=== PATIENT | female | born 1935 | race Caucasian/White ===

== ENCOUNTER 2017-05-11 18:55 | Emergency (ER) | payer MEDICARE, OTHER ==
[~2017-05-11] VITALS: Ht 157.5 cm; Wt 65.8 kg
[2017-05-11] MEDS ORDERED: IV NORMAL SALINE 500ML BAG 500 ML IV ONE (19:15)
--- NOTE | 2017-05-11 19:16 | PHYS DOC ---
Past Medical History Past Medical History: COPD, High Cholesterol, Hypertension, Hypothyroid, Other Additional Past Medical Histor: seasonal allergies Past Surgical History: Appendectomy, Cholecystectomy, Hip Replacement Additional Past Surgical Histo: L hip Alcohol Use: None Drug Use: None Adult General Chief Complaint Chief Complaint: MULTIPLE COMPLAINTS HPI HPI Patient is a 81 year old female who presents with 2-3 day history of mild to moderate nasal congestion cough sore throat and mild headache subjective fevers. No nausea vomiting or diarrhea. Decreased by mouth fluid intake. Denies sick contacts. Review of Systems Review of Systems Constitutional: Denies fever or chills [] Eyes: Denies change in visual acuity, redness, or eye pain [] HENT: Denies nasal congestion or sore throat [] Respiratory: Denies cough or shortness of breath [] Cardiovascular: No additional information not addressed in HPI [] GI: Denies abdominal pain, nausea, vomiting, bloody stools or diarrhea [] : Denies dysuria or hematuria [] Musculoskeletal: Denies back pain or joint pain [] Integument: Denies rash or skin lesions [] Neurologic: Denies headache, focal weakness or sensory changes [] Endocrine: Denies polyuria or polydipsia [] Current Medications Current Medications Current Medications Medications (Trade) Dose Ordered Sig/Silvia Start Time Stop Time Status Last Admin Dose Admin Albuterol Sulfate (Ventolin Neb Soln) 2.5 mg 1X ONCE 05/11/17 20:30 05/11/17 20:35 DC 05/11/17 20:45 2.5 MG Ipratropium [place] (Atrovent) 0.5 mg 1X ONCE 05/11/17 20:30 05/11/17 20:35 DC 05/11/17 20:45 0.5 MG Sodium Chloride 500 ml @ 500 mls/hr 1X ONCE 05/11/17 19:15 05/11/17 20:14 DC 05/11/17 19:47 500 MLS/HR Allergies Allergies Allergies Coded Allergies Type Severity Reaction Last Updated Verified No Known Drug Allergies 07/15/16 No Physical Exam Physical Exam Constitutional: Well developed, well nourished, no acute distress, non-toxic appearance. [] HENT: Normocephalic, atraumatic, bilateral external ears normal, oropharynx moist, no oral exudates, nose normal. [] Eyes: PERRLA, EOMI, conjunctiva normal, no discharge. [] Neck: Normal range of motion, no tenderness, supple, no stridor. [] Cardiovascular:Heart rate regular rhythm, no murmur [] Lungs & Thorax: Bilateral breath sounds clear to auscultation [] Abdomen: Bowel sounds normal, soft, no tenderness, no masses, no pulsatile masses. [] Skin: Warm, dry, no erythema, no rash. [] Back: No tenderness, no CVA tenderness. [] Extremities: No tenderness, no cyanosis, no clubbing, ROM intact, no edema. [] Neurologic: Alert and oriented X 3, normal motor function, normal sensory function, no focal deficits noted. [] Psychologic: Affect normal, judgement normal, mood normal. [] Current Patient Data Vital Signs Vital Signs Date Time Temp Pulse Resp B/P (MAP) Pulse Ox O2 Delivery O2 Flow Rate FiO2 05/11/17 21:42 96 151/94 (113) 95 Room Air 05/11/17 21:12 2.0 05/11/17 19:21 97.9 22 97.9 Lab Values Laboratory Tests Test 05/11/17 19:40 White Blood Count 6.0 x10^3/uL (4.0-11.0) Red Blood Count 3.60 x10^6/uL (3.50-5.40) Hemoglobin 13.1 g/dL (12.0-15.5) Hematocrit 38.7 % (36.0-47.0) Mean Corpuscular Volume 108 fL (79-100) H Mean Corpuscular Hemoglobin 36 pg (25-35) H Mean Corpuscular Hemoglobin Concent 34 g/dL (31-37) Red Cell Distribution Width 16.2 % (11.5-14.5) H Platelet Count 153 x10^3/uL (140-400) Neutrophils (%) (Auto) 72 % (31-73) Lymphocytes (%) (Auto) 15 % (24-48) L Monocytes (%) (Auto) 8 % (0-9) Eosinophils (%) (Auto) 4 % (0-3) H Basophils (%) (Auto) 0 % (0-3) Neutrophils # (Auto) 4.3 x10^3uL (1.8-7.7) Lymphocytes # (Auto) 0.9 x10^3/uL (1.0-4.8) L Monocytes # (Auto) 0.5 x10^3/uL (0.0-1.1) Eosinophils # (Auto) 0.2 x10^3/uL (0.0-0.7) Basophils # (Auto) 0.0 x10^3/uL (0.0-0.2) Sodium Level 138 mmol/L (136-145) Potassium Level 3.8 mmol/L (3.5-5.1) Chloride Level 99 mmol/L (98-107) Carbon Dioxide Level 33 mmol/L (21-32) H Anion Gap 6 (6-14) Blood Urea Nitrogen 16 mg/dL (7-20) Creatinine 1.0 mg/dL (0.6-1.0) Estimated GFR (Cockcroft-Gault) 53.1 BUN/Creatinine Ratio 16 (6-20) Glucose Level 102 mg/dL (70-99) H Calcium Level 9.6 mg/dL (8.5-10.1) Total Bilirubin 0.6 mg/dL (0.2-1.0) Aspartate Amino Transferase (AST) 19 U/L (15-37) Alanine Aminotransferase (ALT) 19 U/L (14-59) Alkaline Phosphatase 85 U/L (46-116) Total Protein 7.9 g/dL (6.4-8.2) Albumin 4.0 g/dL (3.4-5.0) Albumin/Globulin Ratio 1.0 (1.0-1.7) Laboratory Tests 05/11/17 19:40 Laboratory Tests 05/11/17 19:40 EKG EKG [] Radiology/Procedures Radiology/Procedures Chest x-ray[] negative per my review Course & Med Decision Making Course & Med Decision Making Pertinent Labs and Imaging studies reviewed. (See chart for details) Chest x-ray was negative and labs were unremarkable. 22:07 PM reexamination: Patient was resting comfortably had no headache or throat felt better she was quite happy and wanted to go home. I discussed the labs including negative strep screen and chest x-ray with the patient and family. this is more likely to be a viral syndrome and recommended supportive care with close follow-up. They seem to be quite agreeable for this. [] Dragon Disclaimer Dragon Disclaimer This electronic medical record was generated, in whole or in part, using a voice recognition dictation system. Departure Departure Impression: Primary Impression: Viral syndrome Disposition: HOME, SELF-CARE Condition: IMPROVED Referrals: QUINCY ALCANTAR MD (PCP) Patient Instructions: Viral Syndrome Scripts No Active Prescriptions or Reported Meds MINDY GAINES MD May 11, 2017 19:16
[2017-05-11 19:48] LABS: BASO % 0 % (0-3); EOS % 4 % (0-3); HEMATOCRIT 38.7 % (36.0-47.0); HEMOGLOBIN 13.1 g/dL (12.0-15.5); LYMPH # 0.9 x10^3/uL (1.0-4.8); LYMPH % 15 % (24-48); MEAN CORPUSCULAR HEMOGLOBIN 36 pg (25-35); MEAN CORPUSCULAR HGB CONC 34 g/dL (31-37); MEAN CORPUSCULAR VOLUME 108 fL (79-100); MONO % 8 % (0-9); NEUT % 72 % (31-73); PLATELET COUNT 153 x10^3/uL (140-400); RED CELL DISTRIBUTION WIDTH 16.2 % (11.5-14.5)
[2017-05-11 20:00] LABS: CALCIUM 9.6 mg/dL (8.5-10.1); GFR 53.1; POTASSIUM 3.8 mmol/L (3.5-5.1)
[2017-05-11 20:06] LABS: TOTAL BILIRUBIN 0.6 mg/dL (0.2-1.0); TOTAL PROTEIN 7.9 g/dL (6.4-8.2)
[2017-05-11] MEDS ORDERED: ALBUTEROL SULFATE 2.5 MG/3 ML NEBU. NEB ONE (20:30)
[2017-05-11] MEDS ORDERED: IPRATROPIUM BROMIDE 0.5 MG/2.5 ML NEBU. NEB ONE (20:30)
[2017-05-11 21:42] VITALS: BP 151/94
[2017-05-12 07:55] LABS: NEGATIVE OBC STREP NEG; POSITIVE OBC STREP POS
--- NOTE | 2017-05-12 08:59 | RAD ---
Portable chest, 05/11/2017: History: Dyspnea, cough and congestion The heart size and pulmonary vascularity are normal. There is calcific plaquing of aorta. No pulmonary infiltrates are seen. There is no evidence of pleural fluid. Mild spurring is present in the spine. IMPRESSION: No acute cardiopulmonary abnormality is detected.
== END 2017-05-11 23:30 | disposition home or self-care (01) ==
LOC: ER 18:55
DX: B34.9 Viral infection, unspecified (principal); J44.9 Chronic obstructive pulmonary disease, unspecified; E78.00 Pure hypercholesterolemia, unspecified; I10 Essential (primary) hypertension; E03.9 Hypothyroidism, unspecified
CPT/HCPCS: 36415; 71010; 80053; 85025; 87070; 87880; 94250; 94640; 96360; 99285; J7040; J7613; J7644

== ENCOUNTER 2017-12-24 18:26 | Inpatient (IN) | payer MEDICARE, OTHER ==
[2017-12-24] MEDS: methylPREDNISolone SOD SUCC PF 125 MG/2 ML VIAL. IV (19:22)
[2017-12-24 19:26] LABS: BASO % 0 % (0-3); EOS # 0.1 x10^3/uL (0.0-0.7); EOS % 2 % (0-3); HEMATOCRIT 37.5 % (36.0-47.0); HEMOGLOBIN 12.6 g/dL (12.0-15.5); LYMPH # 0.5 x10^3/uL (1.0-4.8); LYMPH % 6 % (24-48); MEAN CORPUSCULAR HEMOGLOBIN 31 pg (25-35); MEAN CORPUSCULAR HGB CONC 34 g/dL (31-37); MEAN CORPUSCULAR VOLUME 92 fL (79-100); MONO # 0.5 x10^3/uL (0.0-1.1); MONO % 7 % (0-9); NEUT # 6.5 x10^3uL (1.8-7.7); NEUT % 85 % (31-73); PLATELET COUNT 192 x10^3/uL (140-400); RED BLOOD COUNT 4.07 x10^6/uL (3.50-5.40); RED CELL DISTRIBUTION WIDTH 14.6 % (11.5-14.5); WHITE BLOOD COUNT 7.6 x10^3/uL (4.0-11.0)
[2017-12-24 19:31] LABS: ADD MAN DIFF? YES
[2017-12-24] MEDS: IPRATRPIUM/ALBUTEROL 0.5/2.5MG 3 ML NEBU. NEB (19:31)
[2017-12-24 19:35] LABS: ANION GAP 5 (6-14); BLOOD UREA NITROGEN 17 mg/dL (7-20); BUN/CREATININE RATIO 19 (6-20); CALCIUM 9.4 mg/dL (8.5-10.1); CARBON DIOXIDE 33 mmol/L (21-32); CHLORIDE 102 mmol/L (98-107); CREATININE 0.9 mg/dL (0.6-1.0); GFR 59.8; GLUCOSE 126 mg/dL (70-99); POTASSIUM 4.4 mmol/L (3.5-5.1); SODIUM 140 mmol/L (136-145)
[2017-12-24 19:41] LABS: ALBUMIN 3.8 g/dL (3.4-5.0); ALK PHOS 94 U/L (46-116); ALT (SGPT) 46 U/L (14-59); AST (SGOT) 23 U/L (15-37); TOTAL BILIRUBIN 0.6 mg/dL (0.2-1.0); TOTAL PROTEIN 7.7 g/dL (6.4-8.2)
[2017-12-24 19:44] LABS: LACTIC ACID 1.4 mmol/L (0.4-2.0)
[2017-12-24 19:46] LABS: TROPONINI 0.243 ng/mL (0.000-0.055)
[2017-12-24 19:47] LABS: NT-PRO BNP 1756 pg/mL (0-449)
[2017-12-24] MEDS ORDERED: ACETAMINOPHEN 325 MG TABLET. PO (20:00)
[2017-12-24] MEDS ORDERED: NITROGLYCERIN SUBLINGUAL 0.4 MG BOTTLE OF 25. SL (20:00)
[2017-12-24] MEDS ORDERED: ONDANSETRON PF 4 MG/2 ML VIAL. IV (20:00)
[2017-12-24 20:03] LABS: % LYMPHS 7 % (24-48); % MONOS 10 % (0-10); % SEGS 83 % (35-66); PLT ESTIMATE ADEQUATE (ADEQUATE)
[2017-12-24] MEDS: FUROSEMIDE 40 MG/4 ML VIAL. IVP (20:33)
[2017-12-24] MEDS: ASPIRIN CHEWABLE 81 MG TABLET. PO (20:33)
[2017-12-24] MEDS: METOPROLOL TARTRATE 5 MG/5 ML VIAL. IVP ×3 (21:02→21:32)
[2017-12-24 22:11] LABS: BASE EXCESS ABG 6 mmol/L (-3-3); FIO2 ABG 28; HCO3 ABG 30 mmol/L (21-28); PCO2 ABG 45 mmHg (35-46); PH ABG 7.45 (7.35-7.45); PO2 ABG 78 mmHg (65-108); SAT O2 ABG 96 % (92-99)
[2017-12-24] MEDS: DIGOXIN IV 500 MCG/2 ML AMPUL. IV (22:25)
[2017-12-25] MEDS: diphenhydrAMINE HCL 25 MG CAPSULE PO (00:17)
[2017-12-25 02:05] LABS: TROPONINI 0.381 ng/mL (0.000-0.055)
[2017-12-25] MEDS: IPRATRPIUM/ALBUTEROL 0.5/2.5MG 3 ML NEBU. NEB ×3 (07:23→19:42)
[2017-12-25] MEDS: LOSARTAN POTASSIUM 50 MG TABLET. PO (12:06)
[2017-12-25] MEDS: LEVOTHYROXINE 112 MCG TABLET PO (12:07)
[2017-12-25] MEDS: METOPROLOL TART IMMED RELEASE 50 MG TABLET. PO ×2 (12:07→20:24)
[2017-12-25] MEDS: CITALOPRAM 10 MG TABLET. PO (12:07)
[2017-12-25 12:10] LABS: THYROID STIM HORMONE (TSH) 0.385 uIU/mL (0.358-3.74)
[2017-12-25 15:04] LABS: PLATELET COUNT 193 x10^3/uL (140-400)
[2017-12-25] MEDS: ANTI-COAG MONITOR BY PHARMACY. MC (15:34)
[2017-12-26 05:24] LABS: ANION GAP 4 (6-14); BLOOD UREA NITROGEN 36 mg/dL (7-20); CALCIUM 9.1 mg/dL (8.5-10.1); CARBON DIOXIDE 32 mmol/L (21-32); CHLORIDE 102 mmol/L (98-107); CREATININE 1.6 mg/dL (0.6-1.0); GFR 30.8; GLUCOSE 95 mg/dL (70-99); MAGNESIUM 2.2 mg/dL (1.8-2.4); POTASSIUM 4.4 mmol/L (3.5-5.1); SODIUM 138 mmol/L (136-145)
[2017-12-26 05:33] LABS: TROPONINI 0.112 ng/mL (0.000-0.055)
[2017-12-26] MEDS: IPRATRPIUM/ALBUTEROL 0.5/2.5MG 3 ML NEBU. NEB ×2 (06:07→20:16)
[2017-12-26] MEDS: LEVOTHYROXINE 112 MCG TABLET PO (06:11)
[2017-12-26] MEDS: CITALOPRAM 10 MG TABLET. PO (08:08)
[2017-12-26] MEDS: LOSARTAN POTASSIUM 50 MG TABLET. PO (08:08)
[2017-12-26] MEDS: METOPROLOL TART IMMED RELEASE 50 MG TABLET. PO ×2 (08:08→20:35)
[2017-12-26] MEDS: ANTI-COAG MONITOR BY PHARMACY. MC (16:29)
[2017-12-26] MEDS: ATORVASTATIN CALCIUM 20 MG TABLET PO (20:34)
[2017-12-27] MEDS: LEVOTHYROXINE 112 MCG TABLET PO (06:18)
[2017-12-27 06:23] LABS: ANION GAP 2 (6-14); BLOOD UREA NITROGEN 21 mg/dL (7-20); CALCIUM 9.5 mg/dL (8.5-10.1); CARBON DIOXIDE 34 mmol/L (21-32); CHLORIDE 105 mmol/L (98-107); CREATININE 1.1 mg/dL (0.6-1.0); GFR 47.4; GLUCOSE 88 mg/dL (70-99); POTASSIUM 5.2 mmol/L (3.5-5.1); SODIUM 141 mmol/L (136-145)
[2017-12-27] MEDS: IPRATRPIUM/ALBUTEROL 0.5/2.5MG 3 ML NEBU. NEB ×2 (08:13→20:25)
[2017-12-27] MEDS: METOPROLOL TART IMMED RELEASE 50 MG TABLET. PO (09:21)
[2017-12-27] MEDS: CITALOPRAM 10 MG TABLET. PO (09:22)
[2017-12-27] MEDS: LOSARTAN POTASSIUM 50 MG TABLET. PO (09:22)
[2017-12-27] MEDS: DRONEDARONE HCL 400 MG TABLET PO (16:50)
[2017-12-27] MEDS: METOPROLOL TART IMMED RELEASE 25 MG TABLET. PO (21:04)
[2017-12-27] MEDS: ATORVASTATIN CALCIUM 20 MG TABLET PO (21:04)
[2017-12-28] MEDS: LEVOTHYROXINE 112 MCG TABLET PO (06:07)
[2017-12-28] MEDS: IPRATRPIUM/ALBUTEROL 0.5/2.5MG 3 ML NEBU. NEB (08:07)
[2017-12-28] MEDS: DRONEDARONE HCL 400 MG TABLET PO (08:14)
[2017-12-28] MEDS: ANTI-COAG MONITOR BY PHARMACY. MC (08:37)
[2017-12-28] MEDS: METOPROLOL TART IMMED RELEASE 25 MG TABLET. PO (08:46)
[2017-12-28] MEDS: CITALOPRAM 10 MG TABLET. PO (09:20)
[2017-12-28] MEDS: LOSARTAN POTASSIUM 50 MG TABLET. PO (09:21)
[2017-12-28] MEDS: SODIUM POLYSTYRENE SULFONATE 15 GM/60 ML ORAL.SUSP. PO (13:32)
[2017-12-28] MEDS: ASPIRIN ENTERIC COATED 81 MG TABLET.DR. PO (13:32)
[2017-12-28 14:02] LABS: ANION GAP 6 (6-14); BLOOD UREA NITROGEN 18 mg/dL (7-20); CALCIUM 9.6 mg/dL (8.5-10.1); CARBON DIOXIDE 29 mmol/L (21-32); CHLORIDE 102 mmol/L (98-107); CREATININE 1.1 mg/dL (0.6-1.0); GFR 47.4; GLUCOSE 116 mg/dL (70-99); SODIUM 137 mmol/L (136-145)
[2017-12-28 14:04] LABS: POTASSIUM 5.4 mmol/L (3.5-5.1)
[2017-12-28] MEDS ORDERED: METOPROLOL TART IMMED RELEASE 25 MG TABLET. PO (21:00)
== END 2017-12-28 16:30 | disposition home or self-care (01) | DRG 280 ==
LOC: ER 18:26 → 2 NORTH 19:51
DX: I21.A1 Myocardial infarction type 2 (principal); I50.21 Acute systolic (congestive) heart failure; J44.1 Chronic obstructive pulmonary disease with (acute) exacerbation; N17.9 Acute kidney failure, unspecified; I11.0 Hypertensive heart disease with heart failure; I48.0 Paroxysmal atrial fibrillation; F03.90 Unspecified dementia, unspecified severity, without behavioral disturbance, psychotic disturbance, mood disturbance, and anxiety; E78.00 Pure hypercholesterolemia, unspecified; E03.9 Hypothyroidism, unspecified; Z96.649 Presence of unspecified artificial hip joint; E78.5 Hyperlipidemia, unspecified; J30.2 Other seasonal allergic rhinitis; I35.1 Nonrheumatic aortic (valve) insufficiency; Z82.49 Family history of ischemic heart disease and other diseases of the circulatory system; Z90.710 Acquired absence of both cervix and uterus; Z90.49 Acquired absence of other specified parts of digestive tract; E87.6 Hypokalemia; E87.5 Hyperkalemia
CPT/HCPCS: 36415; 36600; 71045; 80048; 80053; 82805; 83605; 83735; 83880; 84443; 84484; 85007; 85025; 85049; 87040; 93005; 94618; 94640; 94760; 96374; 96375; 99291; J1160; J1650; J1940; J2930; J3490; J7620; Q0163

== ENCOUNTER 2018-06-16 18:15 | Emergency (ER) | payer MEDICARE, OTHER ==
[~2018-06-16] VITALS: Ht 154.9 cm; Wt 61.2 kg
[~2018-06-16 18:15] MED LIST: ASPI-612 PO; ATOR20TA58 PO; CITA10TA4 PO; DRON400T PO; IPRA3AMP29 NEB; LEVO112T4 PO; LOSA50TA7 PO; MEMA1CAP3; METO25TA4 PO; METO50TA6 PO
[2018-06-16 18:58] LABS: BILIRUBIN,URINE SMALL (NEG); CLARITY,URINE CLEAR; COLOR,URINE YELLOW; NITRITE,URINE NEGATIVE (NEG); PH,URINE 5.5; PROTEIN,URINE NEGATIVE (NEG-TRACE)
[2018-06-16 19:10] LABS: BACTERIA,URINE 0 /HPF (0-FEW); HYALINE CASTS, URINE MODERATE /HPF; RBC,URINE 0 /HPF (0-2); SQUAMOUS EPITHELIAL CELL,UR MOD /LPF
[2018-06-16 19:31] LABS: BASO % 1 % (0-3); EOS # 0.4 x10^3/uL (0.0-0.7); EOS % 6 % (0-3); HEMATOCRIT 36.9 % (36.0-47.0); HEMOGLOBIN 12.4 g/dL (12.0-15.5); LYMPH # 1.1 x10^3/uL (1.0-4.8); LYMPH % 18 % (24-48); MEAN CORPUSCULAR HEMOGLOBIN 31 pg (25-35); MEAN CORPUSCULAR HGB CONC 34 g/dL (31-37); MEAN CORPUSCULAR VOLUME 93 fL (79-100); MONO # 0.7 x10^3/uL (0.0-1.1); MONO % 11 % (0-9); NEUT # 4.2 x10^3uL (1.8-7.7); NEUT % 65 % (31-73); PLATELET COUNT 205 x10^3/uL (140-400); RED BLOOD COUNT 3.96 x10^6/uL (3.50-5.40); RED CELL DISTRIBUTION WIDTH 15.6 % (11.5-14.5); WHITE BLOOD COUNT 6.5 x10^3/uL (4.0-11.0)
--- NOTE | 2018-06-16 19:32 | PHYS DOC ---
Past Medical History Past Medical History: COPD, Dementia, High Cholesterol, Hypertension, Hypothyroid, Other Additional Past Medical Histor: seasonal allergies Past Surgical History: Appendectomy, Cholecystectomy, Hip Replacement, Hysterectomy, Tonsillectomy, Other Additional Past Surgical Histo: L hip Alcohol Use: Rarely Drug Use: None Adult General Chief Complaint Chief Complaint: ABDOMINAL PAIN HPI HPI Patient is a 82 year old female who presents for evaluation of diffuse lower abd pain, persistent since this afternoon after eating a salad. She notes one episode of post-tussive emesis occurring after waking up this morning. Pt also reports the feeling of bloating and gas within her abd. She denies diarrhea, constipation, and hematochezia. Her last normal BM was around 1 hour ago. She was able to eat lunch at the [facility] this afternoon and did not have any pain, nausea or vomiting with this but the symptoms developed shortly after the. She does report eating some lettuce during lunch that she states "did not sit well" in her stomach and has led to a persistent sour taste in her mouth along with unpleasant belching. She denies any recent fevers or chills. She reports a PSHx of hysterectomy but denies any other abd surgeries. Denies CP, dysuria, hematuria, weakness, or lightheadedness. No other Sx or complaints at this time. Review of Systems Review of Systems Constitutional: Denies fever or chills [] Eyes: Denies change in visual acuity, redness, or eye pain [] HENT: Denies nasal congestion or sore throat [] Respiratory: Denies cough or shortness of breath [] Cardiovascular: No additional information not addressed in HPI [] GI: + lower abd pain, +bloating, +belching. Denies constipation, diarrhea, and hematochezia : Denies dysuria or hematuria [] Musculoskeletal: Denies back pain or joint pain [] Integument: Denies rash or skin lesions [] Neurologic: Denies headache, focal weakness or sensory changes [] Endocrine: Denies polyuria or polydipsia [] All other systems were reviewed and found to be within normal limits, except as documented in this note. Current Medications Current Medications Current Medications Medications (Trade) Dose Ordered Sig/Silvia Start Time Stop Time Status Last Admin Dose Admin Iohexol (Omnipaque 300 Mg/ml) 60 ml 1X ONCE 06/16/18 20:15 06/16/18 20:16 DC Sodium Chloride 1,000 ml @ 1,000 mls/hr 1X ONCE 06/16/18 20:00 06/16/18 20:59 Allergies Allergies Allergies Coded Allergies Type Severity Reaction Last Updated Verified No Known Drug Allergies 07/15/16 No Physical Exam Physical Exam Constitutional: Well developed, well nourished, no acute distress, non-toxic appearance. [] HENT: Normocephalic, atraumatic, bilateral external ears normal, oropharynx moist, no oral exudates, nose normal. [] Eyes: PERRLA, EOMI, conjunctiva normal, no discharge. [] Neck: Normal range of motion, no tenderness, supple, no stridor. [] Cardiovascular:Heart rate regular rhythm, no murmur [] Lungs & Thorax: Bilateral breath sounds clear to auscultation [] Abdomen: Bowel sounds normal, soft, no masses, no pulsatile masses. + Mild diffuse lower abd TTP. Negative murphys. No rebound, rigidity or guarding. Skin: Warm, dry, no erythema, no rash. [] Back: No tenderness, no CVA tenderness. [] Extremities: No tenderness, no cyanosis, no clubbing, ROM intact, no edema. [] Neurologic: Alert and oriented X 3, normal motor function, normal sensory function, no focal deficits noted. [] Psychologic: Affect normal, judgement normal, mood normal. [] Current Patient Data Vital Signs Vital Signs Date Time Temp Pulse Resp B/P (MAP) Pulse Ox O2 Delivery O2 Flow Rate FiO2 06/16/18 18:27 98.1 57 16 157/67 (97) 94 Room Air 98.1 Lab Values Laboratory Tests Test 06/16/18 18:45 White Blood Count 6.5 x10^3/uL (4.0-11.0) Red Blood Count 3.96 x10^6/uL (3.50-5.40) Hemoglobin 12.4 g/dL (12.0-15.5) Hematocrit 36.9 % (36.0-47.0) Mean Corpuscular Volume 93 fL (79-100) Mean Corpuscular Hemoglobin 31 pg (25-35) Mean Corpuscular Hemoglobin Concent 34 g/dL (31-37) Red Cell Distribution Width 15.6 % (11.5-14.5) H Platelet Count 205 x10^3/uL (140-400) Neutrophils (%) (Auto) 65 % (31-73) Lymphocytes (%) (Auto) 18 % (24-48) L Monocytes (%) (Auto) 11 % (0-9) H Eosinophils (%) (Auto) 6 % (0-3) H Basophils (%) (Auto) 1 % (0-3) Neutrophils # (Auto) 4.2 x10^3uL (1.8-7.7) Lymphocytes # (Auto) 1.1 x10^3/uL (1.0-4.8) Monocytes # (Auto) 0.7 x10^3/uL (0.0-1.1) Eosinophils # (Auto) 0.4 x10^3/uL (0.0-0.7) Basophils # (Auto) 0.0 x10^3/uL (0.0-0.2) Urine Collection Type Unknown Urine Color Yellow Urine Clarity Clear Urine pH 5.5 Urine Specific [place] 1.025 Urine Protein Negative mg/dL (NEG-TRACE) Urine Glucose (UA) Negative mg/dL (NEG) Urine Ketones (Stick) Negative mg/dL (NEG) Urine Blood Negative (NEG) Urine Nitrite Negative (NEG) Urine Bilirubin Small (NEG) Urine Urobilinogen Dipstick 1.0 mg/dL (0.2 mg/dL) Urine Leukocyte Esterase Small (NEG) Urine RBC 0 /HPF (0-2) Urine WBC 5-10 /HPF (0-4) Urine Squamous Epithelial Cells Mod /LPF Urine Transitional Epithelial Cells Few /LPF Urine Renal Epithelial Cells Few /LPF Urine Bacteria 0 /HPF (0-FEW) Urine Hyaline Casts Moderate /HPF Urine Mucus Marked /LPF Sodium Level 141 mmol/L (136-145) Potassium Level 4.4 mmol/L (3.5-5.1) Chloride Level 103 mmol/L (98-107) Carbon Dioxide Level 32 mmol/L (21-32) Anion Gap 6 (6-14) Blood Urea Nitrogen 27 mg/dL (7-20) H Creatinine 1.4 mg/dL (0.6-1.0) H Estimated GFR (Cockcroft-Gault) 35.9 BUN/Creatinine Ratio 19 (6-20) Glucose Level 92 mg/dL (70-99) Calcium Level 9.0 mg/dL (8.5-10.1) Total Bilirubin 0.4 mg/dL (0.2-1.0) Aspartate Amino Transferase (AST) 15 U/L (15-37) Alanine Aminotransferase (ALT) 20 U/L (14-59) Alkaline Phosphatase 76 U/L (46-116) Troponin I Quantitative < 0.017 ng/mL (0.000-0.055) Total Protein 6.6 g/dL (6.4-8.2) Albumin 3.4 g/dL (3.4-5.0) Albumin/Globulin Ratio 1.1 (1.0-1.7) Lipase 108 U/L (73-393) Laboratory Tests 06/16/18 18:45 Laboratory Tests 06/16/18 18:45 EKG EKG []EKG shows a normal sinus rhythm with a rate of 59 there are no acute ischemic changes noted this was interpreted by me the time of encounter. Radiology/Procedures Radiology/Procedures [] Impressions: The UA is very likely contaminated no dysuria is noted. Course & Med Decision Making Course & Med Decision Making Pertinent Labs and Imaging studies reviewed. (See chart for details) Assessment: 82 y/o female presents with lower abd pain, describes sensation of gaseous distention initial abdominal exam revealed mild right lower quadrant tenderness however on reevaluation approximately one hour later after no pain medication the tenderness had resolved completely. Additionally obtain additional history from the patient's recent H&P from her primary doctor in the record as well as a recent CT scan back in 2016 both of which documented history of appendectomy and no appendix was seen on CT 2 years ago. Patient additionally has resolved tenderness labs look good. She is very well-appearing at this time no acute indication for CT imaging she is taking by mouth or tenderness has resolved with instruct the mother a lot of bring her back within 8-12 hours for fever recurrent pain or vomiting she is agreeable patient is very eager to be discharged home. Dragon Disclaimer Dragon Disclaimer This electronic medical record was generated, in whole or in part, using a voice recognition dictation system. Departure Departure Impression: Primary Impression: Abdominal pain Disposition: 01 HOME, SELF-CARE Condition: STABLE Referrals: QUINCY ALCANTAR MD (PCP) EDISON PENALOZA MD Jun 16, 2018 19:32
[2018-06-16 19:40] LABS: CREATININE 1.4 mg/dL (0.6-1.0); GFR 35.9; POTASSIUM 4.4 mmol/L (3.5-5.1)
[2018-06-16 19:46] LABS: ALBUMIN 3.4 g/dL (3.4-5.0); ALBUMIN/GLOBULIN RATIO 1.1 (1.0-1.7); TOTAL BILIRUBIN 0.4 mg/dL (0.2-1.0); TOTAL PROTEIN 6.6 g/dL (6.4-8.2)
[2018-06-16] MEDS ORDERED: IV NORMAL SALINE 1000ML BAG 1,000 ML IV ONE (20:00)
[2018-06-16 20:07] VITALS: BP 136/98
[2018-06-16] MEDS ORDERED: IOHEXOL 300 MG/ML 100ML VIAL. IV ONE (20:15)
--- NOTE | 2018-06-17 06:55 | EKG ---
[facility] [address] [place] [address] Test Date: 2018-06-16 Test Time: 20:01:53 Pat Name: PATRIA CAMPUZANO Department: Room: Gender: F [employer] Operations Lead: : 1935 Requested By: EDISON PENALOZA Order Number: [id number] Reading MD: David Carson Measurements Intervals [place] Rate: 59 P: 64 NE: 188 QRS: 51 QRSD: 76 T: 74 QT: 424 QTc: 424 Interpretive Statements SINUS RHYTHM NORMAL ECG Electronically Signed On 06-20-2018 8:43:04 NURSE ASSISTANT by David Carson
== END 2018-06-16 20:32 | disposition home or self-care (01) ==
LOC: ER 18:15
DX: R10.84 Generalized abdominal pain (principal); R14.0 Abdominal distension (gaseous); J44.9 Chronic obstructive pulmonary disease, unspecified; E78.00 Pure hypercholesterolemia, unspecified; I10 Essential (primary) hypertension; F03.90 Unspecified dementia, unspecified severity, without behavioral disturbance, psychotic disturbance, mood disturbance, and anxiety; E03.9 Hypothyroidism, unspecified; Z90.49 Acquired absence of other specified parts of digestive tract; Z90.89 Acquired absence of other organs; Z90.710 Acquired absence of both cervix and uterus; Z96.649 Presence of unspecified artificial hip joint
CPT/HCPCS: 36415; 80053; 81001; 83690; 84484; 85025; 87086; 93005; 99284-25

== ENCOUNTER 2018-07-15 12:38 | Emergency (ER) | payer MEDICARE, OTHER ==
[~2018-07-15] VITALS: Ht 157.5 cm; Wt 61.2 kg
[~2018-07-15 12:38] MED LIST changes: +LOSA-73 PO; -LOSA50TA7 PO
[2018-07-15 13:55] LABS: BASO % 1 % (0-3); EOS # 0.1 x10^3/uL (0.0-0.7); EOS % 2 % (0-3); HEMATOCRIT 34.9 % (36.0-47.0); HEMOGLOBIN 11.8 g/dL (12.0-15.5); LYMPH # 0.7 x10^3/uL (1.0-4.8); LYMPH % 14 % (24-48); MEAN CORPUSCULAR HEMOGLOBIN 32 pg (25-35); MEAN CORPUSCULAR HGB CONC 34 g/dL (31-37); MEAN CORPUSCULAR VOLUME 93 fL (79-100); MONO # 0.5 x10^3/uL (0.0-1.1); MONO % 10 % (0-9); NEUT # 3.7 x10^3uL (1.8-7.7); NEUT % 73 % (31-73); PLATELET COUNT 169 x10^3/uL (140-400); RED BLOOD COUNT 3.75 x10^6/uL (3.50-5.40); RED CELL DISTRIBUTION WIDTH 15.1 % (11.5-14.5); WHITE BLOOD COUNT 5.1 x10^3/uL (4.0-11.0)
[2018-07-15 13:57] LABS: BILIRUBIN,URINE NEGATIVE (NEG); CLARITY,URINE CLEAR; COLOR,URINE YELLOW; NITRITE,URINE NEGATIVE (NEG); PROTEIN,URINE NEGATIVE (NEG-TRACE)
[2018-07-15 14:06] LABS: BACTERIA,URINE 0 /HPF (0-FEW); SQUAMOUS EPITHELIAL CELL,UR FEW /LPF
[2018-07-15 14:07] LABS: CALCIUM 9.1 mg/dL (8.5-10.1); CREATININE 1.1 mg/dL (0.6-1.0); GFR 47.4; POTASSIUM 3.8 mmol/L (3.5-5.1)
[2018-07-15 14:13] LABS: ALBUMIN 3.3 g/dL (3.4-5.0); ALBUMIN/GLOBULIN RATIO 0.9 (1.0-1.7); TOTAL BILIRUBIN 0.3 mg/dL (0.2-1.0)
[2018-07-15] MEDS ORDERED: CONTRAST GIVEN. MC PRN (14:15)
[2018-07-15] MEDS ORDERED: IOHEXOL 300 MG/ML 100ML VIAL. IV ONE ×2 (14:30)
--- NOTE | 2018-07-15 15:42 | PHYS DOC ---
Past Medical History Past Medical History: COPD, Dementia, High Cholesterol, Hypertension, Hypothyroid, Other Additional Past Medical Histor: seasonal allergies Past Surgical History: Appendectomy, Cholecystectomy, Hip Replacement, Hysterectomy, Tonsillectomy, Other Additional Past Surgical Histo: L hip Alcohol Use: Rarely Drug Use: None Adult General Chief Complaint Chief Complaint: SHORTNESS OF BREATH HPI HPI Patient is a 82 year old female who presents with chronic cough, chronic shortness of air since she with exertion with white mucus production with cough , lower abdominal pain that has history of constipation, denies dysuria. States The abdominal pain comes and goes and is sharp at times. She denies nausea, vomiting, dizziness, chest pain, numbness or tingling. Review of Systems Review of Systems Constitutional: Denies fever or chills [] Eyes: Denies change in visual acuity, redness, or eye pain [] HENT: Denies nasal congestion or sore throat [] Respiratory: Denies cough or shortness of breath [] Cardiovascular: No additional information not addressed in HPI [] GI: Denies abdominal pain, nausea, vomiting, bloody stools or diarrhea [] : Denies dysuria or hematuria [] Musculoskeletal: Denies back pain or joint pain [] Integument: Denies rash or skin lesions [] Neurologic: Denies headache, focal weakness or sensory changes [] Endocrine: Denies polyuria or polydipsia [] All other systems were reviewed and found to be within normal limits, except as documented in this note. Current Medications Current Medications Current Medications Medications (Trade) Dose Ordered Sig/Silvia Start Time Stop Time Status Last Admin Dose Admin Dexamethasone (Decadron) 8 mg 1X ONCE 07/15/18 16:45 07/15/18 16:48 DC Info (CONTRAST GIVEN -- Rx MONITORING) 1 each PRN DAILY PRN 07/15/18 14:15 07/17/18 14:14 Iohexol (Omnipaque 300 Mg/ml) 60 ml 1X ONCE 07/15/18 14:30 07/15/18 14:31 DC Sodium Chloride 1,000 ml @ 1,000 mls/hr 1X ONCE 07/15/18 15:45 07/15/18 16:44 DC 07/15/18 16:23 1,000 MLS/HR Allergies Allergies Allergies Coded Allergies Type Severity Reaction Last Updated Verified No Known Drug Allergies 07/15/16 No Physical Exam Physical Exam Constitutional: Well developed, well nourished, no acute distress, non-toxic appearance. [] HENT: Normocephalic, atraumatic, bilateral external ears normal, oropharynx moist, no oral exudates, nose normal. [] Eyes: PERRLA, EOMI, conjunctiva normal, no discharge. [] Neck: Normal range of motion, no tenderness, supple, no stridor. [] Cardiovascular:Heart rate regular rhythm, no murmur [] Lungs & Thorax: Bilateral breath sounds clear to auscultation [] Abdomen: Bowel sounds normal, soft, no tenderness, no masses, no pulsatile masses. [] Skin: Warm, dry, no erythema, no rash. [] Back: No tenderness, no CVA tenderness. [] Extremities: No tenderness, no cyanosis, no clubbing, ROM intact, no edema. [] Neurologic: Alert and oriented X 3, normal motor function, normal sensory function, no focal deficits noted. [] Psychologic: Affect normal, judgement normal, mood normal. [] Current Patient Data Vital Signs Vital Signs Date Time Temp Pulse Resp B/P (MAP) Pulse Ox O2 Delivery O2 Flow Rate FiO2 07/15/18 13:01 98.0 64 26 158/56 (90) 96 Room Air 98.0 Lab Values Laboratory Tests Test 07/15/18 13:00 07/15/18 13:40 Urine Collection Type Unknown Urine Color Yellow Urine Clarity Clear Urine pH 6.0 Urine Specific [place] 1.015 Urine Protein Negative mg/dL (NEG-TRACE) Urine Glucose (UA) Negative mg/dL (NEG) Urine Ketones (Stick) Negative mg/dL (NEG) Urine Blood Negative (NEG) Urine Nitrite Negative (NEG) Urine Bilirubin Negative (NEG) Urine Urobilinogen Dipstick 1.0 mg/dL (0.2 mg/dL) Urine Leukocyte Esterase Negative (NEG) Urine RBC 1-2 /HPF (0-2) Urine WBC 1-4 /HPF (0-4) Urine Squamous Epithelial Cells Few /LPF Urine Bacteria 0 /HPF (0-FEW) Urine Mucus Mod /LPF White Blood Count 5.1 x10^3/uL (4.0-11.0) Red Blood Count 3.75 x10^6/uL (3.50-5.40) Hemoglobin 11.8 g/dL (12.0-15.5) L Hematocrit 34.9 % (36.0-47.0) L Mean Corpuscular Volume 93 fL (79-100) Mean Corpuscular Hemoglobin 32 pg (25-35) Mean Corpuscular Hemoglobin Concent 34 g/dL (31-37) Red Cell Distribution Width 15.1 % (11.5-14.5) H Platelet Count 169 x10^3/uL (140-400) Neutrophils (%) (Auto) 73 % (31-73) Lymphocytes (%) (Auto) 14 % (24-48) L Monocytes (%) (Auto) 10 % (0-9) H Eosinophils (%) (Auto) 2 % (0-3) Basophils (%) (Auto) 1 % (0-3) Neutrophils # (Auto) 3.7 x10^3uL (1.8-7.7) Lymphocytes # (Auto) 0.7 x10^3/uL (1.0-4.8) L Monocytes # (Auto) 0.5 x10^3/uL (0.0-1.1) Eosinophils # (Auto) 0.1 x10^3/uL (0.0-0.7) Basophils # (Auto) 0.0 x10^3/uL (0.0-0.2) Sodium Level 140 mmol/L (136-145) Potassium Level 3.8 mmol/L (3.5-5.1) Chloride Level 103 mmol/L (98-107) Carbon Dioxide Level 32 mmol/L (21-32) Anion Gap 5 (6-14) L Blood Urea Nitrogen 16 mg/dL (7-20) Creatinine 1.1 mg/dL (0.6-1.0) H Estimated GFR (Cockcroft-Gault) 47.4 BUN/Creatinine Ratio 15 (6-20) Glucose Level 91 mg/dL (70-99) Calcium Level 9.1 mg/dL (8.5-10.1) Total Bilirubin 0.3 mg/dL (0.2-1.0) Aspartate Amino Transferase (AST) 17 U/L (15-37) Alanine Aminotransferase (ALT) 23 U/L (14-59) Alkaline Phosphatase 68 U/L (46-116) Troponin I Quantitative < 0.017 ng/mL (0.000-0.055) ZF-Svl-E-Type Natriuretic Peptide 294 pg/mL (0-449) Total Protein 7.0 g/dL (6.4-8.2) Albumin 3.3 g/dL (3.4-5.0) L Albumin/Globulin Ratio 0.9 (1.0-1.7) L Lipase 80 U/L (73-393) Laboratory Tests 07/15/18 13:40 Laboratory Tests 07/15/18 13:40 EKG EKG Sinus rhythm and no STEMI Interpretation Time: [address] Lange Radiology/Procedures Radiology/Procedures Chest xray, ct abdomen Impressions: [facility] [address] [place] [address] IMAGING REPORT Signed PATIENT: PATRIA CAMPUZANO ACCOUNT: [id number] : 1935 LOCATION: ER AGE: 82 SEX: F EXAM STATUS: REG ER ORD. PHYSICIAN: DANNY PIMENTEL APRN REASON: COUGH, SOA PROCEDURE: CHEST PA & LATERAL Chest radiograph 07/15/2018 3:04 PM INDICATION: Cough, shortness of air COMPARISON: December 24, 2017 TECHNIQUE: Frontal and lateral views of the chest are provided. FINDINGS: The cardiomediastinal silhouette is within normal limits. There are no pleural effusions. There is no pulmonary vascular congestion. There is no pneumothorax. The lungs are clear. Pulmonary emphysema. Mild to moderate thoracic spondylosis. IMPRESSION: COPD without acute cardiopulmonary process. Electronically signed by: Christina Villafana MD (07/15/2018 3:45 PM) [facility] DICTATED and SIGNED BY: CHRISTINA VILLAFANA MD DATE: 07/15/18 1545 [facility] [address] [place] [address] [id number] IMAGING REPORT Signed PATIENT: PATRIA CAMPUZANO ACCOUNT: [id number] : 1935 LOCATION: ER AGE: 82 SEX: F EXAM STATUS: REG ER ORD. PHYSICIAN: DANNY PIMENTEL APRN REASON: ABDOMINAL PAIN X 1 WEEK PROCEDURE: CT ABD PELV W/ IV CONTRST ONLY Examination: CT of the abdomen pelvis with IV contrast HISTORY: History of abdominal pain for one week COMPARISON: None available TECHNIQUE: Axial CT images of the abdomen pelvis were performed with IV contrast: Sagittal deformities are performed Exposure: One or more of the following individualized dose reduction techniques were utilized for this examination: 1. Automated exposure control 2. Adjustment of the mA and/or kV according to patient size 3. Use of iterative reconstruction technique FINDINGS: Minimal bibasilar lung atelectasis. No evidence of free air identified in the abdomen The visualized liver, spleen, adrenals grossly appears unremarkable. The gallbladder is mildly distended. Small hyperdensity identified in the proximal gallbladder could be gallstone. The common bile duct is mildly prominent measuring 7.5 mm in transverse dimension. Small hiatal hernia. The stomach is mildly distended. The small bowel is nondilated. Feces and gas noted in the colon. The urinary bladder is mildly distended. The bilateral kidneys enhance symmetrically. There is minimal fat stranding identified inferior to the pancreas in the mesenteric root. The small bowel is nondilated. Feces and gas noted in the colon throughout. Urinary bladder is mildly distended. Multiple sigmoid colon diverticulosis. Evaluation of the pelvis is limited due to streak artifact from left hip arthroplasty. Mild superior endplate compression changes of T11, T12 vertebral bodies identified IMPRESSION: 1. Mild fat stranding identified just inferior to the pancreas about the mesenteric root, nonspecific. Pancreatitis is not completely excluded. Correlate with lab values. 2. Small hyperdensity identified in the proximal gallbladder could be a gallstone. Mild prominent appearing gallbladder and common bile duct. Correlate with liver function tests. Recommend ultrasound right upper quadrant 3. Small hiatal hernia. 4. Sigmoid colon diverticulosis. Electronically signed by: Carlos Palafox MD (07/15/2018 3:44 PM) [facility] DICTATED and SIGNED BY: CARLOS PALAFOX MD DATE: 07/15/18 1530 Course & Med Decision Making Course & Med Decision Making Patient is a 82 year old female who presents with chronic cough, chronic shortness of air since she with exertion with white mucus production with cough , lower abdominal pain that has history of constipation, denies dysuria. States The abdominal pain comes and goes and is sharp at times. She denies nausea, vomiting, dizziness, chest pain, numbness or tingling. Alert and oriented. Skin is pink warm and dry. Mucus membranes are moist. She states she is eating and drinking fine. She states that shortness of air comes with exertion. Patient speaks in full clear sentences. Abdomen is soft and nontender. Lungs are clear to auscultation in upper lobes but diminished in lower lobes. Patient does have bilateral pedal pulse 2-3+ nonpitting. She does have a history of A. fib she is currently in sinus rhythm and there is no STEMI. Patient states that she has constipation issues but she had a bowel movement this morning that was large and soft. Urine shows no infection, blood work is unremarkable. LFT's and Lipase are normal. Chest xray show no acute findings, only chronic COPD. CT shows 1. Mild fat stranding identified just inferior to the pancreas about the mesenteric root , nonspecific. Pancreatitis is not completely excluded. Correlate with lab values. 2. Small hyperdensity identified in the proximal gallbladder could be a gallstone. Mild prominent appearing gallbladder and common bile duct. Correlate with liver function tests. Recommend ultrasound right upper quadrant 3. Small hiatal hernia. 4. Sigmoid colon diverticulosis. Patient has no tenderness to her abdomen with reevaluation and has no McBurney's point tenderness. Patient needs to follow up with her primary care doctor on Wednesday or return to ED if not getting better. Dragon Disclaimer Dragon Disclaimer This electronic medical record was generated, in whole or in part, using a voice recognition dictation system. Departure Departure Impression: Primary Impression: Lower abdominal pain Disposition: HOME, SELF-CARE Condition: STABLE Referrals: QUINCY ALCANTAR MD (PCP) Patient Instructions: Abdominal Pain (Nonspecific) Additional Instructions: FOLLOW UP WITH YOUR PRIMARY CARE ON WEDNESDAY. DANNY PIMENTEL BOX STAP[employer]ER Jul 15, 2018 15:42
[2018-07-15] MEDS ORDERED: IV NORMAL SALINE 1000ML BAG 1,000 ML IV ONE (15:45)
--- NOTE | 2018-07-15 16:13 | RAD ---
Examination: CT of the abdomen pelvis with IV contrast HISTORY: History of abdominal pain for one week COMPARISON: None available TECHNIQUE: Axial CT images of the abdomen pelvis were performed with IV contrast: Sagittal deformities are performed Exposure: One or more of the following individualized dose reduction techniques were utilized for this examination: 1. Automated exposure control 2. Adjustment of the mA and/or kV according to patient size 3. Use of iterative reconstruction technique FINDINGS: Minimal bibasilar lung atelectasis. No evidence of free air identified in the abdomen The visualized liver, spleen, adrenals grossly appears unremarkable. The gallbladder is mildly distended. Small hyperdensity identified in the proximal gallbladder could be gallstone. The common bile duct is mildly prominent measuring 7.5 mm in transverse dimension. Small hiatal hernia. The stomach is mildly distended. The small bowel is nondilated. Feces and gas noted in the colon. The urinary bladder is mildly distended. The bilateral kidneys enhance symmetrically. There is minimal fat stranding identified inferior to the pancreas in the mesenteric root. The small bowel is nondilated. Feces and gas noted in the colon throughout. Urinary bladder is mildly distended. Multiple sigmoid colon diverticulosis. Evaluation of the pelvis is limited due to streak artifact from left hip arthroplasty. Mild superior endplate compression changes of T11, T12 vertebral bodies identified IMPRESSION: 1. Mild fat stranding identified just inferior to the pancreas about the mesenteric root, nonspecific. Pancreatitis is not completely excluded. Correlate with lab values. 2. Small hyperdensity identified in the proximal gallbladder could be a gallstone. Mild prominent appearing gallbladder and common bile duct. Correlate with liver function tests. Recommend ultrasound right upper quadrant 3. Small hiatal hernia. 4. Sigmoid colon diverticulosis. Electronically signed by: Carlos Palafox MD (07/15/2018 3:44 PM) [place] [id number]
--- NOTE | 2018-07-15 16:13 | RAD ---
Chest radiograph 07/15/2018 3:04 PM INDICATION: Cough, shortness of air COMPARISON: December 24, 2017 TECHNIQUE: Frontal and lateral views of the chest are provided. FINDINGS: The cardiomediastinal silhouette is within normal limits. There are no pleural effusions. There is no pulmonary vascular congestion. There is no pneumothorax. The lungs are clear. Pulmonary emphysema. Mild to moderate thoracic spondylosis. IMPRESSION: COPD without acute cardiopulmonary process. Electronically signed by: Khushbu Peterson MD (07/15/2018 3:45 PM) [facility]
[2018-07-15] MEDS ORDERED: DEXAMETHASONE 4 MG TABLET PO ONE (16:45)
[2018-07-15 17:19] VITALS: BP 170/68
--- NOTE | 2018-07-21 08:41 | EKG ---
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
== END 2018-07-15 18:02 | disposition home or self-care (01) ==
LOC: ER 12:38
DX: R10.30 Lower abdominal pain, unspecified (principal); K44.9 Diaphragmatic hernia without obstruction or gangrene; K57.30 Diverticulosis of large intestine without perforation or abscess without bleeding; J44.9 Chronic obstructive pulmonary disease, unspecified; E78.00 Pure hypercholesterolemia, unspecified; I10 Essential (primary) hypertension; F03.90 Unspecified dementia, unspecified severity, without behavioral disturbance, psychotic disturbance, mood disturbance, and anxiety; E03.9 Hypothyroidism, unspecified; Z90.89 Acquired absence of other organs; Z90.49 Acquired absence of other specified parts of digestive tract; Z90.710 Acquired absence of both cervix and uterus
CPT/HCPCS: 36415; 71046; 74177; 80053; 81001; 83690; 83880; 84484; 85025; 99284; J7030; J8540; Q9967; 93005

== ENCOUNTER 2018-07-28 18:53 | Inpatient (IN) | payer MEDICARE, OTHER ==
[~2018-07-28] VITALS: Ht 157.5 cm; Wt 61.2 kg
[2018-07-28] MEDS ORDERED: IPRATRPIUM/ALBUTEROL 0.5/2.5MG 3 ML NEBU. NEB ONE (19:15)
[2018-07-28 19:38] LABS: BASO % 1 % (0-3); EOS # 0.2 x10^3/uL (0.0-0.7); EOS % 3 % (0-3); HEMATOCRIT 37.4 % (36.0-47.0); HEMOGLOBIN 12.7 g/dL (12.0-15.5); LYMPH # 0.4 x10^3/uL (1.0-4.8); LYMPH % 8 % (24-48); MEAN CORPUSCULAR HEMOGLOBIN 32 pg (25-35); MEAN CORPUSCULAR HGB CONC 34 g/dL (31-37); MEAN CORPUSCULAR VOLUME 93 fL (79-100); MONO # 0.6 x10^3/uL (0.0-1.1); MONO % 12 % (0-9); NEUT # 3.9 x10^3uL (1.8-7.7); NEUT % 76 % (31-73); PLATELET COUNT 164 x10^3/uL (140-400); RED BLOOD COUNT 4.01 x10^6/uL (3.50-5.40); RED CELL DISTRIBUTION WIDTH 15.1 % (11.5-14.5); WHITE BLOOD COUNT 5.2 x10^3/uL (4.0-11.0)
[2018-07-28 19:47] LABS: CALCIUM 9.1 mg/dL (8.5-10.1); CREATININE 1.3 mg/dL (0.6-1.0); GFR 39.1; POTASSIUM 4.2 mmol/L (3.5-5.1)
[2018-07-28 19:53] LABS: ALBUMIN 3.7 g/dL (3.4-5.0); ALBUMIN/GLOBULIN RATIO 0.9 (1.0-1.7); TOTAL BILIRUBIN 0.5 mg/dL (0.2-1.0); TOTAL PROTEIN 7.7 g/dL (6.4-8.2)
[2018-07-28 20:07] LABS: INFLUENZA A PATIENT NEGATIVE (NEGATIVE); INFLUENZA B PATIENT NEGATIVE (NEGATIVE)
--- NOTE | 2018-07-28 21:26 | PHYS DOC ---
Past Medical History Past Medical History: A-Fib, COPD, Dementia, High Cholesterol, Hypertension, Hypothyroid, Other Additional Past Medical Histor: seasonal allergies Past Surgical History: Appendectomy, Cholecystectomy, Hip Replacement, Hysterectomy, Tonsillectomy, Other Additional Past Surgical Histo: L hip Alcohol Use: Rarely Drug Use: None Adult General Chief Complaint Chief Complaint: SHORTNESS OF BREATH HPI HPI Patient is an 82-year-old female who presents with complaint of shortness of breath for the last few days. Patient has been taking breathing treatments at home without success. Patient indicates that shortness breath is worsened on minimal exertion. She denies any chest pain. She does admit to a cough but states the cough is nonproductive. Upon patient arrival, patient's oxygen saturation was 84% on room air. Patient does not use home oxygen. Review of Systems Review of Systems Constitutional: Denies fever or chills [] Respiratory: Complains of cough and shortness of breath [] Cardiovascular: No additional information not addressed in HPI [] GI: Denies abdominal pain, nausea, vomiting or diarrhea [] Integument: Denies rash or skin lesions [] All other systems were reviewed and found to be within normal limits, except as documented in this note. Current Medications Current Medications Current Medications Medications (Trade) Dose Ordered Sig/Silvia Start Time Stop Time Status Last Admin Dose Admin Albuterol/ Ipratropium (Duoneb) 3 ml 1X ONCE 07/28/18 19:15 07/28/18 19:16 DC 07/28/18 19:23 3 ML Allergies Allergies Allergies Coded Allergies Type Severity Reaction Last Updated Verified No Known Drug Allergies 07/15/16 No Physical Exam Physical Exam Constitutional: Well developed, well nourished, no acute distress, non-toxic appearance. [] HENT: Normocephalic, atraumatic, bilateral external ears normal, oropharynx moist, no oral exudates, nose normal. [] Eyes: PERRLA, EOMI, conjunctiva normal, no discharge. [] Neck: Normal range of motion, no tenderness, supple, no stridor. [] Cardiovascular: Regular rate and rhythm [] Lungs & Thorax: Diminished breath sounds are noted bilaterally with fine inspiratory and expiratory wheezes noted bilaterally [] Abdomen: Bowel sounds normal, soft, no tenderness. [] Skin: Warm, dry, no erythema, no rash. [] Extremities: No tenderness, no cyanosis, no clubbing, ROM intact, no edema. [] Neurologic: Alert and oriented X 3, normal motor function, normal sensory function, no focal deficits noted. [] Current Patient Data Vital Signs Vital Signs Date Time Temp Pulse Resp B/P (MAP) Pulse Ox O2 Delivery O2 Flow Rate FiO2 07/28/18 20:39 70 24 158/71 (100) 97 Nasal Cannula 2.0 07/28/18 19:10 98.1 98.1 Lab Values Laboratory Tests Test 07/28/18 19:20 07/28/18 19:40 White Blood Count 5.2 x10^3/uL (4.0-11.0) Red Blood Count 4.01 x10^6/uL (3.50-5.40) Hemoglobin 12.7 g/dL (12.0-15.5) Hematocrit 37.4 % (36.0-47.0) Mean Corpuscular Volume 93 fL (79-100) Mean Corpuscular Hemoglobin 32 pg (25-35) Mean Corpuscular Hemoglobin Concent 34 g/dL (31-37) Red Cell Distribution Width 15.1 % (11.5-14.5) H Platelet Count 164 x10^3/uL (140-400) Neutrophils (%) (Auto) 76 % (31-73) H Lymphocytes (%) (Auto) 8 % (24-48) L Monocytes (%) (Auto) 12 % (0-9) H Eosinophils (%) (Auto) 3 % (0-3) Basophils (%) (Auto) 1 % (0-3) Neutrophils # (Auto) 3.9 x10^3uL (1.8-7.7) Lymphocytes # (Auto) 0.4 x10^3/uL (1.0-4.8) L Monocytes # (Auto) 0.6 x10^3/uL (0.0-1.1) Eosinophils # (Auto) 0.2 x10^3/uL (0.0-0.7) Basophils # (Auto) 0.0 x10^3/uL (0.0-0.2) Sodium Level 139 mmol/L (136-145) Potassium Level 4.2 mmol/L (3.5-5.1) Chloride Level 99 mmol/L (98-107) Carbon Dioxide Level 31 mmol/L (21-32) Anion Gap 9 (6-14) Blood Urea Nitrogen 17 mg/dL (7-20) Creatinine 1.3 mg/dL (0.6-1.0) H Estimated GFR (Cockcroft-Gault) 39.1 BUN/Creatinine Ratio 13 (6-20) Glucose Level 95 mg/dL (70-99) Calcium Level 9.1 mg/dL (8.5-10.1) Total Bilirubin 0.5 mg/dL (0.2-1.0) Aspartate Amino Transferase (AST) 18 U/L (15-37) Alanine Aminotransferase (ALT) 23 U/L (14-59) Alkaline Phosphatase 85 U/L (46-116) Troponin I Quantitative < 0.017 ng/mL (0.000-0.055) GB-Ion-V-Type Natriuretic Peptide 436 pg/mL (0-449) Total Protein 7.7 g/dL (6.4-8.2) Albumin 3.7 g/dL (3.4-5.0) Albumin/Globulin Ratio 0.9 (1.0-1.7) L Influenza Type A Antigen Negative (NEGATIVE) Influenza Type B Antigen Negative (NEGATIVE) Laboratory Tests 07/28/18 19:20 Laboratory Tests 07/28/18 19:20 EKG EKG [] Interpretation Time: EKG demonstrates a normal sinus rhythm Radiology/Procedures Radiology/Procedures [] Impressions: Chest x-ray demonstrates no acute process. Course & Med Decision Making Course & Med Decision Making Pertinent Labs and Imaging studies reviewed. (See chart for details) [] Dragon Disclaimer Dragon Disclaimer This electronic medical record was generated, in whole or in part, using a voice recognition dictation system. Departure Departure Impression: Primary Impression: COPD with acute exacerbation Disposition: ADMITTED INPATIENT Admitting Physician: Quincy Alcantar Condition: IMPROVED Referrals: QUINCY ALCANTAR MD (PCP) NEREYDA PITTS Jr. DO Jul 28, 2018 21:26
--- NOTE | 2018-07-28 21:37 | RAD ---
Examination: PORTABLE CHEST 1V History: Dyspnea Comparison/Correlation: 07/07/2018 and older two-view chest x-ray exams Findings: Portable upright frontal view of the chest was obtained. Heart size and pulmonary vasculature are normal. No infiltrate or effusion. No pneumothorax. Right lower lung field calcified granuloma again seen. Impression: No active disease. Electronically signed by: Rafael Gallardo MD (07/28/2018 9:32 PM) [facility]
[2018-07-28 22:50] VITALS: BP 167/62
[2018-07-28 22:54] LABS: BILIRUBIN,URINE NEGATIVE (NEG); CLARITY,URINE CLOUDY; COLOR,URINE YELLOW; NITRITE,URINE NEGATIVE (NEG); PROTEIN,URINE NEGATIVE (NEG-TRACE)
[2018-07-28 23:10] LABS: BACTERIA,URINE 0 /HPF (0-FEW); RBC,URINE OCC /HPF (0-2); SQUAMOUS EPITHELIAL CELL,UR OCC /LPF
[2018-07-29 03:03] VITALS: BP 138/56
--- NOTE | 2018-07-29 06:13 | EKG ---
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
[2018-07-29 07:00] VITALS: BP 146/59
[2018-07-29 07:11] LABS: BASO % 1 % (0-3); EOS # 0.1 x10^3/uL (0.0-0.7); EOS % 2 % (0-3); HEMATOCRIT 33.3 % (36.0-47.0); HEMOGLOBIN 11.3 g/dL (12.0-15.5); LYMPH # 0.5 x10^3/uL (1.0-4.8); LYMPH % 13 % (24-48); MEAN CORPUSCULAR HEMOGLOBIN 31 pg (25-35); MEAN CORPUSCULAR HGB CONC 34 g/dL (31-37); MEAN CORPUSCULAR VOLUME 92 fL (79-100); MONO # 0.6 x10^3/uL (0.0-1.1); MONO % 15 % (0-9); NEUT # 2.7 x10^3uL (1.8-7.7); NEUT % 69 % (31-73); PLATELET COUNT 129 x10^3/uL (140-400); RED BLOOD COUNT 3.61 x10^6/uL (3.50-5.40); RED CELL DISTRIBUTION WIDTH 14.8 % (11.5-14.5); WHITE BLOOD COUNT 3.9 x10^3/uL (4.0-11.0)
[2018-07-29 07:39] LABS: CALCIUM 8.8 mg/dL (8.5-10.1); POTASSIUM 3.9 mmol/L (3.5-5.1)
--- NOTE | 2018-07-29 08:17 | PDOC ---
GENERAL General: see dictated H&P. VITAL SIGNS Vital Signs: Vital Signs Date Time Temp Pulse Resp B/P (MAP) Pulse Ox O2 Delivery O2 Flow Rate FiO2 07/29/18 07:42 96 Nasal Cannula 2.0 07/29/18 07:00 99.2 68 18 146/59 (88) 99.2 I & O I & O Intake and Output 07/29/18 07:01 Output Total 100 ml Balance -100 ml Output Urine Total 100 ml # Voids 1 ALLERGIES Allergies: Allergies Coded Allergies Type Severity Reaction Last Updated Verified No Known Drug Allergies 07/15/16 No MEDS Medications: Current Medications Medications (Trade) Dose Ordered Sig/Silvia Start Time Stop Time Status Last Admin Dose Admin Albuterol/ Ipratropium (Duoneb) 3 ml RTQID 07/29/18 08:00 07/30/18 07:59 Aspirin (Ecotrin) 81 mg DAILY 07/29/18 09:00 UNV Atorvastatin Calcium (Lipitor) 20 mg DAILY 07/29/18 09:00 UNV Azithromycin 500 mg/Sodium Chloride 250 ml @ 250 mls/hr Q24H 07/29/18 08:15 UNV Ceftriaxone Sodium (Rocephin) 1 gm Q24H 07/29/18 08:15 UNV Citalopram Hydrobromide (CeleXA) 10 mg DAILY 07/29/18 09:00 UNV Dronedarone (Multaq) 200 mg BID 07/29/18 09:00 UNV Levothyroxine Sodium (Synthroid) 112 mcg DAILY 07/29/18 09:00 UNV Losartan Potassium (Cozaar) 50 mg DAILY 07/29/18 09:00 UNV Methylprednisolone Sodium Succinate (SOLU-Medrol 40MG VIAL) 40 mg Q8HRS 07/29/18 14:00 UNV Metoprolol Tartrate (Lopressor) 25 mg BID 07/29/18 09:00 UNV Sodium Chloride 1,000 ml @ 75 mls/hr [id number] 07/29/18 08:15 UNV LAB Lab: Laboratory Tests Test 07/28/18 19:20 07/28/18 19:40 07/28/18 22:41 07/29/18 06:28 White Blood Count 5.2 x10^3/uL (4.0-11.0) 3.9 x10^3/uL (4.0-11.0) Red Blood Count 4.01 x10^6/uL (3.50-5.40) 3.61 x10^6/uL (3.50-5.40) Hemoglobin 12.7 g/dL (12.0-15.5) 11.3 g/dL (12.0-15.5) Hematocrit 37.4 % (36.0-47.0) 33.3 % (36.0-47.0) Mean Corpuscular Volume 93 fL (79-100) 92 fL (79-100) Mean Corpuscular Hemoglobin 32 pg (25-35) 31 pg (25-35) Mean Corpuscular Hemoglobin Concent 34 g/dL (31-37) 34 g/dL (31-37) Red Cell Distribution Width 15.1 % (11.5-14.5) 14.8 % (11.5-14.5) Platelet Count 164 x10^3/uL (140-400) 129 x10^3/uL (140-400) Neutrophils (%) (Auto) 76 % (31-73) 69 % (31-73) Lymphocytes (%) (Auto) 8 % (24-48) 13 % (24-48) Monocytes (%) (Auto) 12 % (0-9) 15 % (0-9) Eosinophils (%) (Auto) 3 % (0-3) 2 % (0-3) Basophils (%) (Auto) 1 % (0-3) 1 % (0-3) Neutrophils # (Auto) 3.9 x10^3uL (1.8-7.7) 2.7 x10^3uL (1.8-7.7) Lymphocytes # (Auto) 0.4 x10^3/uL (1.0-4.8) 0.5 x10^3/uL (1.0-4.8) Monocytes # (Auto) 0.6 x10^3/uL (0.0-1.1) 0.6 x10^3/uL (0.0-1.1) Eosinophils # (Auto) 0.2 x10^3/uL (0.0-0.7) 0.1 x10^3/uL (0.0-0.7) Basophils # (Auto) 0.0 x10^3/uL (0.0-0.2) 0.0 x10^3/uL (0.0-0.2) Sodium Level 139 mmol/L (136-145) 138 mmol/L (136-145) Potassium Level 4.2 mmol/L (3.5-5.1) 3.9 mmol/L (3.5-5.1) Chloride Level 99 mmol/L (98-107) 101 mmol/L (98-107) Carbon Dioxide Level 31 mmol/L (21-32) 30 mmol/L (21-32) Anion Gap 9 (6-14) 7 (6-14) Blood Urea Nitrogen 17 mg/dL (7-20) 14 mg/dL (7-20) Creatinine 1.3 mg/dL (0.6-1.0) 1.0 mg/dL (0.6-1.0) Estimated GFR (Cockcroft-Gault) 39.1 53.0 BUN/Creatinine Ratio 13 (6-20) Glucose Level 95 mg/dL (70-99) 91 mg/dL (70-99) Calcium Level 9.1 mg/dL (8.5-10.1) 8.8 mg/dL (8.5-10.1) Total Bilirubin 0.5 mg/dL (0.2-1.0) Aspartate Amino Transf (AST/SGOT) 18 U/L (15-37) Alanine Aminotransferase (ALT/SGPT) 23 U/L (14-59) Alkaline Phosphatase 85 U/L (46-116) Troponin I Quantitative < 0.017 ng/mL (0.000-0.055) QV-Diy-M-Type Natriuretic Peptide 436 pg/mL (0-449) Total Protein 7.7 g/dL (6.4-8.2) Albumin 3.7 g/dL (3.4-5.0) Albumin/Globulin Ratio 0.9 (1.0-1.7) Influenza Type A Antigen Negative (NEGATIVE) Influenza Type B Antigen Negative (NEGATIVE) Urine Color Yellow Urine Clarity Cloudy Urine pH 7.0 Urine Specific [place] 1.015 Urine Protein Negative mg/dL (NEG-TRACE) Urine Glucose (UA) Negative mg/dL (NEG) Urine Ketones (Stick) Negative mg/dL (NEG) Urine Blood Trace (NEG) Urine Nitrite Negative (NEG) Urine Bilirubin Negative (NEG) Urine Urobilinogen Dipstick 1.0 mg/dL (0.2 mg/dL) Urine Leukocyte Esterase Negative (NEG) Urine RBC Occ /HPF (0-2) Urine WBC 1-4 /HPF (0-4) Urine Squamous Epithelial Cells Occ /LPF Urine Bacteria 0 /HPF (0-FEW) QUINCY ALCANTAR MD Jul 29, 2018 08:17
--- NOTE | 2018-07-29 08:24 | HP ---
ADMIT DATE: 07/28/2018 CHIEF COMPLAINT AND HISTORY OF PRESENT ILLNESS: This 82-year-old white female is well known to me from followup in the office. The patient has had increasing shortness of breath and cough over the last few days, became much worse on the day of admission, presenting to the Emergency Room where she was found to be in acute respiratory failure with O2 sat of 84% and admitted for exacerbation of COPD. PAST MEDICAL HISTORY: Remarkable for COPD, AFib, mild dementia, hyperlipidemia, hypertension, hyperthyroidism. PAST SURGICAL HISTORY: Remarkable for left hip replacement, cholecystectomy, hysterectomy, tonsillectomy. MEDICATIONS: Brought with the patient, listed on the computer and have been addressed. ALLERGIES: She has no known drug allergies. SOCIAL HISTORY: She is a lifetime nonsmoker, does not drink or use drugs. Lives at home with his son and his . FAMILY HISTORY: Noncontributory. REVIEW OF SYSTEMS: As mentioned above. PHYSICAL EXAMINATION: GENERAL: She is well-developed, well-nourished, pleasant white female, very mild short of breath during my exam. VITAL SIGNS: Stable. She is afebrile. THROAT: Remarkable for glasses. NECK: Supple without bruit or thyromegaly. CHEST: Reveals diminished breath sounds bilaterally with diffuse wheezing. HEART: Slightly tachycardic, regular without S3, S4 or murmur. ABDOMEN: Soft, nontender, without hepatosplenomegaly or masses. EXTREMITIES: Without cyanosis, clubbing, edema. NEUROLOGIC: Nonfocal. Initial chest x-ray shows no acute infiltrates and Initial laboratory is pretty much unremarkable with a normal white blood count, creatinine of 1.3 which has decreased to 1 this morning, urine that is negative and flu testing which has been negative. IMPRESSION: 1. Exacerbation of chronic obstructive pulmonary disease with shortness of breath. 2. Acute respiratory failure. PLAN: The patient has been admitted. Home meds will be restarted and the patient will be treated with pulmonary toilet, IV steroids, IV fluids, IV antibiotics and monitor, manage and treat appropriately. QUINCY ALCANTAR MD DR: MAYCOL/erick JOB#: [id number] / [id number]
[2018-07-29 11:00] VITALS: BP 125/41
--- NOTE | 2018-07-29 11:10 | CONS ---
DATE OF CONSULTATION: ATTENDING PHYSICIAN: Dr. Hall REASON FOR CONSULTATION: Dyspnea. HISTORY OF PRESENT ILLNESS: The patient is an 82-year-old who has no significant history of tobacco use, but had secondhand exposures to tobacco from her , brother and father. She has underlying COPD. She was brought into the hospital with increasing shortness of breath and also cough, which was productive of yellow sputum. The patient denies any chest pain, no headaches, no nausea or vomiting, no diarrhea. She is not on home oxygen. No history of deep vein thrombosis or pulmonary embolism. The patient said when she was born, she was 3-pound by weight and had recurrent sinus infections. No history of bronchiectasis. A chest x-ray was reviewed, no definite consolidation seen. There was a calcified granuloma in the right lower lobe. PAST MEDICAL HISTORY: COPD from secondhand tobacco exposure, history of AFib, mild dementia, hyperlipidemia, hypertension and hyperthyroidism. PAST SURGICAL HISTORY: Left hip replacement, cholecystectomy, hysterectomy and tonsillectomy. MEDICATIONS: All reviewed, as listed in the MRAD. ALLERGIES: None. SOCIAL HISTORY: Lifetime nonsmoker, but had secondhand exposures to tobacco from her , father and brothers. FAMILY HISTORY: Noncontributory to lungs. REVIEW OF SYSTEMS: Twelve-point system obtained. Pertinent positives discussed in my history of present illness, otherwise noncontributory. All systems that were negative were reviewed as well. PHYSICAL EXAMINATION: GENERAL: She is in no distress. T-max of 99.6. VITAL SIGNS: Blood pressure stable, pulse ox 96% on 2 liters. She is not on home oxygen. NECK: Supple. LUNGS: With diminished breath sounds posteriorly. No wheezing. CARDIOVASCULAR: Regular rate. ABDOMEN: Soft. EXTREMITIES: With no pitting edema. LABORATORY DATA: Reviewed. Influenza screen negative. Chemistries show normal BUN and creatinine. White cell count 3.9, hemoglobin 11.3 and platelets are 129. IMPRESSION: 1. Acute exacerbation of chronic obstructive pulmonary disease. 2. Acute hypoxic respiratory failure secondary to acute exacerbation of chronic obstructive pulmonary disease and acute bronchitis. 3. Acute bronchitis, likely viral. The patient does have leukopenia. No definite consolidation seen on the chest x-ray. RECOMMENDATIONS: 1. Continue with present bronchodilators. 2. Monitor fever. 3. IV steroids with gradual taper. 4. Continue empiric antibiotics for now and monitor fever. 5. Anticipate hospitalization for 48 hours. TED HANSEN MD DR: RAMONA/erick JOB#: [id number] / [id number]
[2018-07-29] MEDS: IPRATRPIUM/ALBUTEROL 0.5/2.5MG 3 ML NEBU. NEB SCH ×4 (11:19→19:28)
[2018-07-29] MEDS: cefTRIAXone IV Push 1 GM VIAL. IVP SCH (13:16)
[2018-07-29] MEDS: methylPREDNISolone SOD SUCC PF 40 MG/ML VIAL. IV SCH ×3 (13:16→21:15)
[2018-07-29] MEDS: CITALOPRAM 10 MG TABLET. PO SCH (13:16)
[2018-07-29] MEDS: AZITHROMYCIN 500 MG in IV NORMAL SALINE 250ML 250 ML IV SCH (13:17)
[2018-07-29] MEDS: IV 1/2 NORMAL SALINE 1,000 ML IV SCH ×2 (13:20→21:18)
[2018-07-29] MEDS: ASPIRIN ENTERIC COATED 81 MG TABLET.DR. PO SCH (13:21)
[2018-07-29] MEDS: METOPROLOL TART IMMED RELEASE 25 MG TABLET. PO SCH ×2 (13:22→21:00)
[2018-07-29] MEDS: DRONEDARONE HCL 400 MG TABLET PO SCH ×2 (13:23→21:16)
[2018-07-29] MEDS: LEVOTHYROXINE 112 MCG TABLET PO SCH (13:26)
[2018-07-29] MEDS: LOSARTAN POTASSIUM 50 MG TABLET. PO SCH (13:27)
[2018-07-29 15:00] VITALS: BP 123/60
[2018-07-29 19:00] VITALS: BP 107/44
[2018-07-29] MEDS: ATORVASTATIN CALCIUM 20 MG TABLET PO SCH (21:16)
[2018-07-29 23:00] VITALS: BP 109/38
[2018-07-30 03:00] VITALS: BP 126/59
[2018-07-30] MEDS: LEVOTHYROXINE 112 MCG TABLET PO SCH (05:04)
[2018-07-30] MEDS: methylPREDNISolone SOD SUCC PF 40 MG/ML VIAL. IV SCH ×2 (05:04→20:28)
[2018-07-30 07:00] VITALS: BP 134/54
[2018-07-30] MEDS: IPRATRPIUM/ALBUTEROL 0.5/2.5MG 3 ML NEBU. NEB SCH ×2 (07:27→20:03)
[2018-07-30] MEDS: cefTRIAXone IV Push 1 GM VIAL. IVP SCH (08:30)
[2018-07-30] MEDS: METOPROLOL TART IMMED RELEASE 25 MG TABLET. PO SCH ×2 (08:31→20:29)
[2018-07-30] MEDS: ASPIRIN ENTERIC COATED 81 MG TABLET.DR. PO SCH (08:31)
[2018-07-30] MEDS: AZITHROMYCIN 500 MG in IV NORMAL SALINE 250ML 250 ML IV SCH (08:31)
[2018-07-30] MEDS: CITALOPRAM 10 MG TABLET. PO SCH (08:31)
[2018-07-30] MEDS: DRONEDARONE HCL 400 MG TABLET PO SCH ×2 (09:00→20:29)
[2018-07-30] MEDS: LOSARTAN POTASSIUM 50 MG TABLET. PO SCH (09:00)
[2018-07-30] MEDS: IV 1/2 NORMAL SALINE 1,000 ML IV SCH (10:55)
[2018-07-30 11:00] VITALS: BP 116/47
--- NOTE | 2018-07-30 12:56 | PDOC ---
PULMONARY PROGRESS NOTES Subjective feels better Vitals Vital Signs Date Time Temp Pulse Resp B/P (MAP) Pulse Ox O2 Delivery O2 Flow Rate FiO2 07/30/18 11:00 98.1 71 16 116/47 (70) 95 Room Air 98.1 07/30/18 08:00 2.0 ROS: No Chest Pain, No Increase Cough General: Alert, No acute distress Lungs: Clear Cardiovascular: S1 Abdomen: Soft Neuro Exam: Alert Extremities: No Edema Skin: Warm Labs Laboratory Tests Test 07/28/18 19:20 07/28/18 19:40 07/28/18 22:41 07/29/18 06:28 White Blood Count 5.2 x10^3/uL (4.0-11.0) 3.9 x10^3/uL (4.0-11.0) Red Blood Count 4.01 x10^6/uL (3.50-5.40) 3.61 x10^6/uL (3.50-5.40) Hemoglobin 12.7 g/dL (12.0-15.5) 11.3 g/dL (12.0-15.5) Hematocrit 37.4 % (36.0-47.0) 33.3 % (36.0-47.0) Mean Corpuscular Volume 93 fL (79-100) 92 fL (79-100) Mean Corpuscular Hemoglobin 32 pg (25-35) 31 pg (25-35) Mean Corpuscular Hemoglobin Concent 34 g/dL (31-37) 34 g/dL (31-37) Red Cell Distribution Width 15.1 % (11.5-14.5) 14.8 % (11.5-14.5) Platelet Count 164 x10^3/uL (140-400) 129 x10^3/uL (140-400) Neutrophils (%) (Auto) 76 % (31-73) 69 % (31-73) Lymphocytes (%) (Auto) 8 % (24-48) 13 % (24-48) Monocytes (%) (Auto) 12 % (0-9) 15 % (0-9) Eosinophils (%) (Auto) 3 % (0-3) 2 % (0-3) Basophils (%) (Auto) 1 % (0-3) 1 % (0-3) Neutrophils # (Auto) 3.9 x10^3uL (1.8-7.7) 2.7 x10^3uL (1.8-7.7) Lymphocytes # (Auto) 0.4 x10^3/uL (1.0-4.8) 0.5 x10^3/uL (1.0-4.8) Monocytes # (Auto) 0.6 x10^3/uL (0.0-1.1) 0.6 x10^3/uL (0.0-1.1) Eosinophils # (Auto) 0.2 x10^3/uL (0.0-0.7) 0.1 x10^3/uL (0.0-0.7) Basophils # (Auto) 0.0 x10^3/uL (0.0-0.2) 0.0 x10^3/uL (0.0-0.2) Sodium Level 139 mmol/L (136-145) 138 mmol/L (136-145) Potassium Level 4.2 mmol/L (3.5-5.1) 3.9 mmol/L (3.5-5.1) Chloride Level 99 mmol/L (98-107) 101 mmol/L (98-107) Carbon Dioxide Level 31 mmol/L (21-32) 30 mmol/L (21-32) Anion Gap 9 (6-14) 7 (6-14) Blood Urea Nitrogen 17 mg/dL (7-20) 14 mg/dL (7-20) Creatinine 1.3 mg/dL (0.6-1.0) 1.0 mg/dL (0.6-1.0) Estimated GFR (Cockcroft-Gault) 39.1 53.0 BUN/Creatinine Ratio 13 (6-20) Glucose Level 95 mg/dL (70-99) 91 mg/dL (70-99) Calcium Level 9.1 mg/dL (8.5-10.1) 8.8 mg/dL (8.5-10.1) Total Bilirubin 0.5 mg/dL (0.2-1.0) Aspartate Amino Transf (AST/SGOT) 18 U/L (15-37) Alanine Aminotransferase (ALT/SGPT) 23 U/L (14-59) Alkaline Phosphatase 85 U/L (46-116) Troponin I Quantitative < 0.017 ng/mL (0.000-0.055) LM-Vzw-I-Type Natriuretic Peptide 436 pg/mL (0-449) Total Protein 7.7 g/dL (6.4-8.2) Albumin 3.7 g/dL (3.4-5.0) Albumin/Globulin Ratio 0.9 (1.0-1.7) Influenza Type A Antigen Negative (NEGATIVE) Influenza Type B Antigen Negative (NEGATIVE) Urine Color Yellow Urine Clarity Cloudy Urine pH 7.0 Urine Specific [place] 1.015 Urine Protein Negative mg/dL (NEG-TRACE) Urine Glucose (UA) Negative mg/dL (NEG) Urine Ketones (Stick) Negative mg/dL (NEG) Urine Blood Trace (NEG) Urine Nitrite Negative (NEG) Urine Bilirubin Negative (NEG) Urine Urobilinogen Dipstick 1.0 mg/dL (0.2 mg/dL) Urine Leukocyte Esterase Negative (NEG) Urine RBC Occ /HPF (0-2) Urine WBC 1-4 /HPF (0-4) Urine Squamous Epithelial Cells Occ /LPF Urine Bacteria 0 /HPF (0-FEW) Medications Active Scripts Medications Dose Route/Sig Max Daily Dose Days Date Category Metoprolol Tartrate 25 Mg Tablet 1 Tab PO BID 12/28/17 Reported Multaq (Dronedarone Hcl) 400 Mg Tablet 200 Mg PO BID 12/28/17 Reported Aspirin Ec (Aspirin) 81 Mg Tablet.dr 1 Tab PO DAILY 12/28/17 Reported Duoneb 0.5-3(2.5) Mg/3 Ml (Albuterol/Ipratropium) 3 Ml Ampul.neb 3 Ml NEB BID 12/11/17 Reported Namzaric 28 mg-10 mg Capsule (Memantine HCl/Donepezil HCl) 1 Each Cap.spr.24 1 12/11/17 Reported Citalopram Hbr (Citalopram Hydrobromide) 10 Mg Tablet 10 Mg PO DAILY 12/11/17 Reported Atorvastatin Calcium 20 Mg Tablet 20 Mg PO DAILY 12/11/17 Reported Levothyroxine Sodium 112 Mcg Tablet 112 Mcg PO DAILY 12/11/17 Reported Losartan Potassium 50 Mg Tablet 50 Mg PO DAILY 12/11/17 Reported Impression . 1. Acute exacerbation of chronic obstructive pulmonary disease. 2. Acute hypoxic respiratory failure secondary to acute exacerbation of chronic obstructive pulmonary disease and acute bronchitis. 3. Acute bronchitis, likely viral. The patient does have leukopenia. No definite consolidation seen on the chest x-ray. Plan . 1. Continue with present bronchodilators. 2. resolved fever. 3. steroids with gradual taper. 4. Continue empiric antibiotics for now 5. Anticipate hospitalization for 24 more hrs TED HANSEN MD Jul 30, 2018 12:56
[2018-07-30 15:00] VITALS: BP 127/51
--- NOTE | 2018-07-30 17:20 | PN ---
DATE: 07/30/2018 LOCATION: Room 508. SUBJECTIVE: The patient is awake, alert, feels like she is breathing better on a daily basis, still was shortness of breath with any kind of activity. OBJECTIVE: VITAL SIGNS: Stable. She is afebrile. O2 remains present at 2 liters per nasal cannula. PULMONARY: There is much better air exchange present on pulmonary exam today and is with the exception of rare wheezes, nearly clear. HEART: Regular rate and rhythm without S3, S4, or murmur. ABDOMEN: Soft, nontender, without hepatosplenomegaly or masses. EXTREMITIES: Without cyanosis, clubbing, edema. NEUROLOGIC: She is intact. Pulmonary help is appreciated. IMPRESSION: 1. Exacerbation of chronic obstructive pulmonary disease, clinically improving. 2. Atrial fibrillation. 3. Mild dementia. 4. Hyperlipidemia. 5. Hypertension. 6. Hypothyroidism. PLAN: Continue present care. Would expect discharge in the next 1-2 days on oral medications. QUINCY ALCANTAR MD DR: MAYCOL/erick JOB#: [id number] / [id number]
[2018-07-30 19:00] VITALS: BP 118/61
[2018-07-30] MEDS ORDERED: ALBUTEROL SULFATE 2.5 MG/3 ML NEBU. NEB PRN (20:00)
[2018-07-30] MEDS: CALCIUM CARBONATE 500 MG TAB.CHEW PO PRN (20:28)
[2018-07-30] MEDS: ATORVASTATIN CALCIUM 20 MG TABLET PO SCH (20:28)
[2018-07-30] MEDS: LACTOBACILLUS RHAMNOSUS GG 1 CAPSULE. PO SCH (20:28)
[2018-07-30] MEDS: BENZOCAINE/MENTHOL LOZENGE. PO PRN (20:29)
[2018-07-30 23:00] VITALS: BP 152/71
[2018-07-31] MEDS: IV 1/2 NORMAL SALINE 1,000 ML IV SCH ×2 (00:15→12:43)
[2018-07-31 03:00] VITALS: BP 163/67
[2018-07-31] MEDS: LEVOTHYROXINE 112 MCG TABLET PO SCH (05:32)
[2018-07-31 07:00] VITALS: BP 165/65
[2018-07-31] MEDS: IPRATRPIUM/ALBUTEROL 0.5/2.5MG 3 ML NEBU. NEB SCH ×4 (07:24→18:56)
[2018-07-31] MEDS: CITALOPRAM 10 MG TABLET. PO SCH (08:49)
[2018-07-31] MEDS: METOPROLOL TART IMMED RELEASE 25 MG TABLET. PO SCH ×2 (08:49→20:39)
[2018-07-31] MEDS: LOSARTAN POTASSIUM 50 MG TABLET. PO SCH (08:49)
[2018-07-31] MEDS: ASPIRIN ENTERIC COATED 81 MG TABLET.DR. PO SCH (08:49)
[2018-07-31] MEDS: LACTOBACILLUS RHAMNOSUS GG 1 CAPSULE. PO SCH ×2 (08:49→20:39)
[2018-07-31] MEDS: cefTRIAXone IV Push 1 GM VIAL. IVP SCH (08:50)
[2018-07-31] MEDS: methylPREDNISolone SOD SUCC PF 40 MG/ML VIAL. IV SCH ×2 (08:50→20:39)
[2018-07-31] MEDS: AZITHROMYCIN 500 MG in IV NORMAL SALINE 250ML 250 ML IV SCH (08:50)
[2018-07-31] MEDS: DRONEDARONE HCL 400 MG TABLET PO SCH ×2 (08:50→20:38)
--- NOTE | 2018-07-31 10:46 | PDOC ---
PULMONARY PROGRESS NOTES Subjective feels better/ had cough last night Vitals Vital Signs Date Time Temp Pulse Resp B/P (MAP) Pulse Ox O2 Delivery O2 Flow Rate FiO2 07/31/18 08:50 70 165/65 07/31/18 07:25 97 Nasal Cannula 2.0 07/31/18 07:00 98.3 16 98.3 ROS: No Chest Pain, No Increase Cough General: Alert, No acute distress Lungs: Clear Cardiovascular: S1 Abdomen: Soft Neuro Exam: Alert Extremities: No Edema Skin: Warm Medications Active Scripts Medications Dose Route/Sig Max Daily Dose Days Date Category Metoprolol Tartrate 25 Mg Tablet 1 Tab PO BID 12/28/17 Reported Multaq (Dronedarone Hcl) 400 Mg Tablet 200 Mg PO BID 12/28/17 Reported Aspirin Ec (Aspirin) 81 Mg Tablet.dr 1 Tab PO DAILY 12/28/17 Reported Duoneb 0.5-3(2.5) Mg/3 Ml (Albuterol/Ipratropium) 3 Ml Ampul.neb 3 Ml NEB BID 12/11/17 Reported Namzaric 28 mg-10 mg Capsule (Memantine HCl/Donepezil HCl) 1 Each Cap.spr.24 1 12/11/17 Reported Citalopram Hbr (Citalopram Hydrobromide) 10 Mg Tablet 10 Mg PO DAILY 12/11/17 Reported Atorvastatin Calcium 20 Mg Tablet 20 Mg PO DAILY 12/11/17 Reported Levothyroxine Sodium 112 Mcg Tablet 112 Mcg PO DAILY 12/11/17 Reported Losartan Potassium 50 Mg Tablet 50 Mg PO DAILY 12/11/17 Reported Impression . 1. Acute exacerbation of chronic obstructive pulmonary disease. 2. Acute hypoxic respiratory failure secondary to acute exacerbation of chronic obstructive pulmonary disease and acute bronchitis. 3. Acute bronchitis, likely viral. The patient does have leukopenia. No definite consolidation seen on the chest x-ray. Plan . 1. Continue with present bronchodilators. 2. resolved fever. 3. steroids with gradual taper. 4. Continue empiric antibiotics for now 5. Anticipate hospitalization for 24 more hrs TED HANSEN MD Jul 31, 2018 10:46
[2018-07-31 11:00] VITALS: BP 147/70
--- NOTE | 2018-07-31 13:05 | PN ---
DATE: 07/31/2018 LOCATION: She is in room 508. SUBJECTIVE: The patient is awake, alert, feels like after a long coughing spell last night and getting up some phlegm, she has begun to breathe somewhat better. She is still short of breath with any physical exertion within the room. I did receive a call from nursing yesterday about increasing shortness of breath and breathing treatments, falling off from the Emergency Room and they were reinstituted. OBJECTIVE: VITAL SIGNS: Stable. She is afebrile. She remains on O2 two liters per nasal cannula. CHEST: Reveals decreased breath sounds and I hear no wheezes. HEART: Irregularly irregular without S3, S4 or murmur. ABDOMEN: Soft, nontender, without hepatosplenomegaly or mass. EXTREMITIES: Without cyanosis, clubbing, edema. NEUROLOGIC: She is intact. IMPRESSION: 1. Exacerbation of chronic obstructive pulmonary disease with slow clinical improvement. 2. Atrial fibrillation. 3. Mild dementia. 4. Hyperlipidemia. 5. Hypertension. 6. Hypothyroidism. PLAN: Continue present care and await clearing prior to consideration of discharge to home. She remains on IV steroids, IV antibiotics, pulmonary toilet. QUINCY ALCANTAR MD DR: MAYCOL/erick JOB#: [id number] / [id number]
[2018-07-31 15:00] VITALS: BP 137/84
[2018-07-31 19:00] VITALS: BP 133/52
[2018-07-31] MEDS: ATORVASTATIN CALCIUM 20 MG TABLET PO SCH (20:38)
[2018-07-31 23:00] VITALS: BP 148/67
[2018-08-01] MEDS: IV 1/2 NORMAL SALINE 1,000 ML IV SCH ×2 (02:46→18:00)
[2018-08-01 03:00] VITALS: BP 152/73
[2018-08-01] MEDS: LEVOTHYROXINE 112 MCG TABLET PO SCH (06:01)
[2018-08-01] MEDS: IPRATRPIUM/ALBUTEROL 0.5/2.5MG 3 ML NEBU. NEB SCH ×4 (07:17→20:35)
[2018-08-01 08:00] VITALS: BP 170/77
[2018-08-01] MEDS: CITALOPRAM 10 MG TABLET. PO SCH (08:17)
[2018-08-01] MEDS: ASPIRIN ENTERIC COATED 81 MG TABLET.DR. PO SCH (08:18)
[2018-08-01] MEDS: LACTOBACILLUS RHAMNOSUS GG 1 CAPSULE. PO SCH ×2 (08:18→20:06)
[2018-08-01] MEDS: METOPROLOL TART IMMED RELEASE 25 MG TABLET. PO SCH ×2 (08:18→20:07)
[2018-08-01] MEDS: LOSARTAN POTASSIUM 50 MG TABLET. PO SCH (08:18)
[2018-08-01] MEDS: methylPREDNISolone SOD SUCC PF 40 MG/ML VIAL. IV SCH ×2 (08:19→20:07)
[2018-08-01] MEDS: DRONEDARONE HCL 400 MG TABLET PO SCH ×2 (08:19→20:07)
[2018-08-01] MEDS: AZITHROMYCIN 500 MG in IV NORMAL SALINE 250ML 250 ML IV SCH (08:20)
[2018-08-01] MEDS: cefTRIAXone IV Push 1 GM VIAL. IVP SCH (08:20)
[2018-08-01] MEDS: CALCIUM CARBONATE 500 MG TAB.CHEW PO PRN ×2 (09:18→20:06)
--- NOTE | 2018-08-01 09:56 | PN ---
DATE: 08/01/2018 LOCATION: Room 508. SUBJECTIVE: The patient is awake, alert, had a better day breathing yesterday, still is a little bit short of breath, moving around the room, but definitely improved. OBJECTIVE: VITAL SIGNS: Stable. She is afebrile. GENERAL: She is awake and alert. CHEST: Reveals decreased breath sounds, but essentially clear this morning. HEART: Regular. ABDOMEN: Benign. EXTREMITIES: Without cyanosis, clubbing, edema. IMPRESSION: 1. Exacerbation of chronic obstructive pulmonary disease, improving. 2. Atrial fibrillation. 3. Mild dementia. 4. Hyperlipidemia. 5. Hypertension. 6. Hypothyroidism. PLAN: Continue present care. Pulmonary help appreciated. We will begin to mobilize with therapy today with eye towards discharge tomorrow. QUINCY ALCANTAR MD DR: MAYCOL/erick JOB#: [id number] / [id number]
[2018-08-01 11:00] VITALS: BP 145/61
--- NOTE | 2018-08-01 12:18 | PDOC ---
PULMONARY PROGRESS NOTES Subjective feels better/ less cough Vitals Vital Signs Date Time Temp Pulse Resp B/P (MAP) Pulse Ox O2 Delivery O2 Flow Rate FiO2 08/01/18 11:00 98.2 68 18 145/61 (89) 95 Nasal Cannula 2.0 98.2 ROS: No Chest Pain, No Increase Cough General: Alert, No acute distress Lungs: Clear Cardiovascular: S1 Abdomen: Soft Neuro Exam: Alert Extremities: No Edema Skin: Warm Medications Active Scripts Medications Dose Route/Sig Max Daily Dose Days Date Category Metoprolol Tartrate 25 Mg Tablet 1 Tab PO BID 12/28/17 Reported Multaq (Dronedarone Hcl) 400 Mg Tablet 200 Mg PO BID 12/28/17 Reported Aspirin Ec (Aspirin) 81 Mg Tablet.dr 1 Tab PO DAILY 12/28/17 Reported Duoneb 0.5-3(2.5) Mg/3 Ml (Albuterol/Ipratropium) 3 Ml Ampul.neb 3 Ml NEB BID 12/11/17 Reported Namzaric 28 mg-10 mg Capsule (Memantine HCl/Donepezil HCl) 1 Each Cap.spr.24 1 12/11/17 Reported Citalopram Hbr (Citalopram Hydrobromide) 10 Mg Tablet 10 Mg PO DAILY 12/11/17 Reported Atorvastatin Calcium 20 Mg Tablet 20 Mg PO DAILY 12/11/17 Reported Levothyroxine Sodium 112 Mcg Tablet 112 Mcg PO DAILY 12/11/17 Reported Losartan Potassium 50 Mg Tablet 50 Mg PO DAILY 12/11/17 Reported Impression . 1. Acute exacerbation of chronic obstructive pulmonary disease. 2. Acute hypoxic respiratory failure secondary to acute exacerbation of chronic obstructive pulmonary disease and acute bronchitis. 3. Acute bronchitis, likely viral. The patient does have leukopenia. No definite consolidation seen on the chest x-ray. Plan . 1. Continue with present bronchodilators. 2. resolved fever. 3. steroids with gradual taper. 4. Continue empiric antibiotics for now 5. ok with dc in TED Tubbs MD Aug 01, 2018 12:18
[2018-08-01 15:00] VITALS: BP 144/57
[2018-08-01 19:00] VITALS: BP 149/56
[2018-08-01] MEDS: BENZOCAINE/MENTHOL LOZENGE. PO PRN (20:06)
[2018-08-01] MEDS: ATORVASTATIN CALCIUM 20 MG TABLET PO SCH (20:06)
[2018-08-01 23:00] VITALS: BP 150/60
[2018-08-02] VITALS (15 sets, daily range): BP systolic 92–188; BP diastolic 46–78
[2018-08-02] MEDS: LEVOTHYROXINE 112 MCG TABLET PO SCH (05:45)
[2018-08-02] MEDS: IV 1/2 NORMAL SALINE 1,000 ML IV SCH ×2 (05:46→18:55)
[2018-08-02] MEDS: IPRATRPIUM/ALBUTEROL 0.5/2.5MG 3 ML NEBU. NEB SCH ×4 (08:00→19:35)
--- NOTE | 2018-08-02 08:44 | PDOC ---
PULMONARY PROGRESS NOTES Subjective feels better/ less cough Vitals Vital Signs Date Time Temp Pulse Resp B/P (MAP) Pulse Ox O2 Delivery O2 Flow Rate FiO2 08/02/18 08:01 97 Nasal Cannula 2.0 08/02/18 07:00 98.3 64 18 182/74 (110) 98.3 ROS: No Chest Pain, No Increase Cough General: Alert, No acute distress Lungs: Clear Cardiovascular: S1 Abdomen: Soft Neuro Exam: Alert Extremities: No Edema Skin: Warm Medications Active Scripts Medications Dose Route/Sig Max Daily Dose Days Date Category Metoprolol Tartrate 25 Mg Tablet 1 Tab PO BID 12/28/17 Reported Multaq (Dronedarone Hcl) 400 Mg Tablet 200 Mg PO BID 12/28/17 Reported Aspirin Ec (Aspirin) 81 Mg Tablet.dr 1 Tab PO DAILY 12/28/17 Reported Duoneb 0.5-3(2.5) Mg/3 Ml (Albuterol/Ipratropium) 3 Ml Ampul.neb 3 Ml NEB BID 12/11/17 Reported Namzaric 28 mg-10 mg Capsule (Memantine HCl/Donepezil HCl) 1 Each Cap.spr.24 1 12/11/17 Reported Citalopram Hbr (Citalopram Hydrobromide) 10 Mg Tablet 10 Mg PO DAILY 12/11/17 Reported Atorvastatin Calcium 20 Mg Tablet 20 Mg PO DAILY 12/11/17 Reported Levothyroxine Sodium 112 Mcg Tablet 112 Mcg PO DAILY 12/11/17 Reported Losartan Potassium 50 Mg Tablet 50 Mg PO DAILY 12/11/17 Reported Impression . 1. Acute exacerbation of chronic obstructive pulmonary disease. 2. Acute hypoxic respiratory failure secondary to acute exacerbation of chronic obstructive pulmonary disease and acute bronchitis. 3. Acute bronchitis, likely viral. The patient does have leukopenia. No definite consolidation seen on the chest x-ray. Plan . PT NOT SEEN ELIZABETH HUTCHINS MD Aug 02, 2018 08:44
[2018-08-02] MEDS ORDERED: CEFD300C PO (08:46)
--- NOTE | 2018-08-02 08:52 | PDOC ---
GENERAL General: see discharge summary. VITAL SIGNS Vital Signs: Vital Signs Date Time Temp Pulse Resp B/P (MAP) Pulse Ox O2 Delivery O2 Flow Rate FiO2 08/02/18 08:01 97 Nasal Cannula 2.0 08/02/18 07:00 98.3 64 18 182/74 (110) 98.3 I & O I & O Intake and Output 08/02/18 07:01 Intake Total 1480 ml Output Total 600 ml Balance 880 ml Intake Oral 480 ml IV Total 1000 ml Output Urine Total 600 ml # Voids 5 ALLERGIES Allergies: Allergies Coded Allergies Type Severity Reaction Last Updated Verified No Known Drug Allergies 07/15/16 No MEDS Medications: Current Medications Medications (Trade) Dose Ordered Sig/Silvia Start Time Stop Time Status Last Admin Dose Admin Albuterol Sulfate (Ventolin Neb Soln) 2.5 mg PRN Q4HRS PRN 07/30/18 20:00 Albuterol/ Ipratropium (Duoneb) 3 ml RTQID 07/30/18 20:00 08/02/18 08:00 3 ML Aspirin (Ecotrin) 81 mg DAILY 07/29/18 09:00 08/01/18 08:18 81 MG Atorvastatin Calcium (Lipitor) 20 mg QHS 07/29/18 21:00 08/01/18 20:06 20 MG Azithromycin (Zithromax) 500 mg DAILY 08/02/18 09:00 Azithromycin 500 mg/Sodium Chloride 250 ml @ 250 mls/hr Q24H 07/29/18 09:00 08/01/18 15:28 DC 08/01/18 08:20 250 MLS/HR Calcium Carbonate/ Glycine (Tums) 500 mg PRN AFTMEALHC PRN 07/30/18 19:45 08/01/18 20:06 500 MG Cefdinir (Omnicef) 300 mg BID 08/02/18 09:00 Ceftriaxone Sodium (Rocephin) 1 gm Q24H 07/29/18 09:00 08/01/18 15:29 DC 08/01/18 08:20 1 GM Citalopram Hydrobromide (CeleXA) 10 mg DAILY 07/29/18 09:00 08/01/18 08:17 10 MG Dronedarone (Multaq) 200 mg BID 07/29/18 09:00 08/01/18 20:07 200 MG Lactobacillus Rhamnosus (Culturelle) 1 cap BID 07/30/18 21:00 08/01/18 20:06 1 CAP Levothyroxine Sodium (Synthroid) 112 mcg DAILY06 07/29/18 10:30 08/02/18 05:45 112 MCG Losartan Potassium (Cozaar) 50 mg DAILY 07/29/18 09:00 08/01/18 08:18 50 MG Methylprednisolone Sodium Succinate (SOLU-Medrol 40MG VIAL) 40 mg BID 07/30/18 21:00 08/01/18 20:07 40 MG Metoprolol Tartrate (Lopressor) 25 mg BID 07/29/18 09:00 08/01/18 20:07 25 MG Sodium Chloride 1,000 ml @ 75 mls/hr [id number] 07/29/18 08:15 08/02/18 05:46 75 MLS/HR Throat Lozenges (Cepacol Sore Throat Lozenge) 1 jose PRN Q2HRS PRN 07/30/18 19:45 08/01/18 20:06 1 QUINCY CURRY MD Aug 02, 2018 08:51
--- NOTE | 2018-08-02 09:45 | DS ---
DATE OF DISCHARGE: 08/02/2018 PRIMARY DIAGNOSES: 1. Exacerbation of chronic obstructive pulmonary disease with acute respiratory failure. 2. Hypoxia. ADDITIONAL DIAGNOSES: 1. Acute bronchitis, likely viral with some reactive Leukopenia. 2. Ongoing abdominal pain as an outpatient, intermittently. 3. Mild dementia. 4. Atrial fibrillation. 5. Hyperlipidemia. 6. Hypertension. 7. Hypothyroidism. CHIEF COMPLAINT AND HISTORY OF PRESENT ILLNESS: This is an 82-year-old white female well known to me from followup in the office. The patient had increasing shortness of breath and cough over the few days prior to admission, becoming much worse on the day of admission, presenting to the Emergency Room where she was found in acute respiratory failure with O2 sat of 84. Clear chest x-ray and admitted for an exacerbation of COPD. She was quite wheezy in addition. SUMMARY OF STAY: The patient was admitted, treated throughout the stay with IV antibiotics, IV fluids, pulmonary toilet, steroids with slow but steady improvement to where she was feeling fairly close to her baseline by the day of discharge. Pulmonary followed along during the stay. She was getting HIDA scan prior to discharge, which was going to be done as an outpatient in the next few days anyway for outpatient workup of abdominal pain and with discharge after that. DISPOSITION: The patient was discharged to home, regular diet, activity as tolerated, office in 1 week. Discharge meds will be her regular home meds plus a prednisone taper as well as Omnicef 300 b.i.d. for the next 7 days. QUINCY ALCANTAR MD DR: MAYCOL/erick JOB#: [id number] / [id number]
[2018-08-02] MEDS: methylPREDNISolone SOD SUCC PF 40 MG/ML VIAL. IV SCH ×2 (09:57→21:01)
[2018-08-02] MEDS ORDERED: SINCALIDE 1.22 MCG in IV NORMAL SALINE 50ML 30 ML IV ONE (12:00)
--- NOTE | 2018-08-02 13:14 | RAD ---
Radionuclide hepatobiliary scan, 08/02/2018: HISTORY: Abdominal pain, nausea Following IV injection of 4.8 mCi of technetium 99m Choletec there was prompt uptake of the radionuclide from the blood stream by the liver. Activity is present in the bile ducts and gallbladder at 15 minutes. Small bowel activity developed at 25 minutes. Additional imaging of the gallbladder was then performed following IV injection of 1.2 mcg of cholecystokinin. The gallbladder ejection fraction was calculated at 81 percent. IMPRESSION: 1. Normal radionuclide hepatobiliary scan. 2. The gallbladder ejection fraction is 81 percent. Electronically signed by: Rod Aranda MD (08/02/2018 1:10 PM) [facility]
[2018-08-02] MEDS: DRONEDARONE HCL 400 MG TABLET PO SCH ×2 (13:38→21:00)
[2018-08-02] MEDS: CITALOPRAM 10 MG TABLET. PO SCH (13:40)
[2018-08-02] MEDS: LACTOBACILLUS RHAMNOSUS GG 1 CAPSULE. PO SCH ×2 (13:41→21:01)
[2018-08-02] MEDS: METOPROLOL TART IMMED RELEASE 25 MG TABLET. PO SCH ×2 (13:41→21:01)
[2018-08-02] MEDS: ASPIRIN ENTERIC COATED 81 MG TABLET.DR. PO SCH (13:45)
[2018-08-02] MEDS: LOSARTAN POTASSIUM 50 MG TABLET. PO SCH (13:45)
[2018-08-02] MEDS: CEFDINIR 300 MG CAPSULE PO SCH ×2 (13:46→21:00)
[2018-08-02] MEDS: AZITHROMYCIN 250 MG TABLET. PO SCH (13:47)
--- NOTE | 2018-08-02 14:15 | EKG ---
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 : 1935 Requested By: QUINCY ALCANTAR Order Number: [id number] Reading MD: David Carson Measurements Intervals [place] Rate: 136 P: MT: QRS: 51 QRSD: 68 T: 49 QT: 288 QTc: 436 Interpretive Statements ATRIAL FIBRILLATION WITH RVR LOW LIMB LEAD VOLTAGE Electronically Signed On 08-02-2018 15:30:40 [employer] by David Carson
[2018-08-02] MEDS ORDERED: METOPROLOL TARTRATE 5 MG/5 ML VIAL. IVP ONE (14:30)
--- NOTE | 2018-08-02 14:48 | PDOC2 ---
CARDIAC CONSULT DATE OF CONSULT Date of Consult DATE: 08/02/18 TIME: 14:23 REASON FOR CONSULT Reason for Consult: AFIB RVR REFERRING PHYSICIAN Referring Physician: Leonidas SOURCE Source: Chart review, Patient HISTORY OF PRESENT ILLNESS HISTORY OF PRESENT ILLNESS This is a pleasant 82 yo female admitted for complains of abdominal pain and SOA. As an inpt she has been noted with SOA and was related to bronchitis with COPD exac and has been treated by pulmonary. Also had hida scan and was unremarkable in result. She was in medsurg and was in process on obtaining 6 minute walk and getting ready for discharge when noted with AFIB RVR. Presently her HR is 120-140s but no complains of chest pain SOA and no sensation of palpitations. Seh has been complaint with her medications. apparently her multaq is being given at 200 mg po bid. PAST MEDICAL HISTORY Past Medical History Cardiovascular: HTN, Hyperlipidemia, PAFIB Pulmonary: COPD Endocrine: Hypothyroidism GI: hiatal hernia, diverticulosis PAST SURGICAL HISTORY Past Surgical History Appendectomy, Cholecystectomy, Tonsillectomy, Hysterectomy, Other (hip replacement) FAMILY HISTORY Family History: Hypertension SOCIAL HISTORY Smoke: Quit ALCOHOL: none Drugs: None Lives: with Family CURRENT MEDICATIONS CURRENT MEDICATIONS Current Medications Medications (Trade) Dose Ordered Sig/Silvia Route PRN Reason Start Time Stop Time Status Last Admin Dose Admin Azithromycin (Zithromax) 500 mg DAILY PO 08/02/18 09:00 08/02/18 13:47 Cefdinir (Omnicef) 300 mg BID PO 08/02/18 09:00 08/02/18 13:46 Sincalide 1.22 mcg/Sodium Chloride 30 ml @ 120 mls/hr 1X ONCE IV 08/02/18 12:00 08/02/18 12:14 DC 08/02/18 12:43 ALLERGIES ALLERGIES: Coded Allergies: No Known Drug Allergies (Unverified , 07/15/16) ROS Review of System 14 point ROS evaluated with pertinent positives noted per HPI PHYSICAL EXAM General: Alert, Oriented X3, Cooperative, No acute distress HEENT: Atraumatic, Mucous membr. moist/pink Lungs: Other (diminished with faint diffuse wheeze) Heart: Other (AFIB RVR) Abdomen: Soft, No tenderness Extremities: No cyanosis, No edema Skin: No breakdown, No significant lesion Neuro: Normal speech, Sensation intact Psych/Mental Status: Mental status NL, Mood NL MUSCULOSKELETAL: Osteoarthritic changes both hands VITALS VITALS Vital Signs Date Time Temp Pulse Resp B/P (MAP) Pulse Ox O2 Delivery O2 Flow Rate FiO2 08/02/18 13:45 74 188/75 08/02/18 10:59 98.3 18 95 Nasal Cannula 2.0 98.3 ECHOCARDIOGRAM ECHOCARDIOGRAM <Conclusion> The left ventricular systolic function is normal and the ejection fraction is within normal range. The Ejection Fraction is 60-65%. There is normal LV segmental wall motion. Doppler and Color Flow revealed mild to moderate aortic regurgitation. DATE: 12/13/17 0842 ASSESSMENT/PLAN ASSESSMENT/PLAN 1. AECOPD: better, per pulmonary 2. AFIB RVR: paroxysmal by hx. Converted to AFIB RVR likely due to inadequate multaq dosing with missed BB this AM due to being NPO for hida scan. 2. HTN: labile 3. HLP 4. Valvular insufficiency: mild to mod AI 5. Mild pancytopenia: per PCP Recommendations 1. Noted 200 mg bid of multaq. Continue with multaq at 400 mg bid and metoprolol. IV lopressor x1 and will give x1 Dig if need be. 2. Taken of anticoagulation in the past due to anemia but unknown specifics. This was discussed significantly in the past regarding options and preferred to be on ASA for stroke prevention. 3. Continue pulmonary recommendations 4. Rapid response was called and to transfer to CVC. 5. Monitor BP trend once rate is better and will consider adding norvasc if remains labile. Unable increase BB due to wheezing. 6. BMP, Mg, CBC MEIR SANON APRN Aug 02, 2018 14:48
[2018-08-02 15:11] LABS: HEMATOCRIT 33.6 % (36.0-47.0); HEMOGLOBIN 11.4 g/dL (12.0-15.5); RED BLOOD COUNT 3.65 x10^6/uL (3.50-5.40); RED CELL DISTRIBUTION WIDTH 15.3 % (11.5-14.5); WHITE BLOOD COUNT 6.4 x10^3/uL (4.0-11.0)
[2018-08-02] MEDS ORDERED: DIGOXIN IV 500 MCG/2 ML AMPUL. IV ONE (15:15)
[2018-08-02 15:26] LABS: CALCIUM 8.6 mg/dL (8.5-10.1); CREATININE 1.1 mg/dL (0.6-1.0); GFR 47.4; POTASSIUM 4.1 mmol/L (3.5-5.1)
--- NOTE | 2018-08-02 17:13 | CARD ---
MR#: [id number] Date of Study: 08/02/2018 Ordering Physician: MEIR SANON, Referring Physician: QUINCY ALCANTAR Tech: Deanna Burdick APPROVED REPORT EXAM: Two-dimensional and M-mode echocardiogram with Doppler and color Doppler. Other Information Quality : AverageHR: 130bpm Technically limited study due to High Heart rate INDICATION Atrial Fibrillation RISK FACTORS Hypertension Hyperlipidemia 2D DIMENSIONS Left Atrium(2D)3.6 (1.6-4.0cm)IVSd1.1 (0.7-1.1cm) Aortic Root(2D)2.8 (2.0-3.7cm)LVDd3.4 (3.9-5.9cm) LVOT Diameter2.1 (1.8-2.4cm)PWd1.0 (0.7-1.1cm) LVDs2.4 (2.5-4.0cm)FS (%) 27.6 % SV25.5 mlLVEF(%)54.7 (>50%) Aortic Valve AoV Peak Chidi.168.2cm/sAoV VTI26.9cm AO Peak GR.11.3mmHgLVOT VTI 16.54cm AO Mean GR.6mmHgAI P 1/2 [id number] Mitral Valve MV E Nddrsfza773.5cm/sMV DECEL IUEI951mc MV A Wdvniwnt77.9cm/sE/A Ratio2.0 TDI Lateral E' P. V4.83cm/sE/Lateral E'23.9 Tricuspid Valve TR P. Zcxdwevg158nb/sRAP TRTYMFMM4ggQs TR Peak Gr.73jmRbFPSN59ahEn Pulmonary Vein S1 Xiudhucm98.2cm/sS2 Kinntcht18.47cm/s D2 Dkrqrbcy17.5cm/sPVa urdhmqac296laem LEFT VENTRICLE The left ventricle is normal size. There is normal left ventricular wall thickness. The left ventricu lar systolic function is normal and the ejection fraction is within normal range. The Ejection Fracti on is 50-55%. There is normal LV segmental wall motion. Tissue Doppler imaging reveals moderate left ventricular diastolic dysfunction. RIGHT VENTRICLE The right ventricle is borderline dilated. There is normal right ventricular wall thickness. The righ t ventricular systolic function is normal. ATRIA The left atrium size is normal. The right atrium size is normal. The interatrial septum is intact wit h no evidence for an atrial septal defect or patent foramen ovale as noted on 2-D or Doppler imaging. AORTIC VALVE The aortic valve is normal in structure and function. Doppler and Color Flow revealed trace to mild a ortic regurgitation. There is no significant aortic valvular stenosis. MITRAL VALVE The mitral valve is normal in structure and function. There is no evidence of mitral valve prolapse. There is no mitral valve stenosis. Doppler and Color Flow revealed no mitral valve regurgitation note d. TRICUSPID VALVE The tricuspid valve is normal in structure and function. Doppler and Color Flow revealed trace tricus pid regurgitation. There is no tricuspid valve stenosis. PULMONIC VALVE The pulmonic valve is not well visualized. Doppler and Color Flow revealed trace to mild pulmonic fahad vular regurgitation. There is no pulmonic valvular stenosis. GREAT VESSELS The aortic root is normal in size. The IVC is normal in size and collapses >50% with inspiration. PERICARDIAL EFFUSION There is no evidence of significant pericardial effusion. Critical Notification Critical Value: No <Conclusion> The left ventricular systolic function is normal and the ejection fraction is within normal range. Th e Ejection Fraction is 50-55%. There is normal LV segmental wall motion. Signed by : Kei Cuellar, Electronically Approved : 08/02/2018 17:11:03
[2018-08-02] MEDS: ATORVASTATIN CALCIUM 20 MG TABLET PO SCH (21:00)
[2018-08-03 03:54] VITALS: BP 178/74
[2018-08-03] MEDS: LEVOTHYROXINE 112 MCG TABLET PO SCH (05:58)
[2018-08-03 07:00] VITALS: BP 159/112
[2018-08-03] MEDS: IV 1/2 NORMAL SALINE 1,000 ML IV SCH (08:15)
--- NOTE | 2018-08-03 08:47 | PDOC ---
PULMONARY PROGRESS NOTES Subjective NOT MORE SOA Vitals Vital Signs Date Time Temp Pulse Resp B/P (MAP) Pulse Ox O2 Delivery O2 Flow Rate FiO2 08/03/18 07:00 98.2 61 18 159/112 (128) 95 Nasal Cannula 2.0 98.2 ROS: No Chest Pain, No Increase Cough General: Alert, No acute distress Lungs: Clear Cardiovascular: S1 Abdomen: Soft Neuro Exam: Alert Extremities: No Edema Skin: Warm Labs Laboratory Tests Test 08/02/18 15:00 White Blood Count 6.4 x10^3/uL (4.0-11.0) Red Blood Count 3.65 x10^6/uL (3.50-5.40) Hemoglobin 11.4 g/dL (12.0-15.5) Hematocrit 33.6 % (36.0-47.0) Mean Corpuscular Volume 92 fL (79-100) Mean Corpuscular Hemoglobin 31 pg (25-35) Mean Corpuscular Hemoglobin Concent 34 g/dL (31-37) Red Cell Distribution Width 15.3 % (11.5-14.5) Platelet Count 159 x10^3/uL (140-400) Sodium Level 140 mmol/L (136-145) Potassium Level 4.1 mmol/L (3.5-5.1) Chloride Level 104 mmol/L (98-107) Carbon Dioxide Level 30 mmol/L (21-32) Anion Gap 6 (6-14) Blood Urea Nitrogen 15 mg/dL (7-20) Creatinine 1.1 mg/dL (0.6-1.0) Estimated GFR (Cockcroft-Gault) 47.4 Glucose Level 181 mg/dL (70-99) Calcium Level 8.6 mg/dL (8.5-10.1) Magnesium Level 2.1 mg/dL (1.8-2.4) Thyroid Stimulating Hormone (TSH) 0.339 uIU/mL (0.358-3.74) Laboratory Tests Test 08/02/18 15:00 White Blood Count 6.4 x10^3/uL (4.0-11.0) Red Blood Count 3.65 x10^6/uL (3.50-5.40) Hemoglobin 11.4 g/dL (12.0-15.5) Hematocrit 33.6 % (36.0-47.0) Mean Corpuscular Volume 92 fL (79-100) Mean Corpuscular Hemoglobin 31 pg (25-35) Mean Corpuscular Hemoglobin Concent 34 g/dL (31-37) Red Cell Distribution Width 15.3 % (11.5-14.5) Platelet Count 159 x10^3/uL (140-400) Sodium Level 140 mmol/L (136-145) Potassium Level 4.1 mmol/L (3.5-5.1) Chloride Level 104 mmol/L (98-107) Carbon Dioxide Level 30 mmol/L (21-32) Anion Gap 6 (6-14) Blood Urea Nitrogen 15 mg/dL (7-20) Creatinine 1.1 mg/dL (0.6-1.0) Estimated GFR (Cockcroft-Gault) 47.4 Glucose Level 181 mg/dL (70-99) Calcium Level 8.6 mg/dL (8.5-10.1) Magnesium Level 2.1 mg/dL (1.8-2.4) Thyroid Stimulating Hormone (TSH) 0.339 uIU/mL (0.358-3.74) Medications Active Scripts Medications Dose Route/Sig Max Daily Dose Days Date Category Metoprolol Tartrate 25 Mg Tablet 1 Tab PO BID 12/28/17 Reported Multaq (Dronedarone Hcl) 400 Mg Tablet 200 Mg PO BID 12/28/17 Reported Aspirin Ec (Aspirin) 81 Mg Tablet.dr 1 Tab PO DAILY 12/28/17 Reported Duoneb 0.5-3(2.5) Mg/3 Ml (Albuterol/Ipratropium) 3 Ml Ampul.neb 3 Ml NEB BID 12/11/17 Reported Namzaric 28 mg-10 mg Capsule (Memantine HCl/Donepezil HCl) 1 Each Cap.spr.24 1 12/11/17 Reported Citalopram Hbr (Citalopram Hydrobromide) 10 Mg Tablet 10 Mg PO DAILY 12/11/17 Reported Atorvastatin Calcium 20 Mg Tablet 20 Mg PO DAILY 12/11/17 Reported Levothyroxine Sodium 112 Mcg Tablet 112 Mcg PO DAILY 12/11/17 Reported Losartan Potassium 50 Mg Tablet 50 Mg PO DAILY 12/11/17 Reported Impression . 1. Acute exacerbation of chronic obstructive pulmonary disease. 2. Acute hypoxic respiratory failure secondary to acute exacerbation of chronic obstructive pulmonary disease and acute bronchitis. 3. Acute bronchitis, likely viral. The patient does have leukopenia. No definite consolidation seen on the chest x-ray. Plan . HOME RX FOR PRED/PROTONIX/TESSALON FOLLOW UP IN 2-4 WEEKS ELIZABETH HUTCHINS MD Aug 03, 2018 08:47
[2018-08-03] MEDS: BENZOCAINE/MENTHOL LOZENGE. PO PRN (09:03)
[2018-08-03] MEDS: methylPREDNISolone SOD SUCC PF 40 MG/ML VIAL. IV SCH (09:03)
[2018-08-03] MEDS: IPRATRPIUM/ALBUTEROL 0.5/2.5MG 3 ML NEBU. NEB SCH ×3 (09:06→16:05)
[2018-08-03] MEDS: DRONEDARONE HCL 400 MG TABLET PO SCH (09:06)
[2018-08-03] MEDS: LOSARTAN POTASSIUM 50 MG TABLET. PO SCH (09:08)
[2018-08-03] MEDS: AZITHROMYCIN 250 MG TABLET. PO SCH (09:08)
[2018-08-03] MEDS: CEFDINIR 300 MG CAPSULE PO SCH (09:08)
[2018-08-03] MEDS: ASPIRIN ENTERIC COATED 81 MG TABLET.DR. PO SCH (09:09)
[2018-08-03] MEDS: METOPROLOL TART IMMED RELEASE 25 MG TABLET. PO SCH (09:09)
[2018-08-03] MEDS: LACTOBACILLUS RHAMNOSUS GG 1 CAPSULE. PO SCH (09:09)
[2018-08-03] MEDS: CITALOPRAM 10 MG TABLET. PO SCH (09:09)
[2018-08-03 11:00] VITALS: BP 159/68
--- NOTE | 2018-08-03 11:37 | PDOC ---
CARDIO Progress Notes Date and Time Date of Service 08/03/2018 Time of Evaluation 1110 Subjective Subjective: No Chest Pain, No shortness of breath, No Palpitations, Other ( still coughing but not wheezy) Vitals Vitals Vital Signs Date Time Temp Pulse Resp B/P (MAP) Pulse Ox O2 Delivery O2 Flow Rate FiO2 08/03/18 09:09 68 159/112 08/03/18 09:07 Nasal Cannula 2.0 08/03/18 07:00 98.2 18 95 98.2 Weight Weight [ ] Input and Output Intake and Output Intake and Output 08/03/18 07:01 Intake Total 400 ml Balance 400 ml Intake Oral 400 ml # Voids 3 Laboratory Labs Laboratory Tests Test 08/02/18 15:00 White Blood Count 6.4 x10^3/uL (4.0-11.0) Red Blood Count 3.65 x10^6/uL (3.50-5.40) Hemoglobin 11.4 g/dL (12.0-15.5) Hematocrit 33.6 % (36.0-47.0) Mean Corpuscular Volume 92 fL (79-100) Mean Corpuscular Hemoglobin 31 pg (25-35) Mean Corpuscular Hemoglobin Concent 34 g/dL (31-37) Red Cell Distribution Width 15.3 % (11.5-14.5) Platelet Count 159 x10^3/uL (140-400) Sodium Level 140 mmol/L (136-145) Potassium Level 4.1 mmol/L (3.5-5.1) Chloride Level 104 mmol/L (98-107) Carbon Dioxide Level 30 mmol/L (21-32) Anion Gap 6 (6-14) Blood Urea Nitrogen 15 mg/dL (7-20) Creatinine 1.1 mg/dL (0.6-1.0) Estimated GFR (Cockcroft-Gault) 47.4 Glucose Level 181 mg/dL (70-99) Calcium Level 8.6 mg/dL (8.5-10.1) Magnesium Level 2.1 mg/dL (1.8-2.4) Thyroid Stimulating Hormone (TSH) 0.339 uIU/mL (0.358-3.74) Physical Exam HEENT: Neck Supple W Full Motion Chest: Symmetric LUNGS: Other (diminished) Heart: S1S2, RRR (SR) Abdomen: Soft N/T Extremities: No Edema, No Calf Tenderness Neurology: alert, oriented, follow commands Assessment Assessment 1. AECOPD: better but still having intractable cough, Pulmonary following 2. AFIB RVR: paroxysmal by hx. RVR yesterday due to inadequate multaq dosing. Maintaining SR. 2. HTN: labile 3. HLP 4. Valvular insufficiency: mild to mod AI 5. Hypothyroidism: TSH at 0.34 per PCP Recommendations 1. Continue multaq 400 mg po bid and lopressor 25 mg po bid. If BP remains labile then may increase losartan. 2. Taken of anticoagulation in the past due to anemia but unknown specifics. This was discussed significantly in the past regarding options and preferred to be on ASA for stroke prevention. 3. Continue pulmonary recommendations 4. Follow up in office in 4 weeks MEIR SANON APRN Aug 03, 2018 11:37
--- NOTE | 2018-08-04 08:58 | DS ---
DATE OF DISCHARGE: 08/03/2018 ADDENDUM This is an addendum to prior discharge summary dictated a couple days ago. The only change from prior is the fact the patient developed AFib with a rapid ventricular response prior to the prior discharge that was scheduled. She was placed on telemetry, started on Multaq, converted to normal sinus rhythm and will remain on the Multaq 400 b.i.d. as an outpatient. Everybody felt from Cardiology and Pulmonary, she was ready for discharge. This was accomplished. The prior discharge summary is accurate with the exception of adding AFib with a rapid ventricular response to the diagnosis and the change in medication to the Multaq 400 b.i.d. and metoprolol 25 mg b.i.d. QUINCY ALCANTAR MD DR: MAYCOL/erick JOB#: [id number] / [id number]
== END 2018-08-03 17:30 | disposition home or self-care (01) | DRG 189 ==
LOC: ER 18:53 → 5 NORTH 21:24 → 2 SOUTH 08-02 14:54
PROVIDERS: ADMIT Family Medicine; ATTEND Family Medicine
DX: J96.01 Acute respiratory failure with hypoxia (principal); J44.1 Chronic obstructive pulmonary disease with (acute) exacerbation; J44.0 Chronic obstructive pulmonary disease with (acute) lower respiratory infection; D61.818 Other pancytopenia; I48.0 Paroxysmal atrial fibrillation; F03.90 Unspecified dementia, unspecified severity, without behavioral disturbance, psychotic disturbance, mood disturbance, and anxiety; I35.1 Nonrheumatic aortic (valve) insufficiency; J20.9 Acute bronchitis, unspecified; E78.5 Hyperlipidemia, unspecified; E78.00 Pure hypercholesterolemia, unspecified; E03.9 Hypothyroidism, unspecified; Z96.642 Presence of left artificial hip joint; I10 Essential (primary) hypertension; K57.90 Diverticulosis of intestine, part unspecified, without perforation or abscess without bleeding; Z90.49 Acquired absence of other specified parts of digestive tract; Z90.710 Acquired absence of both cervix and uterus; Z82.49 Family history of ischemic heart disease and other diseases of the circulatory system
CPT/HCPCS: 36415; 71045; 78227; 80048; 80053; 81001; 83735; 83880; 84443; 84484; 85025; 85027; 87804; 93005; 93306; 94618; 94640; 94760; A9537; J0456; J0696; J1160; J2805; J2920; J3490; J7050; J7620; Q0144; 97116; 97530; 97535; 99285-25; J7030

== ENCOUNTER 2018-08-27 15:17 | Emergency (ER) | payer MEDICARE, OTHER ==
[~2018-08-27] VITALS: Ht 147.3 cm; Wt 61.2 kg
[~2018-08-27 15:17] MED LIST changes: +CEFD300C PO
--- NOTE | 2018-08-27 16:20 | PHYS DOC ---
Past Medical History Past Medical History: A-Fib, Dementia, High Cholesterol, Heart Disease, Hypertension, Hypothyroid Additional Past Medical Histor: seasonal allergies Past Surgical History: Appendectomy, Hysterectomy Additional Past Surgical Histo: L hip Alcohol Use: None Drug Use: None Adult General Chief Complaint Chief Complaint: WEAKNESS/GENERALIZED HPI HPI 82-year-old female presents to ER for complaints of generalized fatigue and weakness. Per [id number] at bedside patient has dementia and lives with her and patient's son. She reports patient was discharged from the hospital on 08/03/18 and has been fatigued since with gradual worsening of symptoms. Patient was discharged home on oxygen and at times she will remove her oxygen which patient's [id number] states she becomes confused during those episodes and when oxygen is replaced patient is back to her normal mental status. She denies patient having any recent falls or injury. She reports today patient had episode of urine incontinence which she is not having the past; reporting incidence occu rred again when pt took her oxygen off. Pt is denying any complaints currently- smiling and in no distress. Review of Systems Review of Systems Constitutional: Denies fever or chills. Per family pt has had increased fatigue and less fluid intake- pt is denying feeling fatigued Eyes: Denies change in visual acuity, redness, or eye pain [] HENT: Denies nasal congestion or sore throat [] Respiratory: Denies cough or shortness of breath [] Cardiovascular: No additional information not addressed in HPI [] GI: Denies abdominal pain, nausea, vomiting, bloody stools or diarrhea [] : Denies dysuria or hematuria [] Musculoskeletal: Denies back pain or joint pain [] Integument: Denies rash or skin lesions [] Neurologic: Denies headache, focal weakness or sensory changes [] Endocrine: Denies polyuria or polydipsia [] All other systems were reviewed and found to be within normal limits, except as documented in this note. Current Medications Current Medications Current Medications Medications (Trade) Dose Ordered Sig/Silvia Start Time Stop Time Status Last Admin Dose Admin Sodium Chloride 500 ml @ 500 mls/hr 1X ONCE 08/27/18 17:30 08/27/18 18:29 DC 08/27/18 17:34 500 MLS/HR Allergies Allergies Allergies Coded Allergies Type Severity Reaction Last Updated Verified No Known Drug Allergies 07/15/16 No Physical Exam Physical Exam Constitutional: Well developed, well nourished, no acute distress, non-toxic appearance. Clear speech- smiling during exam HENT: Normocephalic, atraumatic, bilateral ears normal, mucous membranes pink/dry, no oral exudates, nose normal. [] Eyes: PERRLA, no nystagmus, conjunctiva normal, no discharge. [] Neck: Normal range of motion, no tenderness, supple, no stridor. [] Cardiovascular: Bradycardic heart rate regular rhythm, no murmur [] Lungs & Thorax: Bilateral breath sounds clear to auscultation- resp. equal/nonlabored. Speaking in full sentences. On O2 via [place] 1.5L with O2 sat 96% Abdomen: Bowel sounds normal, soft, no tenderness, no masses, no pulsatile masses. [] Skin: Warm, dry, no erythema, no rash. [] Back: No tenderness, no CVA tenderness. [] Extremities: No tenderness, no cyanosis, no clubbing, ROM intact, 1+ bilat. nonpitting pedal Neurologic: Alert and oriented X 3, normal motor function, normal sensory function, no focal deficits noted. [] Psychologic: Affect normal, judgement normal, mood normal. [] Current Patient Data Vital Signs Lab Values Laboratory Tests Test 08/27/18 17:11 White Blood Count 4.8 x10^3/uL (4.0-11.0) Red Blood Count 3.70 x10^6/uL (3.50-5.40) Hemoglobin 11.2 g/dL (12.0-15.5) L Hematocrit 34.7 % (36.0-47.0) L Mean Corpuscular Volume 94 fL (79-100) Mean Corpuscular Hemoglobin 30 pg (25-35) Mean Corpuscular Hemoglobin Concent 32 g/dL (31-37) Red Cell Distribution Width 16.3 % (11.5-14.5) H Platelet Count 130 x10^3/uL (140-400) L Neutrophils (%) (Auto) 77 % (31-73) H Lymphocytes (%) (Auto) 9 % (24-48) L Monocytes (%) (Auto) 12 % (0-9) H Eosinophils (%) (Auto) 2 % (0-3) Basophils (%) (Auto) 1 % (0-3) Neutrophils # (Auto) 3.7 x10^3uL (1.8-7.7) Lymphocytes # (Auto) 0.4 x10^3/uL (1.0-4.8) L Monocytes # (Auto) 0.6 x10^3/uL (0.0-1.1) Eosinophils # (Auto) 0.1 x10^3/uL (0.0-0.7) Basophils # (Auto) 0.0 x10^3/uL (0.0-0.2) Urine Collection Type Unknown Urine Color Yellow Urine Clarity Cloudy Urine pH 6.5 Urine Specific [place] 1.025 Urine Protein Negative mg/dL (NEG-TRACE) Urine Glucose (UA) Negative mg/dL (NEG) Urine Ketones (Stick) Negative mg/dL (NEG) Urine Blood Negative (NEG) Urine Nitrite Negative (NEG) Urine Bilirubin Negative (NEG) Urine Urobilinogen Dipstick 1.0 mg/dL (0.2 mg/dL) Urine Leukocyte Esterase Trace (NEG) Urine RBC 1-2 /HPF (0-2) Urine WBC 1-4 /HPF (0-4) Urine Squamous Epithelial Cells Few /LPF Urine Bacteria Moderate /HPF (0-FEW) Urine Hyaline Casts Occasional /HPF Urine Mucus Marked /LPF Sodium Level 141 mmol/L (136-145) Potassium Level 3.8 mmol/L (3.5-5.1) Chloride Level 104 mmol/L (98-107) Carbon Dioxide Level 35 mmol/L (21-32) H Anion Gap 2 (6-14) L Blood Urea Nitrogen 18 mg/dL (7-20) Creatinine 1.0 mg/dL (0.6-1.0) Estimated GFR (Cockcroft-Gault) 53.0 BUN/Creatinine Ratio 18 (6-20) Glucose Level 89 mg/dL (70-99) Calcium Level 9.7 mg/dL (8.5-10.1) Total Bilirubin 0.5 mg/dL (0.2-1.0) Aspartate Amino Transferase (AST) 16 U/L (15-37) Alanine Aminotransferase (ALT) 23 U/L (14-59) Alkaline Phosphatase 71 U/L (46-116) Troponin I Quantitative < 0.017 ng/mL (0.000-0.055) Total Protein 6.9 g/dL (6.4-8.2) Albumin 3.5 g/dL (3.4-5.0) Albumin/Globulin Ratio 1.0 (1.0-1.7) Laboratory Tests 08/27/18 17:11 Laboratory Tests 08/27/18 17:11 Microbiology 08/27/18 Urine Culture - Final, Complete 08/27/18 Urine Culture Result 1 (MEHREEN) - Final, Complete 08/27/18 Antimicrobic Susceptibility - Final, Complete Microbiology 08/27/18 Urine Culture - Final, Complete 08/27/18 Urine Culture Result 1 (MEHREEN) - Final, Complete 08/27/18 Antimicrobic Susceptibility - Final, Complete EKG EKG EKG obtained 08/27/18 at 1722 Interpreted by ER physician Sinus bradycardia Rate 55 No STEMI Radiology/Procedures Radiology/Procedures [] Course & Med Decision Making Course & Med Decision Making Pertinent Labs and Imaging studies reviewed. (See chart for details) Pt was evaluated in the ER for generalized fatigue/weakness and per family has hx of Dementia and recently been placed on O2. Pt has tendency to remove oxygen at home per family and that's when she experiences increased fatigue and confusion- family reports when O2 placed back on pt sxs subside. EKG was obtained with no acute ST elevation/STEMI and troponin was <0.017; labs similar to previous results in pt's records; UA with trace leuks neg. nitrates/blood and micro with 1-4 WBCs with report of moderate bacteria/squamous cells. Pt and family denied pt with any urinary sxs. Pt had dry mucous membranes and so discussed increasing fluid intake with pt and family- 500cc NS bolus provided while tests were pending. Pt was afebrile and lung sounds were clear throughout all lung shankar.Pt has been in no distress and denying any complaints. Test results were discussed with pt and her family along with plan of care. Pt and her family preferring home discharge as admission was discussed for further monitoring. Pt to have f/u with her PCP and education provided on s&s to return to ER for. Pt encouraged to keep oxygen on daily- with her hx of Dementia also discussed closer monitoring of pt at home if possible. Discharge instructions were discussed. Dragon Disclaimer Dragon Disclaimer This electronic medical record was generated, in whole or in part, using a voice recognition dictation system. Departure Departure Impression: Primary Impression: Weakness generalized Disposition: 01 HOME, SELF-CARE Condition: STABLE Referrals: QUINCY ALCANTAR MD (PCP) Patient Instructions: Weakness Additional Instructions: Follow-up with primary care physician this week for reevaluation and further care. Encourage increase water intake. Encourage to continuously wear oxygen. Well balanced meals daily. ANABEL ELIZABETH APRN Aug 27, 2018 16:20
[2018-08-27 17:27] LABS: BASO % 1 % (0-3); EOS # 0.1 x10^3/uL (0.0-0.7); EOS % 2 % (0-3); HEMATOCRIT 34.7 % (36.0-47.0); HEMOGLOBIN 11.2 g/dL (12.0-15.5); LYMPH # 0.4 x10^3/uL (1.0-4.8); LYMPH % 9 % (24-48); MEAN CORPUSCULAR HEMOGLOBIN 30 pg (25-35); MEAN CORPUSCULAR HGB CONC 32 g/dL (31-37); MEAN CORPUSCULAR VOLUME 94 fL (79-100); MONO # 0.6 x10^3/uL (0.0-1.1); MONO % 12 % (0-9); NEUT # 3.7 x10^3uL (1.8-7.7); NEUT % 77 % (31-73); PLATELET COUNT 130 x10^3/uL (140-400); RED CELL DISTRIBUTION WIDTH 16.3 % (11.5-14.5); WHITE BLOOD COUNT 4.8 x10^3/uL (4.0-11.0)
[2018-08-27 17:29] LABS: BILIRUBIN,URINE NEGATIVE (NEG); CLARITY,URINE CLOUDY; COLOR,URINE YELLOW; NITRITE,URINE NEGATIVE (NEG); PH,URINE 6.5; PROTEIN,URINE NEGATIVE (NEG-TRACE)
[2018-08-27] MEDS ORDERED: IV NORMAL SALINE 500ML BAG 500 ML IV ONE (17:30)
[2018-08-27 17:35] LABS: CALCIUM 9.7 mg/dL (8.5-10.1); POTASSIUM 3.8 mmol/L (3.5-5.1)
[2018-08-27 17:41] LABS: ALBUMIN 3.5 g/dL (3.4-5.0); BACTERIA,URINE MODERATE /HPF (0-FEW); HYALINE CASTS, URINE OCCASIONAL /HPF; SQUAMOUS EPITHELIAL CELL,UR FEW /LPF; TOTAL BILIRUBIN 0.5 mg/dL (0.2-1.0); TOTAL PROTEIN 6.9 g/dL (6.4-8.2)
[2018-08-27 18:30] VITALS: BP 168/72
--- NOTE | 2018-08-28 07:28 | EKG ---
[facility] [address] [place] [address] Test Date: 2018-08-27 Test Time: 17:22:08 Pat Name: PATRIA CAMPUZANO Department: Room: Gender: F Inspector Elevators: : 1935 Requested By: ANABEL ELIZABETH Order Number: [id number] Reading MD: Kei Cuellar MD Measurements Intervals Bryan Rate: 55 P: 39 MO: 186 QRS: 47 QRSD: 70 T: 70 QT: 430 QTc: 413 Interpretive Statements SINUS RHYTHM Electronically Signed On 09-01-2018 9:46:47 [employer] by Kei Cuellar MD
[2018-09-05] MEDS ORDERED: LOSA-73 PO (09:39)
== END 2018-08-27 18:44 | disposition home or self-care (01) ==
LOC: ER 15:17
DX: R53.1 Weakness (principal); R53.83 Other fatigue; I48.91 Unspecified atrial fibrillation; E78.00 Pure hypercholesterolemia, unspecified; I11.0 Hypertensive heart disease with heart failure; E03.9 Hypothyroidism, unspecified; Z90.89 Acquired absence of other organs; Z90.710 Acquired absence of both cervix and uterus; R32 Unspecified urinary incontinence
CPT/HCPCS: 36415; 80053; 81001; 84484; 85025; 87086; 87186; 93005; J7040; 99284-25

== ENCOUNTER 2018-08-29 09:10 | Inpatient (IN) | payer MEDICARE, OTHER ==
[~2018-08-29] VITALS: Ht 160 cm; Wt 67.2 kg
[2018-08-29] MEDS ORDERED: methylPREDNISolone SOD SUCC PF 125 MG/2 ML VIAL. IV ONE (09:45)
[2018-08-29] MEDS ORDERED: IPRATRPIUM/ALBUTEROL 0.5/2.5MG 3 ML NEBU. NEB ONE (09:45)
--- NOTE | 2018-08-29 09:58 | RAD ---
EXAM: CHEST 1 VIEW History: Dyspnea COMPARISON: 07/28/2018 TECHNIQUE: Single portable radiograph of the chest FINDINGS: The cardiac silhouette is unremarkable. The lungs are clear bilaterally. The costophrenic sulci are clear and well demarcated. IMPRESSION: No radiographic evidence of an acute cardiopulmonary process. Electronically signed by: Carlos Palafox MD (08/29/2018 9:53 AM) [facility]
[2018-08-29 10:15] LABS: BASO % 1 % (0-3); EOS # 0.1 x10^3/uL (0.0-0.7); EOS % 2 % (0-3); HEMATOCRIT 31.3 % (36.0-47.0); HEMOGLOBIN 10.3 g/dL (12.0-15.5); LYMPH # 0.3 x10^3/uL (1.0-4.8); LYMPH % 8 % (24-48); MEAN CORPUSCULAR HEMOGLOBIN 31 pg (25-35); MEAN CORPUSCULAR HGB CONC 33 g/dL (31-37); MEAN CORPUSCULAR VOLUME 93 fL (79-100); MONO # 0.4 x10^3/uL (0.0-1.1); MONO % 11 % (0-9); NEUT # 2.8 x10^3uL (1.8-7.7); NEUT % 79 % (31-73); PLATELET COUNT 128 x10^3/uL (140-400); RED BLOOD COUNT 3.36 x10^6/uL (3.50-5.40); RED CELL DISTRIBUTION WIDTH 15.9 % (11.5-14.5); WHITE BLOOD COUNT 3.5 x10^3/uL (4.0-11.0)
[2018-08-29 10:26] LABS: CALCIUM 8.8 mg/dL (8.5-10.1); CREATININE 0.9 mg/dL (0.6-1.0); GFR 59.8; POTASSIUM 3.8 mmol/L (3.5-5.1)
--- NOTE | 2018-08-29 10:26 | PHYS DOC ---
Past Medical History Past Medical History: A-Fib, Dementia, High Cholesterol, Heart Disease, Hypertension, Hypothyroid Additional Past Medical Histor: seasonal allergies Past Surgical History: Appendectomy, Hysterectomy Additional Past Surgical Histo: L hip Alcohol Use: None Drug Use: None Adult General Chief Complaint Chief Complaint: SHORTNESS OF BREATH HPI HPI Patient is an 82-year-old female who presents with complaint of shortness of breath this morning. EMS and brought patient in and patient's auction reportedly had not been on. She is normally on 1 L of oxygen at home at all times but son indicates that patient oftentimes will take the oxygen off at night. Patient does admit to coughing but cough is been nonproductive. She does not believe that she has been running a fever. She does state that she has had some increase in shortness of breath over the last couple days. Patient states that shortness of breath is worsened with exertion. She denies any chest pain and has no abdominal pain, nausea or vomiting. Review of Systems Review of Systems Constitutional: Denies fever or chills [] Respiratory: Complains of cough and shortness of breath [] Cardiovascular: No additional information not addressed in HPI [] GI: Denies abdominal pain, nausea, vomiting or diarrhea [] Integument: Denies rash or skin lesions [] Neurologic: Denies headache, focal weakness or sensory changes [] All other systems were reviewed and found to be within normal limits, except as documented in this note. Current Medications Current Medications Current Medications Medications (Trade) Dose Ordered Sig/Silvia Start Time Stop Time Status Last Admin Dose Admin Albuterol/ Ipratropium (Duoneb) 3 ml 1X ONCE 08/29/18 09:45 08/29/18 09:46 DC 08/29/18 09:58 3 ML Methylprednisolone Sodium Succinate (SOLU-Medrol 125MG VIAL) 125 mg 1X ONCE 08/29/18 09:45 08/29/18 09:46 DC 08/29/18 10:36 125 MG Allergies Allergies Allergies Coded Allergies Type Severity Reaction Last Updated Verified No Known Drug Allergies 07/15/16 No Physical Exam Physical Exam Constitutional: Well developed, well nourished, no acute distress, non-toxic appearance. [] HENT: Normocephalic, atraumatic, bilateral external ears normal, oropharynx moist, no oral exudates, nose normal. [] Eyes: PERRLA, EOMI, conjunctiva normal, no discharge. [] Neck: Normal range of motion, no tenderness, supple, no stridor. [] Cardiovascular: Regular rate and rhythm[] Lungs & Thorax: There are mild inspiratory and expiratory wheezes to auscultation [] Abdomen: Bowel sounds normal, soft, no tenderness. [] Skin: Warm, dry, no erythema, no rash. [] Extremities: No tenderness, no cyanosis, no clubbing, ROM intact, with 1+ pitting edema in the lower extremities. [] Neurologic: Awake and alert, no focal deficits noted. [] Current Patient Data Vital Signs Vital Signs Date Time Temp Pulse Resp B/P (MAP) Pulse Ox O2 Delivery O2 Flow Rate FiO2 08/29/18 09:58 97 Nasal Cannula 2.0 08/29/18 09:15 98.5 55 22 171/77 (108) 98.5 Lab Values Laboratory Tests Test 08/29/18 10:00 08/29/18 10:05 Influenza Type A Antigen Negative (NEGATIVE) Influenza Type B Antigen Negative (NEGATIVE) White Blood Count 3.5 x10^3/uL (4.0-11.0) L Red Blood Count 3.36 x10^6/uL (3.50-5.40) L Hemoglobin 10.3 g/dL (12.0-15.5) L Hematocrit 31.3 % (36.0-47.0) L Mean Corpuscular Volume 93 fL (79-100) Mean Corpuscular Hemoglobin 31 pg (25-35) Mean Corpuscular Hemoglobin Concent 33 g/dL (31-37) Red Cell Distribution Width 15.9 % (11.5-14.5) H Platelet Count 128 x10^3/uL (140-400) L Neutrophils (%) (Auto) 79 % (31-73) H Lymphocytes (%) (Auto) 8 % (24-48) L Monocytes (%) (Auto) 11 % (0-9) H Eosinophils (%) (Auto) 2 % (0-3) Basophils (%) (Auto) 1 % (0-3) Neutrophils # (Auto) 2.8 x10^3uL (1.8-7.7) Lymphocytes # (Auto) 0.3 x10^3/uL (1.0-4.8) L Monocytes # (Auto) 0.4 x10^3/uL (0.0-1.1) Eosinophils # (Auto) 0.1 x10^3/uL (0.0-0.7) Basophils # (Auto) 0.0 x10^3/uL (0.0-0.2) Segmented Neutrophils % 67 % (35-66) H Band Neutrophils % 15 % (0-9) H Lymphocytes % 8 % (24-48) L Monocytes % 7 % (0-10) Eosinophils % 2 % (0-5) Basophils % 1 % (0-3) Platelet Estimate Decreased (ADEQUATE) Polychromasia Slight Anisocytosis Slight Sodium Level 138 mmol/L (136-145) Potassium Level 3.8 mmol/L (3.5-5.1) Chloride Level 99 mmol/L (98-107) Carbon Dioxide Level 36 mmol/L (21-32) H Anion Gap 3 (6-14) L Blood Urea Nitrogen 15 mg/dL (7-20) Creatinine 0.9 mg/dL (0.6-1.0) Estimated GFR (Cockcroft-Gault) 59.8 BUN/Creatinine Ratio 17 (6-20) Glucose Level 97 mg/dL (70-99) Calcium Level 8.8 mg/dL (8.5-10.1) Total Bilirubin 0.9 mg/dL (0.2-1.0) Aspartate Amino Transferase (AST) 18 U/L (15-37) Alanine Aminotransferase (ALT) 21 U/L (14-59) Alkaline Phosphatase 59 U/L (46-116) Troponin I Quantitative < 0.017 ng/mL (0.000-0.055) TB-Hno-C-Type Natriuretic Peptide 1175 pg/mL (0-449) H Total Protein 6.0 g/dL (6.4-8.2) L Albumin 3.3 g/dL (3.4-5.0) L Albumin/Globulin Ratio 1.2 (1.0-1.7) Laboratory Tests 08/29/18 10:05 Laboratory Tests 08/29/18 10:05 EKG EKG [] Radiology/Procedures Radiology/Procedures [] Impressions: EXAM: CHEST 1 VIEW History: Dyspnea COMPARISON: 07/28/2018 TECHNIQUE: Single portable radiograph of the chest FINDINGS: The cardiac silhouette is unremarkable. The lungs are clear bilaterally. The costophrenic sulci are clear and well demarcated. IMPRESSION: No radiographic evidence of an acute cardiopulmonary process. Electronically signed by: Carlos Palafox MD (08/29/2018 9:53 AM) [facility] Course & Med Decision Making Course & Med Decision Making Pertinent Labs and Imaging studies reviewed. (See chart for details) [] Dragon Disclaimer Dragon Disclaimer This electronic medical record was generated, in whole or in part, using a voice recognition dictation system. Departure Departure Impression: Primary Impression: COPD with acute exacerbation Additional Impression: Acute bronchitis Disposition: ADMITTED INPATIENT Admitting Physician: Pola Beaver Condition: IMPROVED Referrals: QUINCY ALCANTAR MD (PCP) Problem Qualifiers Additional Impression: Acute bronchitis Bronchitis organism: unspecified organism Qualified Codes: J20.9 - Acute bronchitis, unspecified NEREYDA PITTS Jr. DO Aug 29, 2018 10:26
[2018-08-29 10:33] LABS: ALBUMIN 3.3 g/dL (3.4-5.0); ALBUMIN/GLOBULIN RATIO 1.2 (1.0-1.7); TOTAL BILIRUBIN 0.9 mg/dL (0.2-1.0)
[2018-08-29 10:47] LABS: % BANDS 15 % (0-9); % BASOS 1 % (0-3); % EOS 2 % (0-5); % LYMPHS 8 % (24-48); % MONOS 7 % (0-10); % SEGS 67 % (35-66); PLT ESTIMATE DECREASED (ADEQUATE)
[2018-08-29 10:48] LABS: ANISOCYTOSIS SLIGHT; POLYCHROMASIA SLIGHT
[2018-08-29 11:01] LABS: INFLUENZA A PATIENT NEGATIVE (NEGATIVE); INFLUENZA B PATIENT NEGATIVE (NEGATIVE)
[2018-08-29] MEDS ORDERED: ACETAMINOPHEN 325 MG TABLET. PO PRN (11:45)
[2018-08-29] MEDS: IPRATRPIUM/ALBUTEROL 0.5/2.5MG 3 ML NEBU. NEB SCH ×5 (12:00→19:45)
[2018-08-29] MEDS: IV NORMAL SALINE 1000ML BAG 1,000 ML IV SCH ×2 (12:19→20:33)
--- NOTE | 2018-08-29 12:45 | NUR ---
Patient arrived to the unit in a wheelchair with her son by her side at 1245. She is on 3L oxygen per [place] continuous without complications. Able to transfer with one person assist using a walker. IV in left AC patent and infusing. No skin issues noted other then bruising. She is refusing TEDs and SCDs at this time. Patient states she fell last night at home so she was put on fall precautions. Patient and her son were oriented to the room. Will continue to monitor.
[2018-08-29 13:00] VITALS: BP 164/59
[2018-08-29] MEDS ORDERED: DONE10TA14 PO (13:50)
[2018-08-29 15:12] VITALS: BP 139/55
[2018-08-29] MEDS ORDERED: ALBUTEROL SULFATE 2.5 MG/3 ML NEBU. NEB PRN (15:45)
--- NOTE | 2018-08-29 15:47 | PDOC ---
PULMONARY PROGRESS NOTES Vitals Vital Signs Date Time Temp Pulse Resp B/P (MAP) Pulse Ox O2 Delivery O2 Flow Rate FiO2 08/29/18 15:27 98 Nasal Cannula 2.0 08/29/18 15:12 97.6 58 18 139/55 (83) 97.6 General: Alert, No acute distress Lungs: Clear Cardiovascular: S1 Abdomen: Soft Extremities: No Edema Labs Laboratory Tests Test 08/29/18 10:00 08/29/18 10:05 Influenza Type A Antigen Negative (NEGATIVE) Influenza Type B Antigen Negative (NEGATIVE) White Blood Count 3.5 x10^3/uL (4.0-11.0) Red Blood Count 3.36 x10^6/uL (3.50-5.40) Hemoglobin 10.3 g/dL (12.0-15.5) Hematocrit 31.3 % (36.0-47.0) Mean Corpuscular Volume 93 fL (79-100) Mean Corpuscular Hemoglobin 31 pg (25-35) Mean Corpuscular Hemoglobin Concent 33 g/dL (31-37) Red Cell Distribution Width 15.9 % (11.5-14.5) Platelet Count 128 x10^3/uL (140-400) Neutrophils (%) (Auto) 79 % (31-73) Lymphocytes (%) (Auto) 8 % (24-48) Monocytes (%) (Auto) 11 % (0-9) Eosinophils (%) (Auto) 2 % (0-3) Basophils (%) (Auto) 1 % (0-3) Neutrophils # (Auto) 2.8 x10^3uL (1.8-7.7) Lymphocytes # (Auto) 0.3 x10^3/uL (1.0-4.8) Monocytes # (Auto) 0.4 x10^3/uL (0.0-1.1) Eosinophils # (Auto) 0.1 x10^3/uL (0.0-0.7) Basophils # (Auto) 0.0 x10^3/uL (0.0-0.2) Segmented Neutrophils % 67 % (35-66) Band Neutrophils % 15 % (0-9) Lymphocytes % 8 % (24-48) Monocytes % 7 % (0-10) Eosinophils % 2 % (0-5) Basophils % 1 % (0-3) Platelet Estimate Decreased (ADEQUATE) Polychromasia Slight Anisocytosis Slight Sodium Level 138 mmol/L (136-145) Potassium Level 3.8 mmol/L (3.5-5.1) Chloride Level 99 mmol/L (98-107) Carbon Dioxide Level 36 mmol/L (21-32) Anion Gap 3 (6-14) Blood Urea Nitrogen 15 mg/dL (7-20) Creatinine 0.9 mg/dL (0.6-1.0) Estimated GFR (Cockcroft-Gault) 59.8 BUN/Creatinine Ratio 17 (6-20) Glucose Level 97 mg/dL (70-99) Calcium Level 8.8 mg/dL (8.5-10.1) Total Bilirubin 0.9 mg/dL (0.2-1.0) Aspartate Amino Transf (AST/SGOT) 18 U/L (15-37) Alanine Aminotransferase (ALT/SGPT) 21 U/L (14-59) Alkaline Phosphatase 59 U/L (46-116) Troponin I Quantitative < 0.017 ng/mL (0.000-0.055) EE-Vjw-E-Type Natriuretic Peptide 1175 pg/mL (0-449) Total Protein 6.0 g/dL (6.4-8.2) Albumin 3.3 g/dL (3.4-5.0) Albumin/Globulin Ratio 1.2 (1.0-1.7) Laboratory Tests Test 08/29/18 10:00 08/29/18 10:05 Influenza Type A Antigen Negative (NEGATIVE) Influenza Type B Antigen Negative (NEGATIVE) White Blood Count 3.5 x10^3/uL (4.0-11.0) Red Blood Count 3.36 x10^6/uL (3.50-5.40) Hemoglobin 10.3 g/dL (12.0-15.5) Hematocrit 31.3 % (36.0-47.0) Mean Corpuscular Volume 93 fL (79-100) Mean Corpuscular Hemoglobin 31 pg (25-35) Mean Corpuscular Hemoglobin Concent 33 g/dL (31-37) Red Cell Distribution Width 15.9 % (11.5-14.5) Platelet Count 128 x10^3/uL (140-400) Neutrophils (%) (Auto) 79 % (31-73) Lymphocytes (%) (Auto) 8 % (24-48) Monocytes (%) (Auto) 11 % (0-9) Eosinophils (%) (Auto) 2 % (0-3) Basophils (%) (Auto) 1 % (0-3) Neutrophils # (Auto) 2.8 x10^3uL (1.8-7.7) Lymphocytes # (Auto) 0.3 x10^3/uL (1.0-4.8) Monocytes # (Auto) 0.4 x10^3/uL (0.0-1.1) Eosinophils # (Auto) 0.1 x10^3/uL (0.0-0.7) Basophils # (Auto) 0.0 x10^3/uL (0.0-0.2) Segmented Neutrophils % 67 % (35-66) Band Neutrophils % 15 % (0-9) Lymphocytes % 8 % (24-48) Monocytes % 7 % (0-10) Eosinophils % 2 % (0-5) Basophils % 1 % (0-3) Platelet Estimate Decreased (ADEQUATE) Polychromasia Slight Anisocytosis Slight Sodium Level 138 mmol/L (136-145) Potassium Level 3.8 mmol/L (3.5-5.1) Chloride Level 99 mmol/L (98-107) Carbon Dioxide Level 36 mmol/L (21-32) Anion Gap 3 (6-14) Blood Urea Nitrogen 15 mg/dL (7-20) Creatinine 0.9 mg/dL (0.6-1.0) Estimated GFR (Cockcroft-Gault) 59.8 BUN/Creatinine Ratio 17 (6-20) Glucose Level 97 mg/dL (70-99) Calcium Level 8.8 mg/dL (8.5-10.1) Total Bilirubin 0.9 mg/dL (0.2-1.0) Aspartate Amino Transf (AST/SGOT) 18 U/L (15-37) Alanine Aminotransferase (ALT/SGPT) 21 U/L (14-59) Alkaline Phosphatase 59 U/L (46-116) Troponin I Quantitative < 0.017 ng/mL (0.000-0.055) IC-Fqt-A-Type Natriuretic Peptide 1175 pg/mL (0-449) Total Protein 6.0 g/dL (6.4-8.2) Albumin 3.3 g/dL (3.4-5.0) Albumin/Globulin Ratio 1.2 (1.0-1.7) Medications Active Scripts Medications Dose Route/Sig Max Daily Dose Days Date Category Donepezil Hcl 10 Mg Tab.rapdis 10 Mg PO HS 08/29/18 Reported Cefdinir 300 Mg Capsule 300 Mg PO BID 7 08/02/18 Rx Metoprolol Tartrate 25 Mg Tablet 1 Tab PO BID 12/28/17 Reported Multaq (Dronedarone Hcl) 400 Mg Tablet 200 Mg PO BID 12/28/17 Reported Aspirin Ec (Aspirin) 81 Mg Tablet.dr 1 Tab PO DAILY 12/28/17 Reported Duoneb 0.5-3(2.5) Mg/3 Ml (Albuterol/Ipratropium) 3 Ml Ampul.neb 3 Ml NEB BID 12/11/17 Reported Namzaric 28 mg-10 mg Capsule (Memantine HCl/Donepezil HCl) 1 Each Cap.spr.24 1 12/11/17 Reported Citalopram Hbr (Citalopram Hydrobromide) 10 Mg Tablet 10 Mg PO DAILY 12/11/17 Reported Atorvastatin Calcium 20 Mg Tablet 20 Mg PO DAILY 12/11/17 Reported Levothyroxine Sodium 112 Mcg Tablet 112 Mcg PO DAILY 12/11/17 Reported Losartan Potassium 50 Mg Tablet 50 Mg PO DAILY 12/11/17 Reported Impression . FULL CONSULT DICTATED AECOPD SEE ORDERS THANKS ELIZABETH HUTCHINS MD Aug 29, 2018 15:47
[2018-08-29] MEDS: methylPREDNISolone SOD SUCC PF 125 MG/2 ML VIAL. IV SCH ×2 (16:25→20:32)
[2018-08-29 19:00] VITALS: BP 105/48
[2018-08-29] MEDS: DRONEDARONE HCL 400 MG TABLET PO SCH (20:31)
[2018-08-29] MEDS: ATORVASTATIN CALCIUM 20 MG TABLET PO SCH (20:32)
[2018-08-29] MEDS: DOXYCYCLINE HYCLATE 100 MG TABLET PO SCH (20:32)
[2018-08-29] MEDS: CEFDINIR 300 MG CAPSULE PO SCH (20:32)
[2018-08-29] MEDS: MEMANTINE 10 MG TABLET. PO SCH (20:32)
[2018-08-29] MEDS: METOPROLOL TART IMMED RELEASE 25 MG TABLET. PO SCH (20:33)
[2018-08-29] MEDS ORDERED: IPRATRPIUM/ALBUTEROL 0.5/2.5MG 3 ML NEBU. NEB SCH (21:00)
[2018-08-29 23:01] VITALS: BP 97/54
--- NOTE | 2018-08-30 01:29 | CONS ---
DATE OF CONSULTATION: 08/29/2018 ATTENDING PHYSICIAN: Dr. Lauren. REASON FOR CONSULTATION: The patient is seen in Pulmonary consultation at the request of Dr. Lauren for increasing shortness of air. HISTORY OF PRESENT ILLNESS: The patient is an 82-year-old lifetime nonsmoker with history of asthma, driven by allergies, who has had previous allergy testing and immunotherapy, presented with increasing shortness of breath over the last 2-3 days, coughing up some clear sputum. No documented fever. She normally uses nebulized treatments at home t.i.d. She is on 1 liter of oxygen at home 08/02. She lives with her son. Apparently, she takes off her oxygen at nighttime. PAST MEDICAL AND SURGICAL HISTORY: Remarkable for chronic AFib, dementia, COPD/asthma, hyperlipidemia, coronary artery disease, hypertension, hypothyroidism, previous seasonal allergies and previous allergies status post immunotherapy. PAST SURGICAL HISTORY: Status post appendectomy and hysterectomy. ALLERGIES: No known drug allergies. SOCIAL HISTORY: She lives with her son, never smoked. Has two cats and dogs at home; they are not new. FAMILY HISTORY: No family history of lung disorders. REVIEW OF SYSTEMS: CONSTITUTIONAL: No fever or chills. EYES: No change in visual acuity. HEENT: No nasal congestion or sore throat. PULMONARY: As indicated above. CARDIOVASCULAR: No chest pain, no pressure. GASTROINTESTINAL: No nausea, vomiting or diarrhea. GENITOURINARY: No dysuria or frequency. MUSCULOSKELETAL: No localized muscle aches or joint pains. SKIN: No new skin rashes. NEUROLOGIC: No headaches, diplopia or blurred vision. MEDICATIONS: Her current medication list was reviewed. PHYSICAL EXAMINATION: GENERAL: On exam, the patient has some audible wheezing and prolonged expiratory phase, currently on 2 liters. HEENT: Eyes, the sclerae were nonicteric. NECK: Jugular venous distention was not elevated. No lymphadenopathy. CHEST: Full expansion. LUNGS: Bilateral coarse breath sounds, poor airway flow with expiratory wheeze. CARDIOVASCULAR EXAMINATION: Regular rate and rhythm with S1, S2. No S3. ABDOMEN: Soft, nontender and nondistended. EXTREMITIES: No clubbing, cyanosis or edema. NEUROLOGIC: The patient was awake, alert, following commands. A detailed neuro exam was not performed. IMPRESSION: 1. Acute exacerbation of chronic obstructive pulmonary disease. 2. Acute nonspecific bronchitis. 3. Negative influenza screen. 4. Tbdku-yr-aeyoatd respiratory failure. PLAN: 1. We will continue nebulized treatments. 2. Empiric antibiotics. 3. Oxygen supplementation. 4. DVT prophylaxis. 5. Continue home meds. Dr. Lauren, I do appreciate the privilege in sharing in the patient's care. ELIZABETH HUTCHINS MD DR: ALICIA/erick JOB#: [id number] / [id number]
[2018-08-30 03:00] VITALS: BP 143/67
[2018-08-30] MEDS: LEVOTHYROXINE 112 MCG TABLET PO SCH (06:41)
[2018-08-30] MEDS: methylPREDNISolone SOD SUCC PF 125 MG/2 ML VIAL. IV SCH ×3 (06:41→20:38)
[2018-08-30 07:00] VITALS: BP 176/86
[2018-08-30] MEDS: IPRATRPIUM/ALBUTEROL 0.5/2.5MG 3 ML NEBU. NEB SCH ×3 (07:11→19:29)
[2018-08-30] MEDS: CEFDINIR 300 MG CAPSULE PO SCH ×2 (08:12→20:37)
[2018-08-30] MEDS: ASPIRIN ENTERIC COATED 81 MG TABLET.DR. PO SCH (08:12)
[2018-08-30] MEDS: MEMANTINE 10 MG TABLET. PO SCH ×2 (08:12→20:36)
[2018-08-30] MEDS: DONEPEZIL HCL 10 MG TABLET. PO SCH (08:12)
[2018-08-30] MEDS: CITALOPRAM 10 MG TABLET. PO SCH (08:12)
[2018-08-30] MEDS: METOPROLOL TART IMMED RELEASE 25 MG TABLET. PO SCH ×2 (08:12→20:36)
[2018-08-30] MEDS: LOSARTAN POTASSIUM 50 MG TABLET. PO SCH (08:13)
[2018-08-30] MEDS: IV NORMAL SALINE 1000ML BAG 1,000 ML IV SCH (08:13)
[2018-08-30] MEDS: DOXYCYCLINE HYCLATE 100 MG TABLET PO SCH ×2 (08:15→20:36)
[2018-08-30 08:40] LABS: BASO % 0 % (0-3); EOS % 0 % (0-3); HEMOGLOBIN 11.1 g/dL (12.0-15.5); LYMPH # 0.3 x10^3/uL (1.0-4.8); LYMPH % 5 % (24-48); MEAN CORPUSCULAR HEMOGLOBIN 31 pg (25-35); MEAN CORPUSCULAR HGB CONC 33 g/dL (31-37); MEAN CORPUSCULAR VOLUME 94 fL (79-100); MONO # 0.2 x10^3/uL (0.0-1.1); MONO % 4 % (0-9); NEUT # 5.5 x10^3uL (1.8-7.7); NEUT % 91 % (31-73); PLATELET COUNT 146 x10^3/uL (140-400); RED BLOOD COUNT 3.64 x10^6/uL (3.50-5.40); RED CELL DISTRIBUTION WIDTH 16.2 % (11.5-14.5)
--- NOTE | 2018-08-30 09:04 | HP ---
ADMIT DATE: 08/29/2018 CHIEF COMPLAINT AND HISTORY OF PRESENT ILLNESS: This 82-year-old white female is well known to me from followup in the office. The patient had a day or so of increasing cough and shortness of breath. EMS brought the patient to the hospital. She was normally taking 1 liter of oxygen at home, however, is not on it with low sats and required more than that at admission consistent with acute respiratory failure due to the same. She has been coughing, which she states is nonproductive. Denies fevers, chills, sweats, has had increasing shortness of breath at rest as well as with any exertion. She denied chest pain, abdominal pain, nausea, vomiting, dysuria, etc. PAST MEDICAL HISTORY: Remarkable for atherosclerotic heart disease, hypothyroidism, hypertension, hyperlipidemia, mild dementia, atrial fibrillation, asthma/COPD. PAST SURGICAL HISTORY: Remarkable for hysterectomy, appendectomy, left hip surgery. MEDICATIONS: Brought with the patient, listed on the computer, have been addressed. ALLERGIES: She has no known drug allergies. SOCIAL HISTORY: She is a lifetime nonsmoker, , lives at home with his son and [id number]-pbt. Does not abuse alcohol or drugs. FAMILY HISTORY: Noncontributory. REVIEW OF SYSTEMS: As mentioned above. PHYSICAL EXAMINATION: GENERAL: She is a well-developed, well-nourished, pleasant white female, in no acute distress, lying in bed. VITAL SIGNS: Stable. She is afebrile. HEAD, EYES, EARS, NOSE AND THROAT: Remarkable for glasses. O2 of 3 liters per nasal cannula. NECK: Supple without lymphadenopathy or thyromegaly. CHEST: Reveals slightly decreased breath sounds with inspiratory and expiratory wheezing. HEART: Regular rate and rhythm without S3, S4 or murmur. ABDOMEN: Soft, nontender, without hepatosplenomegaly or mass. EXTREMITIES: Without cyanosis or clubbing. There is trace edema. NEUROLOGIC: She is intact. LABORATORY DATA: Initial chest x-ray shows no acute abnormalities. I just received a call that she has positive blood cultures for gram-positive cocci in clusters, and ID consult has been added. Her initial white count was 3500, with 15% bands and a left shift. BNP was elevated 1175. Albumin slightly low at 3.3. Influenza screen was negative. IMPRESSION: Exacerbation of chronic obstructive pulmonary disease with acute respiratory failure and currently with positive blood cultures, with multiple other problems listed above. PLAN: The patient has been admitted. She is on IV antibiotics. ID consult has been added. Pulmonary is seeing and the patient will be monitored, managed and treated appropriately. QUINCY ALCANTAR MD DR: MAYCOL/erick JOB#: [id number] / [id number]
--- NOTE | 2018-08-30 09:12 | PDOC ---
PULMONARY PROGRESS NOTES Subjective PT LESS SOA Vitals Vital Signs Date Time Temp Pulse Resp B/P (MAP) Pulse Ox O2 Delivery O2 Flow Rate FiO2 08/30/18 08:13 70 176/86 08/30/18 07:00 98.0 18 92 98.0 08/29/18 23:01 Room Air 08/29/18 20:10 3.0 ROS: No Nausea, No Chest Pain, No Abdominal Pain, No Increase Cough General: Alert, No acute distress Lungs: Wheezing Cardiovascular: S1 Abdomen: Soft Neuro Exam: Alert Extremities: No Edema Skin: Warm Labs Laboratory Tests Test 08/29/18 10:00 08/29/18 10:05 08/30/18 08:00 Influenza Type A Antigen Negative (NEGATIVE) Influenza Type B Antigen Negative (NEGATIVE) White Blood Count 3.5 x10^3/uL (4.0-11.0) 6.0 x10^3/uL (4.0-11.0) Red Blood Count 3.36 x10^6/uL (3.50-5.40) 3.64 x10^6/uL (3.50-5.40) Hemoglobin 10.3 g/dL (12.0-15.5) 11.1 g/dL (12.0-15.5) Hematocrit 31.3 % (36.0-47.0) 34.0 % (36.0-47.0) Mean Corpuscular Volume 93 fL (79-100) 94 fL (79-100) Mean Corpuscular Hemoglobin 31 pg (25-35) 31 pg (25-35) Mean Corpuscular Hemoglobin Concent 33 g/dL (31-37) 33 g/dL (31-37) Red Cell Distribution Width 15.9 % (11.5-14.5) 16.2 % (11.5-14.5) Platelet Count 128 x10^3/uL (140-400) 146 x10^3/uL (140-400) Neutrophils (%) (Auto) 79 % (31-73) 91 % (31-73) Lymphocytes (%) (Auto) 8 % (24-48) 5 % (24-48) Monocytes (%) (Auto) 11 % (0-9) 4 % (0-9) Eosinophils (%) (Auto) 2 % (0-3) 0 % (0-3) Basophils (%) (Auto) 1 % (0-3) 0 % (0-3) Neutrophils # (Auto) 2.8 x10^3uL (1.8-7.7) 5.5 x10^3uL (1.8-7.7) Lymphocytes # (Auto) 0.3 x10^3/uL (1.0-4.8) 0.3 x10^3/uL (1.0-4.8) Monocytes # (Auto) 0.4 x10^3/uL (0.0-1.1) 0.2 x10^3/uL (0.0-1.1) Eosinophils # (Auto) 0.1 x10^3/uL (0.0-0.7) 0.0 x10^3/uL (0.0-0.7) Basophils # (Auto) 0.0 x10^3/uL (0.0-0.2) 0.0 x10^3/uL (0.0-0.2) Segmented Neutrophils % 67 % (35-66) Band Neutrophils % 15 % (0-9) Lymphocytes % 8 % (24-48) Monocytes % 7 % (0-10) Eosinophils % 2 % (0-5) Basophils % 1 % (0-3) Platelet Estimate Decreased (ADEQUATE) Polychromasia Slight Anisocytosis Slight Sodium Level 138 mmol/L (136-145) Potassium Level 3.8 mmol/L (3.5-5.1) Chloride Level 99 mmol/L (98-107) Carbon Dioxide Level 36 mmol/L (21-32) Anion Gap 3 (6-14) Blood Urea Nitrogen 15 mg/dL (7-20) Creatinine 0.9 mg/dL (0.6-1.0) Estimated GFR (Cockcroft-Gault) 59.8 BUN/Creatinine Ratio 17 (6-20) Glucose Level 97 mg/dL (70-99) Calcium Level 8.8 mg/dL (8.5-10.1) Total Bilirubin 0.9 mg/dL (0.2-1.0) Aspartate Amino Transf (AST/SGOT) 18 U/L (15-37) Alanine Aminotransferase (ALT/SGPT) 21 U/L (14-59) Alkaline Phosphatase 59 U/L (46-116) Troponin I Quantitative < 0.017 ng/mL (0.000-0.055) EI-Ghz-I-Type Natriuretic Peptide 1175 pg/mL (0-449) Total Protein 6.0 g/dL (6.4-8.2) Albumin 3.3 g/dL (3.4-5.0) Albumin/Globulin Ratio 1.2 (1.0-1.7) Laboratory Tests Test 08/29/18 10:00 08/29/18 10:05 08/30/18 08:00 Influenza Type A Antigen Negative (NEGATIVE) Influenza Type B Antigen Negative (NEGATIVE) White Blood Count 3.5 x10^3/uL (4.0-11.0) 6.0 x10^3/uL (4.0-11.0) Red Blood Count 3.36 x10^6/uL (3.50-5.40) 3.64 x10^6/uL (3.50-5.40) Hemoglobin 10.3 g/dL (12.0-15.5) 11.1 g/dL (12.0-15.5) Hematocrit 31.3 % (36.0-47.0) 34.0 % (36.0-47.0) Mean Corpuscular Volume 93 fL (79-100) 94 fL (79-100) Mean Corpuscular Hemoglobin 31 pg (25-35) 31 pg (25-35) Mean Corpuscular Hemoglobin Concent 33 g/dL (31-37) 33 g/dL (31-37) Red Cell Distribution Width 15.9 % (11.5-14.5) 16.2 % (11.5-14.5) Platelet Count 128 x10^3/uL (140-400) 146 x10^3/uL (140-400) Neutrophils (%) (Auto) 79 % (31-73) 91 % (31-73) Lymphocytes (%) (Auto) 8 % (24-48) 5 % (24-48) Monocytes (%) (Auto) 11 % (0-9) 4 % (0-9) Eosinophils (%) (Auto) 2 % (0-3) 0 % (0-3) Basophils (%) (Auto) 1 % (0-3) 0 % (0-3) Neutrophils # (Auto) 2.8 x10^3uL (1.8-7.7) 5.5 x10^3uL (1.8-7.7) Lymphocytes # (Auto) 0.3 x10^3/uL (1.0-4.8) 0.3 x10^3/uL (1.0-4.8) Monocytes # (Auto) 0.4 x10^3/uL (0.0-1.1) 0.2 x10^3/uL (0.0-1.1) Eosinophils # (Auto) 0.1 x10^3/uL (0.0-0.7) 0.0 x10^3/uL (0.0-0.7) Basophils # (Auto) 0.0 x10^3/uL (0.0-0.2) 0.0 x10^3/uL (0.0-0.2) Segmented Neutrophils % 67 % (35-66) Band Neutrophils % 15 % (0-9) Lymphocytes % 8 % (24-48) Monocytes % 7 % (0-10) Eosinophils % 2 % (0-5) Basophils % 1 % (0-3) Platelet Estimate Decreased (ADEQUATE) Polychromasia Slight Anisocytosis Slight Sodium Level 138 mmol/L (136-145) Potassium Level 3.8 mmol/L (3.5-5.1) Chloride Level 99 mmol/L (98-107) Carbon Dioxide Level 36 mmol/L (21-32) Anion Gap 3 (6-14) Blood Urea Nitrogen 15 mg/dL (7-20) Creatinine 0.9 mg/dL (0.6-1.0) Estimated GFR (Cockcroft-Gault) 59.8 BUN/Creatinine Ratio 17 (6-20) Glucose Level 97 mg/dL (70-99) Calcium Level 8.8 mg/dL (8.5-10.1) Total Bilirubin 0.9 mg/dL (0.2-1.0) Aspartate Amino Transf (AST/SGOT) 18 U/L (15-37) Alanine Aminotransferase (ALT/SGPT) 21 U/L (14-59) Alkaline Phosphatase 59 U/L (46-116) Troponin I Quantitative < 0.017 ng/mL (0.000-0.055) GN-Vyg-M-Type Natriuretic Peptide 1175 pg/mL (0-449) Total Protein 6.0 g/dL (6.4-8.2) Albumin 3.3 g/dL (3.4-5.0) Albumin/Globulin Ratio 1.2 (1.0-1.7) Medications Active Scripts Medications Dose Route/Sig Max Daily Dose Days Date Category Donepezil Hcl 10 Mg Tab.rapdis 10 Mg PO HS 08/29/18 Reported Cefdinir 300 Mg Capsule 300 Mg PO BID 7 08/02/18 Rx Metoprolol Tartrate 25 Mg Tablet 1 Tab PO BID 12/28/17 Reported Multaq (Dronedarone Hcl) 400 Mg Tablet 200 Mg PO BID 12/28/17 Reported Aspirin Ec (Aspirin) 81 Mg Tablet.dr 1 Tab PO DAILY 12/28/17 Reported Duoneb 0.5-3(2.5) Mg/3 Ml (Albuterol/Ipratropium) 3 Ml Ampul.neb 3 Ml NEB BID 12/11/17 Reported Namzaric 28 mg-10 mg Capsule (Memantine HCl/Donepezil HCl) 1 Each Cap.spr.24 1 12/11/17 Reported Citalopram Hbr (Citalopram Hydrobromide) 10 Mg Tablet 10 Mg PO DAILY 12/11/17 Reported Atorvastatin Calcium 20 Mg Tablet 20 Mg PO DAILY 12/11/17 Reported Levothyroxine Sodium 112 Mcg Tablet 112 Mcg PO DAILY 12/11/17 Reported Losartan Potassium 50 Mg Tablet 50 Mg PO DAILY 12/11/17 Reported Impression . IMPRESSION: 1. Acute exacerbation of chronic obstructive pulmonary disease. 2. Acute nonspecific bronchitis. 3. Negative influenza screen. 4. Jnzbz-yw-vunnvon respiratory failure. Plan . CONTINUE THE SAME IMPROVING 1. We will continue nebulized treatments. 2. Empiric antibiotics. 3. Oxygen supplementation. 4. DVT prophylaxis. 5. Continue home meds. ELIZABETH HUTCHINS MD Aug 30, 2018 09:12
[2018-08-30 09:15] LABS: CALCIUM 8.9 mg/dL (8.5-10.1); POTASSIUM 3.9 mmol/L (3.5-5.1)
[2018-08-30] MEDS: DRONEDARONE HCL 400 MG TABLET PO SCH ×2 (09:35→20:36)
--- NOTE | 2018-08-30 09:41 | PDOC ---
Infectious Disease Note Vital Signs: Vital Signs Vital Signs Date Time Temp Pulse Resp B/P (MAP) Pulse Ox O2 Delivery O2 Flow Rate FiO2 08/30/18 08:13 70 176/86 08/30/18 07:00 98.0 18 92 98.0 08/29/18 23:01 Room Air 08/29/18 20:10 3.0 Medications: Inpatient Meds: Current Medications Medications (Trade) Dose Ordered Sig/Silvia Start Time Stop Time Status Last Admin Dose Admin Acetaminophen (Tylenol) 650 mg PRN Q4HRS PRN 08/29/18 11:45 08/30/18 11:44 Albuterol Sulfate (Ventolin Neb Soln) 2.5 mg PRN Q4HRS PRN 08/29/18 15:45 Albuterol/ Ipratropium (Duoneb) 3 ml TID 08/29/18 21:00 08/30/18 07:11 3 ML Aspirin (Ecotrin) 81 mg DAILY 08/30/18 09:00 08/30/18 08:12 81 MG Atorvastatin Calcium (Lipitor) 20 mg QHS 08/29/18 21:00 08/29/18 20:32 20 MG Cefdinir (Omnicef) 300 mg BID 08/29/18 21:00 08/30/18 08:12 300 MG Citalopram Hydrobromide (CeleXA) 10 mg DAILY 08/30/18 09:00 08/30/18 08:12 10 MG Donepezil HCl (Aricept) 10 mg DAILY 08/30/18 09:00 08/30/18 08:12 10 MG Doxycycline Hyclate (Vibra-Tab) 100 mg BID 08/29/18 21:00 08/30/18 08:15 100 MG Dronedarone (Multaq) 200 mg BID 08/29/18 21:00 08/29/18 20:31 200 MG Levothyroxine Sodium (Synthroid) 112 mcg DAILY06 08/30/18 06:00 08/30/18 06:41 112 MCG Losartan Potassium (Cozaar) 50 mg DAILY 08/30/18 09:00 08/30/18 08:13 50 MG Memantine (Namenda) 10 mg BID 08/29/18 21:00 08/30/18 08:12 10 MG Methylprednisolone Sodium Succinate (SOLU-Medrol 125MG VIAL) 125 mg Q8HRS 08/29/18 16:00 08/30/18 06:41 125 MG Metoprolol Tartrate (Lopressor) 25 mg BID 08/29/18 21:00 08/30/18 08:12 25 MG Sodium Chloride 1,000 ml @ 100 mls/hr Q10H 08/29/18 11:41 08/30/18 11:40 08/30/18 08:13 100 MLS/HR Labs: Lab Laboratory Tests Test 08/29/18 10:00 08/29/18 10:05 08/30/18 08:00 Influenza Type A Antigen Negative (NEGATIVE) Influenza Type B Antigen Negative (NEGATIVE) White Blood Count 3.5 x10^3/uL (4.0-11.0) 6.0 x10^3/uL (4.0-11.0) Red Blood Count 3.36 x10^6/uL (3.50-5.40) 3.64 x10^6/uL (3.50-5.40) Hemoglobin 10.3 g/dL (12.0-15.5) 11.1 g/dL (12.0-15.5) Hematocrit 31.3 % (36.0-47.0) 34.0 % (36.0-47.0) Mean Corpuscular Volume 93 fL (79-100) 94 fL (79-100) Mean Corpuscular Hemoglobin 31 pg (25-35) 31 pg (25-35) Mean Corpuscular Hemoglobin Concent 33 g/dL (31-37) 33 g/dL (31-37) Red Cell Distribution Width 15.9 % (11.5-14.5) 16.2 % (11.5-14.5) Platelet Count 128 x10^3/uL (140-400) 146 x10^3/uL (140-400) Neutrophils (%) (Auto) 79 % (31-73) 91 % (31-73) Lymphocytes (%) (Auto) 8 % (24-48) 5 % (24-48) Monocytes (%) (Auto) 11 % (0-9) 4 % (0-9) Eosinophils (%) (Auto) 2 % (0-3) 0 % (0-3) Basophils (%) (Auto) 1 % (0-3) 0 % (0-3) Neutrophils # (Auto) 2.8 x10^3uL (1.8-7.7) 5.5 x10^3uL (1.8-7.7) Lymphocytes # (Auto) 0.3 x10^3/uL (1.0-4.8) 0.3 x10^3/uL (1.0-4.8) Monocytes # (Auto) 0.4 x10^3/uL (0.0-1.1) 0.2 x10^3/uL (0.0-1.1) Eosinophils # (Auto) 0.1 x10^3/uL (0.0-0.7) 0.0 x10^3/uL (0.0-0.7) Basophils # (Auto) 0.0 x10^3/uL (0.0-0.2) 0.0 x10^3/uL (0.0-0.2) Segmented Neutrophils % 67 % (35-66) Band Neutrophils % 15 % (0-9) Lymphocytes % 8 % (24-48) Monocytes % 7 % (0-10) Eosinophils % 2 % (0-5) Basophils % 1 % (0-3) Platelet Estimate Decreased (ADEQUATE) Polychromasia Slight Anisocytosis Slight Sodium Level 138 mmol/L (136-145) 142 mmol/L (136-145) Potassium Level 3.8 mmol/L (3.5-5.1) 3.9 mmol/L (3.5-5.1) Chloride Level 99 mmol/L (98-107) 104 mmol/L (98-107) Carbon Dioxide Level 36 mmol/L (21-32) 32 mmol/L (21-32) Anion Gap 3 (6-14) 6 (6-14) Blood Urea Nitrogen 15 mg/dL (7-20) 18 mg/dL (7-20) Creatinine 0.9 mg/dL (0.6-1.0) 1.0 mg/dL (0.6-1.0) Estimated GFR (Cockcroft-Gault) 59.8 53.0 BUN/Creatinine Ratio 17 (6-20) Glucose Level 97 mg/dL (70-99) 216 mg/dL (70-99) Calcium Level 8.8 mg/dL (8.5-10.1) 8.9 mg/dL (8.5-10.1) Total Bilirubin 0.9 mg/dL (0.2-1.0) Aspartate Amino Transf (AST/SGOT) 18 U/L (15-37) Alanine Aminotransferase (ALT/SGPT) 21 U/L (14-59) Alkaline Phosphatase 59 U/L (46-116) Troponin I Quantitative < 0.017 ng/mL (0.000-0.055) DX-Gpn-T-Type Natriuretic Peptide 1175 pg/mL (0-449) Total Protein 6.0 g/dL (6.4-8.2) Albumin 3.3 g/dL (3.4-5.0) Albumin/Globulin Ratio 1.2 (1.0-1.7) Objective: Assessment: GPC bacteremia 1/2 bottles suggestive of staph possibly a contaminant Acute exacerbation of COPD Plan: Plan of Care Vanc one time dose today cont cefdinir and doxycyline on steroids f/u GPC ID and MEHREEN will modify tx per final report of Thank you [id number] ELIZABETH CANNON MD Aug 30, 2018 09:41
[2018-08-30] MEDS ORDERED: VANCOMYCIN 1 GM in IV NORMAL SALINE 250ML 250 ML IV ONE (10:30)
--- NOTE | 2018-08-30 10:55 | CONS ---
DATE OF CONSULTATION: 08/30/2018 REFERRING PHYSICIAN: Dr. Yogi Hall REASON FOR CONSULTATION: Gram-positive bacteremia. HISTORY OF PRESENT ILLNESS: An 82-year-old female with history of COPD, asthma, seasonal allergies, mild dementia, atherosclerotic heart disease, hypothyroidism, hypertension, atrial fibrillation, was brought to the ER with complaints of worsening shortness of breath and cough two days prior to admission. She normally is on 1 liter of oxygen at home; however, due to worsening respiratory illness, she did have some cough, which was most of the time was nonproductive, but occasionally was able to bring up white sputum. She denied any fevers, chills, night sweats, nausea, vomiting, diarrhea, headache prior to admission. She did have some runny nose, but that has subsided. Denied any sore throat. Denies any dysuria or rash. Denies any sick contact. The patient lives at home with her son and zhzlhyis-fo-mir. No recent travel. No antibiotics prior to admission. The patient was thought to be in COPD exacerbation. She was started on cefdinir and doxycycline. Blood cultures on admission one out of two bottles are reported with gram-positive cocci in clusters suggestive of Staph, so ID consult has been requested for antibiotic management. Today, the patient says she feels better. She still has a cough, which is thick. Most of the time, she has been able to bring it out, which is white. No blood. No fevers, chills, nausea, vomiting, diarrhea, abdominal pain. No chest pain. No headache or runny nose. No sinus congestion. PAST MEDICAL HISTORY: Dementia, chronic AFib, COPD, asthma, seasonal allergies, hyperlipidemia, coronary artery disease, hypertension, hypothyroidism. PAST SURGICAL HISTORY: Status post appendectomy, hysterectomy. ALLERGIES: No known drug allergies. SOCIAL HISTORY: Lives with her son. Denies smoking. Has two cats and dogs. Usually, she does not have them come close to her. FAMILY HISTORY: As per HPI. REVIEW OF SYSTEMS: Negative except for HPI. CURRENT MEDICATIONS: Cefdinir, doxycycline. Other medications reviewed in medication list. PHYSICAL EXAMINATION: VITAL SIGNS: Stable. GENERAL: Alert, oriented x 3 female, on 2 liters O2 by nasal cannula. HEENT: Normocephalic, atraumatic, anicteric. Oral mucosa moist. No thrush. NECK: Supple. No lymphadenopathy. LUNGS: Bilateral coarse breath sounds. Expiratory wheeze is present. HEART: S1, S2, no gallops or murmurs. ABDOMEN: Soft, nontender, nondistended. EXTREMITIES: No edema, no cyanosis. Superficial varicose veins noted. NEUROLOGIC: Alert and oriented x 3. Grossly nonfocal. SKIN: Warm, dry. No generalized rash. PSYCHIATRIC: Cooperative with appropriate mood and affect. LABORATORY DATA: WBC 6.0, hemoglobin 11.1, hematocrit 34.0, platelets 146. Sodium 142, potassium 3.9, chloride 104, bicarbonate 32, BUN 18, creatinine 1.0, glucose 216. BNP 1175. Influenza screen negative. DIAGNOSTIC: Chest x-ray, no radiographic evidence of acute cardiopulmonary process. MICROBIOLOGY: One out of two sets blood culture positive for gram-positive cocci in clusters suggestive of Staph. ID and MEHREEN pending at this time. IMPRESSION: 1. Acute exacerbation of chronic obstructive pulmonary disease. 2. Leukopenia, thrombocytopenia could be viral etiology exacerbating chronic obstructive pulmonary disease, influenza screen negative. 3. Acute on chronic respiratory failure. 4. Bacteremia with gram positive cocci (one out of two bottles )in clusters suggestive of staphylococcus. Final ID and MEHREEN pending, likely contaminant. 5. Seasonal allergies. 6. Chronic atrial fibrillation. 7. History of chronic obstructive pulmonary disease, asthma. RECOMMENDATIONS: 1. We will dose one time IV vancomycin. 2. Follow up labs and cultures. 3. Continue cefdinir and doxycycline. 4. Depending on further culture data, we will modify treatment. 4 Continue supportive care. Thank you, Dr. Lauren for consulting Infectious Disease to participate in this patient's care. If you have any questions, do not hesitate to contact me. ELIZABETH CANNON MD DR: J LUIS/erick JOB#: [id number] / [id number] DONTE
[2018-08-30 11:00] VITALS: BP 168/51
--- NOTE | 2018-08-30 12:49 | EKG ---
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
--- NOTE | 2018-08-30 12:54 | NUR ---
SW following for discharge planning. Discussed with RN, pt has services through [facility]. SW will continue to follow.
[2018-08-30 15:00] VITALS: BP 146/77
[2018-08-30 19:00] VITALS: BP 138/63
[2018-08-30] MEDS: LACTOBACILLUS RHAMNOSUS GG 1 CAPSULE. PO SCH (20:35)
[2018-08-30] MEDS: ATORVASTATIN CALCIUM 20 MG TABLET PO SCH (20:35)
[2018-08-30 23:00] VITALS: BP 146/75
[2018-08-31 02:33] VITALS: BP 189/96
[2018-08-31] MEDS: LEVOTHYROXINE 112 MCG TABLET PO SCH (06:25)
[2018-08-31] MEDS: methylPREDNISolone SOD SUCC PF 125 MG/2 ML VIAL. IV SCH (06:25)
[2018-08-31] MEDS: IPRATRPIUM/ALBUTEROL 0.5/2.5MG 3 ML NEBU. NEB SCH ×3 (06:36→20:29)
[2018-08-31 07:00] VITALS: BP 177/83
[2018-08-31] MEDS: METOPROLOL TART IMMED RELEASE 25 MG TABLET. PO SCH ×2 (07:54→20:03)
[2018-08-31] MEDS: CITALOPRAM 10 MG TABLET. PO SCH (07:54)
[2018-08-31] MEDS: DONEPEZIL HCL 10 MG TABLET. PO SCH (07:54)
[2018-08-31] MEDS: LACTOBACILLUS RHAMNOSUS GG 1 CAPSULE. PO SCH ×2 (07:54→20:00)
[2018-08-31] MEDS: ASPIRIN ENTERIC COATED 81 MG TABLET.DR. PO SCH (07:54)
[2018-08-31] MEDS: CEFDINIR 300 MG CAPSULE PO SCH ×2 (07:54→20:00)
[2018-08-31] MEDS: LOSARTAN POTASSIUM 50 MG TABLET. PO SCH (07:54)
[2018-08-31] MEDS: DOXYCYCLINE HYCLATE 100 MG TABLET PO SCH ×2 (07:54→20:00)
[2018-08-31] MEDS: MEMANTINE 10 MG TABLET. PO SCH ×2 (07:55→20:00)
[2018-08-31] MEDS: DRONEDARONE HCL 400 MG TABLET PO SCH ×2 (07:55→20:02)
--- NOTE | 2018-08-31 08:20 | PDOC ---
Provider Note Provider Note bp up but feels better- still exp wheezes, no dyspnea- will add hctz re bp, reduce steroids- rwest same-labs ok, wbc better re steroids DIMAS RECNIOS MD Aug 31, 2018 08:20
--- NOTE | 2018-08-31 09:01 | PDOC ---
PULMONARY PROGRESS NOTES Subjective PT LESS SOA Vitals Vital Signs Date Time Temp Pulse Resp B/P (MAP) Pulse Ox O2 Delivery O2 Flow Rate FiO2 08/31/18 08:00 Nasal Cannula 4.0 08/31/18 07:55 76 189/96 08/31/18 07:00 99.3 17 96 99.3 ROS: No Nausea, No Chest Pain, No Abdominal Pain, No Increase Cough General: Alert, No acute distress Lungs: Wheezing Cardiovascular: S1 Abdomen: Soft Neuro Exam: Alert Extremities: No Edema Skin: Warm Labs Laboratory Tests Test 08/29/18 10:00 08/29/18 10:05 08/30/18 08:00 Influenza Type A Antigen Negative (NEGATIVE) Influenza Type B Antigen Negative (NEGATIVE) White Blood Count 3.5 x10^3/uL (4.0-11.0) 6.0 x10^3/uL (4.0-11.0) Red Blood Count 3.36 x10^6/uL (3.50-5.40) 3.64 x10^6/uL (3.50-5.40) Hemoglobin 10.3 g/dL (12.0-15.5) 11.1 g/dL (12.0-15.5) Hematocrit 31.3 % (36.0-47.0) 34.0 % (36.0-47.0) Mean Corpuscular Volume 93 fL (79-100) 94 fL (79-100) Mean Corpuscular Hemoglobin 31 pg (25-35) 31 pg (25-35) Mean Corpuscular Hemoglobin Concent 33 g/dL (31-37) 33 g/dL (31-37) Red Cell Distribution Width 15.9 % (11.5-14.5) 16.2 % (11.5-14.5) Platelet Count 128 x10^3/uL (140-400) 146 x10^3/uL (140-400) Neutrophils (%) (Auto) 79 % (31-73) 91 % (31-73) Lymphocytes (%) (Auto) 8 % (24-48) 5 % (24-48) Monocytes (%) (Auto) 11 % (0-9) 4 % (0-9) Eosinophils (%) (Auto) 2 % (0-3) 0 % (0-3) Basophils (%) (Auto) 1 % (0-3) 0 % (0-3) Neutrophils # (Auto) 2.8 x10^3uL (1.8-7.7) 5.5 x10^3uL (1.8-7.7) Lymphocytes # (Auto) 0.3 x10^3/uL (1.0-4.8) 0.3 x10^3/uL (1.0-4.8) Monocytes # (Auto) 0.4 x10^3/uL (0.0-1.1) 0.2 x10^3/uL (0.0-1.1) Eosinophils # (Auto) 0.1 x10^3/uL (0.0-0.7) 0.0 x10^3/uL (0.0-0.7) Basophils # (Auto) 0.0 x10^3/uL (0.0-0.2) 0.0 x10^3/uL (0.0-0.2) Segmented Neutrophils % 67 % (35-66) Band Neutrophils % 15 % (0-9) Lymphocytes % 8 % (24-48) Monocytes % 7 % (0-10) Eosinophils % 2 % (0-5) Basophils % 1 % (0-3) Platelet Estimate Decreased (ADEQUATE) Polychromasia Slight Anisocytosis Slight Sodium Level 138 mmol/L (136-145) 142 mmol/L (136-145) Potassium Level 3.8 mmol/L (3.5-5.1) 3.9 mmol/L (3.5-5.1) Chloride Level 99 mmol/L (98-107) 104 mmol/L (98-107) Carbon Dioxide Level 36 mmol/L (21-32) 32 mmol/L (21-32) Anion Gap 3 (6-14) 6 (6-14) Blood Urea Nitrogen 15 mg/dL (7-20) 18 mg/dL (7-20) Creatinine 0.9 mg/dL (0.6-1.0) 1.0 mg/dL (0.6-1.0) Estimated GFR (Cockcroft-Gault) 59.8 53.0 BUN/Creatinine Ratio 17 (6-20) Glucose Level 97 mg/dL (70-99) 216 mg/dL (70-99) Calcium Level 8.8 mg/dL (8.5-10.1) 8.9 mg/dL (8.5-10.1) Total Bilirubin 0.9 mg/dL (0.2-1.0) Aspartate Amino Transf (AST/SGOT) 18 U/L (15-37) Alanine Aminotransferase (ALT/SGPT) 21 U/L (14-59) Alkaline Phosphatase 59 U/L (46-116) Troponin I Quantitative < 0.017 ng/mL (0.000-0.055) TM-Eyu-F-Type Natriuretic Peptide 1175 pg/mL (0-449) Total Protein 6.0 g/dL (6.4-8.2) Albumin 3.3 g/dL (3.4-5.0) Albumin/Globulin Ratio 1.2 (1.0-1.7) Medications Active Scripts Medications Dose Route/Sig Max Daily Dose Days Date Category Donepezil Hcl 10 Mg Tab.rapdis 10 Mg PO HS 08/29/18 Reported Cefdinir 300 Mg Capsule 300 Mg PO BID 7 08/02/18 Rx Metoprolol Tartrate 25 Mg Tablet 1 Tab PO BID 12/28/17 Reported Multaq (Dronedarone Hcl) 400 Mg Tablet 200 Mg PO BID 12/28/17 Reported Aspirin Ec (Aspirin) 81 Mg Tablet.dr 1 Tab PO DAILY 12/28/17 Reported Duoneb 0.5-3(2.5) Mg/3 Ml (Albuterol/Ipratropium) 3 Ml Ampul.neb 3 Ml NEB BID 12/11/17 Reported Namzaric 28 mg-10 mg Capsule (Memantine HCl/Donepezil HCl) 1 Each Cap.spr.24 1 12/11/17 Reported Citalopram Hbr (Citalopram Hydrobromide) 10 Mg Tablet 10 Mg PO DAILY 12/11/17 Reported Atorvastatin Calcium 20 Mg Tablet 20 Mg PO DAILY 12/11/17 Reported Levothyroxine Sodium 112 Mcg Tablet 112 Mcg PO DAILY 12/11/17 Reported Losartan Potassium 50 Mg Tablet 50 Mg PO DAILY 12/11/17 Reported Impression . IMPRESSION: 1. Acute exacerbation of chronic obstructive pulmonary disease. 2. Acute nonspecific bronchitis. 3. Negative influenza screen. 4. [id number] respiratory failure. Plan . CONTINUE THE SAME IMPROVING 1. We will continue nebulized treatments. 2. Empiric antibiotics. 3. Oxygen supplementation. 4. DVT prophylaxis. 5. Continue home meds. ELIZABETH HUTCHINS MD Aug 31, 2018 09:01
[2018-08-31 11:00] VITALS: BP 144/63
--- NOTE | 2018-08-31 11:08 | PDOC ---
Infectious Disease Note Subjective: Subjective Pt is feeling better sob and cough are improving wheezing is improving no f/c/n/v/d ROS: ROS Negative except for above. Vital Signs: Vital Signs Vital Signs Date Time Temp Pulse Resp B/P (MAP) Pulse Ox O2 Delivery O2 Flow Rate FiO2 08/31/18 08:00 Nasal Cannula 4.0 08/31/18 07:55 76 189/96 08/31/18 07:00 99.3 17 96 99.3 Physical Exam: PHYSICAL EXAM GENERAL: Alert, oriented x 3 female, on 2 liters O2 by nasal cannula. HEENT: Normocephalic, atraumatic, anicteric. Oral mucosa moist. No thrush. NECK: Supple. No lymphadenopathy. LUNGS: Bilateral coarse breath sounds. Expiratory wheeze is present. HEART: S1, S2, no gallops or murmurs. ABDOMEN: Soft, nontender, nondistended. EXTREMITIES: No edema, no cyanosis. Superficial varicose veins noted. NEUROLOGIC: Alert and oriented x 3. Grossly nonfocal. SKIN: Warm, dry. No generalized rash. PSYCHIATRIC: Cooperative with appropriate mood and affect. Medications: Inpatient Meds: Current Medications Medications (Trade) Dose Ordered Sig/Silvia Start Time Stop Time Status Last Admin Dose Admin Acetaminophen (Tylenol) 650 mg PRN Q4HRS PRN 08/29/18 11:45 08/30/18 11:44 DC Albuterol Sulfate (Ventolin Neb Soln) 2.5 mg PRN Q4HRS PRN 08/29/18 15:45 Albuterol/ Ipratropium (Duoneb) 3 ml TID 08/29/18 21:00 08/31/18 06:36 3 ML Aspirin (Ecotrin) 81 mg DAILY 08/30/18 09:00 08/31/18 07:54 81 MG Atorvastatin Calcium (Lipitor) 20 mg QHS 08/29/18 21:00 08/30/18 20:35 20 MG Cefdinir (Omnicef) 300 mg BID 08/29/18 21:00 08/31/18 07:54 300 MG Citalopram Hydrobromide (CeleXA) 10 mg DAILY 08/30/18 09:00 08/31/18 07:54 10 MG Donepezil HCl (Aricept) 10 mg DAILY 08/30/18 09:00 08/31/18 07:54 10 MG Doxycycline Hyclate (Vibra-Tab) 100 mg BID 08/29/18 21:00 08/31/18 07:54 100 MG Dronedarone (Multaq) 200 mg BID 08/29/18 21:00 08/31/18 07:55 200 MG Lactobacillus Rhamnosus (Culturelle) 1 cap BID 08/30/18 21:00 08/31/18 07:54 1 CAP Levothyroxine Sodium (Synthroid) 112 mcg DAILY06 08/30/18 06:00 08/31/18 06:25 112 MCG Losartan Potassium (Cozaar) 50 mg DAILY 08/30/18 09:00 08/31/18 07:54 50 MG Memantine (Namenda) 10 mg BID 08/29/18 21:00 08/31/18 07:55 10 MG Methylprednisolone Sodium Succinate (SOLU-Medrol 40MG VIAL) 40 mg BID66 08/31/18 18:00 Methylprednisolone Sodium Succinate (SOLU-Medrol 125MG VIAL) 125 mg Q8HRS 08/29/18 16:00 08/31/18 08:21 DC 08/31/18 06:25 125 MG Metoprolol Tartrate (Lopressor) 25 mg BID 08/29/18 21:00 08/31/18 07:54 25 MG Sodium Chloride 1,000 ml @ 100 mls/hr Q10H 08/29/18 11:41 08/30/18 11:40 DC 08/30/18 08:13 100 MLS/HR Vancomycin HCl 1 gm/Sodium Chloride 250 ml @ 250 mls/hr ONCE ONCE 08/30/18 10:30 08/30/18 11:29 DC 08/30/18 10:13 250 MLS/HR Labs: Micro RUN DATE: 08/30/18 PAGE 1 RUN TIME: 08 [facility] [address] [place] [address] Buster Gallegos M.D., Business Analyst Sales Operations PATIENT: PATRIA CAMPUZANO ACCT: [id number] LOC: [address] [place] [address] U : [id number] AGE/SX: 82/F ROOM: [facility] REG : 08/29/[address]: QUINCY ALCANTAR MD : 1935 BED: 1 DIS : STATUS: ADM IN TLOC: SPEC #: [id number] CARTER: 08/29/18 STATUS: COMP REQ #: [id number] RECD: 08/29/[address] [facility] [address]: NEREYDA PITTS Jr. DO SOURCE: BLOOD ENTR: 08/29/[address] [facility] [address]: QUINCY ALCANTAR MD SPDC: ORDERED: BCULT Procedure Result BLOOD CULTURE Final GRAM POSITIVE COCCI IN CLUSTERS, SUGGESTIVE OF STAPH, IN 1 OF 2 BOTTLES, ONE SET DRAWN. CALLED TO ERIC EVANS RN ON 5S AT 8:35 ON 08/30/18 DW MT SENT TO [facility] FOR FURTHER WORKUP. Objective: Assessment: GPC bacteremia 1/2 bottles in clusters,suggestive of staph ,final id and desi pending ,likely contaminant Acute exacerbation of COPD Leukopenia, thrombocytopenia could be viral etiology Acute on chronic respiratory failure. Seasonal allergies. Chronic atrial fibrillation. Plan: Plan of Care Vanc one time dose today again cont cefdinir and doxycyline on steroids f/u GPC ID and DESI,still pending per micro lab hopefully will be able to dc home tomorrow D/W ELIZABETH VILLARREAL MD Aug 31, 2018 11:08
[2018-08-31] MEDS ORDERED: VANCOMYCIN 750 MG in IV NORMAL SALINE 250ML 250 ML IV ONE (12:00)
--- NOTE | 2018-08-31 14:27 | NUR ---
SW following. Discussed with RN. SW will continue to follow.
[2018-08-31 15:00] VITALS: BP 155/75
[2018-08-31] MEDS: methylPREDNISolone SOD SUCC PF 40 MG/ML VIAL. IV SCH (16:43)
[2018-08-31 19:00] VITALS: BP 168/56
[2018-08-31] MEDS: ATORVASTATIN CALCIUM 20 MG TABLET PO SCH (20:00)
[2018-08-31 23:00] VITALS: BP 160/63
[2018-09-01 03:00] VITALS: BP 157/68
[2018-09-01] MEDS: LEVOTHYROXINE 112 MCG TABLET PO SCH (05:37)
[2018-09-01] MEDS: methylPREDNISolone SOD SUCC PF 40 MG/ML VIAL. IV SCH (05:37)
[2018-09-01 07:00] VITALS: BP 170/52
[2018-09-01] MEDS: IPRATRPIUM/ALBUTEROL 0.5/2.5MG 3 ML NEBU. NEB SCH ×3 (07:16→20:35)
--- NOTE | 2018-09-01 08:18 | PDOC ---
Infectious Disease Note Subjective: Subjective Pt is feeling better sob and cough are improving wheezing is improving no f/c/n/v/d ROS: ROS Negative except for above. Vital Signs: Vital Signs Vital Signs Date Time Temp Pulse Resp B/P (MAP) Pulse Ox O2 Delivery O2 Flow Rate FiO2 09/01/18 07:18 98 Nasal Cannula 4.0 09/01/18 03:00 98.6 60 157/68 (97) 98.6 08/31/18 23:00 18 Physical Exam: PHYSICAL EXAM GENERAL: Alert, oriented x 3 female, on 2 liters O2 by nasal cannula. HEENT: Normocephalic, atraumatic, anicteric. Oral mucosa moist. No thrush. NECK: Supple. No lymphadenopathy. LUNGS: Bilateral coarse breath sounds. Expiratory wheeze is present. HEART: S1, S2, no gallops or murmurs. ABDOMEN: Soft, nontender, nondistended. EXTREMITIES: No edema, no cyanosis. Superficial varicose veins noted. NEUROLOGIC: Alert and oriented x 3. Grossly nonfocal. SKIN: Warm, dry. No generalized rash. PSYCHIATRIC: Cooperative with appropriate mood and affect. Medications: Inpatient Meds: Current Medications Medications (Trade) Dose Ordered Sig/Silvia Start Time Stop Time Status Last Admin Dose Admin Acetaminophen (Tylenol) 650 mg PRN Q4HRS PRN 08/29/18 11:45 08/30/18 11:44 DC Albuterol Sulfate (Ventolin Neb Soln) 2.5 mg PRN Q4HRS PRN 08/29/18 15:45 Albuterol/ Ipratropium (Duoneb) 3 ml TID 08/29/18 21:00 09/01/18 07:16 3 ML Aspirin (Ecotrin) 81 mg DAILY 08/30/18 09:00 08/31/18 07:54 81 MG Atorvastatin Calcium (Lipitor) 20 mg QHS 08/29/18 21:00 08/31/18 20:00 20 MG Cefdinir (Omnicef) 300 mg BID 08/29/18 21:00 08/31/18 20:00 300 MG Citalopram Hydrobromide (CeleXA) 10 mg DAILY 08/30/18 09:00 08/31/18 07:54 10 MG Donepezil HCl (Aricept) 10 mg DAILY 08/30/18 09:00 08/31/18 07:54 10 MG Doxycycline Hyclate (Vibra-Tab) 100 mg BID 08/29/18 21:00 08/31/18 20:00 100 MG Dronedarone (Multaq) 200 mg BID 08/29/18 21:00 08/31/18 20:02 200 MG Lactobacillus Rhamnosus (Culturelle) 1 cap BID 08/30/18 21:00 08/31/18 20:00 1 CAP Levothyroxine Sodium (Synthroid) 112 mcg DAILY06 08/30/18 06:00 09/01/18 05:37 112 MCG Losartan Potassium (Cozaar) 50 mg DAILY 08/30/18 09:00 08/31/18 07:54 50 MG Memantine (Namenda) 10 mg BID 08/29/18 21:00 08/31/18 20:00 10 MG Methylprednisolone Sodium Succinate (SOLU-Medrol 40MG VIAL) 40 mg BID66 08/31/18 18:00 09/01/18 05:37 40 MG Methylprednisolone Sodium Succinate (SOLU-Medrol 125MG VIAL) 125 mg Q8HRS 08/29/18 16:00 08/31/18 08:21 DC 08/31/18 06:25 125 MG Metoprolol Tartrate (Lopressor) 25 mg BID 08/29/18 21:00 08/31/18 20:03 25 MG Sodium Chloride 1,000 ml @ 100 mls/hr Q10H 08/29/18 11:41 08/30/18 11:40 DC 08/30/18 08:13 100 MLS/HR Vancomycin HCl 750 mg/Sodium Chloride 250 ml @ 250 mls/hr 1X ONCE 08/31/18 12:00 08/31/18 12:59 DC 08/31/18 11:22 250 MLS/HR Vancomycin HCl 1 gm/Sodium Chloride 250 ml @ 250 mls/hr ONCE ONCE 08/30/18 10:30 08/30/18 11:29 DC 08/30/18 10:13 250 MLS/HR Labs: Micro RUN DATE: 08/30/18 PAGE 1 RUN TIME: 0838 [facility] [address] [place] [address] Buster Gallegos M.D., Bss Solution Architect PATIENT: PATRIA CAMPUZANO ACCT: [id number] LOC: [address] [place] [address] U : [id number] AGE/SX: 82/F ROOM: 582 REG : 08/29/[address]: QUINCY ALCANTAR MD : 1935 BED: 1 DIS : STATUS: ADM IN TLOC: SPEC #: [id number] CARTER: 08/29/18 STATUS: COMP REQ #: [id number] RECD: 08/29/[address]: NEREYDA PITTS Jr. DO SOURCE: BLOOD ENTR: 08/29/[address] [facility] [address]: QUINCY ALCANTAR MD SPDESC: ORDERED: BCULT Procedure Result BLOOD CULTURE Final GRAM POSITIVE COCCI IN CLUSTERS, SUGGESTIVE OF STAPH, IN 1 OF 2 BOTTLES, ONE SET DRAWN. CALLED TO ERIC EVANS RN ON 5S AT 8:35 ON 08/30/18 DW MT SENT TO [facility] FOR FURTHER WORKUP. Objective: Assessment: GPC bacteremia 1/2 bottles in clusters,suggestive of staph ,final id and desi pending ,likely contaminant Acute exacerbation of COPD Leukopenia, thrombocytopenia could be viral etiology Acute on chronic respiratory failure. Seasonal allergies. Chronic atrial fibrillation. Plan: Plan of Care Vanc one time dose today again cont cefdinir and doxycyline on steroids f/u GPC ID and DESI,still pending hopefully will be able to dc home tomorrow D/W ELIZABETH VILLARREAL MD Sep 01, 2018 08:18
--- NOTE | 2018-09-01 08:26 | PDOC ---
Provider Note Provider Note feels better, still some wheezes- vss, no temp- will go to po pred, likely dc DIMAS RECINOS MD Sep 01, 2018 08:26
[2018-09-01] MEDS: CEFDINIR 300 MG CAPSULE PO SCH ×2 (09:12→20:11)
[2018-09-01] MEDS: ASPIRIN ENTERIC COATED 81 MG TABLET.DR. PO SCH (09:12)
[2018-09-01] MEDS: DOXYCYCLINE HYCLATE 100 MG TABLET PO SCH ×2 (09:12→20:10)
[2018-09-01] MEDS: LACTOBACILLUS RHAMNOSUS GG 1 CAPSULE. PO SCH ×2 (09:12→20:11)
[2018-09-01] MEDS: DONEPEZIL HCL 10 MG TABLET. PO SCH (09:12)
[2018-09-01] MEDS: MEMANTINE 10 MG TABLET. PO SCH ×2 (09:12→20:11)
[2018-09-01] MEDS: DRONEDARONE HCL 400 MG TABLET PO SCH ×2 (09:12→20:11)
[2018-09-01] MEDS: LOSARTAN POTASSIUM 50 MG TABLET. PO SCH (09:13)
[2018-09-01] MEDS: METOPROLOL TART IMMED RELEASE 25 MG TABLET. PO SCH ×2 (09:13→20:12)
[2018-09-01] MEDS: CITALOPRAM 10 MG TABLET. PO SCH (09:13)
--- NOTE | 2018-09-01 09:23 | PDOC ---
PULMONARY PROGRESS NOTES Subjective PT LESS SOA Vitals Vital Signs Date Time Temp Pulse Resp B/P (MAP) Pulse Ox O2 Delivery O2 Flow Rate FiO2 09/01/18 09:13 69 170/52 09/01/18 07:18 98 Nasal Cannula 4.0 09/01/18 07:00 98.4 18 98.4 ROS: No Nausea, No Chest Pain, No Abdominal Pain, No Increase Cough General: Alert, No acute distress Lungs: Wheezing Cardiovascular: S1 Abdomen: Soft Neuro Exam: Alert Extremities: No Edema Skin: Warm Medications Active Scripts Medications Dose Route/Sig Max Daily Dose Days Date Category Donepezil Hcl 10 Mg Tab.rapdis 10 Mg PO HS 08/29/18 Reported Cefdinir 300 Mg Capsule 300 Mg PO BID 7 08/02/18 Rx Metoprolol Tartrate 25 Mg Tablet 1 Tab PO BID 12/28/17 Reported Multaq (Dronedarone Hcl) 400 Mg Tablet 200 Mg PO BID 12/28/17 Reported Aspirin Ec (Aspirin) 81 Mg Tablet.dr 1 Tab PO DAILY 12/28/17 Reported Duoneb 0.5-3(2.5) Mg/3 Ml (Albuterol/Ipratropium) 3 Ml Ampul.neb 3 Ml NEB BID 12/11/17 Reported Namzaric 28 mg-10 mg Capsule (Memantine HCl/Donepezil HCl) 1 Each Cap.spr.24 1 12/11/17 Reported Citalopram Hbr (Citalopram Hydrobromide) 10 Mg Tablet 10 Mg PO DAILY 12/11/17 Reported Atorvastatin Calcium 20 Mg Tablet 20 Mg PO DAILY 12/11/17 Reported Levothyroxine Sodium 112 Mcg Tablet 112 Mcg PO DAILY 12/11/17 Reported Losartan Potassium 50 Mg Tablet 50 Mg PO DAILY 12/11/17 Reported Impression . IMPRESSION: 1. Acute exacerbation of chronic obstructive pulmonary disease. 2. Acute nonspecific bronchitis. 3. Negative influenza screen. 4. [id number] respiratory failure. 5. BACTEREMIA Plan . CONTINUE THE SAME IMPROVING ANTIBX PER ELIZABETH BOJORQUEZ MD Sep 01, 2018 09:23
[2018-09-01] MEDS ORDERED: VANCOMYCIN 500 MG in IV NORMAL SALINE 100ML 100 ML IV ONE (10:30)
[2018-09-01 11:00] VITALS: BP 150/55
--- NOTE | 2018-09-01 11:57 | NUR ---
SW following. Discussed with RN, RN anticipates dc tomorrow (09/02/18). Pt will need resumption of HH orders for [facility]. SW will continue to follow.
[2018-09-01 15:00] VITALS: BP 137/66
[2018-09-01 19:00] VITALS: BP 174/85
[2018-09-01] MEDS: ATORVASTATIN CALCIUM 20 MG TABLET PO SCH (20:11)
[2018-09-01 22:47] VITALS: BP 154/64
[2018-09-02 03:00] VITALS: BP 150/50
[2018-09-02] MEDS: LEVOTHYROXINE 112 MCG TABLET PO SCH (05:52)
[2018-09-02 07:00] VITALS: BP 135/60
[2018-09-02] MEDS: IPRATRPIUM/ALBUTEROL 0.5/2.5MG 3 ML NEBU. NEB SCH ×2 (07:00→10:52)
--- NOTE | 2018-09-02 08:25 | DISCH ---
DISCHARGE WITH HOME HEALTH DISCHARGE INFORMATION: Final Diagnosis: Problems Medical Problems: (1) Acute bronchitis Status: Acute (2) COPD with acute exacerbation Status: Acute Condition on Discharge: Stable CODE STATUS: Code Status: Full HOME HEALTH: Face to Face: I certify this patient is under my care and that I, or a nurse practitioner or physician's digital sales assistant working with me, had a face to face encounter that meets the physician face to face encounter requirements with this patient on []. Medical Complications: COPD Physical Therapy For: Evalulation/Treatment Occupational Therapy For: Evaluation/Treatment Home Health Aide For: Self-care Pt Meets Homebound Status: Unsteady balance w/ amb, POST DISCHARGE ORDERS: Activity Instructions for Disc: Activity as tolerated, Avoid high altitudes, Progressive ambulation Weight Bearing Status after Di: As tolerated DIET AFTER DISCHARGE: Regular CHECKS AFTER DISCHARGE: Checks after discharge: Check blood press - daily, Check your Temp as needed, Weigh Yourself Daily TREATMENT/EQUIPMENT ORDERS: Adaptive Equipment Issued: None Discharge Respiratory Equipmen: Oxygen CERTIFICATION STATEMENT: Certification Statement: Certification Statement: Based on the above finding, I certify that this patient is confined to the home and needs intermittent longterm care, physical therapy and/or speech therapy, or continues to need occupational therapy.~ This patient is under my care, and I have initiated the establishment of the plan of care.~ This patient will be followed by myself or a community physician who will periodically review the plan of care. Home Meds Active Scripts Cefdinir (CEFDINIR) 300 Mg Capsule, 300 MG PO BID for exac of copd for 7 Days, # 14 CAP Prov:QUINCY ALCANTAR MD 08/02/18 Reported Medications Donepezil Hcl (DONEPEZIL HCL) 10 Mg Tab.rapdis, 10 MG PO HS for converted from namzaric, TAB 08/29/18 Metoprolol Tartrate (METOPROLOL TARTRATE) 25 Mg Tablet, 1 TAB PO BID, #60 TAB 5 Refills 12/28/17 Dronedarone Hcl (MULTAQ) 400 Mg Tablet, 200 MG PO BID for heart arrhythmia, #60 TAB 5 Refills 12/28/17 Aspirin (ASPIRIN EC) 81 Mg Tablet.dr, 1 TAB PO DAILY, #30 TAB 3 Refills 12/28/17 Ipratropium/Albuterol Sulfate (DUONEB 0.5-3(2.5) MG/3 ML) 3 Ml Ampul.neb, 3 ML NEB BID, EACH 12/11/17 Memantine HCl/Donepezil HCl (Namzaric 28 mg-10 mg Capsule) 1 Each Cap.spr.24, 1 12/11/17 Citalopram Hydrobromide (CITALOPRAM HBR) 10 Mg Tablet, 10 MG PO DAILY for depression 12/11/17 Atorvastatin Calcium (ATORVASTATIN CALCIUM) 20 Mg Tablet, 20 MG PO DAILY 12/11/17 Levothyroxine Sodium (LEVOTHYROXINE SODIUM) 112 Mcg Tablet, 112 MCG PO DAILY 12/11/17 Losartan Potassium (LOSARTAN POTASSIUM) 50 Mg Tablet, 50 MG PO DAILY 12/11/17 DIMAS RECINOS MD Sep 02, 2018 08:25
--- NOTE | 2018-09-02 08:28 | PDOC ---
Provider Note Provider Note [id number] DIMAS RECINOS MD Sep 02, 2018 08:27
[2018-09-02] MEDS: predniSONE 20 MG TABLET PO SCH ×2 (08:38→08:48)
[2018-09-02] MEDS: LACTOBACILLUS RHAMNOSUS GG 1 CAPSULE. PO SCH (08:38)
[2018-09-02] MEDS: CEFDINIR 300 MG CAPSULE PO SCH (08:38)
[2018-09-02] MEDS: CITALOPRAM 10 MG TABLET. PO SCH (08:39)
[2018-09-02] MEDS: ASPIRIN ENTERIC COATED 81 MG TABLET.DR. PO SCH (08:39)
[2018-09-02] MEDS: DRONEDARONE HCL 400 MG TABLET PO SCH (08:39)
[2018-09-02] MEDS: LOSARTAN POTASSIUM 50 MG TABLET. PO SCH (08:40)
[2018-09-02] MEDS: DONEPEZIL HCL 10 MG TABLET. PO SCH (08:40)
[2018-09-02] MEDS: METOPROLOL TART IMMED RELEASE 25 MG TABLET. PO SCH (08:41)
[2018-09-02] MEDS: MEMANTINE 10 MG TABLET. PO SCH (08:41)
--- NOTE | 2018-09-02 08:43 | DS ---
DATE OF DISCHARGE: 09/02/2018 HOSPITAL SUMMARY: The patient with known COPD, admitted with wheezing, cough and fever. Flu tests were negative. Chemistry profile unremarkable. White count was mildly low at 3500, came up to 6000 the next day. Platelets were normal as well. Blood cultures grew out some Staph species that were felt to be contaminant per Dr. Vargas, the sec reporting consultant. Chest x-ray was clear. She was treated initially with vancomycin and switched to oral cefdinir and then IV steroids, transitioned to oral prednisone. She is feeling better and able to be followed as an outpatient at this point. FINAL DIAGNOSES: 1. Acute exacerbation of chronic obstructive pulmonary disease with secondary bronchitis. 2. Positive blood culture felt to be contaminant. OPERATIONS, PROCEDURES, COMPLICATIONS: None. CONSULTATION: Dr. Vargas, Dr. Cervantes. DISPOSITION: Five more days of cefdinir 300 mg twice a day, prednisone taper over 7 days. Rest of meds remain the same. Activity as tolerated. PROGNOSIS: Guarded. DIMAS RECINOS MD DR: ANNALISE/nts JOB#: [id number] / [id number]
--- NOTE | 2018-09-02 08:45 | PDOC ---
PULMONARY PROGRESS NOTES Subjective PT LESS SOA Vitals Vital Signs Date Time Temp Pulse Resp B/P (MAP) Pulse Ox O2 Delivery O2 Flow Rate FiO2 09/02/18 08:41 61 135/60 09/02/18 07:00 98.5 18 98 Nasal Cannula 3.0 98.5 ROS: No Nausea, No Chest Pain, No Abdominal Pain, No Increase Cough General: Alert, No acute distress Lungs: Wheezing Cardiovascular: S1 Abdomen: Soft Neuro Exam: Alert Extremities: No Edema Skin: Warm Medications Active Scripts Medications Dose Route/Sig Max Daily Dose Days Date Category Donepezil Hcl 10 Mg Tab.rapdis 10 Mg PO HS 08/29/18 Reported Cefdinir 300 Mg Capsule 300 Mg PO BID 7 08/02/18 Rx Metoprolol Tartrate 25 Mg Tablet 1 Tab PO BID 12/28/17 Reported Multaq (Dronedarone Hcl) 400 Mg Tablet 200 Mg PO BID 12/28/17 Reported Aspirin Ec (Aspirin) 81 Mg Tablet.dr 1 Tab PO DAILY 12/28/17 Reported Duoneb 0.5-3(2.5) Mg/3 Ml (Albuterol/Ipratropium) 3 Ml Ampul.neb 3 Ml NEB BID 12/11/17 Reported Namzaric 28 mg-10 mg Capsule (Memantine HCl/Donepezil HCl) 1 Each Cap.spr.24 1 12/11/17 Reported Citalopram Hbr (Citalopram Hydrobromide) 10 Mg Tablet 10 Mg PO DAILY 12/11/17 Reported Atorvastatin Calcium 20 Mg Tablet 20 Mg PO DAILY 12/11/17 Reported Levothyroxine Sodium 112 Mcg Tablet 112 Mcg PO DAILY 12/11/17 Reported Losartan Potassium 50 Mg Tablet 50 Mg PO DAILY 12/11/17 Reported Impression . IMPRESSION: 1. Acute exacerbation of chronic obstructive pulmonary disease. 2. Acute nonspecific bronchitis. 3. Negative influenza screen. 4. Dmtch-[id number]-vmvpdvc respiratory failure. 5. BACTEREMIA Plan . D/C TODAY FOLLOW UP IN OFFICE ELIZABETH HUTCHINS MD Sep 02, 2018 08:45
--- NOTE | 2018-09-02 09:01 | PDOC ---
Infectious Disease Note Subjective: Subjective Pt is feeling ok today has cough,sob and wheezing this am no f/c/n/v/d ROS: ROS Negative except for above. Vital Signs: Vital Signs Vital Signs Date Time Temp Pulse Resp B/P (MAP) Pulse Ox O2 Delivery O2 Flow Rate FiO2 09/02/18 08:41 61 135/60 09/02/18 07:00 98.5 18 98 Nasal Cannula 3.0 98.5 Physical Exam: PHYSICAL EXAM GENERAL: Alert, oriented x 3 female, on 2 liters O2 by nasal cannula. HEENT: Normocephalic, atraumatic, anicteric. Oral mucosa moist. No thrush. NECK: Supple. No lymphadenopathy. LUNGS: Bilateral coarse breath sounds. Expiratory wheeze is present. HEART: S1, S2, no gallops or murmurs. ABDOMEN: Soft, nontender, nondistended. EXTREMITIES: No edema, no cyanosis. Superficial varicose veins noted. NEUROLOGIC: Alert and oriented x 3. Grossly nonfocal. SKIN: Warm, dry. No generalized rash. PSYCHIATRIC: Cooperative with appropriate mood and affect. Medications: Inpatient Meds: Current Medications Medications (Trade) Dose Ordered Sig/Silvia Start Time Stop Time Status Last Admin Dose Admin Acetaminophen (Tylenol) 650 mg PRN Q4HRS PRN 08/29/18 11:45 08/30/18 11:44 DC Albuterol Sulfate (Ventolin Neb Soln) 2.5 mg PRN Q4HRS PRN 08/29/18 15:45 Albuterol/ Ipratropium (Duoneb) 3 ml TID 08/29/18 21:00 09/02/18 07:00 3 ML Aspirin (Ecotrin) 81 mg DAILY 08/30/18 09:00 09/02/18 08:39 81 MG Atorvastatin Calcium (Lipitor) 20 mg QHS 08/29/18 21:00 09/01/18 20:11 20 MG Cefdinir (Omnicef) 300 mg BID 08/29/18 21:00 09/02/18 08:38 300 MG Citalopram Hydrobromide (CeleXA) 10 mg DAILY 08/30/18 09:00 09/02/18 08:39 10 MG Donepezil HCl (Aricept) 10 mg DAILY 08/30/18 09:00 09/02/18 08:40 10 MG Doxycycline Hyclate (Vibra-Tab) 100 mg BID 08/29/18 21:00 09/02/18 08:24 DC 09/01/18 20:10 100 MG Dronedarone (Multaq) 200 mg BID 08/29/18 21:00 09/02/18 08:39 200 MG Lactobacillus Rhamnosus (Culturelle) 1 cap BID 08/30/18 21:00 09/02/18 08:38 1 CAP Levothyroxine Sodium (Synthroid) 112 mcg DAILY06 08/30/18 06:00 09/02/18 05:52 112 MCG Losartan Potassium (Cozaar) 50 mg DAILY 08/30/18 09:00 09/02/18 08:40 50 MG Memantine (Namenda) 10 mg BID 08/29/18 21:00 09/02/18 08:41 10 MG Methylprednisolone Sodium Succinate (SOLU-Medrol 40MG VIAL) 40 mg BID66 08/31/18 18:00 09/01/18 08:26 DC 09/01/18 05:37 40 MG Methylprednisolone Sodium Succinate (SOLU-Medrol 125MG VIAL) 125 mg Q8HRS 08/29/18 16:00 08/31/18 08:21 DC 08/31/18 06:25 125 MG Metoprolol Tartrate (Lopressor) 25 mg BID 08/29/18 21:00 09/02/18 08:41 25 MG Prednisone (Prednisone) 40 mg DAILY 09/02/18 08:00 09/02/18 08:48 40 MG Sodium Chloride 1,000 ml @ 100 mls/hr Q10H 08/29/18 11:41 08/30/18 11:40 DC 08/30/18 08:13 100 MLS/HR Vancomycin HCl 500 mg/Sodium Chloride 100 ml @ 100 mls/hr 1X ONCE 09/01/18 10:30 09/01/18 11:29 DC 09/01/18 11:41 100 MLS/HR Vancomycin HCl 750 mg/Sodium Chloride 250 ml @ 250 mls/hr 1X ONCE 08/31/18 12:00 08/31/18 12:59 DC 08/31/18 11:22 250 MLS/HR Vancomycin HCl 1 gm/Sodium Chloride 250 ml @ 250 mls/hr ONCE ONCE 08/30/18 10:30 08/30/18 11:29 DC 08/30/18 10:13 250 MLS/HR Labs: Micro RUN DATE: 08/30/18 PAGE 1 RUN TIME: 837 [facility] [address] [place] [address] Buster Gallegos M.D., [employer] Press[employer] PATIENT: PATRIA CAMPUZANO ACCT: [id number] LOC: [address] [place] [address] U : [id number] AGE/SX: 82/F ROOM: [facility] REG : 08/29/[address]: QUINCY ALCANTAR MD : 1935 BED: 1 DIS : STATUS: ADM IN TLOC: SPEC #: [id number] CARTER: 08/29/18 STATUS: COMP REQ #: [id number] RECD: 08/29/18-[address]: NEREYDA PITTS Jr. DO SOURCE: BLOOD ENTR: 08/29/[address] [facility] [address]: QUIN[facility]AR [facility] ORDERED: BC[facility] Procedure Result BLOOD CULTURE Final GRAM POSITIVE COCCI IN CLUSTERS, SUGGESTIVE OF STAPH, IN 1 OF 2 BOTTLES, ONE SET DRAWN. CALLED TO ERIC EVANS RN ON 5S AT 8:35 ON 08/30/18 DW MT SENT TO [facility] FOR FURTHER WORKUP. Objective: Assessment: GPC bacteremia 1/2 bottles in clusters,suggestive of staph ,final id and desi still pending ,likely contaminant Acute exacerbation of COPD Leukopenia, thrombocytopenia could be viral etiology Acute on chronic respiratory failure. Seasonal allergies. Chronic atrial fibrillation. Plan: Plan of Care Vanc one time dose today again pt been dc home today Need to f/u BC until final If staph aureus will need IV antibiotics, PCP can follow Call us if any questions po antibiotics per pcp D/W pt about above POC D/W ELIZABETH VILLARREAL MD Sep 02, 2018 09:01
[2018-09-02] MEDS ORDERED: VANCOMYCIN 500 MG in IV NORMAL SALINE 100ML 100 ML IV ONE (10:00)
[2018-09-02 10:44] VITALS: BP 136/95
[2018-09-02] MEDS ORDERED: PRED-220 PO ×2 (11:24→11:25)
--- NOTE | 2018-09-02 13:43 | NUR ---
LORIN following. Discussed with RN. Pt will discharge home today. LORIN faxed resumption of care orders to [facility] (ph: [phone], f: [phone]). Kim will visit pt on Wednesday (09/05/18) due to weekend weather. RN notified. Pt choice and rights letter signed and placed on chart. No further SW needs.
--- NOTE | 2018-09-02 15:18 | NUR ---
Discharge Note: PATRIA CAMPUZANO Discharge instructions and discharge home medications reviewed with Family Member and a copy given. All questions have been answered and understanding verbalized. The following instructions and handouts were given: COPD, Bronchitis. Discontinued lines and drains: PIV removed, patient tolerated, catheter intact. Patient discharged to Home with Home Health via Private Vehicle with Son and Daughter in Law.
[2018-09-05] MEDS ORDERED: LOSA-73 PO (09:39)
== END 2018-09-02 13:10 | disposition home health service (06) | DRG 189 ==
LOC: ER 09:10 → 5 SOUTH 11:37
PROVIDERS: ADMIT Family Medicine; ATTEND Family Medicine
DX: J96.20 Acute and chronic respiratory failure, unspecified whether with hypoxia or hypercapnia (principal); J44.1 Chronic obstructive pulmonary disease with (acute) exacerbation; R78.81 Bacteremia; J44.0 Chronic obstructive pulmonary disease with (acute) lower respiratory infection; R65.10 Systemic inflammatory response syndrome (SIRS) of non-infectious origin without acute organ dysfunction; J20.9 Acute bronchitis, unspecified; D69.6 Thrombocytopenia, unspecified; I48.2 Chronic atrial fibrillation; D72.819 Decreased white blood cell count, unspecified; E03.9 Hypothyroidism, unspecified; E78.00 Pure hypercholesterolemia, unspecified; E78.5 Hyperlipidemia, unspecified; F03.90 Unspecified dementia, unspecified severity, without behavioral disturbance, psychotic disturbance, mood disturbance, and anxiety; I10 Essential (primary) hypertension; I25.10 Atherosclerotic heart disease of native coronary artery without angina pectoris; Z90.49 Acquired absence of other specified parts of digestive tract; Z90.710 Acquired absence of both cervix and uterus; Z99.81 Dependence on supplemental oxygen
CPT/HCPCS: 36415; 71045; 80048; 80053; 81001; 83880; 84484; 85007; 85025; 87040; 87086; 87186; 87205; 87804; 93005; 94640; 94760; 96374; J2920; J2930; J3370; J7030; J7040; J7050; J7512; J7620; 97110; 97530; 99285-25

== ENCOUNTER 2018-10-10 16:58 | Emergency (ER) | payer MEDICARE, OTHER ==
[~2018-10-10] VITALS: Ht 152.4 cm; Wt 62.1 kg
[~2018-10-10 16:58] MED LIST changes: +DONE10TA14 PO; +PRED-220 PO
[2018-10-10] MEDS ORDERED: IPRATRPIUM/ALBUTEROL 0.5/2.5MG 3 ML NEBU. NEB ONE (19:00)
[2018-10-10] MEDS ORDERED: IV NORMAL SALINE 500ML BAG 500 ML IV ONE (19:00)
[2018-10-10 19:08] LABS: BASO % 1 % (0-3); EOS % 1 % (0-3); HEMATOCRIT 31.6 % (36.0-47.0); HEMOGLOBIN 10.2 g/dL (12.0-15.5); LYMPH # 0.8 x10^3/uL (1.0-4.8); LYMPH % 17 % (24-48); MEAN CORPUSCULAR HEMOGLOBIN 31 pg (25-35); MEAN CORPUSCULAR HGB CONC 32 g/dL (31-37); MEAN CORPUSCULAR VOLUME 96 fL (79-100); MONO # 0.5 x10^3/uL (0.0-1.1); MONO % 11 % (0-9); NEUT # 3.1 x10^3uL (1.8-7.7); NEUT % 70 % (31-73); PLATELET COUNT 174 x10^3/uL (140-400); RED CELL DISTRIBUTION WIDTH 17.1 % (11.5-14.5); WHITE BLOOD COUNT 4.4 x10^3/uL (4.0-11.0)
[2018-10-10 19:18] LABS: CALCIUM 9.3 mg/dL (8.5-10.1)
--- NOTE | 2018-10-10 19:18 | PHYS DOC ---
Past Medical History Past Medical History: A-Fib, Dementia, High Cholesterol, Heart Disease, Hypertension, Hypothyroid, Other Additional Past Medical Histor: seasonal allergies Past Surgical History: Appendectomy, Hysterectomy, Other Additional Past Surgical Histo: L hip Alcohol Use: None Drug Use: None Adult General Chief Complaint Chief Complaint: DEHYDRATION HPI HPI Patient is a 82 year old female who presents with lightheadedness with standing. This is been going on for "a while. Family notes the patient does not drink much in the way of water, juice, coffee, etc. patient notes that she was more lightheaded than usual today. No chest pain or palpitations. She reports normal amount of urine output. Denies any recent changes in weight. This has been a long-standing issue for the patient. There has been no fever. No nausea or vomiting, nor diarrhea.[] Review of Systems Review of Systems Constitutional: Denies fever or chills [] Eyes: Denies change in visual acuity, redness, or eye pain [] HENT: Denies nasal congestion or sore throat [] Respiratory: Denies cough or shortness of breath [] Cardiovascular: No chest pain or palpitations[] GI: Denies abdominal pain, nausea, vomiting, bloody stools or diarrhea [] : Denies dysuria or hematuria [] Musculoskeletal: Denies back pain or joint pain [] Integument: Denies rash or skin lesions [] Neurologic: Denies headache, focal weakness or sensory changes [] Endocrine: Denies polyuria or polydipsia [] All other systems were reviewed and found to be within normal limits, except as documented in this note. Current Medications Current Medications Current Medications Medications (Trade) Dose Ordered Sig/Silvia Start Time Stop Time Status Last Admin Dose Admin Albuterol/ Ipratropium (Duoneb) 3 ml 1X ONCE 10/10/18 19:00 10/10/18 19:01 DC 10/10/18 19:15 3 ML Sodium Chloride 500 ml @ 500 mls/hr 1X ONCE 10/10/18 19:00 10/10/18 19:59 DC 10/10/18 19:20 500 MLS/HR Allergies Allergies Allergies Coded Allergies Type Severity Reaction Last Updated Verified No Known Drug Allergies 07/15/16 No Physical Exam Physical Exam Constitutional: Well developed, well nourished, no acute distress, non-toxic appearance. [] HENT: Normocephalic, atraumatic, bilateral external ears normal, oropharynx moist, no oral exudates, nose normal. [] Eyes: PERRLA, EOMI, conjunctiva normal, no discharge. [] Neck: Normal range of motion, no tenderness, supple, no stridor. [] Cardiovascular:Heart rate regular rhythm, no murmur [] Lungs & Thorax: Bilateral breath sounds clear to auscultation [] Abdomen: Bowel sounds normal, soft, no tenderness, no masses, no pulsatile masses. [] Skin: Warm, dry, no erythema, no rash. [] Back: No tenderness, no CVA tenderness. [] Extremities: No tenderness, no cyanosis, no clubbing, ROM intact, no edema. [] Neurologic: Alert and oriented X 3, normal motor function, normal sensory function, no focal deficits noted. [] Psychologic: Affect normal, judgement normal, mood normal. [] Current Patient Data Vital Signs Vital Signs Date Time Temp Pulse Resp B/P (MAP) Pulse Ox O2 Delivery O2 Flow Rate FiO2 10/10/18 19:28 63 17 142/66 (91) 96 Room Air 10/10/18 19:15 2.0 10/10/18 17:20 98.1 98.1 Lab Values Laboratory Tests Test 10/10/18 19:00 10/10/18 19:47 White Blood Count 4.4 x10^3/uL (4.0-11.0) Red Blood Count 3.30 x10^6/uL (3.50-5.40) L Hemoglobin 10.2 g/dL (12.0-15.5) L Hematocrit 31.6 % (36.0-47.0) L Mean Corpuscular Volume 96 fL (79-100) Mean Corpuscular Hemoglobin 31 pg (25-35) Mean Corpuscular Hemoglobin Concent 32 g/dL (31-37) Red Cell Distribution Width 17.1 % (11.5-14.5) H Platelet Count 174 x10^3/uL (140-400) Neutrophils (%) (Auto) 70 % (31-73) Lymphocytes (%) (Auto) 17 % (24-48) L Monocytes (%) (Auto) 11 % (0-9) H Eosinophils (%) (Auto) 1 % (0-3) Basophils (%) (Auto) 1 % (0-3) Neutrophils # (Auto) 3.1 x10^3uL (1.8-7.7) Lymphocytes # (Auto) 0.8 x10^3/uL (1.0-4.8) L Monocytes # (Auto) 0.5 x10^3/uL (0.0-1.1) Eosinophils # (Auto) 0.0 x10^3/uL (0.0-0.7) Basophils # (Auto) 0.0 x10^3/uL (0.0-0.2) Prothrombin Time 12.4 SEC (11.7-14.0) Prothrombin Time INR 1.0 (0.8-1.1) Sodium Level 144 mmol/L (136-145) Potassium Level 4.0 mmol/L (3.5-5.1) Chloride Level 104 mmol/L (98-107) Carbon Dioxide Level 35 mmol/L (21-32) H Anion Gap 5 (6-14) L Blood Urea Nitrogen 10 mg/dL (7-20) Creatinine 1.0 mg/dL (0.6-1.0) Estimated GFR (Cockcroft-Gault) 53.0 Glucose Level 93 mg/dL (70-99) Calcium Level 9.3 mg/dL (8.5-10.1) Urine Collection Type Unknown Urine Color Yellow Urine Clarity Clear Urine pH 6.0 Urine Specific [place] 1.010 Urine Protein Negative mg/dL (NEG-TRACE) Urine Glucose (UA) Negative mg/dL (NEG) Urine Ketones (Stick) Negative mg/dL (NEG) Urine Blood Trace (NEG) Urine Nitrite Negative (NEG) Urine Bilirubin Negative (NEG) Urine Urobilinogen Dipstick 1.0 mg/dL (0.2 mg/dL) Urine Leukocyte Esterase Negative (NEG) Urine RBC 1-2 /HPF (0-2) Urine WBC 1-4 /HPF (0-4) Urine Squamous Epithelial Cells Few /LPF Urine Bacteria 0 /HPF (0-FEW) Urine Mucus Slight /LPF Laboratory Tests 10/10/18 19:00 Laboratory Tests 10/10/18 19:00 EKG EKG [] Radiology/Procedures Radiology/Procedures [] Course & Med Decision Making Course & Med Decision Making Pertinent Labs and Imaging studies reviewed. (See chart for details) ED course: Patient arrived, was placed in bed, and tolerated exam well. She was given a breathing treatment which improved her breath sounds. She was given IV fluids which improved her symptoms. After the return of the laboratory studies, these were discussed with the patient and family who voiced understanding. All questions were answered. Medical decision making: Patient by symptomatology seems to have dehydration however there is no evidence of significant dehydration based on her renal function, her urinalysis shows no evidence of urinary tract infection. She does not appear to be fluid overloaded. No evidence of a significant, life threatening abnormality requiring admission at this time.[] Dragon Disclaimer Dragon Disclaimer This electronic medical record was generated, in whole or in part, using a voice recognition dictation system. Departure Departure Impression: Primary Impression: Dehydration Additional Impressions: Dizziness Chronic lung disease Disposition: HOME, SELF-CARE Condition: IMPROVED Referrals: QUINCY ALCANTAR MD (PCP) Follow-up in 2 days Patient Instructions: Chronic Obstructive Pulmonary Disease, Dehydration, Adult , Dizziness Additional Instructions: Follow-up with your regular doctor in 2 days. Take your medication as prescribed. Drink plenty of fluids. Return to the ER if worsening dizziness, difficulty breathing, or any other concerns Problem Qualifiers EM GUADARRAMA DO Oct 10, 2018 19:17
[2018-10-10 19:28] VITALS: BP 142/66
[2018-10-10 19:33] LABS: PROTHROMBIN TIME PATIENT 12.4 SEC (11.7-14.0)
[2018-10-10 19:56] LABS: BILIRUBIN,URINE NEGATIVE (NEG); CLARITY,URINE CLEAR; COLOR,URINE YELLOW; NITRITE,URINE NEGATIVE (NEG); PROTEIN,URINE NEGATIVE (NEG-TRACE)
[2018-10-10 20:00] LABS: BACTERIA,URINE 0 /HPF (0-FEW); SQUAMOUS EPITHELIAL CELL,UR FEW /LPF
== END 2018-10-10 20:40 | disposition home or self-care (01) ==
LOC: ER 16:58
DX: E86.0 Dehydration (principal); J98.4 Other disorders of lung; R42 Dizziness and giddiness; E78.00 Pure hypercholesterolemia, unspecified; I11.9 Hypertensive heart disease without heart failure; I48.91 Unspecified atrial fibrillation; E03.9 Hypothyroidism, unspecified; F03.90 Unspecified dementia, unspecified severity, without behavioral disturbance, psychotic disturbance, mood disturbance, and anxiety; Z90.89 Acquired absence of other organs; Z90.710 Acquired absence of both cervix and uterus
CPT/HCPCS: 36415; 80048; 81001; 85025; 85610; 94640; 96360; 99283; J7040; J7620

== ENCOUNTER 2019-02-02 14:35 | Inpatient (IN) | payer MEDICARE, OTHER ==
[~2019-02-02] VITALS: Ht 162.6 cm; Wt 65.9 kg
[2019-02-02] MEDS ORDERED: IPRATRPIUM/ALBUTEROL 0.5/2.5MG 3 ML NEBU. NEB ONE (15:15)
[2019-02-02] MEDS ORDERED: methylPREDNISolone SOD SUCC PF 125 MG/2 ML VIAL. IV ONE (15:15)
--- NOTE | 2019-02-02 15:24 | PHYS DOC ---
Past Medical History Past Medical History: A-Fib, COPD, Dementia, High Cholesterol, Heart Disease, Hypertension, Hypothyroid, Other Additional Past Medical Histor: seasonal allergies Past Surgical History: Appendectomy, Hysterectomy, Other Additional Past Surgical Histo: L hip Alcohol Use: None Drug Use: None Adult General Chief Complaint Chief Complaint: SHORTNESS OF BREATH HPI HPI Patient is a 83 year old female with history of dementia, hypertension, high cholesterol, COPD currently nonsmoker, CAD, who presents to the ED today complaining of shortness of breath for almost a week patient is also complaining of a productive cough, denies any nasal congestion. Denies any fever. Review of Systems Review of Systems Constitutional: Denies fever or chills [] Eyes: Denies change in visual acuity, redness, or eye pain [] HENT: Denies nasal congestion or sore throat [] Respiratory: Reports cough and shortness of breath. Cardiovascular: No additional information not addressed in HPI [] GI: Denies abdominal pain, nausea, vomiting, bloody stools or diarrhea [] : Denies dysuria or hematuria [] Musculoskeletal: Denies back pain or joint pain [] Integument: Denies rash or skin lesions [] Neurologic: Denies headache, focal weakness or sensory changes [] All other systems were reviewed and found to be within normal limits, except as documented in this note. Current Medications Current Medications Current Medications Medications (Trade) Dose Ordered Sig/Silvia Start Time Stop Time Status Last Admin Dose Admin Albuterol/ Ipratropium (Duoneb) 3 ml 1X ONCE 02/02/19 15:15 02/02/19 15:19 DC 02/02/19 15:36 3 ML Methylprednisolone Sodium Succinate (SOLU-Medrol 125MG VIAL) 125 mg 1X ONCE 02/02/19 15:15 02/02/19 15:19 DC 02/02/19 15:24 125 MG Allergies Allergies Allergies Coded Allergies Type Severity Reaction Last Updated Verified No Known Drug Allergies 07/15/16 No Physical Exam Physical Exam Constitutional: Well developed, well nourished, no acute distress, non-toxic appearance. [] HENT: Normocephalic, atraumatic, bilateral external ears normal, oropharynx moist, no oral exudates, nose normal. [] Eyes: PERRLA, EOMI, conjunctiva normal, no discharge. [] Neck: Normal range of motion, no tenderness, supple, no stridor. [] Cardiovascular:Heart rate regular rhythm, no murmur [] Lungs & Thorax: Diminished posterior lung sounds Abdomen: Bowel sounds normal, soft, no tenderness, no masses, no pulsatile masses. [] Skin: Warm, dry, no erythema, no rash. [] Back: No tenderness, no CVA tenderness. [] Extremities: No tenderness, no cyanosis, no clubbing, ROM intact, no edema. [] Neurologic: Alert and oriented X 3, normal motor function, normal sensory function, no focal deficits noted. [] Psychologic: Affect normal, judgement normal, mood normal. [] Current Patient Data Vital Signs Vital Signs Date Time Temp Pulse Resp B/P (MAP) Pulse Ox O2 Delivery O2 Flow Rate FiO2 02/02/19 17:30 62 20 161/105 (123) 93 Nasal Cannula 2.0 02/02/19 15:10 97.6 97.6 Lab Values Laboratory Tests Test 02/02/19 15:15 White Blood Count 4.7 x10^3/uL (4.0-11.0) Red Blood Count 3.63 x10^6/uL (3.50-5.40) Hemoglobin 10.9 g/dL (12.0-15.5) L Hematocrit 33.1 % (36.0-47.0) L Mean Corpuscular Volume 91 fL (79-100) Mean Corpuscular Hemoglobin 30 pg (25-35) Mean Corpuscular Hemoglobin Concent 33 g/dL (31-37) Red Cell Distribution Width 15.0 % (11.5-14.5) H Platelet Count 163 x10^3/uL (140-400) Neutrophils (%) (Auto) 72 % (31-73) Lymphocytes (%) (Auto) 13 % (24-48) L Monocytes (%) (Auto) 11 % (0-9) H Eosinophils (%) (Auto) 4 % (0-3) H Basophils (%) (Auto) 1 % (0-3) Neutrophils # (Auto) 3.3 x10^3/uL (1.8-7.7) Lymphocytes # (Auto) 0.6 x10^3/uL (1.0-4.8) L Monocytes # (Auto) 0.5 x10^3/uL (0.0-1.1) Eosinophils # (Auto) 0.2 x10^3/uL (0.0-0.7) Basophils # (Auto) 0.0 x10^3/uL (0.0-0.2) Sodium Level 139 mmol/L (136-145) Potassium Level 4.4 mmol/L (3.5-5.1) Chloride Level 100 mmol/L (98-107) Carbon Dioxide Level 30 mmol/L (21-32) Anion Gap 9 (6-14) Blood Urea Nitrogen 17 mg/dL (7-20) Creatinine 1.1 mg/dL (0.6-1.0) H Estimated GFR (Cockcroft-Gault) 47.3 BUN/Creatinine Ratio 15 (6-20) Glucose Level 83 mg/dL (70-99) Lactic Acid Level 1.5 mmol/L (0.4-2.0) Calcium Level 9.4 mg/dL (8.5-10.1) Magnesium Level 2.0 mg/dL (1.8-2.4) Total Bilirubin 0.5 mg/dL (0.2-1.0) Aspartate Amino Transferase (AST) 18 U/L (15-37) Alanine Aminotransferase (ALT) 17 U/L (14-59) Alkaline Phosphatase 64 U/L (46-116) Creatine Kinase 60 U/L (26-192) Creatine Kinase MB (Mass) 1.6 ng/mL (0.0-3.6) Creatine Kinase MB Relative Index % (0-4) Troponin I Quantitative < 0.017 ng/mL (0.000-0.055) NJ-Scp-K-Type Natriuretic Peptide 504 pg/mL (0-449) H Total Protein 7.0 g/dL (6.4-8.2) Albumin 3.6 g/dL (3.4-5.0) Albumin/Globulin Ratio 1.1 (1.0-1.7) Thyroid Stimulating Hormone (TSH) 7.031 uIU/mL (0.358-3.74) H Laboratory Tests 02/02/19 15:15 Laboratory Tests 02/02/19 15:15 EKG EKG 14:[address] Guevara sinus rhythm HR 55 no STEMI[] Radiology/Procedures Radiology/Procedures []PROCEDURE: PORTABLE CHEST 1V PORTABLE CHEST 1V History: Short of breath. Comparison: November 02, 2018 Findings: No consolidation or pleural effusion. Normal heart size. Right midlung calcified nodule, unchanged. No pneumothorax. Impression: 1. No acute cardiopulmonary process. Electronically signed by: Shai Etienne DO (02/02/2019 3:39 PM) [id number] DICTATED and SIGNED BY: SHAI ETIENNE DO DATE: 02/02/19 1539 Course & Med Decision Making Course & Med Decision Making Pertinent Labs and Imaging studies reviewed. (See chart for details) This is a 83-year-old female patient presenting to the ED today complaining of shortness of breath for a week. Has history of COPD currently nonsmoker. Vitals and areola to the ED temperature 97.6, heart rate 6, O2 sats 93% on 2 L of oxygen, blood pressure 167/70, respiration 20. CBC with normal WBC, CMP with no acute findings, chest x-ray is negative, EKG is Negative. Patient was given a DuoNeb treatment and Solu-Medrol. She states she is slightly better but her breathing is not back to her baseline Spoke with Dr. Lauren who accepted patient for admission Dragon Disclaimer Robin Disclaimer This electronic medical record was generated, in whole or in part, using a voice recognition dictation system. Departure Departure Impression: Primary Impression: COPD exacerbation Disposition: ADMITTED INPATIENT Admitting Physician: Quincy Lauren Condition: STABLE Referrals: QUINCY LAUREN MD (PCP) GALILEO FISCHER APRN Feb 02, 2019 15:24
[2019-02-02 15:35] LABS: HEMATOCRIT 33.1 % (36.0-47.0); HEMOGLOBIN 10.9 g/dL (12.0-15.5); LYMPH % 13 % (24-48); MEAN CORPUSCULAR HEMOGLOBIN 30 pg (25-35); MEAN CORPUSCULAR HGB CONC 33 g/dL (31-37); MEAN CORPUSCULAR VOLUME 91 fL (79-100); MONO % 11 % (0-9); NEUT % 72 % (31-73); PLATELET COUNT 163 x10^3/uL (140-400); RED BLOOD COUNT 3.63 x10^6/uL (3.50-5.40); WHITE BLOOD COUNT 4.7 x10^3/uL (4.0-11.0)
[2019-02-02 15:36] LABS: BASO % 1 % (0-3); EOS # 0.2 x10^3/uL (0.0-0.7); EOS % 4 % (0-3); LYMPH # 0.6 x10^3/uL (1.0-4.8); MONO # 0.5 x10^3/uL (0.0-1.1); NEUT # 3.3 x10^3/uL (1.8-7.7)
[2019-02-02 15:43] LABS: ALBUMIN 3.6 g/dL (3.4-5.0); ALBUMIN/GLOBULIN RATIO 1.1 (1.0-1.7); CALCIUM 9.4 mg/dL (8.5-10.1); CREATININE 1.1 mg/dL (0.6-1.0); GFR 47.3; TOTAL BILIRUBIN 0.5 mg/dL (0.2-1.0)
--- NOTE | 2019-02-02 15:43 | RAD ---
PORTABLE CHEST 1V History: Short of breath. Comparison: November 02, 2018 Findings: No consolidation or pleural effusion. Normal heart size. Right midlung calcified nodule, unchanged. No pneumothorax. Impression: 1. No acute cardiopulmonary process. Electronically signed by: Shai Etienne DO (02/02/2019 3:39 PM) [id number]
[2019-02-02 15:44] LABS: POTASSIUM 4.4 mmol/L (3.5-5.1)
--- NOTE | 2019-02-02 16:03 | EKG ---
[facility] [address] [place] [address] Test Date: 2019-02-02 Test Time: 14:58:17 Pat Name: PATRIA CAMPUZANO Department: Room: Gender: F Paediatric Physiotherapist: : 1935 Requested By: GALILEO FISCHER Order Number: [id number] Reading MD: Measurements Intervals [place] Rate: 55 P: 37 WA: 186 QRS: 17 QRSD: 76 T: 70 QT: 444 QTc: 426 Interpretive Statements SINUS RHYTHM T ABNORMALITY IN HIGH LATERAL LEADS ABNORMAL ECG No previous ECG available for comparison
[2019-02-02 16:23] LABS: CREATINE KINASE 60 U/L (26-192)
[2019-02-02] MEDS ORDERED: ONDANSETRON PF 4 MG/2 ML VIAL. IV PRN (19:00)
[2019-02-02] MEDS ORDERED: MORPHINE SULFATE 4 MG/ML VIAL. IV PRN (19:00)
[2019-02-02] MEDS ORDERED: ACETAMINOPHEN 325 MG TABLET. PO PRN (19:00)
--- NOTE | 2019-02-02 19:10 | NUR ---
The patient, PATRIA CAMPUZANO, 83 y/o, F admitted by QUINCY ALCANTAR MD, was given written information regarding hospital policies, unit procedures and contact persons. Valuables were checked and left in the room.
[2019-02-02] MEDS ORDERED: METO50TA6 PO (20:13)
[2019-02-02] MEDS ORDERED: CEPH500C PO (20:19)
[2019-02-02] MEDS: IPRATRPIUM/ALBUTEROL 0.5/2.5MG 3 ML NEBU. NEB SCH (21:05)
[2019-02-02 21:31] LABS: BILIRUBIN,URINE NEGATIVE (NEG); CLARITY,URINE CLEAR; COLOR,URINE YELLOW; NITRITE,URINE NEGATIVE (NEG); PH,URINE 6.5; PROTEIN,URINE NEGATIVE (NEG-TRACE)
[2019-02-02 21:35] LABS: BACTERIA,URINE 0 /HPF (0-FEW); SQUAMOUS EPITHELIAL CELL,UR OCC /LPF
[2019-02-02 23:00] VITALS: BP 142/56
[2019-02-03 03:00] VITALS: BP 140/68
[2019-02-03 05:01] LABS: BASO % 0 % (0-3); EOS % 0 % (0-3); HEMATOCRIT 30.1 % (36.0-47.0); HEMOGLOBIN 10.1 g/dL (12.0-15.5); LYMPH # 0.2 x10^3/uL (1.0-4.8); LYMPH % 7 % (24-48); MEAN CORPUSCULAR HEMOGLOBIN 30 pg (25-35); MEAN CORPUSCULAR HGB CONC 34 g/dL (31-37); MEAN CORPUSCULAR VOLUME 89 fL (79-100); MONO # 0.1 x10^3/uL (0.0-1.1); MONO % 4 % (0-9); NEUT # 2.8 x10^3/uL (1.8-7.7); NEUT % 89 % (31-73); PLATELET COUNT 154 x10^3/uL (140-400); RED BLOOD COUNT 3.37 x10^6/uL (3.50-5.40); RED CELL DISTRIBUTION WIDTH 14.7 % (11.5-14.5); WHITE BLOOD COUNT 3.2 x10^3/uL (4.0-11.0)
[2019-02-03 05:22] LABS: GFR 52.8; POTASSIUM 4.1 mmol/L (3.5-5.1)
[2019-02-03] MEDS: LEVOTHYROXINE 112 MCG TABLET PO SCH (06:11)
[2019-02-03 06:58] LABS: % LYMPHS 6 % (24-48); % MONOS 1 % (0-10); % SEGS 93 % (35-66); PLT ESTIMATE ADEQUATE (ADEQUATE)
[2019-02-03 07:00] VITALS: BP 154/61
[2019-02-03] MEDS: IPRATRPIUM/ALBUTEROL 0.5/2.5MG 3 ML NEBU. NEB SCH ×5 (07:15→20:43)
--- NOTE | 2019-02-03 08:26 | HP ---
ADMIT DATE: 02/02/2019 CHIEF COMPLAINT AND HISTORY OF PRESENT ILLNESS: This is an 83-year-old white female who is well known to me from followup in the office. The patient has had a cough over the last week or so, has been on outpatient antibiotics with no improvement, has become progressively more short of breath where she was brought to the Emergency Room on the day of admission where she was admitted for an exacerbation of her chronic obstructive pulmonary disease. PAST MEDICAL HISTORY: Remarkable for chronic obstructive pulmonary disease, atrial fibrillation, dementia, hyperlipidemia, heart disease, hypertension, hypothyroidism. PAST SURGICAL HISTORY: Remarkable for hip surgery, appendectomy, hysterectomy. MEDICATIONS: Brought with the patient, listed on the computer and have been addressed. ALLERGIES: She has no known drug allergies. SOCIAL HISTORY: She is , nonsmoker, nondrinker, does not use drugs. Lives at home with son and his . FAMILY HISTORY: Noncontributory. REVIEW OF SYSTEMS: Remarkable for the cough productive of clear phlegm. No fevers, chills, sweats. Has been increasing shortness of breath. PHYSICAL EXAMINATION: GENERAL: She is well-developed, well-nourished white female, lying in bed with O2 in place. No acute distress. VITAL SIGNS: Stable. She is afebrile. HEAD, EYES, EARS, NOSE AND THROAT: Remarkable for glasses. NECK: Supple without bruit or thyromegaly. CHEST: Reveals decreased breath sounds bilaterally with occasional rhonchi. HEART: Regular rate and rhythm. ABDOMEN: Soft, nontender, without hepatosplenomegaly or masses. EXTREMITIES: Without cyanosis, clubbing, edema. NEUROLOGIC: She is intact. LABORATORY DATA: Initial white count is normal at 4700, hemoglobin 10.9. TSH is 7, which is somewhat increased, but otherwise chem panel was fairly unremarkable. IMPRESSION: Exacerbation of chronic obstructive pulmonary disease with bronchitis and failed outpatient treatment. PLAN: The patient has been admitted. She will be on pulmonary toilet, IV steroids, and IV antibiotics. Pulmonary consultation has been obtained and the patient will be monitored, managed and treated appropriately. QUINCY ALCANTAR MD DR: MAYCOL/erick JOB#: [id number] / [id number]
[2019-02-03] MEDS ORDERED: AZITHRMYCN 500MG IVPB FOR OMNI 250 ML IV SCH (09:00)
[2019-02-03] MEDS ORDERED: NON FORMULARY ITEM (Cephalexin 1 CAP) PO SCH (09:00)
[2019-02-03] MEDS ORDERED: CEFDINIR 300 MG CAPSULE PO SCH (09:00)
--- NOTE | 2019-02-03 09:01 | NUR ---
SW reviewed pt's medical chart and evaluated for potential dc needs. Pt is from home with family and was admitted for chronic obstructive pulmonary disease with acute exacerbation. Pt is on IV antibiotics and two liters of O2. PT/OT has not been ordered. SW will continue to follow and be available for dc needs.
[2019-02-03] MEDS: ASPIRIN ENTERIC COATED 81 MG TABLET.DR. PO SCH (09:09)
[2019-02-03] MEDS: CITALOPRAM 10 MG TABLET. PO SCH (09:09)
[2019-02-03] MEDS: DRONEDARONE HCL 400 MG TABLET PO SCH ×2 (09:10→21:49)
[2019-02-03] MEDS: METOPROLOL TART IMMED RELEASE 50 MG TABLET. PO SCH ×2 (09:10→21:50)
[2019-02-03] MEDS: LOSARTAN POTASSIUM 50 MG TABLET. PO SCH (09:11)
[2019-02-03] MEDS: AZITHROMYCIN 500 MG in IV NORMAL SALINE 250ML 250 ML IV SCH (09:12)
[2019-02-03] MEDS: methylPREDNISolone SOD SUCC PF 40 MG/ML VIAL. IV SCH ×3 (09:12→21:51)
[2019-02-03] MEDS: cefTRIAXone IV Push 1 GM VIAL. IVP SCH (09:12)
--- NOTE | 2019-02-03 10:20 | CONS ---
DATE OF CONSULTATION: PULMONARY CONSULTATION ATTENDING PHYSICIAN: Dr. Lauren. REASON FOR CONSULTATION: Dyspnea and cough. HISTORY OF PRESENT ILLNESS: The patient is an 83-year-old pleasant female who has no history of tobacco use. She carries a diagnosis of adult-onset asthma. She uses nebulizers at home. She was seen at the office with Dr. Lauren with a persistent cough, which was not resolving despite outpatient antibiotics. She says the cough was mostly productive of white sputum, but occasionally yellow sputum as well. She denied any fever and denied any chills. She started to have some shortness of breath for the last 1 week as well. As a result, she has been hospitalized. She denies any headaches. No nausea or vomiting, no diarrhea, no dysuria, and no focal weakness. No skin rash. No leg edema. She normally uses oxygen 2 liters on a 24-hour basis. I have reviewed the chest x-ray, no acute infiltrates were seen. PAST MEDICAL HISTORY: Remarkable for asthma, adult-onset. No significant history of tobacco use. History of atrial fibrillation, dementia, hyperlipidemia, heart disease, hypertension, and hypothyroidism. PAST SURGICAL HISTORY: Including hip surgery, appendectomy, and hysterectomy. ALLERGIES: None. CURRENT MEDICATIONS: All reviewed as listed in the MRAD including antibiotic azithromycin and Rocephin and she is on DuoNeb, she is on metoprolol and IV steroids. REVIEW OF SYSTEMS: Twelve-point system obtained. Pertinent positives discussed in my history of present illness, otherwise noncontributory. All systems that were negative were reviewed as well. SOCIAL HISTORY: Denies any history of tobacco use. FAMILY HISTORY: Noncontributory to lungs. PHYSICAL EXAMINATION: VITAL SIGNS: Reviewed. Blood pressure 154/61, pulse oximetry 94% on 2.5 liters, and afebrile. HEENT: Sclerae are nonicteric. NECK: Supple. LUNGS: With an occasional faint expiratory wheeze. CARDIOVASCULAR: Regular rate and rhythm. ABDOMEN: Soft and nontender. EXTREMITIES: With no pitting edema. LABORATORY DATA: Reviewed. White cell count was 4.7, now 3.2, hemoglobin 10.1, and platelets are 154. BUN and creatinine 21 and 1.0. TSH 7.031. IMPRESSION: 1. Dyspnea in a patient who has a history of adult-onset asthma. She comes in with 1 week of cough with light yellow sputum production and dyspnea with a very faint mild wheezing. She likely has an acute flare up of her asthma triggered by bronchitis. 2. Acute bronchitis with no definite consolidation seen on the chest x-ray. Could be viral due to development of mild leukopenia. 3. No significant history of tobacco use. 4. Hypothyroidism with increased TSH level. RECOMMENDATIONS: 1. Continue with present oxygen. She is on chronic 2 liters at home. 2. DuoNeb as prescribed. 3. Continue IV steroids. 4. Add Pulmicort nebulizer. 5. If bronchospasm does not resolve, then consider holding metoprolol. 6. We will follow along with you. TED HANSEN MD DR: RAMONA/erick JOB#: [id number] / [id number]
[2019-02-03 11:00] VITALS: BP 128/50
[2019-02-03 15:00] VITALS: BP 139/53
[2019-02-03 19:00] VITALS: BP 121/39
[2019-02-03] MEDS ORDERED: IPRATRPIUM/ALBUTEROL 0.5/2.5MG 3 ML NEBU. NEB SCH (20:00)
[2019-02-03] MEDS: BUDESONIDE 0.5 MG/2 ML NEBU. NEB SCH (20:43)
[2019-02-03] MEDS: DONEPEZIL HCL 10 MG TABLET. PO SCH (21:50)
[2019-02-03] MEDS: ATORVASTATIN CALCIUM 20 MG TABLET PO SCH (21:50)
[2019-02-03 23:01] VITALS: BP 143/55
[2019-02-04 03:00] VITALS: BP 166/62
[2019-02-04] MEDS: LEVOTHYROXINE 112 MCG TABLET PO SCH (05:02)
[2019-02-04] MEDS: methylPREDNISolone SOD SUCC PF 40 MG/ML VIAL. IV SCH ×2 (05:02→18:11)
[2019-02-04] MEDS: IPRATRPIUM/ALBUTEROL 0.5/2.5MG 3 ML NEBU. NEB SCH ×4 (07:43→20:24)
[2019-02-04] MEDS: BUDESONIDE 0.5 MG/2 ML NEBU. NEB SCH ×2 (07:43→20:25)
[2019-02-04 07:59] VITALS: BP 144/68
[2019-02-04] MEDS: ASPIRIN ENTERIC COATED 81 MG TABLET.DR. PO SCH (09:43)
[2019-02-04] MEDS: cefTRIAXone IV Push 1 GM VIAL. IVP SCH (09:43)
[2019-02-04] MEDS: AZITHROMYCIN 500 MG in IV NORMAL SALINE 250ML 250 ML IV SCH (09:43)
[2019-02-04] MEDS: DRONEDARONE HCL 400 MG TABLET PO SCH ×2 (09:44→20:46)
[2019-02-04] MEDS: CITALOPRAM 10 MG TABLET. PO SCH (09:44)
[2019-02-04] MEDS: METOPROLOL TART IMMED RELEASE 50 MG TABLET. PO SCH ×2 (09:47→20:42)
[2019-02-04] MEDS: LOSARTAN POTASSIUM 50 MG TABLET. PO SCH (09:47)
--- NOTE | 2019-02-04 10:33 | PDOC ---
Provider Note Provider Note feels better , less sputum, no temp- exam b9, wbc lower so will repeat- cxr clear- reduce steroid, follDIMAS Tavarez MD Feb 04, 2019 10:33
[2019-02-04 10:38] VITALS: BP 134/48
--- NOTE | 2019-02-04 13:42 | PDOC ---
PULMONARY PROGRESS NOTES Subjective Patient with childhood asthma and strong family history of asthma (mother, grandfather, aunts and uncles). Symptomatic asthma returned later in life for last 10 years or so. Fall and cold weather worst times for her. Improved with her prn albuterol, She has been bothered by chronic cough and recently URTI and sick contacts. Now better with steroids and antibiotics and inhaled bronchodilators. Vitals Vital Signs Date Time Temp Pulse Resp B/P (MAP) Pulse Ox O2 Delivery O2 Flow Rate FiO2 02/04/19 11:30 94 Nasal Cannula 3.0 02/04/19 10:38 98.6 64 20 134/48 (76) 98.6 ROS: No Nausea, No Chest Pain, No Abdominal Pain General: Alert, Oriented X4, No acute distress Lungs: Clear Cardiovascular: S1, S2 Abdomen: Soft, Non-tender Neuro Exam: Alert, Oriented, Normal Speech, No Focal Findings Extremities: No Edema Skin: Warm, Dry Labs Laboratory Tests Test 02/02/19 15:15 02/02/19 18:05 02/02/19 21:15 02/03/19 04:20 White Blood Count 4.7 x10^3/uL (4.0-11.0) 3.2 x10^3/uL (4.0-11.0) Red Blood Count 3.63 x10^6/uL (3.50-5.40) 3.37 x10^6/uL (3.50-5.40) Hemoglobin 10.9 g/dL (12.0-15.5) 10.1 g/dL (12.0-15.5) Hematocrit 33.1 % (36.0-47.0) 30.1 % (36.0-47.0) Mean Corpuscular Volume 91 fL (79-100) 89 fL (79-100) Mean Corpuscular Hemoglobin 30 pg (25-35) 30 pg (25-35) Mean Corpuscular Hemoglobin Concent 33 g/dL (31-37) 34 g/dL (31-37) Red Cell Distribution Width 15.0 % (11.5-14.5) 14.7 % (11.5-14.5) Platelet Count 163 x10^3/uL (140-400) 154 x10^3/uL (140-400) Neutrophils (%) (Auto) 72 % (31-73) 89 % (31-73) Lymphocytes (%) (Auto) 13 % (24-48) 7 % (24-48) Monocytes (%) (Auto) 11 % (0-9) 4 % (0-9) Eosinophils (%) (Auto) 4 % (0-3) 0 % (0-3) Basophils (%) (Auto) 1 % (0-3) 0 % (0-3) Neutrophils # (Auto) 3.3 x10^3/uL (1.8-7.7) 2.8 x10^3/uL (1.8-7.7) Lymphocytes # (Auto) 0.6 x10^3/uL (1.0-4.8) 0.2 x10^3/uL (1.0-4.8) Monocytes # (Auto) 0.5 x10^3/uL (0.0-1.1) 0.1 x10^3/uL (0.0-1.1) Eosinophils # (Auto) 0.2 x10^3/uL (0.0-0.7) 0.0 x10^3/uL (0.0-0.7) Basophils # (Auto) 0.0 x10^3/uL (0.0-0.2) 0.0 x10^3/uL (0.0-0.2) Sodium Level 139 mmol/L (136-145) Potassium Level 4.4 mmol/L (3.5-5.1) Chloride Level 100 mmol/L (98-107) Carbon Dioxide Level 30 mmol/L (21-32) Anion Gap 9 (6-14) Blood Urea Nitrogen 17 mg/dL (7-20) Creatinine 1.1 mg/dL (0.6-1.0) Estimated GFR (Cockcroft-Gault) 47.3 BUN/Creatinine Ratio 15 (6-20) Glucose Level 83 mg/dL (70-99) Lactic Acid Level 1.5 mmol/L (0.4-2.0) 1.4 mmol/L (0.4-2.0) Calcium Level 9.4 mg/dL (8.5-10.1) Magnesium Level 2.0 mg/dL (1.8-2.4) Total Bilirubin 0.5 mg/dL (0.2-1.0) Aspartate Amino Transf (AST/SGOT) 18 U/L (15-37) Alanine Aminotransferase (ALT/SGPT) 17 U/L (14-59) Alkaline Phosphatase 64 U/L (46-116) Creatine Kinase 60 U/L (26-192) Creatine Kinase MB (Mass) 1.6 ng/mL (0.0-3.6) Creatine Kinase MB Relative Index % (0-4) Troponin I Quantitative < 0.017 ng/mL (0.000-0.055) OG-Acn-A-Type Natriuretic Peptide 504 pg/mL (0-449) Total Protein 7.0 g/dL (6.4-8.2) Albumin 3.6 g/dL (3.4-5.0) Albumin/Globulin Ratio 1.1 (1.0-1.7) Thyroid Stimulating Hormone (TSH) 7.031 uIU/mL (0.358-3.74) Urine Color Yellow Urine Clarity Clear Urine pH 6.5 Urine Specific [place] 1.015 Urine Protein Negative mg/dL (NEG-TRACE) Urine Glucose (UA) Negative mg/dL (NEG) Urine Ketones (Stick) 40 mg/dL (NEG) Urine Blood Trace (NEG) Urine Nitrite Negative (NEG) Urine Bilirubin Negative (NEG) Urine Urobilinogen Dipstick 1.0 mg/dL (0.2 mg/dL) Urine Leukocyte Esterase Negative (NEG) Urine RBC 1-2 /HPF (0-2) Urine WBC 1-4 /HPF (0-4) Urine Squamous Epithelial Cells Occ /LPF Urine Bacteria 0 /HPF (0-FEW) Urine Mucus Slight /LPF Segmented Neutrophils % 93 % (35-66) Lymphocytes % 6 % (24-48) Monocytes % 1 % (0-10) Platelet Estimate Adequate (ADEQUATE) Test 02/03/19 04:25 Sodium Level 139 mmol/L (136-145) Potassium Level 4.1 mmol/L (3.5-5.1) Chloride Level 101 mmol/L (98-107) Carbon Dioxide Level 31 mmol/L (21-32) Anion Gap 7 (6-14) Blood Urea Nitrogen 21 mg/dL (7-20) Creatinine 1.0 mg/dL (0.6-1.0) Estimated GFR (Cockcroft-Gault) 52.8 Glucose Level 167 mg/dL (70-99) Calcium Level 9.0 mg/dL (8.5-10.1) Medications Active Scripts Medications Dose Route/Sig Max Daily Dose Days Date Category Cephalexin 500 Mg Capsule 1 Cap PO TID 02/02/19 Reported Metoprolol Tartrate 50 Mg Tablet 1 Tab PO BID 02/02/19 Reported Cozaar (Losartan Potassium) 50 Mg Tablet 100 Mg PO DAILY 30 09/05/18 Rx Prednisone (Prednisone) 10 Mg Tablet 10 Mg PO DAILY 6 09/02/18 Reported Donepezil Hcl 10 Mg Tab.rapdis 10 Mg PO HS 08/29/18 Reported Cefdinir 300 Mg Capsule 300 Mg PO BID 7 08/02/18 Rx Metoprolol Tartrate 25 Mg Tablet 1 Tab PO BID 12/28/17 Reported Multaq (Dronedarone Hcl) 400 Mg Tablet 200 Mg PO BID 12/28/17 Reported Aspirin Ec (Aspirin) 81 Mg Tablet.dr 1 Tab PO DAILY 12/28/17 Reported Duoneb 0.5-3(2.5) Mg/3 Ml (Albuterol/Ipratropium) 3 Ml Ampul.neb 3 Ml NEB BID 12/11/17 Reported Namzaric 28 mg-10 mg Capsule (Memantine HCl/Donepezil HCl) 1 Each Cap.spr.24 1 12/11/17 Reported Citalopram Hbr (Citalopram Hydrobromide) 10 Mg Tablet 10 Mg PO DAILY 12/11/17 Reported Atorvastatin Calcium 20 Mg Tablet 20 Mg PO DAILY 12/11/17 Reported Levothyroxine Sodium 112 Mcg Tablet 112 Mcg PO DAILY 12/11/17 Reported Comments CXR without acute infiltrates Impression . Acute exacerbation of asthma worsened by URTI Plan . Continue systemic steroids and inhaled bronchodilators. halfway, I believe she will do better with inhaled steroids (low or intermediate strength) and PRN albuterol I expect her to do well Both aspirin and beta chante may worsen asthma, but m ost asthmatics tolerate those. Given the CV benefits would not alter those at present, but only if she does not do well on inhaled steroids. FRANCISCO GRACIA MD Feb 04, 2019 13:42
[2019-02-04 15:03] VITALS: BP 139/55
[2019-02-04 19:00] VITALS: BP 124/58
[2019-02-04] MEDS: ALBUTEROL SULFATE 2.5 MG/3 ML NEBU. NEB PRN (20:24)
[2019-02-04] MEDS: ATORVASTATIN CALCIUM 20 MG TABLET PO SCH (20:42)
[2019-02-04] MEDS: DONEPEZIL HCL 10 MG TABLET. PO SCH (20:42)
[2019-02-04 22:45] VITALS: BP 130/49
[2019-02-05 03:00] VITALS: BP 128/60
[2019-02-05] MEDS: LEVOTHYROXINE 112 MCG TABLET PO SCH (06:24)
[2019-02-05] MEDS: methylPREDNISolone SOD SUCC PF 40 MG/ML VIAL. IV SCH (06:25)
[2019-02-05 06:40] LABS: BASO % 0 % (0-3); EOS % 0 % (0-3); HEMATOCRIT 30.2 % (36.0-47.0); HEMOGLOBIN 10.1 g/dL (12.0-15.5); LYMPH # 0.5 x10^3/uL (1.0-4.8); LYMPH % 7 % (24-48); MEAN CORPUSCULAR HEMOGLOBIN 30 pg (25-35); MEAN CORPUSCULAR HGB CONC 33 g/dL (31-37); MEAN CORPUSCULAR VOLUME 90 fL (79-100); MONO # 0.4 x10^3/uL (0.0-1.1); MONO % 5 % (0-9); NEUT # 6.7 x10^3/uL (1.8-7.7); NEUT % 88 % (31-73); PLATELET COUNT 169 x10^3/uL (140-400); RED BLOOD COUNT 3.35 x10^6/uL (3.50-5.40); RED CELL DISTRIBUTION WIDTH 15.3 % (11.5-14.5); WHITE BLOOD COUNT 7.7 x10^3/uL (4.0-11.0)
[2019-02-05] MEDS: BUDESONIDE 0.5 MG/2 ML NEBU. NEB SCH ×2 (07:55→18:14)
[2019-02-05] MEDS: IPRATRPIUM/ALBUTEROL 0.5/2.5MG 3 ML NEBU. NEB SCH ×3 (07:55→18:14)
[2019-02-05 07:59] VITALS: BP 153/63
[2019-02-05] MEDS: cefTRIAXone IV Push 1 GM VIAL. IVP SCH (09:22)
[2019-02-05] MEDS: AZITHROMYCIN 500 MG in IV NORMAL SALINE 250ML 250 ML IV SCH (09:22)
[2019-02-05] MEDS: METOPROLOL TART IMMED RELEASE 50 MG TABLET. PO SCH ×2 (09:23→22:09)
[2019-02-05] MEDS: CITALOPRAM 10 MG TABLET. PO SCH (09:23)
[2019-02-05] MEDS: ASPIRIN ENTERIC COATED 81 MG TABLET.DR. PO SCH (09:23)
[2019-02-05] MEDS: LOSARTAN POTASSIUM 50 MG TABLET. PO SCH (09:25)
[2019-02-05] MEDS: DRONEDARONE HCL 400 MG TABLET PO SCH ×2 (09:25→22:09)
--- NOTE | 2019-02-05 09:46 | PDOC ---
Provider Note Provider Note vss, noo temp , feels ok, scant sputum- few exop wheezes, no tachy or dyspnea- will dc azith after 3 doses, likely home in am on po meds DIMAS RECINOS MD Feb 05, 2019 09:46
[2019-02-05 11:47] VITALS: BP 159/58
--- NOTE | 2019-02-05 12:48 | PDOC ---
PULMONARY PROGRESS NOTES Subjective Patient with childhood asthma and strong family history of asthma (mother, grandfather, aunts and uncles). Symptomatic asthma returned later in life for last 10 years or so. Fall and cold weather worst times for her. Improved with her prn albuterol, She has been bothered by chronic cough and recently URTI and sick contacts. Now better with steroids and antibiotics and inhaled bronchodilators. Vitals Vital Signs Date Time Temp Pulse Resp B/P (MAP) Pulse Ox O2 Delivery O2 Flow Rate FiO2 02/05/19 11:51 Nasal Cannula 2.0 02/05/19 11:47 98.0 68 20 159/58 (91) 92 98.0 ROS: No Nausea, No Chest Pain, No Abdominal Pain General: Alert, Oriented X4, No acute distress Lungs: Clear Cardiovascular: S1, S2 Abdomen: Soft, Non-tender Neuro Exam: Alert, Oriented, Normal Speech, No Focal Findings Extremities: No Edema Skin: Warm, Dry Labs Laboratory Tests Test 02/05/19 05:40 White Blood Count 7.7 x10^3/uL (4.0-11.0) Red Blood Count 3.35 x10^6/uL (3.50-5.40) Hemoglobin 10.1 g/dL (12.0-15.5) Hematocrit 30.2 % (36.0-47.0) Mean Corpuscular Volume 90 fL (79-100) Mean Corpuscular Hemoglobin 30 pg (25-35) Mean Corpuscular Hemoglobin Concent 33 g/dL (31-37) Red Cell Distribution Width 15.3 % (11.5-14.5) Platelet Count 169 x10^3/uL (140-400) Neutrophils (%) (Auto) 88 % (31-73) Lymphocytes (%) (Auto) 7 % (24-48) Monocytes (%) (Auto) 5 % (0-9) Eosinophils (%) (Auto) 0 % (0-3) Basophils (%) (Auto) 0 % (0-3) Neutrophils # (Auto) 6.7 x10^3/uL (1.8-7.7) Lymphocytes # (Auto) 0.5 x10^3/uL (1.0-4.8) Monocytes # (Auto) 0.4 x10^3/uL (0.0-1.1) Eosinophils # (Auto) 0.0 x10^3/uL (0.0-0.7) Basophils # (Auto) 0.0 x10^3/uL (0.0-0.2) Laboratory Tests Test 02/05/19 05:40 White Blood Count 7.7 x10^3/uL (4.0-11.0) Red Blood Count 3.35 x10^6/uL (3.50-5.40) Hemoglobin 10.1 g/dL (12.0-15.5) Hematocrit 30.2 % (36.0-47.0) Mean Corpuscular Volume 90 fL (79-100) Mean Corpuscular Hemoglobin 30 pg (25-35) Mean Corpuscular Hemoglobin Concent 33 g/dL (31-37) Red Cell Distribution Width 15.3 % (11.5-14.5) Platelet Count 169 x10^3/uL (140-400) Neutrophils (%) (Auto) 88 % (31-73) Lymphocytes (%) (Auto) 7 % (24-48) Monocytes (%) (Auto) 5 % (0-9) Eosinophils (%) (Auto) 0 % (0-3) Basophils (%) (Auto) 0 % (0-3) Neutrophils # (Auto) 6.7 x10^3/uL (1.8-7.7) Lymphocytes # (Auto) 0.5 x10^3/uL (1.0-4.8) Monocytes # (Auto) 0.4 x10^3/uL (0.0-1.1) Eosinophils # (Auto) 0.0 x10^3/uL (0.0-0.7) Basophils # (Auto) 0.0 x10^3/uL (0.0-0.2) Medications Active Scripts Medications Dose Route/Sig Max Daily Dose Days Date Category Cephalexin 500 Mg Capsule 1 Cap PO TID 02/02/19 Reported Metoprolol Tartrate 50 Mg Tablet 1 Tab PO BID 02/02/19 Reported Cozaar (Losartan Potassium) 50 Mg Tablet 100 Mg PO DAILY 30 09/05/18 Rx Prednisone (Prednisone) 10 Mg Tablet 10 Mg PO DAILY 6 09/02/18 Reported Donepezil Hcl 10 Mg Tab.rapdis 10 Mg PO HS 08/29/18 Reported Cefdinir 300 Mg Capsule 300 Mg PO BID 7 08/02/18 Rx Metoprolol Tartrate 25 Mg Tablet 1 Tab PO BID 12/28/17 Reported Multaq (Dronedarone Hcl) 400 Mg Tablet 200 Mg PO BID 12/28/17 Reported Aspirin Ec (Aspirin) 81 Mg Tablet.dr 1 Tab PO DAILY 12/28/17 Reported Duoneb 0.5-3(2.5) Mg/3 Ml (Albuterol/Ipratropium) 3 Ml Ampul.neb 3 Ml NEB BID 12/11/17 Reported Namzaric 28 mg-10 mg Capsule (Memantine HCl/Donepezil HCl) 1 Each Cap.spr.24 1 12/11/17 Reported Citalopram Hbr (Citalopram Hydrobromide) 10 Mg Tablet 10 Mg PO DAILY 12/11/17 Reported Atorvastatin Calcium 20 Mg Tablet 20 Mg PO DAILY 12/11/17 Reported Levothyroxine Sodium 112 Mcg Tablet 112 Mcg PO DAILY 12/11/17 Reported Comments CXR without acute infiltrates Impression . Acute exacerbation of asthma worsened by URTI, improving Plan . Continue systemic steroids and inhaled bronchodilators. I will switch from IV to PO prednisone 30 mg daily I will also taper her supplemental oxygen as needed. she has been on chronic oxygen at home for several years, but indication not clear. Will taper as tolerated. 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 Given the CV benefits would not alter those at present, but only if she does not do well on inhaled steroids. FRANCISCO GRACIA MD Feb 05, 2019 12:48
[2019-02-05] MEDS: ALBUTEROL SULFATE 2.5 MG/3 ML NEBU. NEB PRN (15:20)
[2019-02-05 15:23] VITALS: BP 151/52
[2019-02-05] MEDS: predniSONE 20 MG TABLET PO SCH (18:43)
[2019-02-05 19:00] VITALS: BP 144/46
[2019-02-05] MEDS: ATORVASTATIN CALCIUM 20 MG TABLET PO SCH (22:08)
[2019-02-05] MEDS: DONEPEZIL HCL 10 MG TABLET. PO SCH (22:08)
[2019-02-05 23:00] VITALS: BP 165/57
[2019-02-06 02:43] VITALS: BP 176/57
[2019-02-06] MEDS: LEVOTHYROXINE 112 MCG TABLET PO SCH (06:06)
[2019-02-06 07:00] VITALS: BP 180/59
[2019-02-06] MEDS: BUDESONIDE 0.5 MG/2 ML NEBU. NEB SCH ×2 (07:54→19:59)
[2019-02-06] MEDS: IPRATRPIUM/ALBUTEROL 0.5/2.5MG 3 ML NEBU. NEB SCH ×4 (07:54→19:59)
[2019-02-06] MEDS: cefTRIAXone IV Push 1 GM VIAL. IVP SCH (08:56)
[2019-02-06] MEDS: DRONEDARONE HCL 400 MG TABLET PO SCH ×2 (08:56→20:37)
[2019-02-06] MEDS: CITALOPRAM 10 MG TABLET. PO SCH (08:56)
[2019-02-06] MEDS: LOSARTAN POTASSIUM 50 MG TABLET. PO SCH (08:57)
[2019-02-06] MEDS: predniSONE 20 MG TABLET PO SCH (08:57)
[2019-02-06] MEDS: METOPROLOL TART IMMED RELEASE 50 MG TABLET. PO SCH ×2 (08:58→20:39)
[2019-02-06] MEDS: ASPIRIN ENTERIC COATED 81 MG TABLET.DR. PO SCH (09:00)
[2019-02-06 11:01] VITALS: BP 162/58
--- NOTE | 2019-02-06 11:20 | PDOC ---
PULMONARY PROGRESS NOTES Subjective Patient with childhood asthma and strong family history of asthma (mother, grandfather, aunts and uncles). Symptomatic asthma returned later in life for last 10 years or so. Fall and cold weather worst times for her. Improved with her prn albuterol, She has been bothered by chronic cough and recently URTI and sick contacts. Now better with steroids and antibiotics and inhaled bronchodilators. Vitals Vital Signs Date Time Temp Pulse Resp B/P (MAP) Pulse Ox O2 Delivery O2 Flow Rate FiO2 02/06/19 11:01 98.0 54 17 162/58 (92) 98 Nasal Cannula 2.0 98.0 ROS: No Nausea, No Chest Pain, No Abdominal Pain General: Alert, Oriented X4, No acute distress Lungs: Clear Cardiovascular: S1, S2 Abdomen: Soft, Non-tender Neuro Exam: Alert, Oriented, Normal Speech, No Focal Findings Extremities: No Edema Skin: Warm, Dry Labs Laboratory Tests Test 02/05/19 05:40 White Blood Count 7.7 x10^3/uL (4.0-11.0) Red Blood Count 3.35 x10^6/uL (3.50-5.40) Hemoglobin 10.1 g/dL (12.0-15.5) Hematocrit 30.2 % (36.0-47.0) Mean Corpuscular Volume 90 fL (79-100) Mean Corpuscular Hemoglobin 30 pg (25-35) Mean Corpuscular Hemoglobin Concent 33 g/dL (31-37) Red Cell Distribution Width 15.3 % (11.5-14.5) Platelet Count 169 x10^3/uL (140-400) Neutrophils (%) (Auto) 88 % (31-73) Lymphocytes (%) (Auto) 7 % (24-48) Monocytes (%) (Auto) 5 % (0-9) Eosinophils (%) (Auto) 0 % (0-3) Basophils (%) (Auto) 0 % (0-3) Neutrophils # (Auto) 6.7 x10^3/uL (1.8-7.7) Lymphocytes # (Auto) 0.5 x10^3/uL (1.0-4.8) Monocytes # (Auto) 0.4 x10^3/uL (0.0-1.1) Eosinophils # (Auto) 0.0 x10^3/uL (0.0-0.7) Basophils # (Auto) 0.0 x10^3/uL (0.0-0.2) Medications Active Scripts Medications Dose Route/Sig Max Daily Dose Days Date Category Cephalexin 500 Mg Capsule 1 Cap PO TID 02/02/19 Reported Metoprolol Tartrate 50 Mg Tablet 1 Tab PO BID 02/02/19 Reported Cozaar (Losartan Potassium) 50 Mg Tablet 100 Mg PO DAILY 30 09/05/18 Rx Prednisone (Prednisone) 10 Mg Tablet 10 Mg PO DAILY 6 09/02/18 Reported Donepezil Hcl 10 Mg Tab.rapdis 10 Mg PO HS 08/29/18 Reported Cefdinir 300 Mg Capsule 300 Mg PO BID 7 08/02/18 Rx Metoprolol Tartrate 25 Mg Tablet 1 Tab PO BID 12/28/17 Reported Multaq (Dronedarone Hcl) 400 Mg Tablet 200 Mg PO BID 12/28/17 Reported Aspirin Ec (Aspirin) 81 Mg Tablet.dr 1 Tab PO DAILY 12/28/17 Reported Duoneb 0.5-3(2.5) Mg/3 Ml (Albuterol/Ipratropium) 3 Ml Ampul.neb 3 Ml NEB BID 12/11/17 Reported Namzaric 28 mg-10 mg Capsule (Memantine HCl/Donepezil HCl) 1 Each Cap.spr.24 1 12/11/17 Reported Citalopram Hbr (Citalopram Hydrobromide) 10 Mg Tablet 10 Mg PO DAILY 12/11/17 Reported Atorvastatin Calcium 20 Mg Tablet 20 Mg PO DAILY 12/11/17 Reported Levothyroxine Sodium 112 Mcg Tablet 112 Mcg PO DAILY 12/11/17 Reported Comments CXR without acute infiltrates Impression . Acute exacerbation of asthma worsened by URTI, improving Plan . Continue systemic steroids and inhaled bronchodilators. PO prednisone now I will also taper her supplemental oxygen as needed. she has been on chronic oxygen at home for several years, but indication not clear. Will taper as tolerated. 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 Given the CV benefits would not alter those at present, but only if she does not do well on inhaled steroids. TED HANSEN MD Feb 06, 2019 11:20
[2019-02-06 15:00] VITALS: BP 101/53
--- NOTE | 2019-02-06 16:00 | PDOC ---
GENERAL General: seen/examined. awake and alert and feeling better and less sob. chest wheeze fr ee, heart regular, and abdomen benign. pulmonary help appreciated. likely dc am if continues to do well. VITAL SIGNS/I&O Vital Signs/I&O: Vital Signs Date Time Temp Pulse Resp B/P (MAP) Pulse Ox O2 Delivery O2 Flow Rate FiO2 02/06/19 15:54 Nasal Cannula 2.0 02/06/19 15:00 97.5 56 17 101/53 (69) 96 97.5 I & O 02/05/19 02/05/19 02/06/19 14:59 22:59 06:59 Intake Total 700 ml 120 ml 300 ml Balance 700 ml 120 ml 300 ml ALLERGIES Allergies: Allergies Coded Allergies Type Severity Reaction Last Updated Verified No Known Drug Allergies 07/15/16 No MEDS Medications: Current Medications Medications (Trade) Dose Ordered Sig/Silvia Route PRN Reason Start Time Stop Time Status Last Admin Dose Admin Prednisone (Prednisone) 30 mg DAILY PO 02/05/19 17:00 02/06/19 08:57 QUINCY ALCANTAR MD Feb 06, 2019 16:00
[2019-02-06 19:00] VITALS: BP 143/44
[2019-02-06] MEDS: LACTOBACILLUS RHAMNOSUS GG 1 CAPSULE. PO SCH (20:36)
[2019-02-06] MEDS: DONEPEZIL HCL 10 MG TABLET. PO SCH (20:36)
[2019-02-06] MEDS: ATORVASTATIN CALCIUM 20 MG TABLET PO SCH (20:36)
[2019-02-06 22:53] VITALS: BP 143/47
[2019-02-07 03:00] VITALS: BP 133/55
[2019-02-07] MEDS: LEVOTHYROXINE 112 MCG TABLET PO SCH (06:07)
[2019-02-07 07:00] VITALS: BP 186/60
[2019-02-07] MEDS: cefTRIAXone IV Push 1 GM VIAL. IVP SCH (07:26)
[2019-02-07] MEDS: IPRATRPIUM/ALBUTEROL 0.5/2.5MG 3 ML NEBU. NEB SCH (07:44)
[2019-02-07] MEDS: BUDESONIDE 0.5 MG/2 ML NEBU. NEB SCH (07:44)
--- NOTE | 2019-02-07 07:46 | DS ---
DATE OF DISCHARGE: 02/07/2019 PRIMARY DIAGNOSIS: Exacerbation of chronic obstructive pulmonary disease with failed outpatient treatment of bronchitis. ADDITIONAL DIAGNOSES: 1. Shortness of breath. 2. History of atrial fibrillation. 3. Hypertension. 4. Hypothyroidism. CHIEF COMPLAINT AND HISTORY OF PRESENT ILLNESS: This 83-year-old white female was admitted after failed outpatient treatment of exacerbation of chronic obstructive pulmonary disease with bronchitis with antibiotics etc. SUMMARY OF STAY: The patient was admitted and treated with pulmonary toilet, steroids, IV fluids, IV antibiotics with improvement throughout the stay. The patient was back to her baseline on the day of discharge and felt ready for discharge to home and this was accomplished. DISPOSITION: The patient was discharged to home, regular diet, activity as tolerated. Office in 1 week. DISCHARGE MEDICATIONS: Listed on the med rec and have been addressed. QUINCY ALCANTAR MD DR: MAYCOL/erick JOB#: [id number] / [id number]
[2019-02-07] MEDS: ASPIRIN ENTERIC COATED 81 MG TABLET.DR. PO SCH (08:34)
[2019-02-07] MEDS: predniSONE 20 MG TABLET PO SCH (08:34)
[2019-02-07] MEDS: LACTOBACILLUS RHAMNOSUS GG 1 CAPSULE. PO SCH (08:34)
[2019-02-07] MEDS: LOSARTAN POTASSIUM 50 MG TABLET. PO SCH (08:34)
[2019-02-07 08:35] VITALS: BP 186/60
[2019-02-07] MEDS: CITALOPRAM 10 MG TABLET. PO SCH (08:35)
[2019-02-07] MEDS: DRONEDARONE HCL 400 MG TABLET PO SCH (08:35)
[2019-02-07] MEDS: METOPROLOL TART IMMED RELEASE 50 MG TABLET. PO SCH (08:35)
--- NOTE | 2019-02-07 10:39 | NUR ---
Discharge Note: PATRIA CAMPUZANO Discharge instructions and discharge home medications reviewed with Family Member and a copy given. All questions have been answered and understanding verbalized. The following instructions and handouts were given: COPD Exac. Discontinued lines and drains: Peripheral IV intact. Patient discharged to Home or Self Care with Family Member via WC walked off unit by NICOLE.
== END 2019-02-07 10:43 | disposition home or self-care (01) | DRG 202 ==
LOC: ER 14:35 → 5 NORTH 17:43
PROVIDERS: ADMIT Family Medicine; ATTEND Family Medicine
DX: J45.901 Unspecified asthma with (acute) exacerbation (principal); J44.1 Chronic obstructive pulmonary disease with (acute) exacerbation; J44.0 Chronic obstructive pulmonary disease with (acute) lower respiratory infection; J20.9 Acute bronchitis, unspecified; I48.91 Unspecified atrial fibrillation; F03.90 Unspecified dementia, unspecified severity, without behavioral disturbance, psychotic disturbance, mood disturbance, and anxiety; E78.00 Pure hypercholesterolemia, unspecified; I10 Essential (primary) hypertension; Z90.710 Acquired absence of both cervix and uterus; Z90.49 Acquired absence of other specified parts of digestive tract; E03.9 Hypothyroidism, unspecified; I25.10 Atherosclerotic heart disease of native coronary artery without angina pectoris; Z82.5 Family history of asthma and other chronic lower respiratory diseases; E78.5 Hyperlipidemia, unspecified
CPT/HCPCS: 36415; 71045; 80048; 80053; 81001; 82553; 83605; 83735; 83880; 84443; 84484; 85007; 85025; 87040; 93005; 94640; 94760; 96374; J0456; J0696; J2920; J2930; J7050; J7512; J7613; J7620; J7626; 99285-25; J7030

== ENCOUNTER 2019-03-29 16:19 | Inpatient (IN) | payer MEDICARE, OTHER ==
[~2019-03-29] VITALS: Ht 157.5 cm; Wt 55.5 kg
[~2019-03-29 16:19] MED LIST changes: +CEPH500C PO
--- NOTE | 2019-03-29 16:52 | PHYS DOC ---
Past Medical History Past Medical History: A-Fib, COPD, Dementia, High Cholesterol, Heart Disease, Hypertension, Hypothyroid, Other Additional Past Medical Histor: seasonal allergies Past Surgical History: Appendectomy, Hysterectomy, Other Additional Past Surgical Histo: L hip Alcohol Use: None Drug Use: None Adult General Chief Complaint Chief Complaint: SHORTNESS OF BREATH HPI HPI Patient is a 83 year old female who presents with patient states she's been more short of air last couple days and she's been taking off her medications as prescribed. Patient states she is usually on 2 L of oxygen she has not had to increase it. Patient states that she has also woke up with a bruise to the right eye and does not remember at this happen. Patient states she also has a bruise on her foot she does not remember how that happened. She states that she woke up with the bruising yesterday. She denies any pain. Review of Systems Review of Systems Constitutional: Denies fever or chills [] Eyes: Bruising to right eye. Denies change in visual acuity, redness, or eye pain [] HENT: Chronic nasal congestion or sore throat [] Respiratory: cough. shortness of breath [] Cardiovascular: No additional information not addressed in HPI [] Musculoskeletal: Right foot bruise. Right eye bruising. Denies back pain or join t pain [] I All other systems were reviewed and found to be within normal limits, except as documented in this note. Current Medications Current Medications Current Medications Medications (Trade) Dose Ordered Sig/Silvia Start Time Stop Time Status Last Admin Dose Admin Albuterol Sulfate (Ventolin Neb Soln) 2.5 mg 1X ONCE 03/29/19 18:00 03/29/19 18:01 DC 03/29/19 18:19 2.5 MG Prednisone (Prednisone) 50 mg 1X ONCE 03/29/19 18:45 03/29/19 18:48 DC 03/29/19 19:18 50 MG Allergies Allergies Allergies Coded Allergies Type Severity Reaction Last Updated Verified No Known Drug Allergies 07/15/16 No Physical Exam Physical Exam Constitutional: Well developed, well nourished, no acute distress, non-toxic appearance. [] HENT: Normocephalic, atraumatic, bilateral external ears normal, oropharynx moist, no oral exudates, nose normal. [] Eyes: PERRLA, EOMI, conjunctiva normal, no discharge. Right eye bruising. [] Neck: Normal range of motion, no tenderness, supple, no stridor. [] Cardiovascular:Heart rate regular rhythm, no murmur [] Lungs & Thorax: Bilateral breath sounds diminished to auscultation [] Abdomen: Bowel sounds normal, soft, no tenderness, no masses, no pulsatile masses. [] Skin: Right dorsal foot bruising. Warm, dry, no erythema, no rash. [] Back: No tenderness, no CVA tenderness. [] Extremities: No tenderness, no cyanosis, no clubbing, ROM intact, bilateral lower 1+ edema. [] Neurologic: Alert and oriented X 3, normal motor function, normal sensory function, no focal deficits noted. [] Psychologic: Affect normal, judgement normal, mood normal. [] Current Patient Data Vital Signs Vital Signs Date Time Temp Pulse Resp B/P (MAP) Pulse Ox O2 Delivery O2 Flow Rate FiO2 03/29/19 18:40 74 20 152/80 (104) 98 Room Air 03/29/19 18:19 2.0 03/29/19 16:20 98.1 98.1 Lab Values Laboratory Tests Test 03/29/19 16:45 03/29/19 17:40 White Blood Count 3.7 x10^3/uL (4.0-11.0) L Red Blood Count 3.49 x10^6/uL (3.50-5.40) L Hemoglobin 10.7 g/dL (12.0-15.5) L Hematocrit 32.1 % (36.0-47.0) L Mean Corpuscular Volume 92 fL (79-100) Mean Corpuscular Hemoglobin 31 pg (25-35) Mean Corpuscular Hemoglobin Concent 34 g/dL (31-37) Red Cell Distribution Width 16.7 % (11.5-14.5) H Platelet Count 164 x10^3/uL (140-400) Neutrophils (%) (Auto) 64 % (31-73) Lymphocytes (%) (Auto) 18 % (24-48) L Monocytes (%) (Auto) 12 % (0-9) H Eosinophils (%) (Auto) 5 % (0-3) H Basophils (%) (Auto) 1 % (0-3) Neutrophils # (Auto) 2.4 x10^3/uL (1.8-7.7) Lymphocytes # (Auto) 0.7 x10^3/uL (1.0-4.8) L Monocytes # (Auto) 0.5 x10^3/uL (0.0-1.1) Eosinophils # (Auto) 0.2 x10^3/uL (0.0-0.7) Basophils # (Auto) 0.0 x10^3/uL (0.0-0.2) Prothrombin Time 12.7 SEC (11.7-14.0) Prothrombin Time INR 1.0 (0.8-1.1) Sodium Level 142 mmol/L (136-145) Potassium Level 4.9 mmol/L (3.5-5.1) Chloride Level 102 mmol/L (98-107) Carbon Dioxide Level 34 mmol/L (21-32) H Anion Gap 6 (6-14) Blood Urea Nitrogen 19 mg/dL (7-20) Creatinine 1.1 mg/dL (0.6-1.0) H Estimated GFR (Cockcroft-Gault) 47.3 BUN/Creatinine Ratio 17 (6-20) Glucose Level 87 mg/dL (70-99) Calcium Level 9.3 mg/dL (8.5-10.1) Total Bilirubin 0.5 mg/dL (0.2-1.0) Aspartate Amino Transferase (AST) 27 U/L (15-37) Alanine Aminotransferase (ALT) 21 U/L (14-59) Alkaline Phosphatase 60 U/L (46-116) Troponin I Quantitative < 0.017 ng/mL (0.000-0.055) XM-Wks-P-Type Natriuretic Peptide 139 pg/mL (0-449) Total Protein 7.3 g/dL (6.4-8.2) Albumin 3.9 g/dL (3.4-5.0) Albumin/Globulin Ratio 1.1 (1.0-1.7) Urine Collection Type Unknown Urine Color Yellow Urine Clarity Clear Urine pH 6.0 Urine Specific [place] 1.010 Urine Protein Negative mg/dL (NEG-TRACE) Urine Glucose (UA) Negative mg/dL (NEG) Urine Ketones (Stick) Negative mg/dL (NEG) Urine Blood Negative (NEG) Urine Nitrite Negative (NEG) Urine Bilirubin Negative (NEG) Urine Urobilinogen Dipstick 1.0 mg/dL (0.2 mg/dL) Urine Leukocyte Esterase Trace (NEG) Urine RBC Rare /HPF (0-2) Urine WBC 1-4 /HPF (0-4) Urine Squamous Epithelial Cells Mod /LPF Urine Bacteria Few /HPF (0-FEW) Laboratory Tests 03/29/19 16:45 Laboratory Tests 03/29/19 16:45 EKG EKG Sinus rhythm and no STEMI[] Interpretation Time: [address] Conrad Radiology/Procedures Radiology/Procedures [] Impressions: [facility] [address] [place] [address] IMAGING REPORT Signed PATIENT: PATRIA CAMPUZANO ACCOUNT: [id number] : 1935 LOCATION: ER AGE: 83 SEX: F EXAM STATUS: REG ER ORD. PHYSICIAN: DANNY PIMENTEL APRN REASON: soa PROCEDURE: PORTABLE CHEST 1V EXAM: Chest, single view. HISTORY: Shortness of breath. COMPARISON: 02/02/2019. FINDINGS: A frontal view of the chest is obtained. There is no infiltrate, pleural effusion or pneumothorax. The heart is normal in size. There is a stable calcified granuloma within the right mid thorax. There has been no change in a healed left sixth rib fracture. IMPRESSION: No acute pulmonary finding. Electronically signed by: Felisha Lamar MD (03/29/2019 5:27 PM) [facility] DICTATED and SIGNED BY: FELISHA LAMAR MD DATE: 03/29/19 1727 [facility] [address] [place] [address] IMAGING REPORT Signed PATIENT: PATRIA CAMPUZANO ACCOUNT: [id number] : 1935 LOCATION: ER AGE: 83 SEX: F EXAM STATUS: REG ER ORD. PHYSICIAN: DANNY PIMENTEL APRN REASON: soa PROCEDURE: FOOT RIGHT 3V Exam: Right foot 3 views INDICATION: Pain TECHNIQUE: Frontal, lateral and oblique views of the right foot. Comparisons: None FINDINGS: Mild osteopenia. No acute or healed fractures. Moderate osteophytic change at the first MTP joint. Soft tissues are unremarkable. Joint spaces are well-maintained. IMPRESSION: No acute osseous abnormality. Electronically signed by: Arleth Jain MD (03/29/2019 5:31 PM) [facility] DICTATED and SIGNED BY: ARLETH JAIN MD DATE: 03/29/19 173 [facility] [address] [place] [address] IMAGING REPORT Signed PATIENT: PATRIA CAMPUZANO ACCOUNT: [id number] : 1935 LOCATION: ER AGE: 83 SEX: F EXAM STATUS: REG ER ORD. PHYSICIAN: DANNY PIMENTEL APRN REASON: bruising around eye PROCEDURE: CT HEAD AND MAXILLOFACIAL WO Exam: CT head and maxillofacial INDICATION: Bruising around eye TECHNIQUE: Sequential axial images through the head and face were obtained without the administration of IV contrast. Comparisons: None FINDINGS: Head: No focal parenchymal lesion or hemorrhage is identified. There is no midline shift or sulcal effacement. Patchy hypodensity within the periventricular and subcortical white matter. No acute vascular territory infarction is identified. Fuller-white distinction is preserved. The ventricular system is within normal limits without compression hydrocephalus. The basal cisterns are well maintained. Face: The visualized portions of the paranasal sinuses and mastoid air cells are well-pneumatized. No acute fractures. IMPRESSION: 1. No acute intracranial traumatic sequela. Patchy hypodensity within the periventricular and subcortical white matter representing small vessel ischemic change, age indeterminate and may be chronic. 2. No traumatic sequelae identified at the face. Exposure: One or more of the following in the visualized dose reduction techniques were utilized for this examination: 1. Automated exposure control 2. Adjustment of the MA and/or KV according to patient size Use of iterative of reconstructive technique Electronically signed by: Arleth Jain MD (03/29/2019 5:41 PM) [facility] DICTATED and SIGNED BY: ARLETH JAIN MD DATE: 03/29/19 174 Course & Med Decision Making Course & Med Decision Making Patient is a 83 year old female who presents with patient states she's been more short of air last couple days and she's been taking off her medications as prescribed. Patient states she is usually on 2 L of oxygen she has not had to increase it. She states she has been coughing a lot lately and has been coughing up clear mucus. Patient states that she has also woke up with a bruise to the right eye and does not remember at this happen. Patient denies visual changes. Sclera not red and there appears to be no acute eye injury. Patient states she also has a bruise on her foot she does not remember how that happened. She states that she woke up with the bruising yesterday. She denies any pain. Speaks in full clear sentences. Alert and oriented. Skin pink warm and dry. 1+ kade ateral lower extremity swelling. Denies chest pain, dizziness, syncope, headache, falls, numbness or tingling, weakness, dysuria, abdominal pain, nausea, vomiting. PERRLA. Patient's right dorsal foot has bruising. Patient denies any tenderness or pain and she wiggles all of her toes appropriately. Cap refill less than 3 seconds. Positive pedal pulses. Patient has bruising around the top part of her right eye right under the eyebrow. No swelling and there is no tenderness with palpation to her face around the eyes. Patient is 95% on 2 L oxygen in the ED. CT scan and x-ray show no acute findings. Patient states that she is still feeling more soa than usual. She states the breathing treatment helped some. Patient became very soa of breath walking with nurse to the restroom. 1935: I have spoken to Dr Alcantar. Patient to be admitted to the hospital by Dr Alcantar. Robin Disclaimer Robin Disclaimer This electronic medical record was generated, in whole or in part, using a voice recognition dictation system. Departure Departure Impression: Primary Impression: COPD exacerbation Disposition: ADMITTED INPATIENT Admitting Physician: Quincy Alcantar Condition: STABLE Referrals: QUINCY ALCANTAR MD (PCP) DANNY PIMENTEL APRN Mar 29, 2019 16:52
[2019-03-29 17:17] LABS: BASO % 1 % (0-3); EOS # 0.2 x10^3/uL (0.0-0.7); EOS % 5 % (0-3); HEMATOCRIT 32.1 % (36.0-47.0); HEMOGLOBIN 10.7 g/dL (12.0-15.5); LYMPH # 0.7 x10^3/uL (1.0-4.8); LYMPH % 18 % (24-48); MEAN CORPUSCULAR HEMOGLOBIN 31 pg (25-35); MEAN CORPUSCULAR HGB CONC 34 g/dL (31-37); MEAN CORPUSCULAR VOLUME 92 fL (79-100); MONO # 0.5 x10^3/uL (0.0-1.1); MONO % 12 % (0-9); NEUT # 2.4 x10^3/uL (1.8-7.7); NEUT % 64 % (31-73); PLATELET COUNT 164 x10^3/uL (140-400); RED BLOOD COUNT 3.49 x10^6/uL (3.50-5.40); RED CELL DISTRIBUTION WIDTH 16.7 % (11.5-14.5); WHITE BLOOD COUNT 3.7 x10^3/uL (4.0-11.0)
[2019-03-29 17:24] LABS: CALCIUM 9.3 mg/dL (8.5-10.1); CREATININE 1.1 mg/dL (0.6-1.0); GFR 47.3; POTASSIUM 4.9 mmol/L (3.5-5.1); PROTHROMBIN TIME PATIENT 12.7 SEC (11.7-14.0)
--- NOTE | 2019-03-29 17:30 | RAD ---
EXAM: Chest, single view. HISTORY: Shortness of breath. COMPARISON: 02/02/2019. FINDINGS: A frontal view of the chest is obtained. There is no infiltrate, pleural effusion or pneumothorax. The heart is normal in size. There is a stable calcified granuloma within the right mid thorax. There has been no change in a healed left sixth rib fracture. IMPRESSION: No acute pulmonary finding. Electronically signed by: Felisha Wagner MD (03/29/2019 5:27 PM) [facility]
[2019-03-29 17:31] LABS: ALBUMIN 3.9 g/dL (3.4-5.0); ALBUMIN/GLOBULIN RATIO 1.1 (1.0-1.7); TOTAL BILIRUBIN 0.5 mg/dL (0.2-1.0); TOTAL PROTEIN 7.3 g/dL (6.4-8.2)
--- NOTE | 2019-03-29 17:34 | RAD ---
Exam: Right foot 3 views INDICATION: Pain TECHNIQUE: Frontal, lateral and oblique views of the right foot. Comparisons: None FINDINGS: Mild osteopenia. No acute or healed fractures. Moderate osteophytic change at the first MTP joint. Soft tissues are unremarkable. Joint spaces are well-maintained. IMPRESSION: No acute osseous abnormality. Electronically signed by: Arleth Marroquin MD (03/29/2019 5:31 PM) [facility]
--- NOTE | 2019-03-29 17:44 | RAD ---
Exam: CT head and maxillofacial INDICATION: Bruising around eye TECHNIQUE: Sequential axial images through the head and face were obtained without the administration of IV contrast. Comparisons: None FINDINGS: Head: No focal parenchymal lesion or hemorrhage is identified. There is no midline shift or sulcal effacement. Patchy hypodensity within the periventricular and subcortical white matter. No acute vascular territory infarction is identified. Fuller-white distinction is preserved. The ventricular system is within normal limits without compression hydrocephalus. The basal cisterns are well maintained. Face: The visualized portions of the paranasal sinuses and mastoid air cells are well-pneumatized. No acute fractures. IMPRESSION: 1. No acute intracranial traumatic sequela. Patchy hypodensity within the periventricular and subcortical white matter representing small vessel ischemic change, age indeterminate and may be chronic. 2. No traumatic sequelae identified at the face. Exposure: One or more of the following in the visualized dose reduction techniques were utilized for this examination: 1. Automated exposure control 2. Adjustment of the MA and/or KV according to patient size Use of iterative of reconstructive technique Electronically signed by: Arleth Marroquin MD (03/29/2019 5:41 PM) [facility]
[2019-03-29 17:50] LABS: BILIRUBIN,URINE NEGATIVE (NEG); CLARITY,URINE CLEAR; COLOR,URINE YELLOW; NITRITE,URINE NEGATIVE (NEG); PROTEIN,URINE NEGATIVE (NEG-TRACE)
[2019-03-29] MEDS ORDERED: ALBUTEROL SULFATE 2.5 MG/3 ML NEBU. NEB ONE (18:00)
[2019-03-29 18:08] LABS: RBC,URINE RARE /HPF (0-2)
[2019-03-29 18:09] LABS: BACTERIA,URINE FEW /HPF (0-FEW); SQUAMOUS EPITHELIAL CELL,UR MOD /LPF
[2019-03-29] MEDS ORDERED: predniSONE 10 MG TABLET PO ONE (18:45)
[2019-03-29] MEDS ORDERED: fentaNYL PF VIAL 100 MCG/2 ML VIAL IV PRN (19:45)
[2019-03-29] MEDS ORDERED: ACETAMINOPHEN 325 MG TABLET. PO PRN (19:45)
[2019-03-29] MEDS ORDERED: ONDANSETRON PF 4 MG/2 ML VIAL. IV PRN (19:45)
[2019-03-29] MEDS: IPRATRPIUM/ALBUTEROL 0.5/2.5MG 3 ML NEBU. NEB SCH (20:00)
[2019-03-29] MEDS ORDERED: DOXYCYCLINE HYCLATE 100 MG in IV DEXTROSE 5% 100ML 100 ML IV ONE (20:00)
[2019-03-29 23:00] VITALS: BP 182/83
[2019-03-29 23:31] VITALS: BP 177/77
[2019-03-30 03:00] VITALS: BP 138/63
--- NOTE | 2019-03-30 05:41 | EKG ---
[facility] [address] [place] [address] Test Date: 2019-03-29 Test Time: 16:34:48 Pat Name: PATRIA CAMPUZANO Department: Room: Gender: F [employer]: LORNA : 1935 Requested By: DANNY PIMENTEL Order Number: [id number] Reading MD: Measurements Intervals [place] Rate: 69 P: 65 ND: 204 QRS: 42 QRSD: 74 T: 75 QT: 390 QTc: 419 Interpretive Statements SINUS RHYTHM T ABNORMALITY IN HIGH LATERAL LEADS ABNORMAL ECG RI6.01 Unconfirmed report No previous ECG available for comparison
[2019-03-30] MEDS ORDERED: METO25TA4 PO (05:48)
[2019-03-30] MEDS ORDERED: PANT40TA6 PO (05:48)
[2019-03-30] MEDS ORDERED: DONE10TA7 PO (05:48)
[2019-03-30] MEDS ORDERED: SUCR1TAB PO (05:48)
[2019-03-30] MEDS ORDERED: MEMA10TA20 PO (05:48)
[2019-03-30] MEDS ORDERED: LOSA100T14 PO (05:48)
[2019-03-30] MEDS ORDERED: methylPREDNISolone SOD SUCC PF 125 MG/2 ML VIAL. IV ONE (06:00)
[2019-03-30 07:00] VITALS: BP 151/67
[2019-03-30] MEDS: IPRATRPIUM/ALBUTEROL 0.5/2.5MG 3 ML NEBU. NEB SCH ×5 (08:22→20:57)
[2019-03-30] MEDS ORDERED: DRONEDARONE HCL 400 MG TABLET PO SCH (09:00)
[2019-03-30] MEDS: ASPIRIN ENTERIC COATED 81 MG TABLET.DR. PO SCH (09:07)
[2019-03-30] MEDS: DOXYCYCLINE HYCLATE 100 MG TABLET PO SCH ×2 (09:07→20:35)
[2019-03-30] MEDS: CITALOPRAM 10 MG TABLET. PO SCH (09:07)
[2019-03-30] MEDS: PANTOPRAZOLE 40 MG TABLET.DR. PO SCH (09:09)
[2019-03-30] MEDS: METOPROLOL TART IMMED RELEASE 50 MG TABLET. PO SCH ×2 (09:09→20:36)
[2019-03-30] MEDS: LOSARTAN POTASSIUM 50 MG TABLET. PO SCH (09:09)
--- NOTE | 2019-03-30 09:43 | HP ---
ADMIT DATE: 03/30/2019 CHIEF COMPLAINT AND HISTORY OF PRESENT ILLNESS: This 83-year-old white female is well known to my followup in the office. The patient had a couple days of shortness of breath as well as an increased cough and runny nose. She got to the point where she was working very hard to breathe, brought to the Emergency Room where she was admitted for an exacerbation of her COPD. PAST MEDICAL HISTORY: Remarkable for COPD, dementia, AFib, hyperlipidemia, heart disease, hypothyroidism and hypertension. She has had a prior appendectomy, hysterectomy, left hip surgery. MEDICATIONS: Are brought with the patient, listed on the computer and have been addressed. ALLERGIES: She has no known drug allergies. SOCIAL HISTORY: She is nonsmoker and nondrinker. Does not use drugs. She is , lives at home with her son and [id number], who are very supportive. FAMILY HISTORY: Noncontributory. REVIEW OF SYSTEMS: Remarkable for some shortness of breath. She does have a bruise around her right eye and on the dorsum of her left foot, which she does not remember what happened with this and the family corroborates this as I did not know what happened either. PHYSICAL EXAMINATION: GENERAL: She is well-developed, well-nourished white female, in no acute distress. VITAL SIGNS: Stable. She is afebrile. O2 is in place. HEAD, EYES, EARS, NOSE AND THROAT: Remarkable for some mild bruising of the right periorbital area. NECK: Supple without bruit or thyromegaly. CHEST: Reveals decreased breath sounds bilaterally, but clear. HEART: Regular rate and rhythm without S3, S4 or murmur. ABDOMEN: Soft, nontender, without hepatosplenomegaly or masses. EXTREMITIES: Reveal the dorsal right foot bruising. Otherwise, no significant cyanosis, clubbing, edema. NEUROLOGIC: She is intact. LABORATORY DATA: Initial white count is 3700, hemoglobin 10.7. Creatinine is 1.1. Troponin is negative. BNP is normal at 139. INR is within normal limits and UA does not show any evidence of urinary tract infection. CT of her head and facial bones showed no traumatic, no evidence of trauma. Right foot x-ray likewise shows no acute abnormality and a chest x-ray shows no acute pulmonary findings. IMPRESSION: 1. Exacerbation of chronic obstructive pulmonary disease with shortness of breath. 2. Multiple other problems as listed above. PLAN: The patient will be admitted. Steroids, breathing treatments, IV fluids and antibiotics will be ongoing and the patient will be monitored, managed and treated appropriately. QUINCY ALCANTAR MD DR: MAYCOL/erick JOB#: [id number] / [id number]
[2019-03-30 11:00] VITALS: BP 139/64
--- NOTE | 2019-03-30 11:19 | CONS ---
DATE OF CONSULTATION: 03/29/2019 ATTENDING PHYSICIAN: Yogi Lauren MD REASON FOR CONSULTATION: Dyspnea. HISTORY OF PRESENT ILLNESS: The patient is an 83-year-old, who has a history of chronic hypoxic respiratory failure. She is on home oxygen 2 liters on a 24-hour basis. She was brought into the hospital. According to the history, the patient states she has been short of breath for over 1 month. She had a cough recently with yellow sputum production. She denies any chest pain, no syncopal episodes. She was having increased work of breathing at Dr. Lauren's office. As a result, she was sent to the Emergency Room. A chest x-ray did not reveal any definite infiltrate. She denies any headaches. No nausea or vomiting. No diarrhea. No dysuria. No focal weakness. No skin rash. PAST MEDICAL HISTORY: Significant for history of COPD, although she never smoked cigarettes, but had secondhand exposures to tobacco, history of chronic hypoxia, history of dementia, AFib, hyperlipidemia, heart disease, hypothyroidism and hypertension. SURGERIES: Appendectomy, hysterectomy, left hip surgery. MEDICATIONS: Were all reviewed, as listed in the MRAD, including IV steroids and oral doxycycline. The patient says that she also takes Coumadin at home. On her inpatient list, it is not listed and I have reviewed her home medications and it is not listed either. REVIEW OF SYSTEMS: Twelve-point system obtained. Pertinent positives discussed in my history of present illness, otherwise noncontributory. SOCIAL HISTORY: The patient states that she never smoked cigarettes, but had secondhand exposures for a prolonged period of time. ALLERGIES: None. FAMILY HISTORY: Noncontributory to lungs. PHYSICAL EXAMINATION: VITAL SIGNS: Reviewed. HEENT: Sclerae nonicteric. NECK: Supple. LUNGS: With diminished breath sounds, no wheezing. CARDIOVASCULAR: Regular rate and rhythm. ABDOMEN: Soft, nontender. EXTREMITIES: With no pitting edema. There is some ecchymosis on the right eyelid. LABORATORY DATA: Reviewed. INR 1.0. BUN 19, creatinine 1.1. White cell count 3.7. IMPRESSION: 1. Dyspnea, likely secondary to chronic obstructive pulmonary disease exacerbation vs ? PE. She never smoked herself cigarettes, but had secondhand tobacco exposure most of her life. The possibility of thromboembolic disease needs to be considered as well and we will obtain a V/Q scan. 2. The patient with chronic hypoxic respiratory failure and is on home oxygen at 2 liters at home. 3. History of atrial fibrillation. 4. History of dementia. RECOMMENDATIONS: 1. Continue with present oxygen at 2 liters. 2. Continue present bronchodilators. 3. Oral antibiotic for acute bronchitis. 4. Obtain V/Q scan to rule out any thromboembolic disease. We will follow along with you. TED HANSEN MD DR: RAMONA/erick JOB#: [id number] / [id number] DONTE
[2019-03-30] MEDS: LEVOTHYROXINE 112 MCG TABLET PO SCH (11:29)
--- NOTE | 2019-03-30 13:30 | NUR ---
SS following for discharge planning. SS reviewed pt chart. Pt is from home with family and is currently requiring oxygen. No discharge needs noted at this time. SS will continue to follow for discharge planning.
[2019-03-30] MEDS: methylPREDNISolone SOD SUCC PF 40 MG/ML VIAL. IV SCH ×2 (15:12→20:37)
[2019-03-30 15:20] VITALS: BP 143/65
--- NOTE | 2019-03-30 15:22 | RAD ---
Examination: LUNG VENT/PERFUSION SCAN(VQ) History: Dyspnea for 2 months Comparison/Correlation: 03/29/2019 portable chest x-ray exam Findings: 8.2 mCi xenon-133 gas was administered for ventilation imaging. Delayed washout radiotracer compatible COPD is noted. 5.5 mCi technetium 99m MAA was intravenously administered for purposes of perfusion imaging. Less than 2 segments mismatch defect at the right lung base is noted. No suspicious matched defects. No suspicious left lung matched or mismatched defects. Pulmonary hyperinflation noted. Impression: Intermediate probability for pulmonary embolism. COPD. Electronically signed by: Rafael Gallardo MD (03/30/2019 3:19 PM) [facility]
[2019-03-30] MEDS ORDERED: IOHEXOL 350 MG/ML 100 ML VIAL. IV ONE (16:15)
[2019-03-30] MEDS ORDERED: CONTRAST GIVEN. MC PRN (16:30)
--- NOTE | 2019-03-30 17:04 | RAD ---
Examination: CT ANGIOGRAPHY CHEST History: Abnormal VQ scan. Comparison/Correlation: 03/29/2019 portable chest x-ray exam, 03/30/2019 VQ scan Findings: Axial images of chest were obtained following IV contrast according to pulmonary arteriography protocol. Limited images provided. Sagittal and coronal reformatted images provided. Excellent pulmonary arterial opacification is identified. No pulmonary arterial thromboembolic disease. Thoracic aorta is unremarkable for the patient's age. Calcified granuloma involves the right anterior lower lung field. Calcified right hilar lymph node is present. Minimal linear atelectasis is present at the lung bases. No enlarged thoracic lymph nodes. Bilateral lower lobe bronchial wall thickening is present. Scattered low-attenuation regions involving the lungs which may represent small airways disease. Small hiatal hernia. No focal consolidation. Soft tissue density measuring 0.6 cm diameter along the right posterior margin of the superior vena cava on axial image 28 is present. No pleural or pericardial effusion. Osteopenia is noted. Impression: No pulmonary arterial thromboembolic disease. Bronchial wall thickening compatible with chronic bronchitis. Scattered low-attenuation regions involving lung shankar which may represent small airways disease. Soft tissue density along the right posterior margin of the superior vena cava. This may represent scarring. Consider interval follow-up CT of the chest with contrast in 9 months to assess stability. Hiatal hernia. PQRS Compliance Statement: One or more of the following individualized dose reduction techniques were utilized for this examination: 1. Automated exposure control 2. Adjustment of the mA and/or kV according to patient size 3. Use of iterative reconstruction technique Electronically signed by: Rafael Gallardo MD (03/30/2019 5:01 PM) [facility]
[2019-03-30] MEDS: SUCRALFATE 1 GM TABLET. PO SCH (17:19)
--- NOTE | 2019-03-30 17:40 | RAD ---
LEFT LEG VENOUS DOPPLER STUDY: Clinical indications: Left leg swelling and pain. Findings: Duplex sonography (including mccoy scale evaluation and color flow and waveform spectral analysis) of the proximal aspect of the greater saphenous vein and the proximal aspect of the profunda femoral vein and the entire length of the common femoral and superficial femoral and popliteal veins and the tibioperoneal trunk and the proximal aspect of the posterior tibial and peroneal veins of the left leg was performed. Normal compressibility, augmentation of color Doppler flow after calf compression, and respiratory variation of Doppler flow is seen. Thus, there are no sonographic findings of deep venous thrombosis within these veins. Impression: There are no sonographic findings of deep venous thrombosis within the veins discussed above of the left lower extremity. RIGHT LEG VENOUS DOPPLER STUDY: Clinical indications: Right leg swelling and pain. Findings: Duplex sonography (including mccoy scale evaluation and color flow and waveform spectral analysis) of the proximal aspect of the greater saphenous vein and proximal aspect of the profunda femoral vein and the entire length of the common femoral and superficial femoral and popliteal veins and the tibioperoneal trunk and the proximal aspect of the posterior tibial and peroneal veins of the right leg was performed. Normal compressibility, augmentation of color Doppler flow after calf compression, and respiratory variation of Doppler flow is seen. Thus, there are no sonographic findings of deep venous thrombosis within these veins. Impression: There are no sonographic findings of deep venous thrombosis within the veins discussed above of the right lower extremity. Electronically signed by: Kyrie Arvizu MD (03/30/2019 5:37 PM) [id number]
[2019-03-30 19:00] VITALS: BP 178/70
[2019-03-30] MEDS: ATORVASTATIN CALCIUM 20 MG TABLET PO SCH (20:35)
[2019-03-30] MEDS: DRONEDARONE HCL 400 MG TABLET PO SCH (20:35)
[2019-03-30] MEDS: DONEPEZIL HCL 10 MG TABLET. PO SCH (20:35)
[2019-03-30 23:00] VITALS: BP 149/65
[2019-03-31 03:00] VITALS: BP 135/63
[2019-03-31] MEDS: methylPREDNISolone SOD SUCC PF 40 MG/ML VIAL. IV SCH ×3 (06:39→21:10)
[2019-03-31] MEDS: SUCRALFATE 1 GM TABLET. PO SCH ×2 (06:40→19:28)
[2019-03-31 07:00] VITALS: BP 136/65
[2019-03-31] MEDS: PANTOPRAZOLE 40 MG TABLET.DR. PO SCH (08:25)
[2019-03-31] MEDS: CITALOPRAM 10 MG TABLET. PO SCH (08:25)
[2019-03-31] MEDS: LOSARTAN POTASSIUM 50 MG TABLET. PO SCH (08:25)
[2019-03-31] MEDS: LEVOTHYROXINE 112 MCG TABLET PO SCH (08:25)
[2019-03-31] MEDS: DOXYCYCLINE HYCLATE 100 MG TABLET PO SCH ×2 (08:26→21:09)
[2019-03-31] MEDS: ASPIRIN ENTERIC COATED 81 MG TABLET.DR. PO SCH (08:26)
[2019-03-31] MEDS: METOPROLOL TART IMMED RELEASE 50 MG TABLET. PO SCH ×2 (08:26→21:10)
[2019-03-31] MEDS: DRONEDARONE HCL 400 MG TABLET PO SCH ×2 (08:26→21:00)
[2019-03-31] MEDS: IPRATRPIUM/ALBUTEROL 0.5/2.5MG 3 ML NEBU. NEB SCH ×7 (09:00→20:26)
[2019-03-31 11:00] VITALS: BP 144/62
--- NOTE | 2019-03-31 12:01 | PDOC ---
PULMONARY PROGRESS NOTES Subjective no soa feels better Vitals Vital Signs Date Time Temp Pulse Resp B/P (MAP) Pulse Ox O2 Delivery O2 Flow Rate FiO2 03/31/19 09:14 98 Nasal Cannula 2.0 03/31/19 08:26 59 135/63 03/31/19 07:00 98.2 20 98.2 General: Alert, Oriented X4, No acute distress Lungs: Clear Cardiovascular: S1, S2 Abdomen: Soft, Non-tender Neuro Exam: Alert Extremities: No Edema Labs Laboratory Tests Test 03/29/19 16:45 03/29/19 17:40 White Blood Count 3.7 x10^3/uL (4.0-11.0) Red Blood Count 3.49 x10^6/uL (3.50-5.40) Hemoglobin 10.7 g/dL (12.0-15.5) Hematocrit 32.1 % (36.0-47.0) Mean Corpuscular Volume 92 fL (79-100) Mean Corpuscular Hemoglobin 31 pg (25-35) Mean Corpuscular Hemoglobin Concent 34 g/dL (31-37) Red Cell Distribution Width 16.7 % (11.5-14.5) Platelet Count 164 x10^3/uL (140-400) Neutrophils (%) (Auto) 64 % (31-73) Lymphocytes (%) (Auto) 18 % (24-48) Monocytes (%) (Auto) 12 % (0-9) Eosinophils (%) (Auto) 5 % (0-3) Basophils (%) (Auto) 1 % (0-3) Neutrophils # (Auto) 2.4 x10^3/uL (1.8-7.7) Lymphocytes # (Auto) 0.7 x10^3/uL (1.0-4.8) Monocytes # (Auto) 0.5 x10^3/uL (0.0-1.1) Eosinophils # (Auto) 0.2 x10^3/uL (0.0-0.7) Basophils # (Auto) 0.0 x10^3/uL (0.0-0.2) Prothrombin Time 12.7 SEC (11.7-14.0) Prothromb Time International Ratio 1.0 (0.8-1.1) Sodium Level 142 mmol/L (136-145) Potassium Level 4.9 mmol/L (3.5-5.1) Chloride Level 102 mmol/L (98-107) Carbon Dioxide Level 34 mmol/L (21-32) Anion Gap 6 (6-14) Blood Urea Nitrogen 19 mg/dL (7-20) Creatinine 1.1 mg/dL (0.6-1.0) Estimated GFR (Cockcroft-Gault) 47.3 BUN/Creatinine Ratio 17 (6-20) Glucose Level 87 mg/dL (70-99) Calcium Level 9.3 mg/dL (8.5-10.1) Total Bilirubin 0.5 mg/dL (0.2-1.0) Aspartate Amino Transf (AST/SGOT) 27 U/L (15-37) Alanine Aminotransferase (ALT/SGPT) 21 U/L (14-59) Alkaline Phosphatase 60 U/L (46-116) Troponin I Quantitative < 0.017 ng/mL (0.000-0.055) CP-Ftw-D-Type Natriuretic Peptide 139 pg/mL (0-449) Total Protein 7.3 g/dL (6.4-8.2) Albumin 3.9 g/dL (3.4-5.0) Albumin/Globulin Ratio 1.1 (1.0-1.7) Urine Collection Type Unknown Urine Color Yellow Urine Clarity Clear Urine pH 6.0 Urine Specific [place] 1.010 Urine Protein Negative mg/dL (NEG-TRACE) Urine Glucose (UA) Negative mg/dL (NEG) Urine Ketones (Stick) Negative mg/dL (NEG) Urine Blood Negative (NEG) Urine Nitrite Negative (NEG) Urine Bilirubin Negative (NEG) Urine Urobilinogen Dipstick 1.0 mg/dL (0.2 mg/dL) Urine Leukocyte Esterase Trace (NEG) Urine RBC Rare /HPF (0-2) Urine WBC 1-4 /HPF (0-4) Urine Squamous Epithelial Cells Mod /LPF Urine Bacteria Few /HPF (0-FEW) Medications Active Scripts Medications Dose Route/Sig Max Daily Dose Days Date Category Pantoprazole Sodium 40 Mg Tablet.dr 40 Mg PO DAILY 03/30/19 Reported Sucralfate 1 Gm Tablet 1 Gm PO BIDAC 03/30/19 Reported Metoprolol Tartrate 50 Mg Tablet 1 Tab PO BID 02/02/19 Reported Cozaar (Losartan Potassium) 50 Mg Tablet 100 Mg PO DAILY 30 09/05/18 Rx Prednisone (Prednisone) 10 Mg Tablet 10 Mg PO DAILY 6 09/02/18 Reported Donepezil Hcl 10 Mg Tab.rapdis 10 Mg PO HS 08/29/18 Reported Cefdinir 300 Mg Capsule 300 Mg PO BID 7 08/02/18 Rx Multaq (Dronedarone Hcl) 400 Mg Tablet 200 Mg PO BID 12/28/17 Reported Aspirin Ec (Aspirin) 81 Mg Tablet.dr 1 Tab PO DAILY 12/28/17 Reported Duoneb 0.5-3(2.5) Mg/3 Ml (Albuterol/Ipratropium) 3 Ml Ampul.neb 3 Ml NEB BID 12/11/17 Reported Namzaric 28 mg-10 mg Capsule (Memantine HCl/Donepezil HCl) 1 Each Cap.spr.24 1 12/11/17 Reported Citalopram Hbr (Citalopram Hydrobromide) 10 Mg Tablet 10 Mg PO DAILY 12/11/17 Reported Atorvastatin Calcium 20 Mg Tablet 20 Mg PO DAILY 12/11/17 Reported Levothyroxine Sodium 112 Mcg Tablet 112 Mcg PO DAILY 12/11/17 Reported Impression . 1. Dyspnea, likely secondary to chronic obstructive pulmonary disease exacerbation She never smoked herself cigarettes, but had secondhand tobacco exposure most of her life. 2. The patient with chronic hypoxic respiratory failure and is on home oxygen at 2 liters at home. 3. History of atrial fibrillation. 4. History of dementia. Plan . 1. Continue with present oxygen at 2 liters. 2. Continue present bronchodilators. 3. Oral antibiotic for acute bronchitis. 4. V/Q scan with ? small PE RLL, CTA with no PE. dopplers neg for DVT 5. likely dc home in TED Tubbs MD Mar 31, 2019 12:01
[2019-03-31 15:00] VITALS: BP 150/67
--- NOTE | 2019-03-31 17:15 | PDOC ---
GENERAL General: vss and afebrile. awake and alert and states she is breathing better. chest with decreased breath sounds and rare wheeze, heart regular, abdomen benign. continue present treatment for exac of copd until clear. VITAL SIGNS/I&O Vital Signs/I&O: Vital Signs Date Time Temp Pulse Resp B/P (MAP) Pulse Ox O2 Delivery O2 Flow Rate FiO2 03/31/19 16:04 95 Nasal Cannula 2.0 03/31/19 11:00 98.5 57 20 144/62 (89) 98.5 I & O 03/30/19 03/30/19 03/31/19 14:59 22:59 06:59 Intake Total 480 ml 340 ml 0 ml Output Total 500 ml 100 ml 350 ml Balance -20 ml 240 ml -350 ml ALLERGIES Allergies: Allergies Coded Allergies Type Severity Reaction Last Updated Verified No Known Drug Allergies 07/15/16 No MEDS Medications: Current Medications Medications (Trade) Dose Ordered Sig/Silvia Route PRN Reason Start Time Stop Time Status Last Admin Dose Admin Atorvastatin Calcium (Lipitor) 20 mg QHS PO 03/30/19 21:00 03/30/19 20:37 Donepezil HCl (Aricept) 10 mg QHS PO 03/30/19 21:00 03/30/19 20:37 Dronedarone (Multaq) 400 mg BID PO 03/30/19 21:00 03/31/19 08:26 Albuterol/ Ipratropium (Duoneb) 3 ml RTQID NEB 03/30/19 20:00 03/31/19 12:06 QUINCY ALCANTAR MD Mar 31, 2019 17:15
[2019-03-31 19:00] VITALS: BP 141/63
[2019-03-31] MEDS: DONEPEZIL HCL 10 MG TABLET. PO SCH (21:08)
[2019-03-31] MEDS: ATORVASTATIN CALCIUM 20 MG TABLET PO SCH (21:09)
[2019-03-31 23:00] VITALS: BP 151/66
[2019-04-01 03:00] VITALS: BP 161/70
[2019-04-01] MEDS: methylPREDNISolone SOD SUCC PF 40 MG/ML VIAL. IV SCH ×2 (06:30→14:39)
[2019-04-01 07:00] VITALS: BP 150/63
[2019-04-01] MEDS: IPRATRPIUM/ALBUTEROL 0.5/2.5MG 3 ML NEBU. NEB SCH ×4 (07:22→15:24)
[2019-04-01] MEDS: SUCRALFATE 1 GM TABLET. PO SCH (07:53)
[2019-04-01] MEDS: ASPIRIN ENTERIC COATED 81 MG TABLET.DR. PO SCH (07:53)
[2019-04-01] MEDS: METOPROLOL TART IMMED RELEASE 50 MG TABLET. PO SCH (07:54)
[2019-04-01] MEDS: CITALOPRAM 10 MG TABLET. PO SCH (07:54)
[2019-04-01] MEDS: DOXYCYCLINE HYCLATE 100 MG TABLET PO SCH (07:54)
[2019-04-01] MEDS: LOSARTAN POTASSIUM 50 MG TABLET. PO SCH (07:54)
[2019-04-01] MEDS: PANTOPRAZOLE 40 MG TABLET.DR. PO SCH (07:54)
[2019-04-01] MEDS: LEVOTHYROXINE 112 MCG TABLET PO SCH (07:54)
[2019-04-01] MEDS: DRONEDARONE HCL 400 MG TABLET PO SCH (07:55)
[2019-04-01] MEDS ORDERED: DOXY100T PO (09:24)
--- NOTE | 2019-04-01 09:27 | PDOC ---
GENERAL General: see discharge summary. VITAL SIGNS/I&O Vital Signs/I&O: Vital Signs Date Time Temp Pulse Resp B/P (MAP) Pulse Ox O2 Delivery O2 Flow Rate FiO2 04/01/19 07:55 58 161/70 04/01/19 07:40 Nasal Cannula 2.0 04/01/19 07:23 98 04/01/19 07:00 98.6 18 98.6 I & O 03/31/19 03/31/19 04/01/19 14:59 22:59 06:59 Intake Total 500 ml 350 ml 0 ml Output Total 250 ml Balance 500 ml 350 ml -250 ml ALLERGIES Allergies: Allergies Coded Allergies Type Severity Reaction Last Updated Verified No Known Drug Allergies 07/15/16 No QUINCY ALCANTAR MD Apr 01, 2019 09:27
--- NOTE | 2019-04-01 09:37 | DS ---
DATE OF DISCHARGE: 04/01/2019 PRIMARY DIAGNOSIS: Exacerbation of chronic obstructive pulmonary disease with shortness of breath. ADDITIONAL DIAGNOSES: Chronic hypoxic respiratory failure, history of atrial fibrillation, dementia. CHIEF COMPLAINT AND HISTORY OF PRESENT ILLNESS: This 83-year-old white female with history of chronic hypoxic respiratory failure been getting worse prior to admission, brought to the Emergency Room where she was having more cough, more shortness of breath, yellow sputum, unable to walk across the room in the ER and admitted for an exacerbation of COPD. SUMMARY OF STAY: The patient was admitted and treated with IV fluids, IV antibiotics, pulmonary toilet, IV steroids with daily improvement to the point where she was felt to be close to her baseline on the day of discharge. She was transferred to oral steroids and antibiotics, namely a prednisone taper and doxycycline, and felt ready for discharge to the home with close outpatient followup and this was accomplished. DISPOSITION: The patient is discharged to home. DIET: Regular. ACTIVITY: As tolerated. Resume her regular home O2 at 2 liters per nasal cannula. DISCHARGE MEDICATIONS: Will be that of her regular home meds plus a prednisone taper and doxycycline 100 b.i.d. for the next 7 days. QUINCY ALCANTAR MD DR: MAYCOL/erick JOB#: [id number] / [id number]
--- NOTE | 2019-04-01 10:16 | PDOC ---
PULMONARY PROGRESS NOTES Subjective Pt. reports she is feeling much better, she denies any shortness of breath, she reports a non-productive cough intermittently, resting in bed on 2 liters N/C which is her baseline Vitals Vital Signs Date Time Temp Pulse Resp B/P (MAP) Pulse Ox O2 Delivery O2 Flow Rate FiO2 04/01/19 07:55 58 161/70 04/01/19 07:40 Nasal Cannula 2.0 04/01/19 07:23 98 04/01/19 07:00 98.6 18 98.6 ROS: No Nausea General: Alert, Oriented X4, No acute distress Lungs: Clear Cardiovascular: S1, S2 Abdomen: Soft, Non-tender Neuro Exam: Alert Extremities: No Edema Medications Active Scripts Medications Dose Route/Sig Max Daily Dose Days Date Category Pantoprazole Sodium 40 Mg Tablet.dr 40 Mg PO DAILY 03/30/19 Reported Sucralfate 1 Gm Tablet 1 Gm PO BIDAC 03/30/19 Reported Metoprolol Tartrate 50 Mg Tablet 1 Tab PO BID 02/02/19 Reported Cozaar (Losartan Potassium) 50 Mg Tablet 100 Mg PO DAILY 30 09/05/18 Rx Prednisone (Prednisone) 10 Mg Tablet 10 Mg PO DAILY 6 09/02/18 Reported Donepezil Hcl 10 Mg Tab.rapdis 10 Mg PO HS 08/29/18 Reported Cefdinir 300 Mg Capsule 300 Mg PO BID 7 08/02/18 Rx Multaq (Dronedarone Hcl) 400 Mg Tablet 200 Mg PO BID 12/28/17 Reported Aspirin Ec (Aspirin) 81 Mg Tablet.dr 1 Tab PO DAILY 12/28/17 Reported Duoneb 0.5-3(2.5) Mg/3 Ml (Albuterol/Ipratropium) 3 Ml Ampul.neb 3 Ml NEB BID 12/11/17 Reported Namzaric 28 mg-10 mg Capsule (Memantine HCl/Donepezil HCl) 1 Each Cap.spr.24 1 12/11/17 Reported Citalopram Hbr (Citalopram Hydrobromide) 10 Mg Tablet 10 Mg PO DAILY 12/11/17 Reported Atorvastatin Calcium 20 Mg Tablet 20 Mg PO DAILY 12/11/17 Reported Levothyroxine Sodium 112 Mcg Tablet 112 Mcg PO DAILY 12/11/17 Reported Impression . 1. Dyspnea, likely secondary to chronic obstructive pulmonary disease exacerbation reports secondhand tobacco exposure most of her life. 2. The patient with chronic hypoxic respiratory failure and is on home oxygen at 2 liters at home. 3. History of atrial fibrillation. 4. History of dementia. Plan . 1. Continue with present oxygen at 2 liters. 2. Continue bronchodilators. 3. Oral antibiotic for acute bronchitis: doxy 4. V/Q scan with small PE RLL, CTA with no PE. dopplers neg for DVT 5. likely dc home today TED HANSEN MD Apr 01, 2019 10:16
[2019-04-01 11:00] VITALS: BP 129/61
--- NOTE | 2019-04-01 17:49 | NUR ---
DISCUSSED DISCHARGE INSTRUCTIONS WITH PATIENT AND PATIENTS DAUGHTER IN [place]. PATIENT GIVEN PREDNISONE AND DOXYCYCLINE PRESCRIPTIONS. DR ALCANTAR CALLED IN REGARDS TO METOPROLOL PRESCRIPTION. PATIENT INFORMED TO NOT TAKE METOPROLOL AT HOME SINCE SHE WASNT TAKING IT BEFORE SHE CAME IN PER DR ALCANTAR ORDERS. PATIENT STABLE AT TIME OF DISCHARGE WITH IV OUT AND TELE MONITOR OFF. PATIENT ESCORTED TO [employer] PERSONAL VEHICLE WITH HOME OXYGEN. PATIENT STABLE WITH NO COMPLAINTS AT TIME OF DISCHARGE.
[2019-04-01] MEDS ORDERED: LACTOBACILLUS RHAMNOSUS GG 1 CAPSULE. PO SCH (21:00)
== END 2019-04-01 17:52 | disposition home or self-care (01) | DRG 202 ==
LOC: ER 16:19 → 2 NORTH 18:46
PROVIDERS: ADMIT Family Medicine; ATTEND Family Medicine
DX: J20.9 Acute bronchitis, unspecified (principal); J44.1 Chronic obstructive pulmonary disease with (acute) exacerbation; J96.11 Chronic respiratory failure with hypoxia; J44.0 Chronic obstructive pulmonary disease with (acute) lower respiratory infection; E03.9 Hypothyroidism, unspecified; E78.00 Pure hypercholesterolemia, unspecified; E78.5 Hyperlipidemia, unspecified; F03.90 Unspecified dementia, unspecified severity, without behavioral disturbance, psychotic disturbance, mood disturbance, and anxiety; I10 Essential (primary) hypertension; I48.91 Unspecified atrial fibrillation; Z90.49 Acquired absence of other specified parts of digestive tract; Z90.710 Acquired absence of both cervix and uterus; Z99.81 Dependence on supplemental oxygen; Z79.899 Other long term (current) drug therapy
CPT/HCPCS: 36415; 70450; 70486; 71045; 71275; 73630; 78582; 80053; 81001; 83880; 84484; 85025; 85610; 87040; 87086; 93005; 93970; 94640; 94760; 96365; 96374; A9540; A9558; J2920; J2930; J3490; J7512; J7613; J7620; Q9967; 97116; 97530; 99285-25; G0378

== ENCOUNTER 2019-04-04 18:23 | Emergency (ER) | payer MEDICARE, OTHER ==
[~2019-04-04] VITALS: Ht 146.1 cm; Wt 59.0 kg
[~2019-04-04 18:23] MED LIST changes: +DONE10TA7 PO; +DOXY100T PO; +LOSA100T14 PO; +MEMA10TA20 PO; +PANT40TA6 PO; +SUCR1TAB PO
[2019-04-04 19:31] LABS: BILIRUBIN,URINE NEGATIVE (NEG); CLARITY,URINE CLEAR; COLOR,URINE YELLOW; NITRITE,URINE NEGATIVE (NEG); PROTEIN,URINE NEGATIVE (NEG-TRACE)
--- NOTE | 2019-04-04 19:32 | PHYS DOC ---
Past Medical History Past Medical History: A-Fib, COPD, Dementia, High Cholesterol, Heart Disease, Hypertension, Hypothyroid, Other Additional Past Medical Histor: seasonal allergies Past Surgical History: Appendectomy, Hysterectomy, Other Additional Past Surgical Histo: L hip Alcohol Use: None Drug Use: None Adult General Chief Complaint Chief Complaint: ABDOMINAL PAIN HPI HPI 83-year-old female presents emergency Department with complaints of abdominal pain, nausea. Patient states pain has been ongoing for probably 6 months. She describes the pain as generalized however on further discussion she describes lower abdominal discomfort as well as right upper quadrant pain. Currently denies any nausea, vomiting, chest pain, shortness of breath, diarrhea, fever. Last bowel movement normal. Pain comes and goes, lasting approximately a minute or 2 time. She states today the pain got worse after eating lunch, she had country fried steak. Review of Systems Review of Systems Constitutional: Denies fever or chills [] Respiratory: Denies cough or shortness of breath [] Cardiovascular: No additional information not addressed in HPI [] GI: abdominal pain, nausea Musculoskeletal: Denies back pain or joint pain [] Neurologic: Denies headache, focal weakness or sensory changes [] All other systems were reviewed and found to be within normal limits, except as documented in this note. Current Medications Current Medications Current Medications Medications (Trade) Dose Ordered Sig/Silvia Start Time Stop Time Status Last Admin Dose Admin Info (CONTRAST GIVEN -- Rx MONITORING) 1 each PRN DAILY PRN 04/04/19 21:00 04/06/19 20:59 Iohexol (Omnipaque 300 Mg/ml) 60 ml 1X ONCE 04/04/19 20:45 04/04/19 20:48 DC Sodium Chloride 1,000 ml @ 1,000 mls/hr 1X ONCE 04/04/19 21:30 04/04/19 22:29 04/04/19 21:37 1,000 MLS/HR Allergies Allergies Allergies Coded Allergies Type Severity Reaction Last Updated Verified No Known Drug Allergies 07/15/16 No Physical Exam Physical Exam Constitutional: Well developed, well nourished, no acute distress, non-toxic appearance. [] HENT: Normocephalic, atraumatic, oropharynx moist, no oral exudates, nose normal. [] Eyes: PERRLA, EOMI, conjunctiva normal, no discharge. [] Cardiovascular:Heart rate regular rhythm, no murmur [] Lungs & Thorax: Bilateral breath sounds clear to auscultation [] Abdomen: Bowel sounds normal, soft, TTP RUQ pain, and suprapubic Skin: Warm, dry, no erythema, no rash. [] Extremities: No tenderness, no edema. [] Neurologic: Alert and oriented X 3, no focal deficits noted. [] Psychologic: Affect normal, judgement normal, mood normal. [] Current Patient Data Vital Signs Vital Signs Date Time Temp Pulse Resp B/P (MAP) Pulse Ox O2 Delivery O2 Flow Rate FiO2 04/04/19 20:00 70 20 151/74 (99) 99 Nasal Cannula 2.0 04/04/19 19:03 98.8 98.8 Lab Values Laboratory Tests Test 04/04/19 19:10 04/04/19 19:45 Urine Collection Type Void Urine Color Yellow Urine Clarity Clear Urine pH 6.0 Urine Specific [place] 1.020 Urine Protein Negative mg/dL (NEG-TRACE) Urine Glucose (UA) Negative mg/dL (NEG) Urine Ketones (Stick) Negative mg/dL (NEG) Urine Blood Negative (NEG) Urine Nitrite Negative (NEG) Urine Bilirubin Negative (NEG) Urine Urobilinogen Dipstick 1.0 mg/dL (0.2 mg/dL) Urine Leukocyte Esterase Negative (NEG) Urine RBC 3-5 /HPF (0-2) Urine WBC 1-4 /HPF (0-4) Urine Squamous Epithelial Cells Mod /LPF Urine Bacteria Few /HPF (0-FEW) White Blood Count 4.6 x10^3/uL (4.0-11.0) Red Blood Count 3.45 x10^6/uL (3.50-5.40) L Hemoglobin 10.5 g/dL (12.0-15.5) L Hematocrit 31.4 % (36.0-47.0) L Mean Corpuscular Volume 91 fL (79-100) Mean Corpuscular Hemoglobin 30 pg (25-35) Mean Corpuscular Hemoglobin Concent 33 g/dL (31-37) Red Cell Distribution Width 16.4 % (11.5-14.5) H Platelet Count 162 x10^3/uL (140-400) Neutrophils (%) (Auto) 83 % (31-73) H Lymphocytes (%) (Auto) 11 % (24-48) L Monocytes (%) (Auto) 6 % (0-9) Eosinophils (%) (Auto) 0 % (0-3) Basophils (%) (Auto) 0 % (0-3) Neutrophils # (Auto) 3.8 x10^3/uL (1.8-7.7) Lymphocytes # (Auto) 0.5 x10^3/uL (1.0-4.8) L Monocytes # (Auto) 0.3 x10^3/uL (0.0-1.1) Eosinophils # (Auto) 0.0 x10^3/uL (0.0-0.7) Basophils # (Auto) 0.0 x10^3/uL (0.0-0.2) Sodium Level 141 mmol/L (136-145) Potassium Level 4.2 mmol/L (3.5-5.1) Chloride Level 104 mmol/L (98-107) Carbon Dioxide Level 35 mmol/L (21-32) H Anion Gap 2 (6-14) L Blood Urea Nitrogen 26 mg/dL (7-20) H Creatinine 1.2 mg/dL (0.6-1.0) H Estimated GFR (Cockcroft-Gault) 42.8 BUN/Creatinine Ratio 22 (6-20) H Glucose Level 124 mg/dL (70-99) H Calcium Level 9.5 mg/dL (8.5-10.1) Total Bilirubin 0.5 mg/dL (0.2-1.0) Aspartate Amino Transferase (AST) 14 U/L (15-37) L Alanine Aminotransferase (ALT) 21 U/L (14-59) Alkaline Phosphatase 58 U/L (46-116) Total Protein 6.4 g/dL (6.4-8.2) Albumin 3.6 g/dL (3.4-5.0) Albumin/Globulin Ratio 1.3 (1.0-1.7) Lipase 73 U/L (73-393) Laboratory Tests 04/04/19 19:45 Laboratory Tests 04/04/19 19:45 EKG EKG [] Radiology/Procedures Radiology/Procedures [facility] [address] [place] [address] IMAGING REPORT Signed PATIENT: CAMPUZANOPATRIA IVEY ACCOUNT: [id number] : 1935 LOCATION: ER AGE: 83 SEX: F EXAM STATUS: REG ER ORD. PHYSICIAN: BRIGETTE ART MD REASON: lower abdominal pain, nausea PROCEDURE: CT ABD PELV W/ IV CONTRST ONLY Examination: CT ABD PELV W/ IV CONTRST ONLY History: Lower abdominal pain and nausea Comparison/Correlation: 07/15/2018 CT abdomen and pelvis with contrast Findings: Axial images of the abdomen and pelvis were obtained following IV contrast. Coronal and sagittal reformatted images were provided. Small hiatal hernia is present. Visualized lung bases are clear. Liver, spleen, pancreas, adrenal glands, and kidneys are unremarkable. Multiple small calculi are present within the dependent aspect of the gallbladder moderate quantity of stool. No enlarged abdominal or pelvic lymph nodes. Left hip joint prosthesis is present. Impression: Small hiatal hernia. Cholelithiasis. Diverticulosis. PQRS Compliance Statement: One or more of the following individualized dose reduction techniques were utilized for this examination: 1. Automated exposure control 2. Adjustment of the mA and/or kV according to patient size 3. Use of iterative reconstruction technique Electronically signed by: Rafael Bazan MD (04/04/2019 9:26 PM) [facility] DICTATED and SIGNED BY: RAFAEL BAZAN MD DATE: 04/04/192125 [] Course & Med Decision Making Course & Med Decision Making Pertinent Labs and Imaging studies reviewed. (See chart for details) []83-year-old female presents emergency Department with complaints of abdominal pain, nausea. Patient states pain has been ongoing for probably 6 months. She describes the pain as generalized however on further discussion she describes lower abdominal discomfort as well as right upper quadrant pain. Currently denies any nausea, vomiting, chest pain, shortness of breath, diarrhea, fever. Last bowel movement normal. Pain comes and goes, lasting approximately a minute or 2 time. She states today the pain got worse after eating lunch, she had country fried steak. Labs, imaging reviewed. CT with evidence of cholelithiasis, no cholecystitis appreciated. Patient has had no fever, and currently no pain. Discussed findings with patient's family at bedside, will provide medication for nausea upon discharge. Recommend follow with her primary care physician in the next 3-5 days. Patient should return to the emergency department for fever, worsening abdominal pain, altered mental status. Dragon Disclaimer Dragon Disclaimer This electronic medical record was generated, in whole or in part, using a voice recognition dictation system. Departure Departure Impression: Primary Impression: Cholelithiasis Additional Impression: Nausea Disposition: 01 HOME, SELF-CARE Condition: STABLE Referrals: QUINCY ALCANTAR MD (PCP) Patient Instructions: Cholelithiasis, [id number] Additional Instructions: Recommend discharge home with follow-up with primary care physician Antinausea medications provided CT without evidence of acute cholecystitis Return to the emergency department with fever, worsening abdominal pain, altered mental status Scripts Ondansetron Hcl (ZOFRAN) 4 Mg Tablet 1 TAB PO PRN Q6-8HRS PRN for NAUSEA, #12 TAB Prov: BRIGETTE ART MD 04/04/19 Problem Qualifiers Primary Impression: Cholelithiasis Cholelithiasis location: gallbladder Cholecystitis presence: without cholecystitis Biliary obstruction: without biliary obstruction Qualified Codes: K80.20 - Calculus of gallbladder without cholecystitis without obstruction BRIGETTE ART MD Apr 04, 2019 19:32
[2019-04-04 19:38] LABS: BACTERIA,URINE FEW /HPF (0-FEW)
[2019-04-04 19:39] LABS: SQUAMOUS EPITHELIAL CELL,UR MOD /LPF
[2019-04-04 19:58] LABS: BASO % 0 % (0-3); EOS % 0 % (0-3); HEMATOCRIT 31.4 % (36.0-47.0); HEMOGLOBIN 10.5 g/dL (12.0-15.5); LYMPH # 0.5 x10^3/uL (1.0-4.8); LYMPH % 11 % (24-48); MEAN CORPUSCULAR HEMOGLOBIN 30 pg (25-35); MEAN CORPUSCULAR HGB CONC 33 g/dL (31-37); MEAN CORPUSCULAR VOLUME 91 fL (79-100); MONO # 0.3 x10^3/uL (0.0-1.1); MONO % 6 % (0-9); NEUT # 3.8 x10^3/uL (1.8-7.7); NEUT % 83 % (31-73); PLATELET COUNT 162 x10^3/uL (140-400); RED BLOOD COUNT 3.45 x10^6/uL (3.50-5.40); RED CELL DISTRIBUTION WIDTH 16.4 % (11.5-14.5); WHITE BLOOD COUNT 4.6 x10^3/uL (4.0-11.0)
[2019-04-04 20:08] LABS: CALCIUM 9.5 mg/dL (8.5-10.1); CREATININE 1.2 mg/dL (0.6-1.0); GFR 42.8; POTASSIUM 4.2 mmol/L (3.5-5.1)
[2019-04-04 20:14] LABS: ALBUMIN 3.6 g/dL (3.4-5.0); ALBUMIN/GLOBULIN RATIO 1.3 (1.0-1.7); TOTAL BILIRUBIN 0.5 mg/dL (0.2-1.0); TOTAL PROTEIN 6.4 g/dL (6.4-8.2)
[2019-04-04] MEDS ORDERED: IOHEXOL 300 MG/ML 100ML VIAL. IV ONE (20:45)
[2019-04-04] MEDS ORDERED: CONTRAST GIVEN. MC PRN (21:00)
--- NOTE | 2019-04-04 21:29 | RAD ---
Examination: CT ABD PELV W/ IV CONTRST ONLY History: Lower abdominal pain and nausea Comparison/Correlation: 07/15/2018 CT abdomen and pelvis with contrast Findings: Axial images of the abdomen and pelvis were obtained following IV contrast. Coronal and sagittal reformatted images were provided. Small hiatal hernia is present. Visualized lung bases are clear. Liver, spleen, pancreas, adrenal glands, and kidneys are unremarkable. Multiple small calculi are present within the dependent aspect of the gallbladder moderate quantity of stool. No enlarged abdominal or pelvic lymph nodes. Left hip joint prosthesis is present. Impression: Small hiatal hernia. Cholelithiasis. Diverticulosis. PQRS Compliance Statement: One or more of the following individualized dose reduction techniques were utilized for this examination: 1. Automated exposure control 2. Adjustment of the mA and/or kV according to patient size 3. Use of iterative reconstruction technique Electronically signed by: Rafael Gallardo MD (04/04/2019 9:26 PM) [facility]
[2019-04-04] MEDS ORDERED: IV NORMAL SALINE 1000ML BAG 1,000 ML IV ONE (21:30)
[2019-04-04] MEDS ORDERED: ONDA4TAB7 PO (21:46)
[2019-04-04 22:52] VITALS: BP 182/67
== END 2019-04-04 22:59 | disposition home or self-care (01) ==
LOC: ER 18:23
DX: K80.20 Calculus of gallbladder without cholecystitis without obstruction (principal); R11.0 Nausea; J44.9 Chronic obstructive pulmonary disease, unspecified; I48.91 Unspecified atrial fibrillation; I11.9 Hypertensive heart disease without heart failure; E03.9 Hypothyroidism, unspecified; Z90.89 Acquired absence of other organs; Z90.710 Acquired absence of both cervix and uterus
CPT/HCPCS: 36415; 74177; 80053; 81001; 83690; 85025; 99285; J7030; Q9967

== ENCOUNTER 2019-04-11 12:56 | Emergency (ER) | payer MEDICARE, OTHER ==
[~2019-04-11] VITALS: Ht 157.5 cm; Wt 59.0 kg
[~2019-04-11 12:56] MED LIST changes: +ONDA4TAB7 PO
--- NOTE | 2019-04-11 13:23 | PHYS DOC ---
Past Medical History Past Medical History: A-Fib, COPD, Dementia, High Cholesterol, Heart Disease, Hypertension, Hypothyroid, Other Additional Past Medical Histor: seasonal allergies Past Surgical History: Appendectomy, Hysterectomy, Other Additional Past Surgical Histo: L hip Alcohol Use: None Drug Use: None Adult General Chief Complaint Chief Complaint: SHORTNESS OF BREATH HPI HPI Patient is a 83 year old female with a history of A. fib, COPD and hypertension presents to the ED complaining of shortness of breath over the last day. Reports has been getting worsening shortness of breath when she gets up to do daily tasks. Patient is on 2 L of oxygen at home. Associated symptoms include left lower abdominal pain. Describes the pain as sharp. Rates the pain as 8 out of 10. Associated symptoms include headache. States she's had normal stools with her last being this morning. Denies chest pain, lower leg swelling, diarrhea, blood in stool, dysuria, fever, chills, nausea/vomiting. Review of Systems Review of Systems Constitutional: Denies fever or chills [] Eyes: Denies change in visual acuity, redness, or eye pain [] HENT: Denies nasal congestion or sore throat [] Respiratory: Complains of shortness of breath. Denies cough. [] Cardiovascular: No additional information not addressed in HPI [] GI: Complains of abdominal pain. Denies nausea, vomiting, bloody stools or diarrhea [] : Denies dysuria or hematuria [] Musculoskeletal: Denies back pain or joint pain [] Integument: Denies rash or skin lesions [] Neurologic: Complains of headache. Denies focal weakness or sensory changes [] All other systems were reviewed and found to be within normal limits, except as documented in this note. Current Medications Current Medications Current Medications Medications (Trade) Dose Ordered Sig/Silvia Start Time Stop Time Status Last Admin Dose Admin Albuterol/ Ipratropium (Duoneb) 3 ml 1X ONCE 04/11/19 13:30 04/11/19 13:31 DC 04/11/19 13:45 3 ML Methylprednisolone Sodium Succinate (SOLU-Medrol 125MG VIAL) 125 mg 1X ONCE 04/11/19 13:30 04/11/19 13:31 DC 04/11/19 14:20 125 MG Allergies Allergies Allergies Coded Allergies Type Severity Reaction Last Updated Verified No Known Drug Allergies 07/15/16 No Physical Exam Physical Exam Constitutional: Well developed, well nourished, no acute distress, non-toxic a ppearance. [] HENT: Normocephalic, atraumatic, bilateral external ears normal, oropharynx moist, no oral exudates, nose normal. [] Eyes: PERRLA, EOMI, conjunctiva normal, no discharge. [] Neck: Normal range of motion, no tenderness, supple, no stridor. [] Cardiovascular:Heart rate regular rhythm, no murmur [] Lungs & Thorax: Bilateral breath sounds clear to auscultation [] Abdomen: Bowel sounds normal, soft, mild diffuse lower abdominal tenderness, no masses, no pulsatile masses. [] Skin: Warm, dry, no erythema, no rash. [] Back: No tenderness, no CVA tenderness. [] Extremities: No tenderness, no cyanosis, no clubbing, ROM intact, no edema. [] Neurologic: Alert and oriented X 3, normal motor function, normal sensory function, no focal deficits noted. [] Psychologic: Affect normal, judgement normal, mood normal. [] Current Patient Data Vital Signs Vital Signs Date Time Temp Pulse Resp B/P (MAP) Pulse Ox O2 Delivery O2 Flow Rate FiO2 04/11/19 13:45 98 Room Air 04/11/19 13:05 98.4 59 24 123/58 (79) 2.0 98.4 Lab Values Laboratory Tests Test 04/11/19 13:17 04/11/19 14:35 White Blood Count 8.4 x10^3/uL (4.0-11.0) Red Blood Count 3.56 x10^6/uL (3.50-5.40) Hemoglobin 11.0 g/dL (12.0-15.5) L Hematocrit 32.5 % (36.0-47.0) L Mean Corpuscular Volume 91 fL (79-100) Mean Corpuscular Hemoglobin 31 pg (25-35) Mean Corpuscular Hemoglobin Concent 34 g/dL (31-37) Red Cell Distribution Width 16.2 % (11.5-14.5) H Platelet Count 222 x10^3/uL (140-400) Neutrophils (%) (Auto) 88 % (31-73) H Lymphocytes (%) (Auto) 6 % (24-48) L Monocytes (%) (Auto) 5 % (0-9) Eosinophils (%) (Auto) 1 % (0-3) Basophils (%) (Auto) 0 % (0-3) Neutrophils # (Auto) 7.4 x10^3/uL (1.8-7.7) Lymphocytes # (Auto) 0.5 x10^3/uL (1.0-4.8) L Monocytes # (Auto) 0.4 x10^3/uL (0.0-1.1) Eosinophils # (Auto) 0.1 x10^3/uL (0.0-0.7) Basophils # (Auto) 0.0 x10^3/uL (0.0-0.2) Segmented Neutrophils % 88 % (35-66) H Band Neutrophils % 1 % (0-9) Lymphocytes % 7 % (24-48) L Monocytes % 2 % (0-10) Eosinophils % 1 % (0-5) Basophils % 1 % (0-3) Platelet Estimate Adequate (ADEQUATE) Sodium Level 139 mmol/L (136-145) Potassium Level 4.6 mmol/L (3.5-5.1) Chloride Level 102 mmol/L (98-107) Carbon Dioxide Level 33 mmol/L (21-32) H Anion Gap 4 (6-14) L Blood Urea Nitrogen 24 mg/dL (7-20) H Creatinine 1.3 mg/dL (0.6-1.0) H Estimated GFR (Cockcroft-Gault) 39.0 BUN/Creatinine Ratio 18 (6-20) Glucose Level 111 mg/dL (70-99) H Lactic Acid Level 1.2 mmol/L (0.4-2.0) Calcium Level 9.3 mg/dL (8.5-10.1) Total Bilirubin 0.6 mg/dL (0.2-1.0) Aspartate Amino Transferase (AST) 13 U/L (15-37) L Alanine Aminotransferase (ALT) 20 U/L (14-59) Alkaline Phosphatase 63 U/L (46-116) Troponin I Quantitative < 0.017 ng/mL (0.000-0.055) UI-Gls-N-Type Natriuretic Peptide 516 pg/mL (0-449) H Total Protein 6.4 g/dL (6.4-8.2) Albumin 3.6 g/dL (3.4-5.0) Albumin/Globulin Ratio 1.3 (1.0-1.7) Lipase 85 U/L (73-393) Thyroid Stimulating Hormone (TSH) 2.540 uIU/mL (0.358-3.74) Urine Collection Type Unknown Urine Color Yellow Urine Clarity Clear Urine pH 6.0 Urine Specific [place] 1.025 Urine Protein Negative mg/dL (NEG-TRACE) Urine Glucose (UA) Negative mg/dL (NEG) Urine Ketones (Stick) Trace mg/dL (NEG) Urine Blood Negative (NEG) Urine Nitrite Negative (NEG) Urine Bilirubin Small (NEG) Urine Urobilinogen Dipstick 1.0 mg/dL (0.2 mg/dL) Urine Leukocyte Esterase Small (NEG) Urine RBC Occ /HPF (0-2) Urine WBC 1-4 /HPF (0-4) Urine Squamous Epithelial Cells Few /LPF Urine Bacteria Few /HPF (0-FEW) Urine Mucus Mod /LPF Laboratory Tests 04/11/19 13:17 Laboratory Tests 04/11/19 13:17 EKG EKG [] Radiology/Procedures Radiology/Procedures [] Course & Med Decision Making Course & Med Decision Making Pertinent Labs and Imaging studies reviewed. (See chart for details) []Discussed lab and imaging findings with patient. Patient well-appearing in exam room. States she is feeling much better after breathing treatment. Patient is constantly on 2 L of oxygen at home. Oxygen saturation is 99%. Patient is not tachypneic or tachycardic. Patient states she wants to go home. BNP is 500. Family at bedside. Offered admission for respiratory therapy. Patient refused. States she's feeling much better and wants to go home. Discussed follow-up with PCP, Dr. Alcantar this week. Discussed the importance of follow-up and reasons to return to the ED. Patient understands and agrees with plan. Family at bedside. Dragon Disclaimer Dragon Disclaimer This electronic medical record was generated, in whole or in part, using a voice recognition dictation system. Departure Departure Impression: Primary Impression: Shortness of breath Additional Impression: Abdominal pain Disposition: HOME, SELF-CARE Condition: IMPROVED Referrals: QUINCY ALCANTAR MD (PCP) Patient Instructions: Abdominal Pain (Nonspecific), Shortness of Breath Problem Qualifiers NOLAN MENDEZ Apr 11, 2019 13:23
[2019-04-11 13:30] LABS: BASO % 0 % (0-3); EOS # 0.1 x10^3/uL (0.0-0.7); EOS % 1 % (0-3); HEMATOCRIT 32.5 % (36.0-47.0); LYMPH # 0.5 x10^3/uL (1.0-4.8); LYMPH % 6 % (24-48); MEAN CORPUSCULAR HEMOGLOBIN 31 pg (25-35); MEAN CORPUSCULAR HGB CONC 34 g/dL (31-37); MEAN CORPUSCULAR VOLUME 91 fL (79-100); MONO # 0.4 x10^3/uL (0.0-1.1); MONO % 5 % (0-9); NEUT # 7.4 x10^3/uL (1.8-7.7); NEUT % 88 % (31-73); PLATELET COUNT 222 x10^3/uL (140-400); RED BLOOD COUNT 3.56 x10^6/uL (3.50-5.40); RED CELL DISTRIBUTION WIDTH 16.2 % (11.5-14.5); WHITE BLOOD COUNT 8.4 x10^3/uL (4.0-11.0)
--- NOTE | 2019-04-11 13:39 | EKG ---
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
[2019-04-11] MEDS: IPRATRPIUM/ALBUTEROL 0.5/2.5MG 3 ML NEBU. NEB ONE (13:45)
[2019-04-11 13:47] LABS: CALCIUM 9.3 mg/dL (8.5-10.1); CREATININE 1.3 mg/dL (0.6-1.0); POTASSIUM 4.6 mmol/L (3.5-5.1)
--- NOTE | 2019-04-11 13:52 | RAD ---
PORTABLE CHEST 1V Clinical indications: Shortness of breath. COMPARISON: March 29, 2019. February 02, 2019. Findings: Small granuloma of the right lower lung zone is stable. No acute lung infiltrate or pleural effusion or pulmonary edema or lung mass or pneumothorax is seen. The heart size, pulmonary vasculature, mediastinum and both chhaya are unremarkable. Subacute healing left sixth rib fracture is seen. Impression: No new radiographic abnormality is seen. Electronically signed by: Kyrie Arvizu MD (04/11/2019 1:49 PM) [id number]
[2019-04-11 13:53] LABS: ALBUMIN 3.6 g/dL (3.4-5.0); ALBUMIN/GLOBULIN RATIO 1.3 (1.0-1.7); TOTAL BILIRUBIN 0.6 mg/dL (0.2-1.0); TOTAL PROTEIN 6.4 g/dL (6.4-8.2)
[2019-04-11] MEDS: methylPREDNISolone SOD SUCC PF 125 MG/2 ML VIAL. IV ONE (14:20)
[2019-04-11 14:34] LABS: % BANDS 1 % (0-9); % BASOS 1 % (0-3); % EOS 1 % (0-5); % LYMPHS 7 % (24-48); % MONOS 2 % (0-10); % SEGS 88 % (35-66); PLT ESTIMATE ADEQUATE (ADEQUATE)
--- NOTE | 2019-04-11 14:37 | RAD ---
CT STUDY OF THE ABDOMEN AND PELVIS WITHOUT CONTRAST CLINICAL INDICATIONS: Diffuse lower abdominal pain. TECHNIQUE: Noncontrast helical CT scanning of the abdomen and pelvis was performed. Without contrast, the sensitivity to detect organ pathology and GI tract pathology is decreased. PQRS compliance Statement One or more of the following individualized dose reduction techniques were utilized for this study: 1. Automated exposure control 2. Adjustment of the mA and/or kV according to patient size 3. Use of iterative reconstruction technique COMPARISON: April 04, 2019. FINDINGS: The liver and spleen and pancreas are unremarkable on this noncontrast study. Duodenal diverticulum is seen. Radiopaque gallstones are seen within the gallbladder. No gallbladder distention or gallbladder wall thickening is evident. No extrahepatic biliary ductal dilatation is seen. No adrenal mass is evident. Vascular calcifications are seen within the left renal hilus. Otherwise no urinary tract stone or hydronephrosis or hydroureter is seen. There is streaking artifact involving the left side of the anatomic pelvis including the distal ureters and the urinary bladder from a total left hip arthroplasty. Urinary bladder does not appear to be abnormally distended however. No renal mass is seen on this noncontrast study. Calcified atheromatous disease of the abdominal aorta is seen without focal aneurysmal dilatation. No enlarged abdominal or pelvic lymphadenopathy is evident. Moderate fecal retention seen within the rectum. Sigmoid diverticulosis is seen without diverticulitis. Mild fecal retention is seen throughout the rest of the colon. No obstructive bowel pattern is evident. No free air or free fluid or mesenteric edema is seen. No lung base consolidation is seen. There are compression deformities of T11 and T12 and L1 which were seen on a previous CT study dated July 07, 2018. This is stable. No new compression deformity of the lumbar spine is evident. No lytic process is seen. 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 IMPRESSION: Moderate fecal retention within the rectum. Mild fecal retention throughout the rest of the colon. Sigmoid diverticulosis without diverticulitis. Cholelithiasis. Electronically signed by: Kyrie Arvizu MD (04/11/2019 2:34 PM) [id number]
[2019-04-11 14:39] LABS: BILIRUBIN,URINE SMALL (NEG); CLARITY,URINE CLEAR; COLOR,URINE YELLOW; NITRITE,URINE NEGATIVE (NEG); PROTEIN,URINE NEGATIVE (NEG-TRACE)
[2019-04-11 14:44] LABS: BACTERIA,URINE FEW /HPF (0-FEW); SQUAMOUS EPITHELIAL CELL,UR FEW /LPF
[2019-04-11 14:45] LABS: RBC,URINE OCC /HPF (0-2)
[2019-04-11 15:30] VITALS: BP 136/62
== END 2019-04-11 15:42 | disposition home or self-care (01) ==
LOC: ER 12:56
DX: R06.02 Shortness of breath (principal); R10.32 Left lower quadrant pain; R51 Headache; I48.91 Unspecified atrial fibrillation; J44.9 Chronic obstructive pulmonary disease, unspecified; E78.00 Pure hypercholesterolemia, unspecified; I11.9 Hypertensive heart disease without heart failure; E03.9 Hypothyroidism, unspecified; Z90.89 Acquired absence of other organs; Z90.710 Acquired absence of both cervix and uterus
CPT/HCPCS: 36415; 71045; 74176; 80053; 81001; 83605; 83690; 83880; 84443; 84484; 85007; 85025; 93005; 94640; 96374; 99285; J2930; J7620

== ENCOUNTER 2019-04-21 22:32 | Inpatient (IN) | payer MEDICARE, OTHER ==
[~2019-04-21] VITALS: Ht 157.5 cm; Wt 62.1 kg
[2019-04-21] MEDS ORDERED: IPRATRPIUM/ALBUTEROL 0.5/2.5MG 3 ML NEBU. NEB ONE (23:00)
[2019-04-21] MEDS ORDERED: methylPREDNISolone SOD SUCC PF 125 MG/2 ML VIAL. IV ONE (23:00)
[2019-04-21 23:06] LABS: CALCIUM 9.3 mg/dL (8.5-10.1); GFR 52.8; POTASSIUM 4.2 mmol/L (3.5-5.1)
[2019-04-21 23:12] LABS: ALBUMIN 3.7 g/dL (3.4-5.0); ALBUMIN/GLOBULIN RATIO 1.1 (1.0-1.7); TOTAL BILIRUBIN 0.5 mg/dL (0.2-1.0)
[2019-04-21 23:17] LABS: BASO % 0 % (0-3); EOS # 0.1 x10^3/uL (0.0-0.7); EOS % 2 % (0-3); HEMATOCRIT 32.6 % (36.0-47.0); HEMOGLOBIN 10.9 g/dL (12.0-15.5); LYMPH # 0.5 x10^3/uL (1.0-4.8); LYMPH % 7 % (24-48); MEAN CORPUSCULAR HEMOGLOBIN 31 pg (25-35); MEAN CORPUSCULAR HGB CONC 33 g/dL (31-37); MEAN CORPUSCULAR VOLUME 93 fL (79-100); MONO # 0.6 x10^3/uL (0.0-1.1); MONO % 10 % (0-9); NEUT % 81 % (31-73); PLATELET COUNT 130 x10^3/uL (140-400); RED BLOOD COUNT 3.51 x10^6/uL (3.50-5.40); RED CELL DISTRIBUTION WIDTH 16.7 % (11.5-14.5); WHITE BLOOD COUNT 6.2 x10^3/uL (4.0-11.0)
[2019-04-21 23:26] LABS: PROTHROMBIN TIME PATIENT 11.8 SEC (11.7-14.0)
--- NOTE | 2019-04-21 23:31 | RAD ---
EXAM: CHEST ONE VIEW. HISTORY: Shortness of breath. COMPARISON: 04/11/2019. FINDINGS: A frontal view of the chest is obtained. There are no confluent infiltrates. There is mild atelectasis or scarring in the left base. A calcified granuloma is noted on the right. There is no pneumothorax or pleural effusion. The heart is not enlarged. There are atherosclerotic calcifications of the aorta. IMPRESSION: 1. Left basilar atelectasis or scarring. No confluent infiltrates. Electronically signed by: Julianna Benavides MD (04/21/2019 11:29 PM) [facility]
[2019-04-22] VITALS (7 sets, daily range): BP systolic 113–155; BP diastolic 48–58
--- NOTE | 2019-04-22 00:21 | PHYS DOC ---
Past Medical History Past Medical History: A-Fib, COPD, Dementia, High Cholesterol, Heart Disease, Hypertension, Hypothyroid, Other Additional Past Medical Histor: seasonal allergies Past Surgical History: Appendectomy, Hysterectomy, Other Additional Past Surgical Histo: L hip Alcohol Use: None Drug Use: None Adult General Chief Complaint Chief Complaint: SHORTNESS OF BREATH HPI HPI Patient is a 83 year old female brought in by AMBULANCE shortness of breath patient is a history of COPD he is on home oxygen was at [facility] went to the bathroom became acutely short of breath on regrader arrival was breathing in the 40s had some tripoding they gave nebs and the patient seemed to slowly improve on arrival to the emergency room. Patient denied chest pain denied fever family thinks the patient is maybe a little bit more forgetful than they are used to for example she couldn't remember who they went to [facility] with. However on my conversation in the emergency room the patient knows where she was born she knows where she is she knows her son and daughter in the emergency room patient is a history of dementia and daughter tells me the Aricept is not working the way used to Review of Systems Review of Systems Constitutional: Denies fever or chills [] Eyes: Denies change in visual acuity, redness, or eye pain [] Musculoskeletal: Denies back pain or joint pain [] Integument: Denies rash or skin lesions [] Current Medications Current Medications Current Medications Medications (Trade) Dose Ordered Sig/Silvia Start Time Stop Time Status Last Admin Dose Admin Albuterol/ Ipratropium (Duoneb) 3 ml 1X ONCE 04/21/19 23:00 04/21/19 23:01 DC Methylprednisolone Sodium Succinate (SOLU-Medrol 125MG VIAL) 125 mg 1X ONCE 04/21/19 23:00 04/21/19 23:01 DC 04/21/19 23:03 125 MG Allergies Allergies Allergies Coded Allergies Type Severity Reaction Last Updated Verified No Known Drug Allergies 07/15/16 No Physical Exam Physical Exam Constitutional: Well developed, well nourished, no acute distress, non-toxic appearance. [] HENT: Normocephalic, atraumatic, bilateral external ears normal, oropharynx moist, no oral exudates, nose normal. [] Eyes: PERRLA, EOMI, conjunctiva normal, no discharge. [] Neck: Normal range of motion, no tenderness, supple, no stridor. [] Cardiovascular:Heart rate regular rhythm, no murmur [] Lungs & Thorax: Wheezing noted bilateral lung shankar however patient is able to speak in short sentences no significant retractions noted Abdomen: Bowel sounds normal, soft, no tenderness, no masses, no pulsatile masses. [] Skin: Warm, dry, no erythema, no rash. [] Back: No tenderness, no CVA tenderness. [] Extremities: No tenderness, no cyanosis, no clubbing, ROM intact, 1-2+ edema Neurologic: Alert and oriented X 3, normal motor function, normal sensory function, no focal deficits noted. [] Psychologic: Affect normal, judgement normal, mood normal. [] Current Patient Data Vital Signs Vital Signs Date Time Temp Pulse Resp B/P (MAP) Pulse Ox O2 Delivery O2 Flow Rate FiO2 04/21/19 23:02 98 Lab Values Laboratory Tests Test 04/21/19 22:45 White Blood Count 6.2 x10^3/uL (4.0-11.0) Red Blood Count 3.51 x10^6/uL (3.50-5.40) Hemoglobin 10.9 g/dL (12.0-15.5) L Hematocrit 32.6 % (36.0-47.0) L Mean Corpuscular Volume 93 fL (79-100) Mean Corpuscular Hemoglobin 31 pg (25-35) Mean Corpuscular Hemoglobin Concent 33 g/dL (31-37) Red Cell Distribution Width 16.7 % (11.5-14.5) H Platelet Count 130 x10^3/uL (140-400) L Neutrophils (%) (Auto) 81 % (31-73) H Lymphocytes (%) (Auto) 7 % (24-48) L Monocytes (%) (Auto) 10 % (0-9) H Eosinophils (%) (Auto) 2 % (0-3) Basophils (%) (Auto) 0 % (0-3) Neutrophils # (Auto) 5.0 x10^3/uL (1.8-7.7) Lymphocytes # (Auto) 0.5 x10^3/uL (1.0-4.8) L Monocytes # (Auto) 0.6 x10^3/uL (0.0-1.1) Eosinophils # (Auto) 0.1 x10^3/uL (0.0-0.7) Basophils # (Auto) 0.0 x10^3/uL (0.0-0.2) Prothrombin Time 11.8 SEC (11.7-14.0) Prothrombin Time INR 0.9 (0.8-1.1) Sodium Level 138 mmol/L (136-145) Potassium Level 4.2 mmol/L (3.5-5.1) Chloride Level 101 mmol/L (98-107) Carbon Dioxide Level 34 mmol/L (21-32) H Anion Gap 3 (6-14) L Blood Urea Nitrogen 22 mg/dL (7-20) H Creatinine 1.0 mg/dL (0.6-1.0) Estimated GFR (Cockcroft-Gault) 52.8 BUN/Creatinine Ratio 22 (6-20) H Glucose Level 122 mg/dL (70-99) H Calcium Level 9.3 mg/dL (8.5-10.1) Total Bilirubin 0.5 mg/dL (0.2-1.0) Aspartate Amino Transferase (AST) 17 U/L (15-37) Alanine Aminotransferase (ALT) 22 U/L (14-59) Alkaline Phosphatase 74 U/L (46-116) Troponin I Quantitative < 0.017 ng/mL (0.000-0.055) EF-Hxy-E-Type Natriuretic Peptide 583 pg/mL (0-449) H Total Protein 7.0 g/dL (6.4-8.2) Albumin 3.7 g/dL (3.4-5.0) Albumin/Globulin Ratio 1.1 (1.0-1.7) Laboratory Tests 04/21/19 22:45 Laboratory Tests 04/21/19 22:45 EKG EKG []EKG shows a normal sinus rhythm with rate of [address] changes in V1 and V2 but no STEMI was identified also T-wave inversion in aVL Radiology/Procedures Radiology/Procedures [] Impressions: There are no confluent infiltrates. There is mild atelectasis or scarring in the left base. A calcified granuloma is noted on the right. There is no pneumothorax or pleural effusion. The heart is not enlarged. There are atherosclerotic calcifications of the aorta. IMPRESSION: 1. Left basilar atelectasis or scarring. No confluent infiltrates. Electronically signed by: Julianna Benavides MD (04/21/2019 11:29 PM) [facility] DICTATED and SIGNED BY: ADIN BENAVIDES MD DATE: 04/21/193 Course & Med Decision Making Course & Med Decision Making Pertinent Labs and Imaging studies reviewed. (See chart for details) []83-year-old female with a history of COPD on home oxygen atrial fibrillation multiple other problems presenting with shortness of breath patient had wheezing on arrival to the emergency room he was improved but not gone after nebulizer treatment. Patient she does look a lot better however still feels a little weak family strongly prefers admission for nebulizers and monitoring. Patient was given usual treatment in the emergency room I spoke with Dr. Laureano on-call for Dr. Corona ACCEPTED admit Dragon Disclaimer Dragon Disclaimer This electronic medical record was generated, in whole or in part, using a voice recognition dictation system. Departure Departure Impression: Primary Impression: COPD exacerbation Disposition: ADMITTED INPATIENT Admitting Physician: Lionel Laureano Condition: STABLE Referrals: QUINCY ALCANTAR MD (PCP) EDISON PENALOZA MD Apr 22, 2019 00:21
[2019-04-22] MEDS ORDERED: DOXYCYCLINE HYCLATE 100 MG in IV DEXTROSE 5% 100ML 100 ML IV ONE (01:00)
--- NOTE | 2019-04-22 03:38 | NUR ---
The patient, PATRIA CAMPUZANO, 83 y/o, F admitted by DIMAS RECINOS MD, was given written information regarding hospital policies, unit procedures and contact persons. Pt and family ([id number]) state that medication hx nor medical hx has not changed from last admission 04/06.
[2019-04-22] MEDS ORDERED: IPRATRPIUM/ALBUTEROL 0.5/2.5MG 3 ML NEBU. NEB SCH (08:00)
--- NOTE | 2019-04-22 10:19 | PDOC ---
Provider Note Provider Note [id number] DIMAS RECINOS MD Apr 22, 2019 10:19
[2019-04-22] MEDS ORDERED: ONDANSETRON ODT 4 MG TAB.RAPDIS. PO PRN (10:30)
[2019-04-22] MEDS: CITALOPRAM 10 MG TABLET. PO SCH (10:42)
[2019-04-22] MEDS: LOSARTAN POTASSIUM 50 MG TABLET. PO SCH (10:42)
[2019-04-22] MEDS: methylPREDNISolone SOD SUCC PF 40 MG/ML VIAL. IV SCH ×2 (10:42→21:06)
[2019-04-22] MEDS: DRONEDARONE HCL 400 MG TABLET PO SCH ×2 (10:43→21:05)
[2019-04-22] MEDS: LEVOTHYROXINE 112 MCG TABLET PO SCH (10:44)
[2019-04-22] MEDS: PANTOPRAZOLE 40 MG TABLET.DR. PO SCH (10:44)
--- NOTE | 2019-04-22 10:45 | HP ---
ADMIT DATE: CHIEF COMPLAINT: Shortness of breath. HISTORY OF PRESENT ILLNESS: An 83-year-old white female nonsmoker with a history of COPD, the patient of Dr. Lauren, who was in about a month ago and in and out in 3 days. She has had increasing cough and shortness of breath for the last few days without sputum production, hemoptysis, fever, chills or chest pain. ER evaluation was unremarkable. Chest x-ray was clear and she was given a dose of IV Solu-Medrol and actually feels better at this time. PAST MEDICAL HISTORY: Per the chart. MEDICATIONS LIST: Per the chart. ALLERGIES: No allergies are known. IMMUNIZATION STATUS: Unknown at this time. SOCIAL HISTORY: Lives with family, is a nonsmoker and has never been a smoker. She is . FAMILY HISTORY: Unremarkable. REVIEW OF SYSTEMS: No other complaints. OBJECTIVE: ENT: All within normal limits. NECK: No masses, nodes or bruits. LUNGS: A few expiratory wheezes. No tachypnea or dullness. CARDIOVASCULAR: Regular rate. No murmur or tachycardia. ABDOMEN: Benign, soft, nontender. EXTREMITIES: Good pedal and radial pulses. No clubbing, no edema. NEUROLOGIC: Physiologic. She seems alert, appropriate, responsive and oriented x 4. ASSESSMENT: Acute exacerbation of chronic obstructive pulmonary disease, relatively mild. Otherwise, appears to be generally healthy. PLAN: IV Solu-Medrol, only. No antibiotics at this time. Rest of meds the same. DIMAS RECINOS MD DR: ANNALISE/erick JOB#: [id number] / [id number]
[2019-04-22] MEDS: SUCRALFATE 1 GM TABLET. PO SCH (16:59)
[2019-04-22] MEDS: IPRATRPIUM/ALBUTEROL 0.5/2.5MG 3 ML NEBU. NEB SCH (20:33)
[2019-04-22] MEDS: ATORVASTATIN CALCIUM 20 MG TABLET PO SCH (21:05)
[2019-04-22] MEDS: DONEPEZIL HCL 10 MG TABLET. PO SCH (21:06)
[2019-04-23] VITALS (7 sets, daily range): BP systolic 104–154; BP diastolic 39–66
[2019-04-23] MEDS: IPRATRPIUM/ALBUTEROL 0.5/2.5MG 3 ML NEBU. NEB SCH ×2 (07:20→20:23)
[2019-04-23] MEDS: LEVOTHYROXINE 112 MCG TABLET PO SCH (07:52)
[2019-04-23] MEDS: SUCRALFATE 1 GM TABLET. PO SCH ×2 (07:52→16:30)
[2019-04-23] MEDS: PANTOPRAZOLE 40 MG TABLET.DR. PO SCH (07:52)
[2019-04-23] MEDS: methylPREDNISolone SOD SUCC PF 40 MG/ML VIAL. IV SCH ×2 (09:10→21:17)
[2019-04-23] MEDS: DRONEDARONE HCL 400 MG TABLET PO SCH ×2 (09:11→21:16)
[2019-04-23] MEDS: LOSARTAN POTASSIUM 50 MG TABLET. PO SCH (09:12)
[2019-04-23] MEDS: CITALOPRAM 10 MG TABLET. PO SCH (09:12)
--- NOTE | 2019-04-23 09:43 | PDOC ---
GENERAL General: vss and afebrile. awake and alert and feels better. chest with decreased breath sounds and very mild expiratory wheezes. heart regular and abdomen benign. continue present treatment for AECOPD. VITAL SIGNS/I&O Vital Signs/I&O: Vital Signs Date Time Temp Pulse Resp B/P (MAP) Pulse Ox O2 Delivery O2 Flow Rate FiO2 04/23/19 09:12 78 135/48 04/23/19 07:22 98 Nasal Cannula 2.0 04/23/19 07:00 98.0 16 98.0 I & O 04/22/19 04/22/19 04/23/19 15:00 23:00 07:00 Intake Total 220 ml 0 ml 40 ml Output Total 350 ml Balance 220 ml 0 ml -310 ml ALLERGIES Allergies: Allergies Coded Allergies Type Severity Reaction Last Updated Verified No Known Drug Allergies 07/15/16 No MEDS Medications: Current Medications Medications (Trade) Dose Ordered Sig/Silvia Route PRN Reason Start Time Stop Time Status Last Admin Dose Admin Atorvastatin Calcium (Lipitor) 20 mg QHS PO 04/22/19 21:00 04/22/19 21:05 Citalopram Hydrobromide (CeleXA) 10 mg DAILY PO 04/22/19 11:00 04/23/19 09:12 Dronedarone (Multaq) 200 mg BID PO 04/22/19 11:00 04/23/19 09:11 Albuterol/ Ipratropium (Duoneb) 3 ml RTBID NEB 04/22/19 20:00 04/23/19 07:20 Levothyroxine Sodium (Synthroid) 112 mcg DAILY06 PO 04/22/19 11:00 04/23/19 07:52 Losartan Potassium (Cozaar) 100 mg DAILY PO 04/22/19 11:00 04/23/19 09:12 Pantoprazole Sodium (Protonix) 40 mg DAILYAC PO 04/22/19 11:30 04/23/19 07:52 Sucralfate (Carafate) 1 gm BIDAC PO 04/22/19 16:30 04/23/19 07:52 Donepezil HCl (Aricept) 10 mg QHS PO 04/22/19 21:00 04/22/19 21:06 Methylprednisolone Sodium Succinate (SOLU-Medrol 40MG VIAL) 40 mg Q12HR IV 04/22/19 10:30 04/23/19 09:10 QUINCY ALCANTAR MD Apr 23, 2019 09:42
--- NOTE | 2019-04-23 11:10 | EKG ---
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
[2019-04-23] MEDS: DONEPEZIL HCL 10 MG TABLET. PO SCH (21:16)
[2019-04-23] MEDS: ATORVASTATIN CALCIUM 20 MG TABLET PO SCH (21:16)
[2019-04-24 03:00] VITALS: BP 150/56
[2019-04-24] MEDS: LEVOTHYROXINE 112 MCG TABLET PO SCH (06:14)
[2019-04-24 07:00] VITALS: BP 171/69
[2019-04-24] MEDS: IPRATRPIUM/ALBUTEROL 0.5/2.5MG 3 ML NEBU. NEB SCH ×2 (08:02→20:14)
--- NOTE | 2019-04-24 08:07 | PDOC ---
GENERAL General: vss and afebrile. awake and alert. breathing better. chest with better breath s ounds, heart regular, abdomen benign. transition to po steroids today with dc am if continues to do well. VITAL SIGNS/I&O Vital Signs/I&O: Vital Signs Date Time Temp Pulse Resp B/P (MAP) Pulse Ox O2 Delivery O2 Flow Rate FiO2 04/24/19 08:02 98 Nasal Cannula 2.0 04/24/19 03:00 98.2 70 17 150/56 (87) 98.2 I & O 04/23/19 04/23/19 04/24/19 15:00 23:00 07:00 Intake Total 700 ml 500 ml 200 ml Output Total 300 ml 200 ml Balance 700 ml 200 ml 0 ml ALLERGIES Allergies: Allergies Coded Allergies Type Severity Reaction Last Updated Verified No Known Drug Allergies 07/15/16 QUINCY Santiago MD Apr 24, 2019 08:07
[2019-04-24] MEDS: SUCRALFATE 1 GM TABLET. PO SCH ×2 (08:21→16:27)
[2019-04-24] MEDS: CITALOPRAM 10 MG TABLET. PO SCH (08:22)
[2019-04-24] MEDS: PANTOPRAZOLE 40 MG TABLET.DR. PO SCH (08:22)
[2019-04-24] MEDS: LOSARTAN POTASSIUM 50 MG TABLET. PO SCH (08:22)
[2019-04-24] MEDS: predniSONE 20 MG TABLET PO SCH (08:22)
[2019-04-24] MEDS: DRONEDARONE HCL 400 MG TABLET PO SCH ×2 (08:23→20:40)
--- NOTE | 2019-04-24 09:37 | NUR ---
Functional screen complete and pt is currently one assist with RW per RN. Pt would benefit from PT/OT assessment to ensure safe mobility and ADLs and to establish safe discharge disposition. Please write PT/OT eval and treat orders if you agree. Addendum: 04/24/19 at 0937 by MANE VASQUEZ PT Amended: Links added.
[2019-04-24 11:00] VITALS: BP 147/58
--- NOTE | 2019-04-24 12:48 | NUR ---
SW following pt for dc planning. Chart reviewed. Pt lives at home with family. Pt has PMH of COPD and currently requiring 02. Rehab screen recommends PT/OT order. Discussed with nursing staff and Pt has been ambulating good with standby assist. SW will continue to follow pt as needed. RN states pt is a possible dc tomorrow.
[2019-04-24 15:00] VITALS: BP 133/56
[2019-04-24 19:00] VITALS: BP 146/57
[2019-04-24] MEDS: ATORVASTATIN CALCIUM 20 MG TABLET PO SCH (20:41)
[2019-04-24] MEDS: DONEPEZIL HCL 10 MG TABLET. PO SCH (20:41)
[2019-04-24 23:00] VITALS: BP 132/50
[2019-04-25 03:00] VITALS: BP 140/50
[2019-04-25] MEDS: LEVOTHYROXINE 112 MCG TABLET PO SCH (06:23)
[2019-04-25 07:00] VITALS: BP 154/60
[2019-04-25] MEDS: PANTOPRAZOLE 40 MG TABLET.DR. PO SCH (07:57)
[2019-04-25] MEDS: SUCRALFATE 1 GM TABLET. PO SCH ×2 (07:57→17:04)
[2019-04-25] MEDS ORDERED: PRED20TA PO (07:59)
[2019-04-25] MEDS: DRONEDARONE HCL 400 MG TABLET PO SCH (08:00)
[2019-04-25] MEDS: IPRATRPIUM/ALBUTEROL 0.5/2.5MG 3 ML NEBU. NEB SCH (08:00)
[2019-04-25] MEDS: predniSONE 20 MG TABLET PO SCH (08:00)
[2019-04-25] MEDS: LOSARTAN POTASSIUM 50 MG TABLET. PO SCH (08:01)
[2019-04-25] MEDS: CITALOPRAM 10 MG TABLET. PO SCH (08:01)
--- NOTE | 2019-04-25 08:58 | DS ---
DATE OF DISCHARGE: 04/25/2019 PRIMARY DIAGNOSES: Exacerbation of chronic obstructive pulmonary disease with shortness of breath. ADDITIONAL DIAGNOSES: Gastroesophageal reflux disease, dementia, hyperlipidemia, history of hypothyroidism. CHIEF COMPLAINT AND HISTORY OF PRESENT ILLNESS: This 83-year-old white female admitted through the Emergency Room with exacerbation of COPD and shortness of breath over the few days prior to admission. SUMMARY OF STAY: The patient was admitted and treated with IV steroids, IV fluids, pulmonary toilet with daily improvement in her symptomatology. She was transitioned over to p.o. prednisone on the day prior to discharge and still doing well and felt ready for dismissal on the day of discharge and this was accomplished. DISPOSITION: The patient is discharged to home. DIET: Regular. ACTIVITY: As tolerated, office next week. DISCHARGE MEDICATIONS: Listed on the med rec and have been addressed. QUNICY ALCANTAR MD DR: MAYCOL/eirck JOB#: [id number] / [id number]
[2019-04-25 11:00] VITALS: BP 133/45
[2019-04-25 15:00] VITALS: BP 146/59
--- NOTE | 2019-04-25 18:02 | NUR ---
Pt left unit by wheelchair via private vehicle. Pt IV removed with no complications. Pt left unit with daughter in law. Discharge instructions discussed with pt and her daughter in law. Pt stable upon discharge.
== END 2019-04-25 18:05 | disposition home or self-care (01) | DRG 192 ==
LOC: ER 22:32 → 6 SOUTH 23:55 → 5 SOUTH 04-23 19:31
PROVIDERS: ADMIT Family Medicine; ATTEND Family Medicine
DX: J44.1 Chronic obstructive pulmonary disease with (acute) exacerbation (principal); E03.9 Hypothyroidism, unspecified; E78.00 Pure hypercholesterolemia, unspecified; E78.5 Hyperlipidemia, unspecified; F03.90 Unspecified dementia, unspecified severity, without behavioral disturbance, psychotic disturbance, mood disturbance, and anxiety; I10 Essential (primary) hypertension; I48.91 Unspecified atrial fibrillation; K21.9 Gastro-esophageal reflux disease without esophagitis; Z90.49 Acquired absence of other specified parts of digestive tract; Z90.710 Acquired absence of both cervix and uterus; Z99.81 Dependence on supplemental oxygen
CPT/HCPCS: 36415; 71045; 80053; 83880; 84484; 85025; 85610; 93005; 94640; 94760; 96365; 96375; J2920; J2930; J3490; J7512; J7620; Q0162; 99285-25; G0378

== ENCOUNTER 2019-06-15 18:53 | Emergency (ER) | payer MEDICARE, OTHER ==
[~2019-06-15] VITALS: Ht 147.3 cm; Wt 63.5 kg
[~2019-06-15 18:53] MED LIST changes: +DOXY100C2 PO; -MEMA10TA20 PO; +MEMA10TA56 PO; +PRED20TA PO
[2019-06-15] MEDS ORDERED: ASPIRIN 325 MG TABLET PO ONE (19:00)
--- NOTE | 2019-06-15 19:23 | PHYS DOC ---
Past Medical History Past Medical History: A-Fib, COPD, Dementia Additional Past Medical Histor: seasonal allergies Past Medical History Limited due to dementia Past Surgical History: Appendectomy, Hysterectomy Additional Past Surgical Histo: L hip Past Surgical History Limited due to dementia Smoking: Second-hand () Alcohol Use: None Drug Use: None Social History Limited due to dementia Adult General Chief Complaint Chief Complaint: SHORTNESS OF BREATH HPI HPI Pt is a 83 y/o female with a history of A. fib, dementia, COPD (chronically on O2), hypertension, who presents to the ED with weakness that started earlier today. Pt was recently admitted from 06/06-06/10 for COPD exacerbation and discharged with Prednisone and doxycycline, both of which she is still taking. Per family pt was lying in bed all day and not acting like her normal self. She currently lives at home and ambulates with a walker. Associated cough w/ sputum and SOB. Denies chest pain. HPI limited due to dementia. Review of Systems Review of Systems Constitutional: Denies fever or chills Eyes: Denies redness or eye pain HENT: Denies nasal congestion or sore throat Respiratory: Reports cough or shortness of breath Cardiovascular: Denies chest pain or palpitations, Reports leg swelling GI: Denies abdominal pain, nausea, or vomiting : Denies dysuria or hematuria Musculoskeletal: Denies back pain or joint pain Review of systems limited due to dementia. Current Medications Current Medications Current Medications Medications (Trade) Dose Ordered Sig/Silvia Start Time Stop Time Status Last Admin Dose Admin Albuterol/ Ipratropium (Duoneb) 3 ml 1X ONCE 06/15/19 19:45 06/15/19 19:46 DC 06/15/19 19:49 3 ML Aspirin (Chris Aspirin) 325 mg 1X ONCE 06/15/19 19:00 06/15/19 19:05 DC 06/15/19 19:45 325 MG Allergies Allergies Allergies Coded Allergies Type Severity Reaction Last Updated Verified No Known Drug Allergies 07/15/16 No Physical Exam Physical Exam Constitutional: Well developed, well nourished, no acute distress, non-toxic appearance HENT: Normocephalic, atraumatic, oropharynx moist Cardiovascular: Heart rate normal, regular rhythm Lungs & Thorax: Bilateral lung sounds w/ inspiratory wheezing and expiratory rhonchi Abdomen: Soft, no tenderness Skin: Warm, dry, no erythema, no rash Back: No tenderness, no CVA tenderness Extremities: 1+ pitting edema bilateral lower extremity Neurologic: Pleasantly confused, normal motor function, normal sensory function, no focal deficits noted Current Patient Data Vital Signs Vital Signs Date Time Temp Pulse Resp B/P (MAP) Pulse Ox O2 Delivery O2 Flow Rate FiO2 06/15/19 19:49 99 Nasal Cannula 2.0 06/15/19 19:06 98.3 64 22 116/61 (79) 98.3 Lab Values Laboratory Tests Test 06/15/19 19:20 06/15/19 20:05 White Blood Count 8.0 x10^3/uL (4.0-11.0) Red Blood Count 3.34 x10^6/uL (3.50-5.40) L Hemoglobin 10.1 g/dL (12.0-15.5) L Hematocrit 31.0 % (36.0-47.0) L Mean Corpuscular Volume 93 fL (79-100) Mean Corpuscular Hemoglobin 30 pg (25-35) Mean Corpuscular Hemoglobin Concent 33 g/dL (31-37) Red Cell Distribution Width 15.5 % (11.5-14.5) H Platelet Count 248 x10^3/uL (140-400) Neutrophils (%) (Auto) 93 % (31-73) H Lymphocytes (%) (Auto) 3 % (24-48) L Monocytes (%) (Auto) 4 % (0-9) Eosinophils (%) (Auto) 0 % (0-3) Basophils (%) (Auto) 0 % (0-3) Neutrophils # (Auto) 7.4 x10^3/uL (1.8-7.7) Lymphocytes # (Auto) 0.2 x10^3/uL (1.0-4.8) L Monocytes # (Auto) 0.3 x10^3/uL (0.0-1.1) Eosinophils # (Auto) 0.0 x10^3/uL (0.0-0.7) Basophils # (Auto) 0.0 x10^3/uL (0.0-0.2) Segmented Neutrophils % 92 % (35-66) H Lymphocytes % 2 % (24-48) L Monocytes % 4 % (0-10) Metamyelocytes % 1 % (0-0) H Myelocytes % 1 % (0-0) H Platelet Estimate Adequate (ADEQUATE) Hypochromasia Slight Anisocytosis Slight Ovalocytes Occ Prothrombin Time 12.1 SEC (11.7-14.0) Prothrombin Time INR 0.9 (0.8-1.1) Activated Partial Thromboplast Time 27 SEC (24-38) Sodium Level 136 mmol/L (136-145) Potassium Level 4.5 mmol/L (3.5-5.1) Chloride Level 96 mmol/L (98-107) L Carbon Dioxide Level 40 mmol/L (21-32) H Anion Gap 0 (6-14) L Blood Urea Nitrogen 20 mg/dL (7-20) Creatinine 1.0 mg/dL (0.6-1.0) Estimated GFR (Cockcroft-Gault) 52.8 BUN/Creatinine Ratio 20 (6-20) Glucose Level 158 mg/dL (70-99) H Calcium Level 9.1 mg/dL (8.5-10.1) Magnesium Level 1.8 mg/dL (1.8-2.4) Total Bilirubin 0.5 mg/dL (0.2-1.0) Aspartate Amino Transferase (AST) 14 U/L (15-37) L Alanine Aminotransferase (ALT) 24 U/L (14-59) Alkaline Phosphatase 59 U/L (46-116) Creatine Kinase 25 U/L (26-192) L Creatine Kinase MB (Mass) 1.2 ng/mL (0.0-3.6) Creatine Kinase MB Relative Index % (0-4) Troponin I Quantitative < 0.017 ng/mL (0.000-0.055) PO-Utm-G-Type Natriuretic Peptide 744 pg/mL (0-449) H Total Protein 6.2 g/dL (6.4-8.2) L Albumin 3.4 g/dL (3.4-5.0) Albumin/Globulin Ratio 1.2 (1.0-1.7) Lipase 72 U/L (73-393) L Urine Collection Type U cath Urine Color Yellow Urine Clarity Clear Urine pH 6.5 Urine Specific Rogers 1.020 Urine Protein Negative mg/dL (NEG-TRACE) Urine Glucose (UA) Negative mg/dL (NEG) Urine Ketones (Stick) Negative mg/dL (NEG) Urine Blood Negative (NEG) Urine Nitrite Negative (NEG) Urine Bilirubin Negative (NEG) Urine Urobilinogen Dipstick 0.2 mg/dL (0.2 mg/dL) Urine Leukocyte Esterase Negative (NEG) Urine RBC Occ /HPF (0-2) Urine WBC 0 /HPF (0-4) Urine Squamous Epithelial Cells Occ /LPF Urine Transitional Epithelial Cells Occ /LPF Urine Bacteria 0 /HPF (0-FEW) Urine Hyaline Casts Moderate /HPF Urine Mucus Mod /LPF Laboratory Tests 06/15/19 19:20 Laboratory Tests 06/15/19 19:20 EKG EKG @1916 Sinus bradycardia at 57bpm, NO ST elevation, wandering baseline, Radiology/Procedures Radiology/Procedures PROCEDURE: CHEST PA & LATERAL CHEST PA LATERAL Technique: PA and lateral views of the chest were obtained. Clinical History: Dyspnea Comparison: June 06, 2019. Findings: The heart and pulmonary vasculature appear within normal limits. The lungs are clear. The pleural margins are clear. There is an old fracture of the posterior lateral left sixth rib. The lungs are hyperinflated. Impression: No acute chest process is seen. Electronically signed by: José Miguel Valente III, MD (06/15/2019 7:49 PM) [email or web address] PROCEDURE: CT HEAD WO CONTRAST CT Head W/O Contrast: History: Weakness Comparison: March 29, 2019 Axial images were obtained without contrast. There is mild to moderate diffuse atrophy. There is no mass effect, extraaxial fluid collections or hydrocephalus. There is no gross bleed. Moderate, patchy periventricular and subcortical white matter hypoattenuation is seen. There is no focal loss of mccoy-white matter distinction to suggest acute ischemia, i.e. stroke. There is a 5 mm lesion projecting above the basilar artery. Impression: 1. 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 2. No evidence of acute ischemia. PQRS Compliance Statement: One or more of the following individualized dose reduction techniques were utilized for this examination: 1. Automated exposure control 2. Adjustment of the mA and/or kV according to patient size 3. Use of iterative reconstruction technique Electronically signed by: José Miguel Valente III, MD (06/15/2019 7:47 PM) [id number] Course & Med Decision Making Course & Med Decision Making Pt is a 83 y/o female with a history of afib, COPD, dementia, and HTN, who presents with weakness starting today. Pt is chronically on oxygen and complains of SOB and coughing up sputum. Patient currently on steroids and empiric antibiotics. Associated bilateral LE edema. Pt given breathing treatment in ED. CXR without acute process. EKG stable. Labs obtained and posted to chart. WBC and lactic acid WNL. UA without signs of infection. H/H stable in comparison to prior. CT head without acute process but noted possible small aneurysm near tip of basilar artery. A copy of CT imaging report was given to patient's family to follow up closely with PCP. Patient stable for discharge with outpatient follow-up with PCP. Discussed findings and plan with patient and family, who acknowledge understanding and agreement. Dragon Disclaimer Dragon Disclaimer This electronic medical record was generated, in whole or in part, using a voice recognition dictation system. Departure Departure Impression: Primary Impression: Weakness generalized Additional Impressions: History of COPD Abnormal finding on CT scan Disposition: HOME, SELF-CARE Condition: STABLE Referrals: QUINCY ALCANTAR MD (PCP) Patient Instructions: Chronic Obstructive Pulmonary Disease, [id number], Incidental Abnormal Radiological Finding, Weakness, [id number] Additional Instructions: Continue previously prescribed antibiotics, respiratory treatments, and steroids. Problem Qualifiers ALIVIA MILLER DO Jun 15, 2019 19:23
[2019-06-15 19:36] LABS: BASO % 0 % (0-3); EOS % 0 % (0-3); HEMOGLOBIN 10.1 g/dL (12.0-15.5); LYMPH # 0.2 x10^3/uL (1.0-4.8); LYMPH % 3 % (24-48); MEAN CORPUSCULAR HEMOGLOBIN 30 pg (25-35); MEAN CORPUSCULAR HGB CONC 33 g/dL (31-37); MEAN CORPUSCULAR VOLUME 93 fL (79-100); MONO # 0.3 x10^3/uL (0.0-1.1); MONO % 4 % (0-9); NEUT # 7.4 x10^3/uL (1.8-7.7); NEUT % 93 % (31-73); PLATELET COUNT 248 x10^3/uL (140-400); RED BLOOD COUNT 3.34 x10^6/uL (3.50-5.40); RED CELL DISTRIBUTION WIDTH 15.5 % (11.5-14.5)
[2019-06-15] MEDS ORDERED: DONE10TA7 PO (19:40)
[2019-06-15] MEDS ORDERED: MEMA10TA PO (19:40)
[2019-06-15] MEDS ORDERED: METO25TA4 PO (19:40)
[2019-06-15 19:43] LABS: CALCIUM 9.1 mg/dL (8.5-10.1); GFR 52.8; POTASSIUM 4.5 mmol/L (3.5-5.1)
[2019-06-15 19:44] LABS: PROTHROMBIN TIME PATIENT 12.1 SEC (11.7-14.0)
[2019-06-15] MEDS ORDERED: IPRATRPIUM/ALBUTEROL 0.5/2.5MG 3 ML NEBU. NEB ONE (19:45)
[2019-06-15 19:49] LABS: ALBUMIN 3.4 g/dL (3.4-5.0); ALBUMIN/GLOBULIN RATIO 1.2 (1.0-1.7); MAGNESIUM 1.8 mg/dL (1.8-2.4); TOTAL BILIRUBIN 0.5 mg/dL (0.2-1.0); TOTAL PROTEIN 6.2 g/dL (6.4-8.2)
--- NOTE | 2019-06-15 19:50 | RAD ---
CT Head W/O Contrast: History: Weakness Comparison: March 29, 2019 Axial images were obtained without contrast. There is mild to moderate diffuse atrophy. There is no mass effect, extraaxial fluid collections or hydrocephalus. There is no gross bleed. Moderate, patchy periventricular and subcortical white matter hypoattenuation is seen. There is no focal loss of mccoy-white matter distinction to suggest acute ischemia, i.e. stroke. There is a 5 mm lesion projecting above the basilar artery. Impression: 1. 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 2. No evidence of acute ischemia. RS Compliance Statement: One or more of the following individualized dose reduction techniques were utilized for this examination: 1. Automated exposure control 2. Adjustment of the mA and/or kV according to patient size 3. Use of iterative reconstruction technique Electronically signed by: José Miguel Valente III, MD (06/15/2019 7:47 PM) [email or web address]
[2019-06-15 19:52] LABS: % LYMPHS 2 % (24-48); % METAS 1 % (0-0); % MONOS 4 % (0-10); % MYELOS 1 % (0-0); % SEGS 92 % (35-66); ANISOCYTOSIS SLIGHT; HYPOCHROMIA SLIGHT; PLT ESTIMATE ADEQUATE (ADEQUATE)
--- NOTE | 2019-06-15 19:52 | RAD ---
CHEST PA LATERAL Technique: PA and lateral views of the chest were obtained. Clinical History: Dyspnea Comparison: June 06, 2019. Findings: The heart and pulmonary vasculature appear within normal limits. The lungs are clear. The pleural margins are clear. There is an old fracture of the posterior lateral left sixth rib. The lungs are hyperinflated. Impression: No acute chest process is seen. Electronically signed by: José Miguel Valente III, MD (06/15/2019 7:49 PM) [email or web address]
[2019-06-15 19:53] LABS: OVALOCYTES OCC
[2019-06-15 19:58] LABS: CREATINE KINASE 25 U/L (26-192)
[2019-06-15 20:14] LABS: BILIRUBIN,URINE NEGATIVE (NEG); CLARITY,URINE CLEAR; COLOR,URINE YELLOW; NITRITE,URINE NEGATIVE (NEG); PH,URINE 6.5; PROTEIN,URINE NEGATIVE (NEG-TRACE); UROBILINOGEN,URINE 0.2 mg/dL (0.2 mg/dL)
[2019-06-15 20:22] LABS: BACTERIA,URINE 0 /HPF (0-FEW); RBC,URINE OCC /HPF (0-2); WBC,URINE 0 /HPF (0-4)
[2019-06-15 20:23] LABS: HYALINE CASTS, URINE MODERATE /HPF; SQUAMOUS EPITHELIAL CELL,UR OCC /LPF
[2019-06-15 20:30] VITALS: BP 85/53
--- NOTE | 2019-06-16 10:15 | EKG ---
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
--- NOTE | 2019-06-16 10:24 | EKG ---
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
== END 2019-06-15 20:47 | disposition home or self-care (01) ==
LOC: ER 18:53
DX: R53.1 Weakness (principal); R93.0 Abnormal findings on diagnostic imaging of skull and head, not elsewhere classified; J44.9 Chronic obstructive pulmonary disease, unspecified; I48.91 Unspecified atrial fibrillation; F03.90 Unspecified dementia, unspecified severity, without behavioral disturbance, psychotic disturbance, mood disturbance, and anxiety
CPT/HCPCS: 36415; 70450; 71046; 80053; 81001; 82553; 83690; 83735; 83880; 84484; 85007; 85025; 85610; 85730; 93005; 94640; 99285; J7620; P9612

== ENCOUNTER 2019-11-30 17:23 | Inpatient (IN) | payer MEDICARE, OTHER ==
[~2019-11-30] VITALS: Ht 157.5 cm; Wt 56.2 kg
[~2019-11-30 17:23] MED LIST changes: +AMLO5TAB10 PO; -LEVO112T4 PO; +LEVO112T49 PO; +MEMA10TA PO
[2019-11-30] MEDS ORDERED: MECLIZINE HCL 12.5 MG TABLET. PO ONE (18:00)
[2019-11-30] MEDS ORDERED: IV NORMAL SALINE 1000ML BAG 1,000 ML IV ONE ×2 (18:00→19:30)
[2019-11-30 18:11] LABS: BASO % 1 % (0-3); EOS # 0.2 x10^3/uL (0.0-0.7); EOS % 6 % (0-3); HEMATOCRIT 30.5 % (36.0-47.0); HEMOGLOBIN 9.9 g/dL (12.0-15.5); LYMPH # 0.8 x10^3/uL (1.0-4.8); LYMPH % 20 % (24-48); MEAN CORPUSCULAR HEMOGLOBIN 28 pg (25-35); MEAN CORPUSCULAR HGB CONC 32 g/dL (31-37); MEAN CORPUSCULAR VOLUME 86 fL (79-100); MONO # 0.5 x10^3/uL (0.0-1.1); MONO % 12 % (0-9); NEUT # 2.4 x10^3/uL (1.8-7.7); NEUT % 61 % (31-73); PLATELET COUNT 162 x10^3/uL (140-400); RED BLOOD COUNT 3.56 x10^6/uL (3.50-5.40); RED CELL DISTRIBUTION WIDTH 18.6 % (11.5-14.5); WHITE BLOOD COUNT 3.9 x10^3/uL (4.0-11.0)
[2019-11-30 18:19] LABS: CALCIUM 8.9 mg/dL (8.5-10.1); CREATININE 1.1 mg/dL (0.6-1.0); GFR 47.2; POTASSIUM 4.8 mmol/L (3.5-5.1)
--- NOTE | 2019-11-30 18:23 | PHYS DOC ---
Past Medical History Past Medical History: A-Fib, COPD, Dementia Additional Past Medical Histor: seasonal allergies Past Surgical History: Appendectomy, Hysterectomy Additional Past Surgical Histo: L hip Smoking Status: Never Smoker Alcohol Use: None Drug Use: None General Adult EDM: Chief Complaint: DIZZY/LIGHT HEADED HPI: HPI: Patient is a 84 year old female with history of COPD on oxygen 2 L, A. fib, dementia, who presents to the ED today complaining of dizziness that began this morning worse when she is moving. Patient denies any nausea vomiting, she is also complaining of a slight headache. Patient denies any nausea vomiting. Review of Systems: Review of Systems: Constitutional: Denies fever or chills. [] Eyes: Denies change in visual acuity. [] HENT: Denies nasal congestion or sore throat. [] Respiratory: Denies cough or shortness of breath. [] Cardiovascular: Denies chest pain or edema. [] GI: Denies abdominal pain, nausea, vomiting, bloody stools or diarrhea. [] : Denies dysuria. [] Musculoskeletal: Denies back pain or joint pain. [] Integument: Denies rash. [] Neurologic: Reports headache and dizziness, denies focal weakness or sensory changes. [] Psychiatric: Denies depression or anxiety. [] Heart Score: Risk Factors: Risk Factors: DM, Current or recent (<one month) smoker, HTN, HLP, family history of CAD, obesity. Risk Scores: Score 0 - 3: 2.5% MACE over next 6 weeks - Discharge Home Score 4 - 6: 20.3% MACE over next 6 weeks - Admit for Clinical Observation Score 7 - 10: 72.7% MACE over next 6 weeks - Early Invasive Strategies Current Medications: Current Medications Medications (Trade) Dose Ordered Sig/Silvia Start Time Stop Time Status Last Admin Dose Admin Meclizine HCl (Antivert) 12.5 mg 1X ONCE 11/30/19 18:00 11/30/19 18:01 DC 11/30/19 18:12 12.5 MG Sodium Chloride 1,000 ml @ 1,000 mls/hr 1X ONCE 11/30/19 18:00 11/30/19 18:59 11/30/19 18:12 1,000 MLS/HR Allergies: Allergies: Allergies Coded Allergies Type Severity Reaction Last Updated Verified No Known Drug Allergies 07/15/16 No Physical Exam: PE: Constitutional: Well developed, well nourished, no acute distress, non-toxic appearance. [] HENT: Normocephalic, atraumatic, bilateral external ears normal, oropharynx moist, no oral exudates, nose normal. [] Eyes: PERRLA, EOMI, conjunctiva normal, no discharge. [] Neck: Normal range of motion, no tenderness, supple, no stridor. [] Cardiovascular:Heart rate regular rhythm, no murmur [] Lungs & Thorax: Bilateral breath sounds clear to auscultation [] Abdomen: Bowel sounds normal, soft, no tenderness, no masses, no pulsatile stella s. [] Skin: Warm, dry, no erythema, no rash. [] Back: No tenderness, no CVA tenderness. [] Extremities: No tenderness, no cyanosis, no clubbing, ROM intact, no edema. [] Neurologic: Alert and oriented X 3, normal motor function, normal sensory function, no focal deficits noted. Cranial nerves II through XII intact Psychologic: Affect normal, judgement normal, mood normal. [] Current Patient Data: Labs: Laboratory Tests Test 11/30/19 17:50 White Blood Count 3.9 x10^3/uL (4.0-11.0) L Red Blood Count 3.56 x10^6/uL (3.50-5.40) Hemoglobin 9.9 g/dL (12.0-15.5) L Hematocrit 30.5 % (36.0-47.0) L Mean Corpuscular Volume 86 fL (79-100) Mean Corpuscular Hemoglobin 28 pg (25-35) Mean Corpuscular Hemoglobin Concent 32 g/dL (31-37) Red Cell Distribution Width 18.6 % (11.5-14.5) H Platelet Count 162 x10^3/uL (140-400) Neutrophils (%) (Auto) 61 % (31-73) Lymphocytes (%) (Auto) 20 % (24-48) L Monocytes (%) (Auto) 12 % (0-9) H Eosinophils (%) (Auto) 6 % (0-3) H Basophils (%) (Auto) 1 % (0-3) Neutrophils # (Auto) 2.4 x10^3/uL (1.8-7.7) Lymphocytes # (Auto) 0.8 x10^3/uL (1.0-4.8) L Monocytes # (Auto) 0.5 x10^3/uL (0.0-1.1) Eosinophils # (Auto) 0.2 x10^3/uL (0.0-0.7) Basophils # (Auto) 0.0 x10^3/uL (0.0-0.2) Laboratory Tests 11/30/19 17:50 Vital Signs: Vital Signs Date Time Temp Pulse Resp B/P (MAP) Pulse Ox O2 Delivery O2 Flow Rate FiO2 11/30/19 17:37 97.9 62 22 211/86 (127) 98 Nasal Cannula 2.0 97.9 EKG: EK interpreted by Dr. Stewart sinus rhythm heart rate 56 no STEMI. [] Radiology/Procedures: Radiology/Procedures: []PROCEDURE: CT HEAD WO CONTRAST CT head without contrast dated 11/30/2019. Comparison made to 06/15/2019. CLINICAL INDICATION: Dizziness. TECHNIQUE: Contiguous axial imaging of the head was performed from skull base to vertex. No contrast administered. One or more of the following individualized dose reduction techniques were utilized for this examination: 1. Automated exposure control 2. Adjustment of the mA and/or kV according to patient size 3. Use of iterative reconstruction technique. FINDINGS: Ventricles and sulci are mildly prominent for age. No midline shift or mass effect. Mild patchy low density in the deep/subcortical periventricular white matter. No hemorrhage or extra-axial collection. Posterior fossa and brainstem unremarkable. Visualized paranasal sinuses and mastoid air cells are clear. Minimal mucosal thickening of the left maxillary sinus, unchanged. Atherosclerotic calcifications of the parasellar carotid arteries. No apparent calvarial abnormality. IMPRESSION: 1. No evidence of acute intracranial hemorrhage or mass. 2. Mild chronic small vessel ischemic changes and atrophy. Electronically signed by: Elie Deleon MD (11/30/2019 6:36 PM) [facility] [place]CTATED and SIGNED BY: ELIE DELEON MD DATE: 11/30/19 1836 PROCEDURE: PORTABLE CHEST 1V INDICATION: Dizziness COMPARISON: August 19, 2019 FINDINGS: Single view of chest obtained. Cardiac silhouette unremarkable. No definite new region of consolidation or edema. Calcific atherosclerosis. Old left rib fracture again seen. IMPRESSION: * No focal airspace consolidation or edema. Electronically signed by: Thomas Recinos MD (11/30/2019 6:24 PM) [id number] DICTATED and SIGNED BY: THOMAS RECINOS MD DATE: 11/30/191823 Course & Med Decision Making: Course & Med Decision Making Pertinent Labs and Imaging studies reviewed. (See chart for details) This is a 84-year-old female patient presenting to the ED today with complaints of dizziness that has been going on since this morning. Symptoms are worse when she is up and moving. CT of the head is negative for any acute findings, chest x-ray is negative for any acute findings, CBC with a WBC of 3.9 which is very low for patient. COVID19 testing was done. Orthostatic vitals supine blood pressure 206/86 with a heart rate of 55, sitting blood pressure 186/82 with a heart rate of 54, standing blood pressure 170/76 with a heart rate of 65. Patient continues to complain of dizziness when up. Patient was given IV fluids and meclizine. No improvement to symptoms. She has history of dementia which also makes it hard to communicate with her at times. Spoke with Dr. Lauren who accepted patient for admission. Robin Disclaimer: Robin Disclaimer: This electronic medical record was generated, in whole or in part, using a voice recognition dictation system. Departure Departure Impression: Primary Impression: Dizziness Additional Impression: Person under investigation for COVID-19 Disposition: ADMITTED INPATIENT Condition: STABLE Referrals: QUINCY LAUREN MD (PCP) GALILEO FISCHER APRN November 30, 2019 18:23
[2019-11-30 18:26] LABS: ALBUMIN 3.6 g/dL (3.4-5.0); ALBUMIN/GLOBULIN RATIO 1.2 (1.0-1.7); MAGNESIUM 1.8 mg/dL (1.8-2.4); TOTAL BILIRUBIN 0.4 mg/dL (0.2-1.0); TOTAL PROTEIN 6.7 g/dL (6.4-8.2)
--- NOTE | 2019-11-30 18:27 | RAD ---
INDICATION: Dizziness COMPARISON: August 19, 2019 FINDINGS: Single view of chest obtained. Cardiac silhouette unremarkable. No definite new region of consolidation or edema. Calcific atherosclerosis. Old left rib fracture again seen. IMPRESSION: * No focal airspace consolidation or edema. Electronically signed by: Burke Laureano MD (11/30/2019 6:24 PM) [id number]
[2019-11-30 18:31] LABS: BILIRUBIN,URINE NEGATIVE (NEG); CLARITY,URINE CLEAR; COLOR,URINE YELLOW; NITRITE,URINE NEGATIVE (NEG); PH,URINE 6.5 (<5.0-8.0); PROTEIN,URINE NEGATIVE (NEG-TRACE); UROBILINOGEN,URINE 0.2 mg/dL (0.2 mg/dL)
[2019-11-30 18:34] LABS: CREATINE KINASE 69 U/L (26-192)
[2019-11-30 18:37] LABS: SQUAMOUS EPITHELIAL CELL,UR FEW /LPF
[2019-11-30 18:38] LABS: AMPHETAMINE/METHAMPHETAMINE NEG (NEG); BACTERIA,URINE 0 /HPF (0-FEW); BARBITURATES NEG (NEG); BENZODIAZEPINES NEG (NEG); CANNABINOIDS NEG (NEG); COCAINE NEG (NEG); HYALINE CASTS, URINE FEW /HPF; METHADONE NEG (NEG); OPIATES NEG (NEG); PHENCYCLIDINE NEG (NEG)
--- NOTE | 2019-11-30 18:39 | RAD ---
CT head without contrast dated 11/30/2019. Comparison made to 06/15/2019. CLINICAL INDICATION: Dizziness. TECHNIQUE: Contiguous axial imaging of the head was performed from skull base to vertex. No contrast administered. One or more of the following individualized dose reduction techniques were utilized for this examination: 1. Automated exposure control 2. Adjustment of the mA and/or kV according to patient size 3. Use of iterative reconstruction technique. FINDINGS: Ventricles and sulci are mildly prominent for age. No midline shift or mass effect. Mild patchy low density in the deep/subcortical periventricular white matter. No hemorrhage or extra-axial collection. Posterior fossa and brainstem unremarkable. Visualized paranasal sinuses and mastoid air cells are clear. Minimal mucosal thickening of the left maxillary sinus, unchanged. Atherosclerotic calcifications of the parasellar carotid arteries. No apparent calvarial abnormality. IMPRESSION: 1. No evidence of acute intracranial hemorrhage or mass. 2. Mild chronic small vessel ischemic changes and atrophy. Electronically signed by: Elie Deleon MD (11/30/2019 6:36 PM) [facility]
[2019-11-30] MEDS ORDERED: ACETAMINOPHEN 325 MG TABLET. PO PRN (19:30)
[2019-11-30] MEDS ORDERED: ONDANSETRON PF 4 MG/2 ML VIAL. IV PRN (19:30)
[2019-11-30 20:40] VITALS: BP 205/86
--- NOTE | 2019-11-30 22:00 | NUR ---
blood pressure 205/86. Doctor's answering service notified. No return phone call received.
[2019-11-30 23:00] VITALS: BP 176/72
[2019-12-01] VITALS (7 sets, daily range): BP systolic 98–213; BP diastolic 35–108
[2019-12-01 05:07] LABS: BASO % 1 % (0-3); EOS # 0.3 x10^3/uL (0.0-0.7); EOS % 7 % (0-3); HEMATOCRIT 28.4 % (36.0-47.0); HEMOGLOBIN 9.2 g/dL (12.0-15.5); LYMPH # 0.8 x10^3/uL (1.0-4.8); LYMPH % 22 % (24-48); MEAN CORPUSCULAR HEMOGLOBIN 28 pg (25-35); MEAN CORPUSCULAR HGB CONC 32 g/dL (31-37); MEAN CORPUSCULAR VOLUME 86 fL (79-100); MONO # 0.5 x10^3/uL (0.0-1.1); MONO % 14 % (0-9); NEUT # 1.9 x10^3/uL (1.8-7.7); NEUT % 56 % (31-73); PLATELET COUNT 136 x10^3/uL (140-400); RED CELL DISTRIBUTION WIDTH 18.5 % (11.5-14.5); WHITE BLOOD COUNT 3.5 x10^3/uL (4.0-11.0)
[2019-12-01 05:17] LABS: CALCIUM 8.9 mg/dL (8.5-10.1); GFR 52.7; POTASSIUM 4.1 mmol/L (3.5-5.1)
[2019-12-01] MEDS ORDERED: hydrOXYzine 25 MG TABLET PO PRN (05:45)
--- NOTE | 2019-12-01 06:42 | EKG ---
[facility] [address] [place] [address] Test Date: 2019-11-30 Test Time: 17:44:32 Pat Name: PATRIA CAMPUZANO Department: Room: [facility] Gender: F Travel Registered Nurse Icu: : 1935 Requested By: GALILEO FISCHER Order Number: [id number] Reading MD: David Carson Measurements Intervals [place] Rate: 56 P: 55 GA: 204 QRS: 37 QRSD: 78 T: 81 QT: 424 QTc: 412 Interpretive Statements SINUS RHYTHM T ABNORMALITY IN HIGH LATERAL LEADS ABNORMAL ECG Electronically Signed On 12-01-2019 8:42:06 CDT by David Carson
[2019-12-01] MEDS ORDERED: ALBUTEROL SULFATE 2.5 MG/3 ML NEBU. NEB PRN (08:45)
[2019-12-01] MEDS: LEVOTHYROXINE 125 MCG TABLET PO SCH (10:06)
[2019-12-01] MEDS: DONEPEZIL HCL 10 MG TABLET. PO SCH (10:06)
[2019-12-01] MEDS: CITALOPRAM 10 MG TABLET. PO SCH (10:07)
[2019-12-01] MEDS: SUCRALFATE 1 GM TABLET. PO SCH ×2 (10:07→16:51)
[2019-12-01] MEDS: amLODIPine BESYLATE 5 MG TABLET PO SCH (10:08)
[2019-12-01] MEDS: MEMANTINE 10 MG TABLET. PO SCH ×2 (10:08→20:36)
[2019-12-01] MEDS: PANTOPRAZOLE 40 MG TABLET.DR. PO SCH (10:08)
[2019-12-01] MEDS: DRONEDARONE HCL 400 MG TABLET PO SCH ×2 (10:08→20:37)
[2019-12-01] MEDS: METOPROLOL TART IMMED RELEASE 25 MG TABLET. PO SCH ×2 (10:09→20:37)
[2019-12-01] MEDS: ASPIRIN ENTERIC COATED 81 MG TABLET.DR. PO SCH (10:09)
[2019-12-01] MEDS: LOSARTAN POTASSIUM 50 MG TABLET. PO SCH (10:11)
[2019-12-01] MEDS ORDERED: IPRATRPIUM/ALBUTEROL 0.5/2.5MG 3 ML NEBU. NEB SCH (12:00)
[2019-12-01] MEDS ORDERED: IPRATRPIUM/ALBUTEROL 0.5/2.5MG 3 ML NEBU. NEB PRN (12:00)
--- NOTE | 2019-12-01 14:47 | NUR ---
SS following for discharge planning. SS reviewed pt chart and discussed with pt RN. Pt is from home and is currently requiring oxygen. Pt has [facility] at home through [employer], ; fax [phone]. Pt is COVID19 pending. Pt has been to [facility] in the past and has had [facility]. SS will continue to follow for discharge planning.
--- NOTE | 2019-12-01 16:30 | HP ---
ADMIT DATE: 12/01/2019 CHIEF COMPLAINT AND HISTORY OF PRESENT ILLNESS: This 84-year-old white female is well known to me in followup in the office. The patient presented to the Emergency Room in the evening on the day of admission with dizziness. It has been worse since she was moving. She denied any nausea or vomiting with it. She also complained of some increased shortness of breath as well as somewhat of a cough. Denied any nausea or vomiting. She was felt by the Emergency Room to have dizziness where she was unsafe to discharge as well as probable exacerbation of her COPD and felt that COVID-19 need to be ruled out with her presentation and she was admitted for the same. PAST MEDICAL HISTORY: Remarkable for AFib, dementia, COPD, allergic rhinitis. PRIOR SURGICAL HISTORY: Remarkable for hysterectomy, left hip, appendectomy. MEDICATIONS: Brought with the patient, listed on the computer, have been addressed. ALLERGIES: She has no known drug allergies. SOCIAL HISTORY: She is a lifetime nonsmoker, nondrinker. Does not use drugs. , lives at home with her son and her [id number]. FAMILY HISTORY: Noncontributory. REVIEW OF SYSTEMS: Is that as mentioned above. PHYSICAL EXAMINATION: GENERAL: She is a well-developed, well-nourished white female, in no acute distress by the time of my examination. VITAL SIGNS: Stable. She is afebrile. HEAD, EYES, EARS, NOSE AND THROAT: Remarkable for O2 per nasal cannula at 2 liters, which is her baseline. NECK: Supple, without adenopathy or thyromegaly. CHEST: Reveals decreased breath sounds bilaterally, but clear. HEART: Regular rate and rhythm without S3, S4 or murmur. ABDOMEN: Soft, nontender, without hepatosplenomegaly or masses. EXTREMITIES: Without cyanosis, clubbing or edema. NEUROLOGIC: She is intact. LABORATORY DATA: Chest x-ray shows no acute infiltrate. CT head shows no acute changes, but old changes. Laboratory is remarkable for white count of 3900 with a hemoglobin of 9.9 on admission. Her BUN is 24 and creatinine 1.1. Troponin is negative. BNP is normal. TSH is 5.478. IMPRESSION: Dizziness with cough and increased shortness of breath to rule out COVID. PLAN: The patient has been admitted. Pulmonary has been consulted to help with the cough and shortness of breath. We will see how she does with the dizziness prior to neurological evaluation, but we will watch on a day-to-day basis and see how she does with the same. QUINCY ALCANTAR MD DR: MAYCOL/erick JOB#: [id number] / [id number]
[2019-12-01] MEDS: ATORVASTATIN CALCIUM 20 MG TABLET PO SCH (20:36)
[2019-12-02 03:00] VITALS: BP 177/69
[2019-12-02] MEDS: SUCRALFATE 1 GM TABLET. PO SCH ×2 (05:59→08:06)
[2019-12-02] MEDS: LEVOTHYROXINE 125 MCG TABLET PO SCH (05:59)
[2019-12-02 07:00] VITALS: BP 150/67
[2019-12-02] MEDS: MEMANTINE 10 MG TABLET. PO SCH ×2 (08:06→20:18)
[2019-12-02] MEDS: DRONEDARONE HCL 400 MG TABLET PO SCH ×2 (08:06→20:19)
[2019-12-02] MEDS: PANTOPRAZOLE 40 MG TABLET.DR. PO SCH (08:06)
[2019-12-02] MEDS: METOPROLOL TART IMMED RELEASE 25 MG TABLET. PO SCH ×2 (08:07→20:20)
[2019-12-02] MEDS: DONEPEZIL HCL 10 MG TABLET. PO SCH (08:07)
[2019-12-02] MEDS: amLODIPine BESYLATE 5 MG TABLET PO SCH (08:07)
[2019-12-02] MEDS: LOSARTAN POTASSIUM 50 MG TABLET. PO SCH (08:08)
[2019-12-02] MEDS: ASPIRIN ENTERIC COATED 81 MG TABLET.DR. PO SCH (08:09)
[2019-12-02] MEDS: CITALOPRAM 10 MG TABLET. PO SCH (08:09)
--- NOTE | 2019-12-02 08:49 | PDOC ---
Provider Note Provider Note vss, bp high on meds, exam ok, alert- note mild leukopenia which is new- will add low dose hctz now, see if dizziness less DIMAS RECIONS MD December 02, 2019 08:49
[2019-12-02 11:00] VITALS: BP 126/61
[2019-12-02] MEDS: hydroCHLOROthiazide 12.5 MG CAPSULE PO SCH (11:13)
[2019-12-02 15:00] VITALS: BP 148/68
[2019-12-02 19:00] VITALS: BP 193/77
[2019-12-02] MEDS: ATORVASTATIN CALCIUM 20 MG TABLET PO SCH (20:18)
[2019-12-02 23:00] VITALS: BP 131/60
[2019-12-03 03:00] VITALS: BP 122/58
[2019-12-03] MEDS: SUCRALFATE 1 GM TABLET. PO SCH ×2 (05:56→16:34)
[2019-12-03] MEDS: LEVOTHYROXINE 125 MCG TABLET PO SCH (05:56)
[2019-12-03 07:15] VITALS: BP 138/64
[2019-12-03 07:23] LABS: BASO # 0.1 x10^3/uL (0.0-0.2); BASO % 1 % (0-3); EOS # 0.4 x10^3/uL (0.0-0.7); EOS % 8 % (0-3); HEMATOCRIT 30.8 % (36.0-47.0); HEMOGLOBIN 10.1 g/dL (12.0-15.5); LYMPH # 1.3 x10^3/uL (1.0-4.8); LYMPH % 26 % (24-48); MEAN CORPUSCULAR HEMOGLOBIN 28 pg (25-35); MEAN CORPUSCULAR HGB CONC 33 g/dL (31-37); MEAN CORPUSCULAR VOLUME 86 fL (79-100); MONO # 0.6 x10^3/uL (0.0-1.1); MONO % 11 % (0-9); NEUT # 2.8 x10^3/uL (1.8-7.7); NEUT % 55 % (31-73); PLATELET COUNT 176 x10^3/uL (140-400); RED CELL DISTRIBUTION WIDTH 18.2 % (11.5-14.5); WHITE BLOOD COUNT 5.1 x10^3/uL (4.0-11.0)
[2019-12-03] MEDS: CITALOPRAM 10 MG TABLET. PO SCH (08:11)
[2019-12-03] MEDS: PANTOPRAZOLE 40 MG TABLET.DR. PO SCH (08:11)
[2019-12-03] MEDS: MEMANTINE 10 MG TABLET. PO SCH ×2 (08:12→20:31)
[2019-12-03] MEDS: LOSARTAN POTASSIUM 50 MG TABLET. PO SCH (08:12)
[2019-12-03] MEDS: amLODIPine BESYLATE 5 MG TABLET PO SCH (08:12)
[2019-12-03] MEDS: DONEPEZIL HCL 10 MG TABLET. PO SCH (08:12)
[2019-12-03] MEDS: ASPIRIN ENTERIC COATED 81 MG TABLET.DR. PO SCH (08:12)
[2019-12-03] MEDS: DRONEDARONE HCL 400 MG TABLET PO SCH ×2 (08:13→21:53)
[2019-12-03] MEDS: METOPROLOL TART IMMED RELEASE 25 MG TABLET. PO SCH ×2 (08:13→20:31)
[2019-12-03] MEDS: hydroCHLOROthiazide 12.5 MG CAPSULE PO SCH (08:13)
--- NOTE | 2019-12-03 08:41 | PDOC ---
Provider Note Provider Note vss, bp better on hctz, feels some less dizzy- will reduce hctz to qod and follow- labs ok DIMAS RECINOS MD December 03, 2019 08:40
--- NOTE | 2019-12-03 08:52 | NUR ---
IP: Pt is COVID negative.
[2019-12-03 11:20] VITALS: BP 134/58
--- NOTE | 2019-12-03 11:52 | CONS ---
DATE OF CONSULTATION: 12/03/2019 I was asked to see this 84-year-old lady for shortness of breath, cough. HISTORY OF PRESENT ILLNESS: She is a lifelong nonsmoker. She has COPD and chronic respiratory failure. She is on oxygen 2 liters per minute via nasal cannula continuously. She presented to the Emergency Room for increased shortness of breath for 2 days. She does not have cough more than usual. She denies fever or chills or chest pain. She also was dizzy. She does not have shortness of breath now. She is not dizzy anymore. On admission, his blood pressure was 211/86. PAST MEDICAL HISTORY: Chronic respiratory failure, COPD, paroxysmal atrial fibrillation, dementia, allergic rhinitis, hysterectomy, left hip surgery, appendectomy. ALLERGIES: No known drug allergies. MEDICATIONS: Currently, she is on Maxzide, Lipitor, Protonix, Lopressor, Namenda, Cozaar, Synthroid, Multaq, Aricept, Celexa, aspirin, Norvasc, Carafate, Atarax. SOCIAL HISTORY: Lifelong nonsmoker. FAMILY HISTORY: There is no history of lung disease. REVIEW OF SYSTEMS: As mentioned as above, other systems otherwise negative. PHYSICAL EXAMINATION: VITAL SIGNS: Her O2 saturation on room air on 2 liters of oxygen is 98%, respiratory rate 18, heart rate 66, blood pressure 122/58, temperature 97.6. HEENT: Normocephalic, atraumatic. Pupils equal, round, reactive to light. Throat is clear. Nose is clear. NECK: There is no lymphadenopathy or thyromegaly. CARDIOVASCULAR: Regular rate and rhythm. PMI is nondisplaced. CHEST: Inspection is normal. LUNGS: Clear to auscultation. There is no wheezing. ABDOMEN: Soft. Bowel sounds are good. There is no mass. EXTREMITIES: There is no edema. LYMPHATICS: There is no lymphadenopathy. NEUROLOGIC: Alert and oriented. SKIN: Chronic changes. LABORATORY DATA: I reviewed the following lab data: WBC 5.1, hemoglobin 10.1, platelets 176. Sodium 142, potassium 4.1, chloride 104, CO2 of 36, BUN 20, creatinine 1. Troponin less than 0.017. BNP 303. TSH 5.478. CT of the head. There is no acute abnormality, mild small vessel ischemic changes. Chest x-ray. There is no infiltrate. IMPRESSION: 1. Chronic respiratory failure. 2. Shortness of breath. I suspect her shortness of breath was due to uncontrolled blood pressure with controlling her blood pressure now she denies shortness of breath more than usual. 3. Chronic obstructive pulmonary disease. 4. Paroxysmal atrial fibrillation. 5. Hypertension. 6. Dementia. PLAN AND RECOMMENDATIONS: 1. Titrate FiO2 to keep O2 saturation 92%. 2. Continue oxygen. 3. Bronchodilator when her COVID-19 is back and is negative. 4. Blood pressure control per primary doctor. 5. The findings and recommendations were discussed with the patient and RN. Thank you very much for allowing me to participate in care of this very nice lady. BERTA GTZ M.D. : CANDE/erick JOB#: [id number] / [id number] DONTE
--- NOTE | 2019-12-03 12:12 | NUR ---
Dr. Lauren & Dr. Salazar ok with patient transferring to med surg floor since COVID was negative.
[2019-12-03] MEDS: IPRATRPIUM/ALBUTEROL 0.5/2.5MG 3 ML NEBU. NEB SCH ×3 (12:30→19:33)
--- NOTE | 2019-12-03 14:05 | NUR ---
Patient transferred to room 408 via wheelchair at 1400. Report given to REZA Kuo.
[2019-12-03 15:59] VITALS: BP 112/47
[2019-12-03 19:40] VITALS: BP 120/50
[2019-12-03] MEDS: ATORVASTATIN CALCIUM 20 MG TABLET PO SCH (20:31)
[2019-12-03 22:27] VITALS: BP 152/52
[2019-12-04 03:10] VITALS: BP 108/44
[2019-12-04] MEDS: LEVOTHYROXINE 125 MCG TABLET PO SCH (05:29)
[2019-12-04 07:09] VITALS: BP 133/49
[2019-12-04] MEDS: IPRATRPIUM/ALBUTEROL 0.5/2.5MG 3 ML NEBU. NEB SCH ×4 (07:35→19:37)
--- NOTE | 2019-12-04 07:47 | PDOC ---
GENERAL General: vss and afebrile. awake and alert. still some cough and sob. doing ok with ther apy. exam stable. continue present with likely home am. VITAL SIGNS/I&O Vital Signs/I&O: Vital Signs Date Time Temp Pulse Resp B/P (MAP) Pulse Ox O2 Delivery O2 Flow Rate FiO2 12/04/19 07:36 96 Nasal Cannula 2.0 12/04/19 07:09 97.5 53 18 133/49 (77) 97.5 I & O 12/03/19 12/03/19 12/04/19 15:00 23:00 07:00 Intake Total 450 ml 200 ml 320 ml Balance 450 ml 200 ml 320 ml ALLERGIES Allergies: Allergies Coded Allergies Type Severity Reaction Last Updated Verified No Known Drug Allergies 07/15/16 No MEDS Medications: Current Medications Medications (Trade) Dose Ordered Sig/Silvia Route PRN Reason Start Time Stop Time Status Last Admin Dose Admin Albuterol/ Ipratropium (Duoneb) 3 ml RTQID NEB 12/03/19 12:30 12/04/19 07:35 QUINCY ALCANTAR MD December 04, 2019 07:47
[2019-12-04] MEDS: SUCRALFATE 1 GM TABLET. PO SCH ×2 (08:49→16:49)
[2019-12-04] MEDS: PANTOPRAZOLE 40 MG TABLET.DR. PO SCH (08:50)
[2019-12-04] MEDS: METOPROLOL TART IMMED RELEASE 25 MG TABLET. PO SCH ×3 (08:50→21:05)
[2019-12-04] MEDS: ASPIRIN ENTERIC COATED 81 MG TABLET.DR. PO SCH (08:50)
[2019-12-04] MEDS: CITALOPRAM 10 MG TABLET. PO SCH (08:50)
[2019-12-04] MEDS: MEMANTINE 10 MG TABLET. PO SCH ×2 (08:50→21:05)
[2019-12-04] MEDS: amLODIPine BESYLATE 5 MG TABLET PO SCH (08:51)
[2019-12-04] MEDS: LOSARTAN POTASSIUM 50 MG TABLET. PO SCH (08:51)
[2019-12-04] MEDS: DONEPEZIL HCL 10 MG TABLET. PO SCH (08:52)
[2019-12-04] MEDS: DRONEDARONE HCL 400 MG TABLET PO SCH ×2 (08:56→21:06)
[2019-12-04] MEDS ORDERED: hydroCHLOROthiazide 12.5 MG CAPSULE PO SCH (09:00)
--- NOTE | 2019-12-04 10:31 | NUR ---
SW following. Discussed with RN, pt from home, has oxygen at home. PT/OT recommending home. Chart states possible discharge home tomorrow (12/05/2019). SW will continue to follow.
[2019-12-04 10:38] VITALS: BP 111/60
[2019-12-04 14:19] VITALS: BP 128/53
--- NOTE | 2019-12-04 16:53 | PDOC ---
PULMONARY PROGRESS NOTES Subjective Patient feels slightly less short of breath no chest pain no pressure Vitals Vital Signs Date Time Temp Pulse Resp B/P (MAP) Pulse Ox O2 Delivery O2 Flow Rate FiO2 12/04/19 15:20 97 Nasal Cannula 2.0 12/04/19 14:19 98.3 59 16 128/53 (78) 98.3 ROS: No Nausea, No Chest Pain, No Abdominal Pain, No Increase Cough General: Alert, No acute distress Lungs: Clear Cardiovascular: S1, S2 Abdomen: Soft, Non-tender Neuro Exam: Alert Extremities: No Edema, Other Skin: Warm Labs Laboratory Tests Test 12/03/19 06:40 White Blood Count 5.1 x10^3/uL (4.0-11.0) Red Blood Count 3.60 x10^6/uL (3.50-5.40) Hemoglobin 10.1 g/dL (12.0-15.5) Hematocrit 30.8 % (36.0-47.0) Mean Corpuscular Volume 86 fL (79-100) Mean Corpuscular Hemoglobin 28 pg (25-35) Mean Corpuscular Hemoglobin Concent 33 g/dL (31-37) Red Cell Distribution Width 18.2 % (11.5-14.5) Platelet Count 176 x10^3/uL (140-400) Neutrophils (%) (Auto) 55 % (31-73) Lymphocytes (%) (Auto) 26 % (24-48) Monocytes (%) (Auto) 11 % (0-9) Eosinophils (%) (Auto) 8 % (0-3) Basophils (%) (Auto) 1 % (0-3) Neutrophils # (Auto) 2.8 x10^3/uL (1.8-7.7) Lymphocytes # (Auto) 1.3 x10^3/uL (1.0-4.8) Monocytes # (Auto) 0.6 x10^3/uL (0.0-1.1) Eosinophils # (Auto) 0.4 x10^3/uL (0.0-0.7) Basophils # (Auto) 0.1 x10^3/uL (0.0-0.2) Medications Active Scripts Medications Dose Route/Sig Max Daily Dose Days Date Category Prednisone 20 Mg Tablet 1 Tab PO DAILY 08/22/19 Rx Amlodipine Besylate 5 Mg Tablet 5 Mg PO DAILY 30 08/22/19 Rx Duoneb 0.5-3(2.5) Mg/3 Ml (Albuterol/Ipratropium) 3 Ml Ampul.neb 3 Ml NEB RTQID 30 08/22/19 Rx Metoprolol Tartrate 25 Mg Tablet 25 Mg PO BID 06/15/19 Reported Donepezil Hcl 10 Mg Tablet 1 Tab PO DAILY 06/15/19 Reported Namenda (Memantine Hcl) 10 Mg Tablet 10 Mg PO BID 06/15/19 Reported Pantoprazole Sodium 40 Mg Tablet.dr 40 Mg PO DAILY 03/30/19 Reported Sucralfate 1 Gm Tablet 1 Gm PO BIDAC 03/30/19 Reported Cozaar (Losartan Potassium) 50 Mg Tablet 100 Mg PO DAILY 30 09/05/18 Rx Multaq (Dronedarone Hcl) 400 Mg Tablet 400 Mg PO BID 12/28/17 Reported Aspirin Ec (Aspirin) 81 Mg Tablet. 1 Tab PO DAILY 12/28/17 Reported Citalopram Hbr (Citalopram Hydrobromide) 10 Mg Tablet 10 Mg PO DAILY 12/11/17 Reported Atorvastatin Calcium 20 Mg Tablet 20 Mg PO HS 12/11/17 Reported Levothyroxine Sodium 112 Mcg Tablet 125 Mcg PO DAILY 12/11/17 Reported Impression . IMPRESSION: 1. Chronic respiratory failure. 2. Shortness of breath. I suspect her shortness of breath was due to uncontrolled blood pressure with controlling her blood pressure now she denies shortness of breath more than usual. 3. Chronic obstructive pulmonary disease. 4. Paroxysmal atrial fibrillation. 5. Hypertension. 6. Dementia. Plan . Patient feels better continue the same 1. Titrate FiO2 to keep O2 saturation 92%. 2. Continue oxygen. 3. Bronchodilator when her COVID-19 is back and is negative. 4. Blood pressure control per primary doctor. ELIZABETH HUTCHINS MD December 04, 2019 16:53
[2019-12-04 19:00] VITALS: BP 130/52
[2019-12-04] MEDS: ATORVASTATIN CALCIUM 20 MG TABLET PO SCH (21:05)
[2019-12-04 23:00] VITALS: BP 125/56
[2019-12-05 03:00] VITALS: BP 136/53
[2019-12-05] MEDS: LEVOTHYROXINE 125 MCG TABLET PO SCH (06:21)
[2019-12-05 07:00] VITALS: BP 114/45
[2019-12-05] MEDS: IPRATRPIUM/ALBUTEROL 0.5/2.5MG 3 ML NEBU. NEB SCH ×2 (07:22→11:35)
--- NOTE | 2019-12-05 08:23 | PDOC ---
PULMONARY PROGRESS NOTES Subjective Patient feels better, ready to be discharged Vitals Vital Signs Date Time Temp Pulse Resp B/P (MAP) Pulse Ox O2 Delivery O2 Flow Rate FiO2 12/05/19 07:25 Nasal Cannula 2.0 12/05/19 07:22 95 12/05/19 07:00 97.7 54 18 114/45 (68) 97.7 ROS: No Nausea, No Chest Pain, No Abdominal Pain, No Increase Cough General: Alert, No acute distress Lungs: Clear Cardiovascular: S1, S2 Abdomen: Soft, Non-tender Neuro Exam: Alert Extremities: No Edema, Other Skin: Warm Medications Active Scripts Medications Dose Route/Sig Max Daily Dose Days Date Category Prednisone 20 Mg Tablet 1 Tab PO DAILY 08/22/19 Rx Amlodipine Besylate 5 Mg Tablet 5 Mg PO DAILY 30 08/22/19 Rx Duoneb 0.5-3(2.5) Mg/3 Ml (Albuterol/Ipratropium) 3 Ml Ampul.neb 3 Ml NEB RTQID 30 08/22/19 Rx Metoprolol Tartrate 25 Mg Tablet 25 Mg PO BID 06/15/19 Reported Donepezil Hcl 10 Mg Tablet 1 Tab PO DAILY 06/15/19 Reported Namenda (Memantine Hcl) 10 Mg Tablet 10 Mg PO BID 06/15/19 Reported Pantoprazole Sodium 40 Mg Tablet.dr 40 Mg PO DAILY 03/30/19 Reported Sucralfate 1 Gm Tablet 1 Gm PO BIDAC 03/30/19 Reported Cozaar (Losartan Potassium) 50 Mg Tablet 100 Mg PO DAILY 30 09/05/18 Rx Multaq (Dronedarone Hcl) 400 Mg Tablet 400 Mg PO BID 12/28/17 Reported Aspirin Ec (Aspirin) 81 Mg Tablet.dr 1 Tab PO DAILY 12/28/17 Reported Citalopram Hbr (Citalopram Hydrobromide) 10 Mg Tablet 10 Mg PO DAILY 12/11/17 Reported Atorvastatin Calcium 20 Mg Tablet 20 Mg PO HS 12/11/17 Reported Levothyroxine Sodium 112 Mcg Tablet 125 Mcg PO DAILY 12/11/17 Reported Impression . IMPRESSION: 1. Chronic respiratory failure. 2. Shortness of breath. I suspect her shortness of breath was due to uncontrolled blood pressure with controlling her blood pressure now she denies shortness of breath more than usual. 3. Chronic obstructive pulmonary disease. 4. Paroxysmal atrial fibrillation. 5. Hypertension. 6. Dementia. Plan . Discharge today Follow-up with me in the office Continue current bronchodilators ELIZABETH HUTCHINS MD December 05, 2019 08:23
[2019-12-05] MEDS: ASPIRIN ENTERIC COATED 81 MG TABLET.DR. PO SCH (09:02)
[2019-12-05] MEDS: PANTOPRAZOLE 40 MG TABLET.DR. PO SCH (09:02)
[2019-12-05] MEDS: CITALOPRAM 10 MG TABLET. PO SCH (09:03)
[2019-12-05] MEDS: SUCRALFATE 1 GM TABLET. PO SCH (09:03)
[2019-12-05] MEDS: amLODIPine BESYLATE 5 MG TABLET PO SCH (09:03)
[2019-12-05] MEDS: MEMANTINE 10 MG TABLET. PO SCH (09:03)
[2019-12-05] MEDS: DONEPEZIL HCL 10 MG TABLET. PO SCH (09:03)
[2019-12-05] MEDS: DRONEDARONE HCL 400 MG TABLET PO SCH (09:03)
[2019-12-05] MEDS: LOSARTAN POTASSIUM 50 MG TABLET. PO SCH (09:04)
[2019-12-05] MEDS: METOPROLOL TART IMMED RELEASE 25 MG TABLET. PO SCH (09:05)
--- NOTE | 2019-12-05 10:16 | NUR ---
SW following. Discussed with RN, discharge order for home with self care. RN advised no further SW needs.
[2019-12-05 11:00] VITALS: BP 112/46
--- NOTE | 2019-12-05 12:45 | NUR ---
Pt. discharged to home, verbalized understanding of discharge instructions.
--- NOTE | 2019-12-06 08:04 | DS ---
DATE OF DISCHARGE: 12/05/2019 PRIMARY DIAGNOSIS: Dizziness. ADDITIONAL DIAGNOSES: Accelerated hypertension, exacerbation of chronic obstructive pulmonary disease with cough and shortness of breath. CHIEF COMPLAINT AND HISTORY OF PRESENT ILLNESS: This 84-year-old white female with COPD was admitted through the Emergency Room with dizziness on the day of admission. She denied any nausea or vomiting with it. She was also having increased shortness of breath with somewhat of a cough. She was felt unsafe to discharge and was admitted for the same with COVID-19 to be ruled out in addition. SUMMARY OF STAY: The patient was admitted. COVID-19 ruled out. Blood pressure meds, specifically hydrochlorothiazide was added with improvement and daily improvement in her shortness of breath and dizziness. Pulmonary felt that the shortness of breath could have been possibly driven somewhat by the elevated blood pressures in addition. She was felt to be at her baseline on the day of discharge and ready for return to home, which was accomplished. DISPOSITION: The patient is discharged to home. DIET: Regular diet. ACTIVITY: As tolerated. FOLLOWUP: Office, 2 weeks. DISCHARGE MEDICATIONS: Listed on the med rec and have been addressed. QUINCY ALCANTAR MD DR: MAYCOL/erick JOB#: [id number] / [id number]
== END 2019-12-05 14:42 | disposition home or self-care (01) | DRG 191 ==
LOC: ER 17:23 → 6 SOUTH 19:17 → 4 NORTH 12-03 14:36
PROVIDERS: ADMIT Family Medicine; ATTEND Family Medicine
DX: J44.1 Chronic obstructive pulmonary disease with (acute) exacerbation (principal); J96.10 Chronic respiratory failure, unspecified whether with hypoxia or hypercapnia; I10 Essential (primary) hypertension; R42 Dizziness and giddiness; F03.90 Unspecified dementia, unspecified severity, without behavioral disturbance, psychotic disturbance, mood disturbance, and anxiety; I48.0 Paroxysmal atrial fibrillation; J44.9 Chronic obstructive pulmonary disease, unspecified; J30.2 Other seasonal allergic rhinitis; Z90.49 Acquired absence of other specified parts of digestive tract; Z90.710 Acquired absence of both cervix and uterus; Z99.81 Dependence on supplemental oxygen; Z03.818 Encounter for observation for suspected exposure to other biological agents ruled out
CPT/HCPCS: 36415; 70450; 71045; 80048; 80053; 80307; 81001; 82553; 83735; 83880; 84443; 84484; 85025; 87635; 93005; 94640; 94760; 96360; 96361; 99285; J7030; 97535-GO; G0378; J8597

== ENCOUNTER 2020-02-09 19:47 | Emergency (ER) | payer MEDICARE, OTHER ==
[~2020-02-09] VITALS: Ht 149.9 cm; Wt 65.9 kg
--- NOTE | 2020-02-09 20:19 | PHYS DOC ---
Past Medical History Past Medical History: A-Fib, COPD, Dementia Additional Past Medical Histor: seasonal allergies (NOLAN AYALA APRN) Past Surgical History: Appendectomy, Hysterectomy Additional Past Surgical Histo: L hip (NOLAN AYALA APRN) Smoking Status: Never Smoker Alcohol Use: None Drug Use: None (NOLAN AYALA APRN) General Adult EDM: Chief Complaint: SHORTNESS OF BREATH HPI: HPI: Patient is a 84 year old [female who presents with some shortness of breath today. Patient states that she felt little been more short of breath than usual, has not had a fever, has not had a cough or seizure. Reports she does have a known history of COPD, has been using her inhaler minimal amount 3 times a day. States she is following up with her primary care, Dr. Lauren, has not had to change any medications recently. However she does report that she just felt little short of breath this afternoon and wanted to be checked out to make sure that was okay. States she did go for a walk today, did not feel any increased exertional dyspnea. Denies any malaise. Denies chest pain. Denies additional complaints (NOLAN AYALA APRN) Review of Systems: Review of Systems: Constitutional: Denies fever or chills. [] Eyes: Denies change in visual acuity. [] HENT: Denies nasal congestion or sore throat. [] Respiratory: Denies cough states she did have some shortness of breath earlier today Cardiovascular: Denies chest pain or edema. [] GI: Denies abdominal pain, nausea, vomiting, bloody stools or diarrhea. [] : Denies dysuria. [] Musculoskeletal: Denies back pain or joint pain. [] Integument: Denies rash. [] Neurologic: Denies headache, focal weakness or sensory changes. [] Endocrine: Denies polyuria or polydipsia. [] Lymphatic: Denies swollen glands. [] Psychiatric: Denies depression or anxiety. [] (NOLAN AYALA APRN) Heart Score: Risk Factors: Risk Factors: DM, Current or recent (<one month) smoker, HTN, HLP, family history of CAD, obesity. Risk Scores: Score 0 - 3: 2.5% MACE over next 6 weeks - Discharge Home Score 4 - 6: 20.3% MACE over next 6 weeks - Admit for Clinical Observation Score 7 - 10: 72.7% MACE over next 6 weeks - Early Invasive Strategies (NOLAN AYALA APRN) Allergies: Allergies: Allergies Coded Allergies Type Severity Reaction Last Updated Verified No Known Drug Allergies 07/15/16 No (NOLAN AYALA APRN) Physical Exam: PE: Constitutional: Well developed, well nourished, no acute distress, non-toxic appearance. Patient conversational, laughing and smiling in no apparent distress or discomfort [] HENT: Normocephalic, atraumatic, bilateral external ears normal, oropharynx moist, no oral exudates, nose normal. [] Eyes: PERRLA, EOMI, conjunctiva normal, no discharge. [] Neck: Normal range of motion, no tenderness, supple, no stridor. [] Cardiovascular:Heart rate regular rhythm, no murmur [] Lungs & Thorax: Bilateral breath sounds clear to auscultation, patient speaking multiple word sentences without any noted air hunger, patient SPO2 99 200% on her normal 3 L per cannula [] Abdomen: Bowel sounds normal, soft, no tenderness, no masses, no pulsatile masses. [] Skin: Warm, dry, no erythema, no rash. [] Back: No tenderness, no CVA tenderness. [] Extremities: No tenderness, no cyanosis, no clubbing, ROM intact, no edema. [] Neurologic: Alert and oriented X 3, normal motor function, normal sensory function, no focal deficits noted. [] Psychologic: Affect normal, judgement normal, mood normal. [] (NOLAN AYALA APRN) EKG: EKG: [] Normal sinus rhythm, no ST changes per Dr. Caceres at 1950 (NOLAN AYALA APRN) Radiology/Procedures: Radiology/Procedures: CHEST AP ONLY Clinical History: Reason: dyspnea / Spl. Instructions: / History: Technique: AP view of the chest was obtained at 02/09/2020 8:06 PM. Comparison: November 30, 2019. Findings: The cardiomediastinal silhouette is normal. The pulmonary vasculature is normal. Reticular opacities of the lungs were seen previously and are likely chronic pulmonary fibrosis. There is linear opacities in the left lung base. The old left sixth rib fracture is again seen. Impression: Left basal infiltrate could be discoid atelectasis or early pneumonia. Electronically signed by: José Miguel Valente III, MD (02/09/2020 9:32 PM) [facility] [] (NOLAN AYALA APRN) Course & Med Decision Making: Course & Med Decision Making Pertinent Labs and Imaging studies reviewed. (See chart for details) []Reviewed imaging and labs, noting possible pneumonia. Will provide short course of will provide course of antibiotics, have patient follow-up with Dr. Brooks. Patient does have follow-up with Dr. Brooks in 2 weeks, recommend following up sooner for evaluation of symptoms resolution or for worsening complaints. Patient and family in agreement, with no further questions or concerns. Patient SPO2 maintaining 100% in room on her 3 L nasal cannula (NOLAN AYALA APRN) Dragon Disclaimer: Dragon Disclaimer: This electronic medical record was generated, in whole or in part, using a voice recognition dictation system. (NOLAN AYALA APRN) Departure Departure Impression: Primary Impression: COPD exacerbation Disposition: HOME, SELF-CARE Condition: STABLE Referrals: QUINCY LAUREN MD (PCP) Patient Instructions: Pneumonia, Adult Additional Instructions: As we discussed, take the antibiotics as prescribed. Make sure you are drinking plenty fluids, increase your fluid intake as this may help you improve your health better and faster. Follow-up with Dr. Lauren in 2 weeks as you previously scheduled, if you feel again which you felt earlier today, with some malaise or shortness of breath, follow-up sooner. Take the antibiotic prescribed as 1 pill/day for the next 6 days, this is slightly different than what the package directions are. Scripts Azithromycin (ZITHROMAX) 250 Mg Tablet 1 PKG PO UD, #6 TAB Prov: NOLAN AYALA APRN 02/09/20 Justicifation of Admission Dx: Justifications for Admission: Justification of Admission Dx: N/A (NOLAN AYALA APRN) Attending Signature Attending Signature I have reviewed the PA/UNDERWEAR HEMMER's note and plan of care. I was available for consultation as needed during the patient's visit in the emergency department. I agree with the clinical impression, plan, and disposition. (ALIVIA MILLER DO) NOLAN AYALA APRN Feb 09, 2020 20:19 ALIVIA MILLER DO Feb 09, 2020 22:42
[2020-02-09 20:31] LABS: BASO % 1 % (0-3); EOS # 0.1 x10^3/uL (0.0-0.7); EOS % 3 % (0-3); HEMATOCRIT 26.8 % (36.0-47.0); HEMOGLOBIN 9.1 g/dL (12.0-15.5); LYMPH % 28 % (24-48); MEAN CORPUSCULAR HEMOGLOBIN 29 pg (25-35); MEAN CORPUSCULAR HGB CONC 34 g/dL (31-37); MEAN CORPUSCULAR VOLUME 87 fL (79-100); MONO # 0.5 x10^3/uL (0.0-1.1); MONO % 13 % (0-9); NEUT % 55 % (31-73); PLATELET COUNT 148 x10^3/uL (140-400); RED CELL DISTRIBUTION WIDTH 15.6 % (11.5-14.5); WHITE BLOOD COUNT 3.6 x10^3/uL (4.0-11.0)
[2020-02-09 20:42] LABS: CALCIUM 9.1 mg/dL (8.5-10.1); CREATININE 1.6 mg/dL (0.6-1.0); GFR 30.6; POTASSIUM 4.4 mmol/L (3.5-5.1)
[2020-02-09 20:49] LABS: ALBUMIN 3.6 g/dL (3.4-5.0); ALBUMIN/GLOBULIN RATIO 1.4 (1.0-1.7); MAGNESIUM 1.9 mg/dL (1.8-2.4); TOTAL BILIRUBIN 0.3 mg/dL (0.2-1.0); TOTAL PROTEIN 6.1 g/dL (6.4-8.2)
--- NOTE | 2020-02-09 21:35 | RAD ---
CHEST AP ONLY Clinical History: Reason: dyspnea / Spl. Instructions: / History: Technique: AP view of the chest was obtained at 02/09/2020 8:06 PM. Comparison: November 30, 2019. Findings: The cardiomediastinal silhouette is normal. The pulmonary vasculature is normal. Reticular opacities of the lungs were seen previously and are likely chronic pulmonary fibrosis. There is linear opacities in the left lung base. The old left sixth rib fracture is again seen. Impression: Left basal infiltrate could be discoid atelectasis or early pneumonia. Electronically signed by: José Miguel Valente III, MD (02/09/2020 9:32 PM) [facility]
[2020-02-09] MEDS ORDERED: AZIT250T PO (22:04)
[2020-02-09] MEDS ORDERED: AZITHROMYCIN 250 MG TABLET. PO ONE (22:15)
[2020-02-09 22:25] VITALS: BP 140/67
--- NOTE | 2020-02-13 03:34 | EKG ---
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
== END 2020-02-09 22:30 | disposition home or self-care (01) ==
LOC: ER 19:47
DX: J44.1 Chronic obstructive pulmonary disease with (acute) exacerbation (principal); I48.91 Unspecified atrial fibrillation; F03.90 Unspecified dementia, unspecified severity, without behavioral disturbance, psychotic disturbance, mood disturbance, and anxiety
CPT/HCPCS: 36415; 71045; 80053; 83735; 84484; 85025; 93005; 99283-25; 99285-25

== ENCOUNTER 2020-02-13 13:08 | Inpatient (IN) | payer MEDICARE, OTHER ==
[~2020-02-13] VITALS: Ht 149.9 cm; Wt 70.7 kg
[~2020-02-13 13:08] MED LIST changes: -ASPI-612 PO; +ASPI-886 PO; +AZIT250T PO
[2020-02-13 13:49] LABS: BASO % 0 % (0-3); EOS # 0.2 x10^3/uL (0.0-0.7); EOS % 5 % (0-3); HEMATOCRIT 26.3 % (36.0-47.0); HEMOGLOBIN 8.8 g/dL (12.0-15.5); LYMPH # 0.7 x10^3/uL (1.0-4.8); LYMPH % 18 % (24-48); MEAN CORPUSCULAR HEMOGLOBIN 29 pg (25-35); MEAN CORPUSCULAR HGB CONC 33 g/dL (31-37); MEAN CORPUSCULAR VOLUME 87 fL (79-100); MONO # 0.4 x10^3/uL (0.0-1.1); MONO % 11 % (0-9); NEUT # 2.4 x10^3/uL (1.8-7.7); NEUT % 66 % (31-73); PLATELET COUNT 166 x10^3/uL (140-400); RED BLOOD COUNT 3.02 x10^6/uL (3.50-5.40); RED CELL DISTRIBUTION WIDTH 15.8 % (11.5-14.5); WHITE BLOOD COUNT 3.7 x10^3/uL (4.0-11.0)
[2020-02-13 14:01] LABS: PROTHROMBIN TIME PATIENT 12.8 SEC (11.7-14.0)
[2020-02-13 14:03] LABS: CALCIUM 9.1 mg/dL (8.5-10.1); CREATININE 1.4 mg/dL (0.6-1.0); GFR 35.7; POTASSIUM 4.6 mmol/L (3.5-5.1)
--- NOTE | 2020-02-13 14:10 | PHYS DOC ---
Past Medical History Past Medical History: A-Fib, COPD, Dementia, Hypertension, Hypothyroid, Other Additional Past Medical Histor: seasonal allergies Past Surgical History: Appendectomy, Hysterectomy Additional Past Surgical Histo: L hip Smoking Status: Never Smoker Alcohol Use: None Drug Use: None General Adult EDM: Chief Complaint: SYNCOPE HPI: HPI: Patient is a 84 year old who arrives via EMS for evaluation of her syncope event. Patient was in car with her son and went unresponsive for 1 to 2 minutes. Patient is confused and does not remember the events. Patient denies any pain. Patient denies any current shortness of breath or nausea. History physical review of systems limited due to altered mental status Review of Systems: Review of Systems: Constitutional: Denies fever or chills. [] Eyes: Denies change in visual acuity. [] HENT: Denies nasal congestion or sore throat. [] Respiratory: Denies cough or shortness of breath. [] Cardiovascular: Denies chest pain but EMS reports that there was chest pain prior to arrival GI: Denies abdominal pain, nausea, vomiting, bloody stools or diarrhea. [] : Denies dysuria. [] Musculoskeletal: Denies back pain or joint pain. [] Integument: Denies rash. [] Neurologic: Denies headache, focal weakness or sensory changes. [] Endocrine: Denies polyuria or polydipsia. [] Lymphatic: Denies swollen glands. [] Psychiatric: Denies depression or anxiety. [] Heart Score: Risk Factors: Risk Factors: DM, Current or recent (<one month) smoker, HTN, HLP, family history of CAD, obesity. Risk Scores: Score 0 - 3: 2.5% MACE over next 6 weeks - Discharge Home Score 4 - 6: 20.3% MACE over next 6 weeks - Admit for Clinical Observation Score 7 - 10: 72.7% MACE over next 6 weeks - Early Invasive Strategies Allergies: Allergies: Allergies Coded Allergies Type Severity Reaction Last Updated Verified No Known Drug Allergies 07/15/16 No Physical Exam: PE: Constitutional: Well developed, well nourished, no acute distress, non-toxic appearance. HENT: No trismus, external ears normal Eyes: Conjunctiva clear, EOMI Neck: Normal range of motion, no tenderness, supple, no stridor. Cardiovascular: Regular rate/rhythm, peripheral pulse intact, ARMATURE TESTER intact Lungs & Thorax: No respiratory distress Abdomen: No distension Skin: Diffuse: Intact, no rash Back: Full ROM Extremities: Normal inspection, no edema Neurologic: Alert, disoriented to time. Moves all extremities no focal weakness no focal numbness Psychologic: Affect normal, judgement normal, mood normal. Current Patient Data: Labs: Laboratory Tests Test 02/13/20 13:38 White Blood Count 3.7 x10^3/uL (4.0-11.0) L Red Blood Count 3.02 x10^6/uL (3.50-5.40) L Hemoglobin 8.8 g/dL (12.0-15.5) L Hematocrit 26.3 % (36.0-47.0) L Mean Corpuscular Volume 87 fL (79-100) Mean Corpuscular Hemoglobin 29 pg (25-35) Mean Corpuscular Hemoglobin Concent 33 g/dL (31-37) Red Cell Distribution Width 15.8 % (11.5-14.5) H Platelet Count 166 x10^3/uL (140-400) Neutrophils (%) (Auto) 66 % (31-73) Lymphocytes (%) (Auto) 18 % (24-48) L Monocytes (%) (Auto) 11 % (0-9) H Eosinophils (%) (Auto) 5 % (0-3) H Basophils (%) (Auto) 0 % (0-3) Neutrophils # (Auto) 2.4 x10^3/uL (1.8-7.7) Lymphocytes # (Auto) 0.7 x10^3/uL (1.0-4.8) L Monocytes # (Auto) 0.4 x10^3/uL (0.0-1.1) Eosinophils # (Auto) 0.2 x10^3/uL (0.0-0.7) Basophils # (Auto) 0.0 x10^3/uL (0.0-0.2) Sodium Level 138 mmol/L (136-145) Potassium Level 4.6 mmol/L (3.5-5.1) Chloride Level 101 mmol/L (98-107) Carbon Dioxide Level 32 mmol/L (21-32) Anion Gap 5 (6-14) L Blood Urea Nitrogen 18 mg/dL (7-20) Creatinine 1.4 mg/dL (0.6-1.0) H Estimated GFR (Cockcroft-Gault) 35.7 BUN/Creatinine Ratio 13 (6-20) Glucose Level 91 mg/dL (70-99) Calcium Level 9.1 mg/dL (8.5-10.1) Total Bilirubin Pending Aspartate Amino Transferase (AST) Pending Alanine Aminotransferase (ALT) Pending Alkaline Phosphatase Pending Total Protein Pending Albumin Pending Albumin/Globulin Ratio Pending Laboratory Tests 02/13/20 13:38 Laboratory Tests 02/13/20 13:38 Vital Signs: Vital Signs Date Time Temp Pulse Resp B/P (MAP) Pulse Ox O2 Delivery O2 Flow Rate FiO2 02/13/20 13:08 97.5 49 16 97/40 (59) 100 Nasal Cannula 3.0 97.5 EKG: EKG: [] EKG interpreted by az sinus bradycardia with a rate of 51 normal axis normal intervals T wave inversions in aVR aVL and V1 Radiology/Procedures: Radiology/Procedures: [][facility] [address] [place], [place] [id number] IMAGING REPORT Signed PATIENT: PATRIA CAMPUZANO ACCOUNT: [id number] : 1935 LOCATION: ER AGE: 84 SEX: F EXAM STATUS: REG ER ORD. PHYSICIAN: GORDON JOHNSON MD REASON: AMS PROCEDURE: CT HEAD WO CONTRAST CT of the head Axial CT images of the head were obtained without IV contrast. Exposure: One or more of the following individualized dose reduction techniques were utilized for this examination: 1. Automated exposure control 2. Adjustment of the mA and/or kV according to patient size 3. Use of iterative reconstruction technique Comparison: 11/30/2019. Indication: Altered mental status Findings: No mass, mass effect or hemorrhage is seen. The ventricles and cortical sulci are mildly enlarged. There are diffuse periventricular white matter hypodensities. The basilar cisterns are unremarkable. No midline shift is noted. There is calcification of bilateral basal ganglia. There is no intra or extra axial fluid collection. There is diffuse calcification of the bilateral internal carotid arteries and vertebral arteries. No bony or soft tissue abnormality is seen. The visualized paranasal sinuses are clear. Impression: 1. No acute mass, mass effect or hemorrhage. 2. Periventricular white matter ischemic change. Age appropriate brain atrophy. 3. Diffuse mild atherosclerotic disease of the intracranial vessels. Electronically signed by: Mike Boss MD (02/13/2020 2:07 PM) [id number] DICTATED and SIGNED BY: MIKE BOSS MD DATE: 02/13/20 140 [facility] [address] [place] [address] IMAGING REPORT Signed PATIENT: PATRIA CAMPUZANO ACCOUNT: [id number] : 1935 LOCATION: ER AGE: 84 SEX: F EXAM STATUS: REG ER ORD. PHYSICIAN: GORDON JOHNSON MD REASON: SYNCOPE PROCEDURE: PORTABLE CHEST 1V AP chest. HISTORY: Syncope Portable AP view was taken of the chest. There is a granuloma on the right. Lungs are free of infiltrates. There is an old left rib fracture. Heart is normal in size. There is no effusion. IMPRESSION: 1. No acute infiltrates. Electronically signed by: Chago Cameron MD (02/13/2020 2:18 PM) [id number] DICTATED and SIGNED BY: CHAGO CAMERON MD DATE: 02/13/20 1418 Course & Med Decision Making: Course & Med Decision Making Pertinent Labs and Imaging studies reviewed. (See chart for details) [] Discussed the case with Dr. lopez who will admit to observation. Dragon Disclaimer: Robin Disclaimer: This electronic medical record was generated, in whole or in part, using a voice recognition dictation system. Departure Departure Impression: Primary Impression: Syncope Disposition: 09 ADMITTED INPATIENT Referrals: QUINCY ALCANTAR MD (PCP) Justicifation of Admission Dx: Justifications for Admission: Justification of Admission Dx: Yes GORDON JOHNSON MD Feb 13, 2020 14:10
[2020-02-13 14:11] LABS: ALBUMIN 3.6 g/dL (3.4-5.0); ALBUMIN/GLOBULIN RATIO 1.3 (1.0-1.7); TOTAL BILIRUBIN 0.4 mg/dL (0.2-1.0); TOTAL PROTEIN 6.3 g/dL (6.4-8.2)
--- NOTE | 2020-02-13 14:21 | RAD ---
AP chest. HISTORY: Syncope Portable AP view was taken of the chest. There is a granuloma on the right. Lungs are free of infiltrates. There is an old left rib fracture. Heart is normal in size. There is no effusion. IMPRESSION: 1. No acute infiltrates. Electronically signed by: Chago Cameron MD (02/13/2020 2:18 PM) [id number]
[2020-02-13 15:26] LABS: BILIRUBIN,URINE SMALL (NEG); CLARITY,URINE CLEAR; COLOR,URINE YELLOW; NITRITE,URINE NEGATIVE (NEG); PROTEIN,URINE NEGATIVE (NEG-TRACE)
[2020-02-13 15:35] LABS: BACTERIA,URINE MODERATE /HPF (0-FEW); HYALINE CASTS, URINE FEW /HPF; RBC,URINE 0 /HPF (0-2); SQUAMOUS EPITHELIAL CELL,UR FEW /LPF; WBC,URINE OCC /HPF (0-4)
[2020-02-13 18:40] VITALS: BP 137/39
[2020-02-13 23:06] VITALS: BP 154/50
[2020-02-14] MEDS ORDERED: HYDR25TA PO (01:51)
--- NOTE | 2020-02-14 03:29 | EKG ---
[facility] [address] [place] [address] Test Date: 2020-02-13 Test Time: 13:16:41 Pat Name: PATRIA CAMPUZANO Department: Room: Gender: F Manugrapher: : 1935 Requested By: GORDON JOHNSON Order Number: [id number] Reading MD: Measurements Intervals [place] Rate: 51 P: 60 FL: 200 QRS: 30 QRSD: 72 T: 74 QT: 446 QTc: 413 Interpretive Statements SINUS RHYTHM T ABNORMALITY IN HIGH LATERAL LEADS ABNORMAL ECG RI6.01 No previous ECG available for comparison
[2020-02-14 03:55] VITALS: BP 149/60
[2020-02-14 07:00] VITALS: BP 164/48
--- NOTE | 2020-02-14 07:50 | PDOC ---
GENERAL General: see dictated H&P. VITAL SIGNS/I&O Vital Signs/I&O: Vital Signs Date Time Temp Pulse Resp B/P (MAP) Pulse Ox O2 Delivery O2 Flow Rate FiO2 02/14/20 07:00 97.6 58 16 164/48 (86) 100 Nasal Cannula 2.0 97.6 I & O 02/13/20 02/13/20 02/14/20 15:00 23:00 07:00 Intake Total 330 ml 220 ml Output Total 100 ml 700 ml Balance 230 ml -480 ml ALLERGIES Allergies: Allergies Coded Allergies Type Severity Reaction Last Updated Verified No Known Drug Allergies 07/15/16 No LAB Lab: Laboratory Tests Test 02/13/20 13:38 02/13/20 15:17 White Blood Count 3.7 x10^3/uL (4.0-11.0) L Red Blood Count 3.02 x10^6/uL (3.50-5.40) L Hemoglobin 8.8 g/dL (12.0-15.5) L Hematocrit 26.3 % (36.0-47.0) L Mean Corpuscular Volume 87 fL (79-100) Mean Corpuscular Hemoglobin 29 pg (25-35) Mean Corpuscular Hemoglobin Concent 33 g/dL (31-37) Red Cell Distribution Width 15.8 % (11.5-14.5) H Platelet Count 166 x10^3/uL (140-400) Neutrophils (%) (Auto) 66 % (31-73) Lymphocytes (%) (Auto) 18 % (24-48) L Monocytes (%) (Auto) 11 % (0-9) H Eosinophils (%) (Auto) 5 % (0-3) H Basophils (%) (Auto) 0 % (0-3) Neutrophils # (Auto) 2.4 x10^3/uL (1.8-7.7) Lymphocytes # (Auto) 0.7 x10^3/uL (1.0-4.8) L Monocytes # (Auto) 0.4 x10^3/uL (0.0-1.1) Eosinophils # (Auto) 0.2 x10^3/uL (0.0-0.7) Basophils # (Auto) 0.0 x10^3/uL (0.0-0.2) Prothrombin Time 12.8 SEC (11.7-14.0) Prothrombin Time INR 1.0 (0.8-1.1) Activated Partial Thromboplast Time 33 SEC (24-38) Sodium Level 138 mmol/L (136-145) Potassium Level 4.6 mmol/L (3.5-5.1) Chloride Level 101 mmol/L (98-107) Carbon Dioxide Level 32 mmol/L (21-32) Anion Gap 5 (6-14) L Blood Urea Nitrogen 18 mg/dL (7-20) Creatinine 1.4 mg/dL (0.6-1.0) H Estimated GFR (Cockcroft-Gault) 35.7 BUN/Creatinine Ratio 13 (6-20) Glucose Level 91 mg/dL (70-99) Calcium Level 9.1 mg/dL (8.5-10.1) Total Bilirubin 0.4 mg/dL (0.2-1.0) Aspartate Amino Transferase (AST) 19 U/L (15-37) Alanine Aminotransferase (ALT) 22 U/L (14-59) Alkaline Phosphatase 55 U/L (46-116) Troponin I Quantitative < 0.017 ng/mL (0.000-0.055) Total Protein 6.3 g/dL (6.4-8.2) L Albumin 3.6 g/dL (3.4-5.0) Albumin/Globulin Ratio 1.3 (1.0-1.7) Urine Collection Type Unknown Urine Color Yellow Urine Clarity Clear Urine pH 6.0 (<5.0-8.0) Urine Specific [place] 1.020 (1.000-1.030) Urine Protein Negative mg/dL (NEG-TRACE) Urine Glucose (UA) Negative mg/dL (NEG) Urine Ketones (Stick) Trace mg/dL (NEG) Urine Blood Negative (NEG) Urine Nitrite Negative (NEG) Urine Bilirubin Small (NEG) Urine Urobilinogen Dipstick 1.0 mg/dL (0.2 mg/dL) Urine Leukocyte Esterase Negative (NEG) Urine RBC 0 /HPF (0-2) Urine WBC Occ /HPF (0-4) Urine Squamous Epithelial Cells Few /LPF Urine Bacteria Moderate /HPF (0-FEW) Urine Hyaline Casts Few /HPF Urine Mucus Mod /LPF Laboratory Tests 02/13/20 13:38 Laboratory Tests 02/13/20 13:38 Justicifation of Admission Dx: Justifications for Admission: Justification of Admission Dx: Yes QUINCY ALCANTAR MD Feb 14, 2020 07:50
[2020-02-14] MEDS: IPRATRPIUM/ALBUTEROL 0.5/2.5MG 3 ML NEBU. NEB SCH ×4 (08:00→20:36)
--- NOTE | 2020-02-14 08:46 | HP ---
ADMIT DATE: 02/13/2020 ADMISSION HISTORY AND PHYSICAL CHIEF COMPLAINT AND HISTORY OF PRESENT ILLNESS: This 84-year-old white female is well known to me from followup in the office. The patient was out in the car with her son on the day of admission when she slumped over and was out for 1-2 minutes. The patient has no recall of the events or how she felt along that although she thinks she felt somewhat dizzy. History was given by the son and it sounds like a simple syncopal episode with no associated seizure-type activity and the patient was admitted for the same. PAST MEDICAL HISTORY: Remarkable for dementia, COPD, AFib, hypothyroidism, hypertension, allergic rhinitis. PAST SURGICAL HISTORY: Includes appendectomy, hysterectomy, left hip surgery. SOCIAL HISTORY: The patient is a lifetime nonsmoker, nondrinker, does not use drugs. , lives with her son and [id number]. FAMILY HISTORY: Noncontributory. MEDICATIONS: Brought with the patient, listed on the computer and have been addressed. ALLERGIES: She has no known drug allergies. PHYSICAL EXAMINATION: GENERAL: She is a well-developed, well-nourished white female, pleasantly confused. VITAL SIGNS: Stable. She is afebrile. HEAD, EYES, EARS, NOSE AND THROAT: Unremarkable. O2 is in place. NECK: Supple, without adenopathy or thyromegaly. CHEST: Slightly decreased breath sounds, but clear. HEART: Regular rate and rhythm without S3, S4 or murmur. ABDOMEN: Soft, nontender, without hepatosplenomegaly or masses. EXTREMITIES: Without cyanosis, clubbing, or edema. NEUROLOGIC: She is intact. LABORATORY DATA: Initial laboratory reveals a white count of 3700, hemoglobin of 8.8, which is where she has had a tendency to live. Creatinine is 1.4. Troponin is negative. INR is within normal limits and urinalysis shows no evidence of infection. Chest x-ray and CT head and CT scanning showed no acute changes. IMPRESSION: Syncope with multiple other problems listed above. PLAN: The patient will be monitored on telemetry for arrhythmias. We will do echocardiogram today. If this all turns out negative, then at this point, I would do no further workup given her overall situation. QUINCY ALCANTAR MD DR: MAYCOL/erick JOB#: [id number] / [id number]
[2020-02-14] MEDS: PANTOPRAZOLE 40 MG TABLET.DR. PO SCH (09:06)
[2020-02-14] MEDS: DONEPEZIL HCL 10 MG TABLET. PO SCH (09:06)
[2020-02-14] MEDS: MEMANTINE 10 MG TABLET. PO SCH ×2 (09:07→20:47)
[2020-02-14] MEDS: CITALOPRAM 10 MG TABLET. PO SCH (09:07)
[2020-02-14] MEDS: LOSARTAN POTASSIUM 50 MG TABLET. PO SCH (09:07)
[2020-02-14] MEDS: DRONEDARONE HCL 400 MG TABLET PO SCH ×2 (09:07→20:47)
[2020-02-14] MEDS: amLODIPine BESYLATE 5 MG TABLET PO SCH (09:07)
[2020-02-14] MEDS: METOPROLOL TART IMMED RELEASE 25 MG TABLET. PO SCH ×2 (09:08→20:46)
[2020-02-14] MEDS: ASPIRIN ENTERIC COATED 81 MG TABLET.DR. PO SCH (09:08)
[2020-02-14 11:00] VITALS: BP 147/47
--- NOTE | 2020-02-14 11:52 | NUR ---
SS following up with discharge planning. SS reviewed pt chart and discussed with pt RN. Pt is from home with family and is currently requiring oxygen. ECHO ordered. SS will continue to follow for discharge planning.
--- NOTE | 2020-02-14 14:27 | CARD ---
MR#: [id number] Date of Study: 02/14/2020 Ordering Physician: QUINCY ALCANTAR, Referring Physician: QUINCY ALCANTAR, Tech: Deanna Burdick APPROVED REPORT EXAM: Two-dimensional and M-mode echocardiogram with Doppler and color Doppler. Other Information Quality : AverageHR: 58bpm Technically limited study due to COPD INDICATION Syncope 2D DIMENSIONS RVDd3.6 (2.9-3.5cm)Left Atrium(2D)3.6 (1.6-4.0cm) IVSd0.7 (0.7-1.1cm)Aortic Root(2D)3.3 (2.0-3.7cm) LVDd4.6 (3.9-5.9cm)LVOT Diameter1.8 (1.8-2.4cm) PWd0.9 (0.7-1.1cm)LVDs2.5 (2.5-4.0cm) FS (%) 46.2 %SV73.8 ml LVEF(%)77.6 (>50%) Aortic Valve AoV Peak Chidi.161.3cm/sAoV VTI31.4cm AO Peak GR.10.4mmHgLVOT Peak Chidi.123.9cm/s LVOT VTI 28.10cmAO Mean GR.5mmHg FERNANDA (VMAX)1.17bm7TEX (VTI)2.38cm2 AI P 1/2 Alff491gz Mitral Valve MV E Gwqnsqcw39.8cm/sMV DECEL JOUQ954xg MV A Zxjibjgw743.5cm/sMV E Mean Gr.2mmHg MV QEA41jjN/A Ratio0.9 MVA (PHT)2.75cm2 TDI E/Lateral E'9.3E/Medial E'14.4 Pulmonary Valve PV Peak Pqqqindn517.1cm/sPV Peak Grad.4mmHg Tricuspid Valve TR P. Koueoqfc351vk/sRAP LRWOISUA3ypOf TR Peak Gr.05jfHkWGAM92ysOt Pulmonary Vein S1 Owgpeoiz12.4cm/sD2 Jnkgokxx52.9cm/s PVa ictizsse662chyd LEFT VENTRICLE The left ventricle is normal size. There is normal left ventricular wall thickness. The left ventricu lar systolic function is normal and the ejection fraction is within normal range. The Ejection Fracti on is 60-65%. There is normal LV segmental wall motion. Transmitral Doppler flow pattern is Grade I-a bnormal relaxation pattern. RIGHT VENTRICLE The right ventricle is normal size. There is normal right ventricular wall thickness. The right ventr icular systolic function is normal. ATRIA The left atrium size is normal. The right atrium size is normal. The interatrial septum is intact wit h no evidence for an atrial septal defect or patent foramen ovale as noted on 2-D or Doppler imaging. AORTIC VALVE The aortic valve is thickened but opens well. Doppler and Color Flow revealed mild to moderate aortic regurgitation. There is no significant aortic valvular stenosis. Calculated aortic valve area is 2.2 8 cm2 with maximum pressure gradient of 15 mmHg and mean pressure gradient of 6 mmHg. MITRAL VALVE The mitral valve is thickened but opens well. There is no evidence of mitral valve prolapse. There is no mitral valve stenosis. Doppler and Color-flow revealed trace mitral regurgitation. TRICUSPID VALVE The tricuspid valve is normal in structure and function. Doppler and Color Flow revealed trace tricus pid regurgitation with an estimated PAP of 28 mmHg. There is no tricuspid valve stenosis. PULMONIC VALVE The pulmonic valve is not well visualized. Doppler and Color Flow revealed trace pulmonic valvular re gurgitation. There is no pulmonic valvular stenosis. GREAT VESSELS The aortic root is normal in size. The IVC is normal in size and collapses >50% with inspiration. PERICARDIAL EFFUSION There is no evidence of significant pericardial effusion. Critical Notification Critical Value: No <Conclusion> The left ventricular systolic function is normal and the ejection fraction is within normal range. Th e Ejection Fraction is 60-65%. There is normal LV segmental wall motion. Doppler and Color Flow revealed mild to moderate aortic regurgitation. Signed by : Kei Cuellar, Electronically Approved : 02/14/2020 14:26:30
[2020-02-14 15:00] VITALS: BP 141/54
[2020-02-14] MEDS: SUCRALFATE 1 GM TABLET. PO SCH (17:07)
[2020-02-14 19:08] VITALS: BP 119/41
[2020-02-14] MEDS ORDERED: hydrOXYzine 25 MG TABLET PO SCH (21:00)
[2020-02-14] MEDS ORDERED: ATORVASTATIN CALCIUM 20 MG TABLET PO SCH (21:00)
[2020-02-14 22:46] VITALS: BP 121/37
[2020-02-15 02:33] VITALS: BP 138/44
[2020-02-15 07:00] VITALS: BP 154/49
[2020-02-15] MEDS: IPRATRPIUM/ALBUTEROL 0.5/2.5MG 3 ML NEBU. NEB SCH ×3 (08:01→16:00)
[2020-02-15] MEDS: ASPIRIN ENTERIC COATED 81 MG TABLET.DR. PO SCH (08:40)
[2020-02-15] MEDS: PANTOPRAZOLE 40 MG TABLET.DR. PO SCH (08:41)
[2020-02-15] MEDS: amLODIPine BESYLATE 5 MG TABLET PO SCH (08:41)
[2020-02-15] MEDS: DONEPEZIL HCL 10 MG TABLET. PO SCH (08:41)
[2020-02-15] MEDS: METOPROLOL TART IMMED RELEASE 25 MG TABLET. PO SCH (08:42)
[2020-02-15] MEDS: LOSARTAN POTASSIUM 50 MG TABLET. PO SCH (08:42)
[2020-02-15] MEDS: CITALOPRAM 10 MG TABLET. PO SCH (08:42)
[2020-02-15] MEDS: SUCRALFATE 1 GM TABLET. PO SCH ×2 (08:42→17:12)
[2020-02-15] MEDS: MEMANTINE 10 MG TABLET. PO SCH (08:43)
[2020-02-15] MEDS: DRONEDARONE HCL 400 MG TABLET PO SCH (08:43)
[2020-02-15] MEDS ORDERED: LEVOTHYROXINE 125 MCG TABLET PO SCH (09:00)
[2020-02-15 10:49] VITALS: BP 121/58
--- NOTE | 2020-02-15 12:36 | NUR ---
SS following up with discharge planning. SS reviewed pt chart and discussed with pt RN. Pt is currently requiring oxygen. Discharge plan is to home when medically ready. SS will continue to follow for discharge planning.
[2020-02-15 15:00] VITALS: BP 111/46
--- NOTE | 2020-02-15 18:01 | NUR ---
Discharge Note: PATRIA CAMPUZANO Discharge instructions and discharge home medications reviewed with Patient and a copy given. All questions have been answered and understanding verbalized. The following instructions and handouts were given: Syncope Discontinued lines and drains: Peripheral IV intact. Patient discharged to Home or Self Care with Family Member via Wheelchair
--- NOTE | 2020-02-15 21:54 | DS ---
DATE OF DISCHARGE: 02/15/2020 PRIMARY DIAGNOSIS: Syncope. ADDITIONAL DIAGNOSES: Dementia, history of atrial fibrillation, chronic obstructive pulmonary disease, hypothyroidism, hypertension. CHIEF COMPLAINT AND HISTORY OF PRESENT ILLNESS: This 84-year-old white female was admitted after a witnessed 1-2 minute syncopal episode in the front seat of a car with her son. There was no seizure activity with the same. She had no recall of the event and was unable to give much of a history. SUMMARY OF STAY: The patient was admitted and was monitored on telemetry without any significant arrhythmias. Echocardiogram checked out normal. CT scanning of the head and chest x-ray were within normal limits. Laboratory showed no reason that would explain the syncope and the patient was felt ready for discharge on the day of dismissal and this was accomplished. DISPOSITION: The patient is discharged to home. DIET: Regular diet. ACTIVITY: As tolerated. FOLLOWUP: Office in 1 week. DISCHARGE MEDICATIONS: Listed on the med rec and have been addressed and are on her regular home medications. QUINCY ALCANTAR MD DR: MAYCOL/erick JOB#: [id number] / [id number]
== END 2020-02-15 18:03 | disposition home or self-care (01) | DRG 74 ==
LOC: ER 13:08 → 2 SOUTH 16:11 → OBSVTOIN 02-14 15:20
PROVIDERS: ADMIT Family Medicine; ATTEND Family Medicine
DX: G90.8 Other disorders of autonomic nervous system (principal); I48.20 Chronic atrial fibrillation, unspecified; E03.9 Hypothyroidism, unspecified; F03.90 Unspecified dementia, unspecified severity, without behavioral disturbance, psychotic disturbance, mood disturbance, and anxiety; G31.9 Degenerative disease of nervous system, unspecified; I10 Essential (primary) hypertension; I48.91 Unspecified atrial fibrillation; J44.9 Chronic obstructive pulmonary disease, unspecified; Z90.49 Acquired absence of other specified parts of digestive tract; Z90.710 Acquired absence of both cervix and uterus; Z79.01 Long term (current) use of anticoagulants
CPT/HCPCS: 36415; 70450; 71045; 80053; 81001; 84484; 85025; 85610; 85730; 87086; 93005; 93306; 94640; 99285; G0378; G0379

== ENCOUNTER 2020-02-24 21:02 | Emergency (ER) | payer MEDICARE, OTHER ==
[~2020-02-24] VITALS: Ht 149.9 cm; Wt 61.0 kg
[~2020-02-24 21:02] MED LIST changes: +HYDR25TA PO
--- NOTE | 2020-02-24 21:39 | PHYS DOC ---
Past Medical History Past Medical History: A-Fib, COPD, Dementia, Hypertension, Hypothyroid, Other Additional Past Medical Histor: seasonal allergies Past Surgical History: Appendectomy, Hysterectomy Additional Past Surgical Histo: L hip Smoking Status: Never Smoker Alcohol Use: None Drug Use: None General Adult EDM: Chief Complaint: DYSPNEA/RESPIRATOY DISTRESS HPI: HPI: Patient is a 84 year old female who presents with shortness of breath. Patient is a pleasant 84-year-old female who reports that about 2:00 this morning she awoke with complaints of shortness of breath. She denies any change in cough, exercise tolerance, fever or chills, change in sputum production, character or color. She also denies any abdominal pain, chest pain, fever chills or sweats, nausea or vomiting, diarrhea, melena or hematochezia. Patient reports that she is not been exposed to COVID-19 is not been around anybody who is been recently ill. Review of Systems: Review of Systems: Constitutional: Denies fever or chills. [] Eyes: Denies change in visual acuity. [] HENT: Denies nasal congestion or sore throat. [] Respiratory: See HPI [] Cardiovascular: See HPI. [] GI: Denies abdominal pain, nausea, vomiting, bloody stools or diarrhea. [] : Denies dysuria. [] Musculoskeletal: Denies back pain or joint pain. [] Integument: Denies rash. [] Neurologic: Denies headache, focal weakness or sensory changes. [] Endocrine: Denies polyuria or polydipsia. [] Lymphatic: Denies swollen glands. [] Psychiatric: Denies depression or anxiety. [] Heart Score: Risk Factors: Risk Factors: DM, Current or recent (<one month) smoker, HTN, HLP, family history of CAD, obesity. Risk Scores: Score 0 - 3: 2.5% MACE over next 6 weeks - Discharge Home Score 4 - 6: 20.3% MACE over next 6 weeks - Admit for Clinical Observation Score 7 - 10: 72.7% MACE over next 6 weeks - Early Invasive Strategies Allergies: Allergies: Allergies Coded Allergies Type Severity Reaction Last Updated Verified No Known Drug Allergies 07/15/16 No Physical Exam: PE: Constitutional: Well developed, well nourished, mild respiratory distress, non- toxic appearance. [] HENT: Normocephalic, atraumatic, bilateral external ears normal, oropharynx moist, no oral exudates, nose normal. [] Eyes: PERRLA, EOMI, conjunctiva normal, no discharge. [] Neck: Normal range of motion, no tenderness, supple, no stridor. JVD 2 cm at 90 degrees [] Cardiovascular: Regular rate and rhythm, no S3 or S4, grade 2/6 systolic murmur. Nonpalpable pulses distally in the dorsalis pedis [] Lungs & Thorax: Bilateral breath sounds clear to auscultation [] Abdomen: Bowel sounds normal, soft, no tenderness, no masses, no pulsatile masses. [] Skin: Warm, dry, no erythema, no rash. [] Back: No tenderness, no CVA tenderness. [] Extremities: No tenderness, no cyanosis, no clubbing, ROM intact, 1 mm pitting edema bilaterally [] Neurologic: Alert and oriented X 3, normal motor function, normal sensory function, no focal deficits noted. [] Psychologic: Affect normal, judgement normal, mood normal. [] Current Patient Data: Vital Signs: Vital Signs Date Time Temp Pulse Resp B/P (MAP) Pulse Ox O2 Delivery O2 Flow Rate FiO2 02/24/20 21:04 97.9 60 32 111/46 (67) Nasal Cannula 3.0 97.9 EKG: EKG: Heart rate 62 bpm, normal intervals, sinus rhythm, nonspecific T wave abnormality, abnormal ECG [] Radiology/Procedures: Radiology/Procedures: [] Course & Med Decision Making: Course & Med Decision Making Pertinent Labs and Imaging studies reviewed. (See chart for details) 0149-the patient was seen and reevaluated. Patient's breathing has markedly improved with better air movement, no accessory muscle use and a respiratory rate of 22. Patient also states that she feels a lot better as well. Given the fact that she has had no change in exercise tolerance has had rapid improvement with medications rendered here in the emergency department I think she is stable to go home. I discussed with her reasons to return, treatment plan and n eed for follow-up. [] Robin Disclaimer: Dragkady Disclaimer: This electronic medical record was generated, in whole or in part, using a voice recognition dictation system. Departure Departure Impression: Primary Impression: COPD exacerbation Disposition: HOME, SELF-CARE Condition: IMPROVED Referrals: APPL,QUINCY A MD (PCP) Patient Instructions: Chronic Obstructive Pulmonary Disease Exacerbation Scripts Doxycycline Hyclate (DOXYCYCLINE HYCLATE) 100 Mg Capsule 1 CAP PO BID, #14 CAP Prov: ANNIE SERRANO MD 02/25/20 Prednisone (PREDNISONE ) 10 Mg Tablet 10 MG PO DAILY, #30 TAB 0 Refills 4 pills daily for 3 days, then 3 pills daily for 3 days, then 2 pills daily for 3 days, then 1 pill daily for 3 days then off Prov: ANNIE SERRANO MD 02/25/20 Justicifation of Admission Dx: Justifications for Admission: Justification of Admission Dx: N/A ANNIE SERRANO MD Feb 24, 2020 21:39
[2020-02-24] MEDS ORDERED: IPRATROPIUM BROMIDE 0.5 MG/2.5 ML NEBU. NEB ONE (21:45)
[2020-02-24] MEDS ORDERED: ALBUTEROL SULFATE 2.5 MG/3 ML NEBU. CONT NEB ONE (21:45)
[2020-02-24] MEDS ORDERED: methylPREDNISolone SOD SUCC PF 125 MG/2 ML VIAL. IV ONE (21:45)
[2020-02-24 21:58] LABS: BASO % 1 % (0-3); EOS # 0.2 x10^3/uL (0.0-0.7); EOS % 4 % (0-3); HEMATOCRIT 29.2 % (36.0-47.0); HEMOGLOBIN 9.8 g/dL (12.0-15.5); LYMPH # 0.8 x10^3/uL (1.0-4.8); LYMPH % 14 % (24-48); MEAN CORPUSCULAR HEMOGLOBIN 29 pg (25-35); MEAN CORPUSCULAR HGB CONC 33 g/dL (31-37); MEAN CORPUSCULAR VOLUME 88 fL (79-100); MONO # 0.5 x10^3/uL (0.0-1.1); MONO % 9 % (0-9); NEUT # 4.1 x10^3/uL (1.8-7.7); NEUT % 73 % (31-73); PLATELET COUNT 152 x10^3/uL (140-400); RED BLOOD COUNT 3.33 x10^6/uL (3.50-5.40); RED CELL DISTRIBUTION WIDTH 15.6 % (11.5-14.5); WHITE BLOOD COUNT 5.6 x10^3/uL (4.0-11.0)
[2020-02-24 22:07] LABS: CALCIUM 9.8 mg/dL (8.5-10.1); CREATININE 1.1 mg/dL (0.6-1.0); GFR 47.2; POTASSIUM 4.8 mmol/L (3.5-5.1)
[2020-02-24 22:13] LABS: ALBUMIN 3.9 g/dL (3.4-5.0); TOTAL BILIRUBIN 0.3 mg/dL (0.2-1.0); TOTAL PROTEIN 7.7 g/dL (6.4-8.2)
[2020-02-24 22:16] LABS: BILIRUBIN,URINE NEGATIVE (NEG); CLARITY,URINE CLEAR; COLOR,URINE YELLOW; NITRITE,URINE NEGATIVE (NEG); PROTEIN,URINE NEGATIVE (NEG-TRACE); UROBILINOGEN,URINE 0.2 mg/dL (0.2 mg/dL)
[2020-02-24 22:21] LABS: SQUAMOUS EPITHELIAL CELL,UR FEW /LPF
[2020-02-24 22:22] LABS: BACTERIA,URINE MODERATE /HPF (0-FEW)
--- NOTE | 2020-02-24 22:35 | RAD ---
Exam: Chest one view INDICATION: Shortness of breath TECHNIQUE: Frontal view of the chest Comparisons: 02/13/2020 FINDINGS: The cardiomediastinal silhouette and pulmonary vessels are within normal limits. The lung and pleural spaces are clear. IMPRESSION: No acute cardiopulmonary process. Electronically signed by: Arleth Marroquin MD (02/24/2020 10:32 PM) [id number]
[2020-02-25] MEDS ORDERED: DOXY100C2 PO (01:53)
[2020-02-25] MEDS ORDERED: PRED-220 PO (01:53)
[2020-02-25 02:08] VITALS: BP 117/58
--- NOTE | 2020-02-27 05:13 | EKG ---
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
== END 2020-02-25 04:45 | disposition home or self-care (01) ==
LOC: ER 21:02
DX: J44.1 Chronic obstructive pulmonary disease with (acute) exacerbation (principal); Z20.828 Contact with and (suspected) exposure to other viral communicable diseases; I48.91 Unspecified atrial fibrillation; F03.90 Unspecified dementia, unspecified severity, without behavioral disturbance, psychotic disturbance, mood disturbance, and anxiety; I10 Essential (primary) hypertension; E03.9 Hypothyroidism, unspecified
CPT/HCPCS: 36415; 71045; 80053; 81001; 83605; 83880; 84484; 85025; 87040; 87077; 87086; 87186; 93005; 94644; 96374; 99285; J2930; U0003; 94640; J7613; J7644

== ENCOUNTER 2020-04-26 13:35 | Inpatient (IN) | payer MEDICARE, OTHER ==
[~2020-04-26] VITALS: Ht 157.5 cm; Wt 58.5 kg
[~2020-04-26 13:35] MED LIST changes: +AMLO-186 PO; -AMLO5TAB10 PO
--- NOTE | 2020-04-26 14:26 | PHYS DOC ---
Past Medical History Past Medical History: A-Fib, COPD, Dementia, Hypertension, Hypothyroid, Other Additional Past Medical Histor: seasonal allergies Past Surgical History: Appendectomy, Hysterectomy Additional Past Surgical Histo: L hip Smoking Status: Never Smoker Alcohol Use: None Drug Use: None General Adult EDM: Chief Complaint: SHORTNESS OF BREATH HPI: HPI: Patient is a 84 year old female who presents with increased shortness of breath that started yesterday. Daughter states that the patient has a hard time even holding a conversation due to her shortness of breath. Patient wears 2 L at home. She is wearing 2 L here of oxygen and she is satting 99%. Patient states she is having some dizziness. She denies chest pain, syncope, headache, vision changes, numbness or tingling, abdominal pain, nausea, vomiting, diarrhea, dysuria symptoms, back or neck pain, fever, cough. Denies any pain at this time. Patient has a history of chronic respiratory failure with hypoxia, hypothyroidism, hypertension, A. fib, elevated troponin, COPD, high cholesterol, dementia, appendectomy, hysterectomy. Review of Systems: Review of Systems: Constitutional: Denies fever or chills. [] Eyes: Denies change in visual acuity. [] HENT: Denies nasal congestion or sore throat. [] Respiratory: Denies cough. + shortness of breath. [] Cardiovascular: Denies chest pain or edema. [] GI: Denies abdominal pain, nausea, vomiting, bloody stools or diarrhea. [] : Denies dysuria. [] Musculoskeletal: Denies back pain or joint pain. [] Integument: Denies rash. [] Neurologic: Denies headache, focal weakness or sensory changes. +Dizziness.[] Endocrine: Denies polyuria or polydipsia. [] Lymphatic: Denies swollen glands. [] Psychiatric: Denies depression or anxiety. Heart Score: Risk Factors: Risk Factors: DM, Current or recent (<one month) smoker, HTN, HLP, family history of CAD, obesity. Risk Scores: Score 0 - 3: 2.5% MACE over next 6 weeks - Discharge Home Score 4 - 6: 20.3% MACE over next 6 weeks - Admit for Clinical Observation Score 7 - 10: 72.7% MACE over next 6 weeks - Early Invasive Strategies Allergies: Allergies: Allergies Coded Allergies Type Severity Reaction Last Updated Verified No Known Drug Allergies 07/15/16 No Physical Exam: PE: Constitutional: Well developed, well nourished, no acute distress, non-toxic appearance. [] HENT: Normocephalic, atraumatic, bilateral external ears normal, oropharynx moist, no oral exudates, nose normal. [] Eyes: PERRLA, EOMI, conjunctiva normal, no discharge. [] Neck: Normal range of motion, no tenderness, supple, no stridor. [] Cardiovascular:Heart rate regular rhythm, no murmur [] Lungs & Thorax: Bilateral upper breath sounds clear and lower diminished to auscultation [] Abdomen: Bowel sounds normal, soft, no tenderness, no masses, no pulsatile masses. [] Skin: Warm, dry, no erythema, no rash. [] Back: No tenderness, no CVA tenderness. [] Extremities: No tenderness, no cyanosis, no clubbing, ROM intact, no edema. [] Neurologic: Alert and oriented X 3, normal motor function, normal sensory function, no focal deficits noted. [] Psychologic: Affect normal, judgement normal, mood normal. [] Current Patient Data: Vital Signs: Vital Signs Date Time Temp Pulse Resp B/P (MAP) Pulse Ox O2 Delivery O2 Flow Rate FiO2 04/26/20 14:08 98.6 64 18 185/66 (105) 97 Nasal Cannula 2.0 98.6 EKG: EK and read by Dr. Gomez yes sinus rhythm and no STEMI. [] Radiology/Procedures: Radiology/Procedures: [] Impression: [facility] [address] [place] [address] IMAGING REPORT Signed PATIENT: PATRIA CAMPUZANO ACCOUNT: [id number] : 1935 LOCATION: ER AGE: 84 SEX: F EXAM STATUS: PRE ER ORD. PHYSICIAN: DANNY PIMENTEL APRN REASON: SHORT OF BREATH PROCEDURE: PORTABLE CHEST 1V EXAM: PORTABLE CHEST 1V INDICATION: Reason: SHORT OF BREATH / Spl. Instructions: / History: . TECHNIQUE: Single view COMPARISON: Chest x-ray of 02/24/2020 FINDINGS: The heart size is normal. The great vessels appear unremarkable. There is no hilar or mediastinal mass. The lungs are clear. There is no pleural effusion or pneumothorax. There are no significant osseous abnormalities. IMPRESSION: No active cardiopulmonary disease. Electronically signed by: Shorty Del Angel MD (04/26/2020 2:21 PM) [id number] DICTATED and SIGNED BY: SHORTY DEL ANGEL MD DATE: 04/26/20 1421 Course & Med Decision Making: Course & Med Decision Making Pertinent Labs and Imaging studies reviewed. (See chart for details) See HPI. Patient's lungs are clear in upper lobes but diminished in lower lo bes. Speaks in short sentences. Skin pink warm and dry. She is 99% on 2 L of oxygen here and daughter states the patient has been wearing 2 L at home since September.. Chest x-ray shows no acute findings. Blood work shows no acute findings. Urinalysis shows no acute findings. I have spoken to Dr. Lauren who states he wants a second ABG. I have called Dr. Lauren with the second ABG results. He states to go ahead and admit her give her antibiotics and steroids and he will come see her in the morning. [] Robin Disclaimer: Dragkady Disclaimer: This electronic medical record was generated, in whole or in part, using a voice recognition dictation system. Departure Departure Impression: Primary Impression: COPD exacerbation Disposition: ADMITTED INPT THIS HOSP Admitting Physician: Quincy Lauren Condition: STABLE Referrals: QUINCY LAUREN MD (PCP) DANNY PIMENTEL APRN Apr 26, 2020 14:26
[2020-04-26] MEDS ORDERED: ALBUTEROL SULFATE 2.5 MG/3 ML NEBU. NEB ONE (14:30)
[2020-04-26] MEDS ORDERED: methylPREDNISolone SOD SUCC PF 125 MG/2 ML VIAL. IV ONE (14:30)
[2020-04-26 14:40] LABS: BILIRUBIN,URINE NEGATIVE (NEG); CLARITY,URINE CLEAR; COLOR,URINE YELLOW; NITRITE,URINE NEGATIVE (NEG); PROTEIN,URINE 30 mg/dL (NEG-TRACE)
[2020-04-26 14:45] LABS: BASO % 1 % (0-3); EOS # 0.2 x10^3/uL (0.0-0.7); EOS % 6 % (0-3); HEMOGLOBIN 9.5 g/dL (12.0-15.5); LYMPH # 0.5 x10^3/uL (1.0-4.8); LYMPH % 13 % (24-48); MEAN CORPUSCULAR HEMOGLOBIN 28 pg (25-35); MEAN CORPUSCULAR HGB CONC 33 g/dL (31-37); MEAN CORPUSCULAR VOLUME 87 fL (79-100); MONO # 0.5 x10^3/uL (0.0-1.1); MONO % 12 % (0-9); NEUT # 2.7 x10^3/uL (1.8-7.7); NEUT % 68 % (31-73); PLATELET COUNT 179 x10^3/uL (140-400); RED BLOOD COUNT 3.34 x10^6/uL (3.50-5.40); RED CELL DISTRIBUTION WIDTH 16.1 % (11.5-14.5)
[2020-04-26 14:47] LABS: BLOOD UREA NITROGEN 15 mg/dL (7-20); BUN/CREATININE RATIO 17 (6-20); CALCIUM 9.3 mg/dL (8.5-10.1); CARBON DIOXIDE 38 mmol/L (21-32); CHLORIDE 97 mmol/L (98-107); CREATININE 0.9 mg/dL (0.6-1.0); GFR 59.5; GLUCOSE 104 mg/dL (70-99); POTASSIUM 4.8 mmol/L (3.5-5.1); SODIUM 133 mmol/L (136-145)
[2020-04-26 14:53] LABS: ALBUMIN 3.8 g/dL (3.4-5.0); ALBUMIN/GLOBULIN RATIO 1.3 (1.0-1.7); ALK PHOS 46 U/L (46-116); ALT (SGPT) 18 U/L (14-59); AST (SGOT) 24 U/L (15-37); TOTAL BILIRUBIN 0.5 mg/dL (0.2-1.0); TOTAL PROTEIN 6.8 g/dL (6.4-8.2)
[2020-04-26 14:57] LABS: BACTERIA,URINE FEW /HPF (0-FEW)
[2020-04-26 16:36] LABS: BASE EXCESS COOX 9 mmol/L (-3-3); HCO3 COOX 38 mmol/L (21-28); METHEMOGLOBIN 0.5 % (0.0-1.9); OXYHEMOGLOBIN 98.2 %; PCO2 COOX 83 mmHg (35-46); PO2 COOX 218 mmHg (65-108); SAT O2 COOX 99 % (92-99)
[2020-04-26 18:06] LABS: BASE EXCESS COOX 0 mmol/L (-3-3); HCO3 COOX 25 mmol/L (21-28); METHEMOGLOBIN 0.3 % (0.0-1.9); OXYHEMOGLOBIN 96.9 %; PCO2 COOX 42 mmHg (35-46); PO2 COOX 101 mmHg (65-108); SAT O2 COOX 97 % (92-99)
[2020-04-26] MEDS ORDERED: PIPERACILLIN/TAZOBACTAM 3.375 GM in IV NORMAL SALINE 50ML 50 ML IV ONE (18:30)
--- NOTE | 2020-04-26 19:09 | EKG ---
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
[2020-04-26] MEDS: IPRATRPIUM/ALBUTEROL 0.5/2.5MG 3 ML NEBU. NEB SCH (20:00)
[2020-04-26 21:00] VITALS: BP 144/48
--- NOTE | 2020-04-26 22:00 | NUR ---
ADMISSION NOTE At 2100, pt admitted to room 504 from ER via cart. Pt is A/Ox4, on O2@2L/NC, pt given call light, explained use, instructed not to get OOB without help, pt vu. Pt given sandwich box and juice. At 2200, pt admission history/assessment completed. Pt is ROSEBUD, does not have any hearing aides, does have upper and lower dentures. Pt denies pain, POC explained, pt declined to have natalie hose and scds placed at this time. Call light in reach, will monitor.
[2020-04-26] MEDS ORDERED: LEVO125T5 PO (22:27)
[2020-04-26 23:00] VITALS: BP 111/33
[2020-04-26] MEDS ORDERED: ALBUTEROL SULFATE 2.5 MG/3 ML NEBU. NEB PRN (23:45)
[2020-04-27 03:00] VITALS: BP 122/47
[2020-04-27 07:00] VITALS: BP 123/53
[2020-04-27] MEDS: IPRATRPIUM/ALBUTEROL 0.5/2.5MG 3 ML NEBU. NEB SCH ×4 (07:13→19:37)
--- NOTE | 2020-04-27 07:56 | PDOC ---
PULMONARY PROGRESS NOTES DATE: 04/27/20 TIME: 07:56 Vitals Vital Signs Date Time Temp Pulse Resp B/P (MAP) Pulse Ox O2 Delivery O2 Flow Rate FiO2 04/27/20 07:16 92 Nasal Cannula 2.0 04/27/20 07:00 98.4 68 20 123/53 (76) 98.4 General: Alert, No acute distress Lungs: Clear Cardiovascular: S1, S2 Abdomen: Soft, Non-tender Extremities: No Edema, Other Labs Laboratory Tests Test 04/26/20 13:57 04/26/20 14:28 04/26/20 14:33 04/26/20 16:30 Urine Collection Type Unknown Urine Color Yellow Urine Clarity Clear Urine pH 6.0 (<5.0-8.0) Urine Specific Reed 1.020 (1.000-1.030) Urine Protein 30 mg/dL (NEG-TRACE) Urine Glucose (UA) Negative mg/dL (NEG) Urine Ketones (Stick) Negative mg/dL (NEG) Urine Blood Trace (NEG) Urine Nitrite Negative (NEG) Urine Bilirubin Negative (NEG) Urine Urobilinogen Dipstick 1.0 mg/dL (0.2 mg/dL) Urine Leukocyte Esterase Small (NEG) Urine RBC 3-5 /HPF (0-2) Urine WBC 1-4 /HPF (0-4) Urine Squamous Epithelial Cells Occ /LPF Urine Bacteria Few /HPF (0-FEW) Urine Mucus Mod /LPF Sodium Level 133 mmol/L (136-145) Potassium Level 4.8 mmol/L (3.5-5.1) Chloride Level 97 mmol/L (98-107) Carbon Dioxide Level 38 mmol/L (21-32) Anion Gap (6-14) Blood Urea Nitrogen 15 mg/dL (7-20) Creatinine 0.9 mg/dL (0.6-1.0) Estimated GFR (Cockcroft-Gault) 59.5 BUN/Creatinine Ratio 17 (6-20) Glucose Level 104 mg/dL (70-99) Calcium Level 9.3 mg/dL (8.5-10.1) Total Bilirubin 0.5 mg/dL (0.2-1.0) Aspartate Amino Transf (AST/SGOT) 24 U/L (15-37) Alanine Aminotransferase (ALT/SGPT) 18 U/L (14-59) Alkaline Phosphatase 46 U/L (46-116) Troponin I Quantitative < 0.017 ng/mL (0.000-0.055) DC-Vix-S-Type Natriuretic Peptide 479 pg/mL (0-449) Total Protein 6.8 g/dL (6.4-8.2) Albumin 3.8 g/dL (3.4-5.0) Albumin/Globulin Ratio 1.3 (1.0-1.7) White Blood Count 4.0 x10^3/uL (4.0-11.0) Red Blood Count 3.34 x10^6/uL (3.50-5.40) Hemoglobin 9.5 g/dL (12.0-15.5) Hematocrit 29.0 % (36.0-47.0) Mean Corpuscular Volume 87 fL (79-100) Mean Corpuscular Hemoglobin 28 pg (25-35) Mean Corpuscular Hemoglobin Concent 33 g/dL (31-37) Red Cell Distribution Width 16.1 % (11.5-14.5) Platelet Count 179 x10^3/uL (140-400) Neutrophils (%) (Auto) 68 % (31-73) Lymphocytes (%) (Auto) 13 % (24-48) Monocytes (%) (Auto) 12 % (0-9) Eosinophils (%) (Auto) 6 % (0-3) Basophils (%) (Auto) 1 % (0-3) Neutrophils # (Auto) 2.7 x10^3/uL (1.8-7.7) Lymphocytes # (Auto) 0.5 x10^3/uL (1.0-4.8) Monocytes # (Auto) 0.5 x10^3/uL (0.0-1.1) Eosinophils # (Auto) 0.2 x10^3/uL (0.0-0.7) Basophils # (Auto) 0.0 x10^3/uL (0.0-0.2) O2 Saturation 99 % (92-99) Arterial Blood pH 7.28 (7.35-7.45) Arterial Blood pCO2 at Patient Temp 83 mmHg (35-46) Arterial Blood pO2 at Patient Temp 218 mmHg (65-108) Arterial Blood HCO3 38 mmol/L (21-28) Arterial Blood Base Excess 9 mmol/L (-3-3) Oxyhemoglobin 98.2 % Methemoglobin 0.5 % (0.0-1.9) Carbon Monoxide, Quantitative 0.3 % (0.0-1.9) FiO2 28 Test 04/26/20 17:55 O2 Saturation 97 % (92-99) Arterial Blood pH 7.40 (7.35-7.45) Arterial Blood pCO2 at Patient Temp 42 mmHg (35-46) Arterial Blood pO2 at Patient Temp 101 mmHg (65-108) Arterial Blood HCO3 25 mmol/L (21-28) Arterial Blood Base Excess 0 mmol/L (-3-3) Oxyhemoglobin 96.9 % Methemoglobin 0.3 % (0.0-1.9) Carbon Monoxide, Quantitative 0.2 % (0.0-1.9) FiO2 28 Laboratory Tests Test 04/26/20 13:57 04/26/20 14:28 04/26/20 14:33 04/26/20 16:30 Urine Collection Type Unknown Urine Color Yellow Urine Clarity Clear Urine pH 6.0 (<5.0-8.0) Urine Specific Reed 1.020 (1.000-1.030) Urine Protein 30 mg/dL (NEG-TRACE) Urine Glucose (UA) Negative mg/dL (NEG) Urine Ketones (Stick) Negative mg/dL (NEG) Urine Blood Trace (NEG) Urine Nitrite Negative (NEG) Urine Bilirubin Negative (NEG) Urine Urobilinogen Dipstick 1.0 mg/dL (0.2 mg/dL) Urine Leukocyte Esterase Small (NEG) Urine RBC 3-5 /HPF (0-2) Urine WBC 1-4 /HPF (0-4) Urine Squamous Epithelial Cells Occ /LPF Urine Bacteria Few /HPF (0-FEW) Urine Mucus Mod /LPF Sodium Level 133 mmol/L (136-145) Potassium Level 4.8 mmol/L (3.5-5.1) Chloride Level 97 mmol/L (98-107) Carbon Dioxide Level 38 mmol/L (21-32) Anion Gap (6-14) Blood Urea Nitrogen 15 mg/dL (7-20) Creatinine 0.9 mg/dL (0.6-1.0) Estimated GFR (Cockcroft-Gault) 59.5 BUN/Creatinine Ratio 17 (6-20) Glucose Level 104 mg/dL (70-99) Calcium Level 9.3 mg/dL (8.5-10.1) Total Bilirubin 0.5 mg/dL (0.2-1.0) Aspartate Amino Transf (AST/SGOT) 24 U/L (15-37) Alanine Aminotransferase (ALT/SGPT) 18 U/L (14-59) Alkaline Phosphatase 46 U/L (46-116) Troponin I Quantitative < 0.017 ng/mL (0.000-0.055) UV-Unn-N-Type Natriuretic Peptide 479 pg/mL (0-449) Total Protein 6.8 g/dL (6.4-8.2) Albumin 3.8 g/dL (3.4-5.0) Albumin/Globulin Ratio 1.3 (1.0-1.7) White Blood Count 4.0 x10^3/uL (4.0-11.0) Red Blood Count 3.34 x10^6/uL (3.50-5.40) Hemoglobin 9.5 g/dL (12.0-15.5) Hematocrit 29.0 % (36.0-47.0) Mean Corpuscular Volume 87 fL (79-100) Mean Corpuscular Hemoglobin 28 pg (25-35) Mean Corpuscular Hemoglobin Concent 33 g/dL (31-37) Red Cell Distribution Width 16.1 % (11.5-14.5) Platelet Count 179 x10^3/uL (140-400) Neutrophils (%) (Auto) 68 % (31-73) Lymphocytes (%) (Auto) 13 % (24-48) Monocytes (%) (Auto) 12 % (0-9) Eosinophils (%) (Auto) 6 % (0-3) Basophils (%) (Auto) 1 % (0-3) Neutrophils # (Auto) 2.7 x10^3/uL (1.8-7.7) Lymphocytes # (Auto) 0.5 x10^3/uL (1.0-4.8) Monocytes # (Auto) 0.5 x10^3/uL (0.0-1.1) Eosinophils # (Auto) 0.2 x10^3/uL (0.0-0.7) Basophils # (Auto) 0.0 x10^3/uL (0.0-0.2) O2 Saturation 99 % (92-99) Arterial Blood pH 7.28 (7.35-7.45) Arterial Blood pCO2 at Patient Temp 83 mmHg (35-46) Arterial Blood pO2 at Patient Temp 218 mmHg (65-108) Arterial Blood HCO3 38 mmol/L (21-28) Arterial Blood Base Excess 9 mmol/L (-3-3) Oxyhemoglobin 98.2 % Methemoglobin 0.5 % (0.0-1.9) Carbon Monoxide, Quantitative 0.3 % (0.0-1.9) FiO2 28 Test 04/26/20 17:55 O2 Saturation 97 % (92-99) Arterial Blood pH 7.40 (7.35-7.45) Arterial Blood pCO2 at Patient Temp 42 mmHg (35-46) Arterial Blood pO2 at Patient Temp 101 mmHg (65-108) Arterial Blood HCO3 25 mmol/L (21-28) Arterial Blood Base Excess 0 mmol/L (-3-3) Oxyhemoglobin 96.9 % Methemoglobin 0.3 % (0.0-1.9) Carbon Monoxide, Quantitative 0.2 % (0.0-1.9) FiO2 28 Medications Active Scripts Medications Dose Route/Sig Max Daily Dose Days Date Category Levothyroxine Sodium 125 Mcg Tablet 1 Tab PO DAILY 04/26/20 Reported Hydroxyzine Hcl 25 Mg Tablet 25 Mg PO HS 02/14/20 Reported Amlodipine Besylate 5 Mg Tablet 5 Mg PO DAILY 30 08/22/19 Rx Duoneb 0.5-3(2.5) Mg/3 Ml (Albuterol/Ipratropium) 3 Ml Ampul.neb 3 Ml NEB RTQID 30 08/22/19 Rx Metoprolol Tartrate 25 Mg Tablet 25 Mg PO BID 06/15/19 Reported Donepezil Hcl 10 Mg Tablet 1 Tab PO DAILY 06/15/19 Reported Namenda (Memantine Hcl) 10 Mg Tablet 10 Mg PO BID 06/15/19 Reported Pantoprazole Sodium 40 Mg Tablet.dr 40 Mg PO DAILY 03/30/19 Reported Sucralfate 1 Gm Tablet 1 Gm PO BIDAC 03/30/19 Reported Cozaar (Losartan Potassium) 50 Mg Tablet 100 Mg PO DAILY 30 09/05/18 Rx Multaq (Dronedarone Hcl) 400 Mg Tablet 400 Mg PO BID 12/28/17 Reported Aspirin Ec (Aspirin) 81 Mg Tablet.dr 1 Tab PO DAILY 12/28/17 Reported Citalopram Hbr (Citalopram Hydrobromide) 10 Mg Tablet 10 Mg PO DAILY 12/11/17 Reported Atorvastatin Calcium 20 Mg Tablet 20 Mg PO HS 12/11/17 Reported Impression . note dictated AECOPD Acute hypercapnea see orders thanks ELIZABETH HUTCHINS MD Apr 27, 2020 07:56
[2020-04-27] MEDS: ALBUTEROL SULFATE 2.5 MG/3 ML NEBU. NEB SCH ×6 (09:00→23:52)
[2020-04-27] MEDS: methylPREDNISolone SOD SUCC PF 125 MG/2 ML VIAL. IV SCH (09:30)
--- NOTE | 2020-04-27 09:52 | CONS ---
DATE OF CONSULTATION: 04/27/2020 ATTENDING PHYSICIAN: Dr. Yogi Lauren. REASON FOR CONSULTATION: The patient is seen in pulmonary consultation at the request of Dr. Lauren for increasing shortness of air. HISTORY OF PRESENT ILLNESS: The patient is an 84-year-old with chronic respiratory failure, normally on 2 liters of oxygen supplementation, increasing shortness of breath over the last 2-3 days, increasing cough and unable to tolerate activities of daily living. She was admitted. I was asked to see her in consultation. Chest x-ray revealed no acute infiltrates. The patient denies any COVID-19 exposures. The patient presented to the Emergency Room with an arterial blood gas revealing a pH of 7.28, PaCO2 of 83, pO2 of 218. PAST MEDICAL HISTORY: Otherwise remarkable for chronic respiratory failure, previous admissions for hypercapnic respiratory failure with BiPAP, COPD, dementia, AFib, seasonal allergies. PAST SURGICAL HISTORY: Status post appendectomy, hysterectomy, left hip surgery. SOCIAL HISTORY: She denies any current use of tobacco. ALLERGIES: No known drug allergies. REVIEW OF SYSTEMS: CONSTITUTIONAL: No fever or chills. EYES: No change in visual acuity. HENT: No nasal congestion or sore throat. PULMONARY: As indicated above. CARDIOVASCULAR: No chest pain. No pressure. GASTROINTESTINAL: No nausea, vomiting, diarrhea. GENITOURINARY: No dysuria or frequency. MUSCULOSKELETAL: No localized muscle aches or joint pains. SKIN: No new skin rashes. NEUROLOGIC: No headaches, diplopia or blurred vision PHYSICAL EXAMINATION: VITAL SIGNS: Stable. O2 saturation greater than 92%. LUNGS: Clear. No wheezes. CARDIOVASCULAR: Regular rate and rhythm with S1, S2, no S3. ABDOMEN: Soft, nontender, nondistended. EXTREMITIES: No clubbing, cyanosis or edema. LABORATORY DATA: Labs were reviewed. Arterial blood gas once again, pH initially 7.28, PaCO2 of 83, pO2 of 218. Repeat arterial blood gas; pH of 7.40, PaCO2 of 42, pO2 of 101. Chest x-ray revealed no acute infiltrates. White count was normal. Hemoglobin and hematocrit were noted. IMPRESSION: 1. Acute hypercapnic respiratory failure. 2. Acute exacerbation of chronic obstructive pulmonary disease. 3. Atrial fibrillation. 4. Mild dementia. 5. Seasonal allergies. PLAN: 1. As indicated above, the patient presented with acute hypercapnic respiratory insufficiency requiring BiPAP, she is currently off of BiPAP, improved, her recent arterial blood gas revealed a pH of 7.40, PaCO2 of 42, pO2 of 101. 2. We will discontinue oxygen and obtain a room air arterial blood gas. 3. Continue IV steroids. 4. Nebulized treatments. I do appreciate the privilege in sharing in the patient's care. ELIZABETH HUTCHINS MD DR: ALICIA/erick JOB#: [id number] / [id number]
[2020-04-27 10:35] VITALS: BP 126/48
--- NOTE | 2020-04-27 10:35 | PDOC ---
Provider Note Date of Service: DATE: 04/27/20 TIME: 10:33 Provider Note [id number] Justifications for Admission Other Justification DIMAS RECINOS MD Apr 27, 2020 10:35
--- NOTE | 2020-04-27 10:48 | HP ---
ADMIT DATE: 04/27/2020 CHIEF COMPLAINT: Shortness of breath and confusion. HISTORY OF PRESENT ILLNESS: An 84-year-old white female with some history of dementia, COPD; she was on oxygen at home and came in with respiratory acidosis from hypercarbia and confusion. Dr. Cervantes in the ER added BiPAP and she has subsequently resolved the acidosis and her last set of blood gas was normal. She is sleeping at this time, in no distress. PAST HISTORY: Well documented in the old record. ALLERGIES: No allergies are known. VACCINES: Uncertain. SOCIAL HISTORY: Unknown at this time. FAMILY HISTORY: Unremarkable. REVIEW OF SYSTEMS: No other known problems. OBJECTIVE: ENT: All within normal limits. NECK: No masses, nodes or bruits. LUNGS: Decreased breath sounds. No wheezing or tachypnea. CARDIOVASCULAR: Regular rate. No tachycardia or murmur. ABDOMEN: Benign. EXTREMITIES: Unremarkable. No edema. NEUROLOGIC: Physiologic, but not able to assess as she is sleeping beyond that. ASSESSMENT: Respiratory acidosis secondary to hypercarbia; resolved, underlying chronic obstructive pulmonary disease, dementia and other medical problems are stable. PLAN: As ordered. She is a full code apparently by her choice. DIMAS RECINOS MD DR: ANNALISE/erick JOB#: [id number] / [id number]
[2020-04-27] MEDS: ASPIRIN ENTERIC COATED 81 MG TABLET.DR. PO SCH (11:43)
[2020-04-27] MEDS: CITALOPRAM 10 MG TABLET. PO SCH (11:43)
[2020-04-27] MEDS: LOSARTAN POTASSIUM 50 MG TABLET. PO SCH (11:43)
[2020-04-27] MEDS: DONEPEZIL HCL 10 MG TABLET. PO SCH (11:43)
[2020-04-27] MEDS: MEMANTINE 10 MG TABLET. PO SCH ×2 (11:43→20:34)
[2020-04-27] MEDS: LEVOTHYROXINE 125 MCG TABLET PO SCH (11:43)
[2020-04-27] MEDS: PANTOPRAZOLE 40 MG TABLET.DR. PO SCH (11:43)
[2020-04-27] MEDS: SUCRALFATE 1 GM TABLET. PO SCH ×2 (11:43→16:58)
[2020-04-27] MEDS: METOPROLOL TART IMMED RELEASE 25 MG TABLET. PO SCH ×2 (11:43→23:04)
[2020-04-27] MEDS: DRONEDARONE HCL 400 MG TABLET PO SCH ×2 (11:44→23:04)
[2020-04-27] MEDS: amLODIPine BESYLATE 5 MG TABLET PO SCH (11:44)
[2020-04-27 11:47] LABS: BASE EXCESS ABG 7 mmol/L (-3-3); HCO3 ABG 33 mmol/L (21-28); PCO2 ABG 49 mmHg (35-46); SAT O2 ABG 85 % (92-99)
[2020-04-27] MEDS ORDERED: IPRATRPIUM/ALBUTEROL 0.5/2.5MG 3 ML NEBU. NEB SCH (12:00)
[2020-04-27 12:46] LABS: FIO2 ABG 21; PO2 ABG 47 mmHg (65-108)
[2020-04-27 15:00] VITALS: BP 110/54
[2020-04-27 19:00] VITALS: BP 109/40
[2020-04-27] MEDS: hydrOXYzine 25 MG TABLET PO SCH (20:32)
[2020-04-27] MEDS: ATORVASTATIN CALCIUM 20 MG TABLET PO SCH (20:34)
[2020-04-27 23:01] VITALS: BP 111/44
[2020-04-28] MEDS: ALBUTEROL SULFATE 2.5 MG/3 ML NEBU. NEB SCH ×6 (03:00→20:09)
[2020-04-28 03:02] VITALS: BP 123/44
[2020-04-28] MEDS: LEVOTHYROXINE 125 MCG TABLET PO SCH (06:22)
[2020-04-28 07:00] VITALS: BP 124/53
[2020-04-28] MEDS: IPRATRPIUM/ALBUTEROL 0.5/2.5MG 3 ML NEBU. NEB SCH ×4 (08:00→19:53)
[2020-04-28] MEDS: PANTOPRAZOLE 40 MG TABLET.DR. PO SCH (09:06)
[2020-04-28] MEDS: LOSARTAN POTASSIUM 50 MG TABLET. PO SCH (09:06)
[2020-04-28] MEDS: amLODIPine BESYLATE 5 MG TABLET PO SCH (09:06)
[2020-04-28] MEDS: SUCRALFATE 1 GM TABLET. PO SCH ×2 (09:07→16:42)
[2020-04-28] MEDS: MEMANTINE 10 MG TABLET. PO SCH ×2 (09:07→21:50)
[2020-04-28] MEDS: ASPIRIN ENTERIC COATED 81 MG TABLET.DR. PO SCH (09:07)
[2020-04-28] MEDS: DRONEDARONE HCL 400 MG TABLET PO SCH ×2 (09:07→21:50)
[2020-04-28] MEDS: CITALOPRAM 10 MG TABLET. PO SCH (09:07)
[2020-04-28] MEDS: DONEPEZIL HCL 10 MG TABLET. PO SCH (09:07)
[2020-04-28] MEDS: methylPREDNISolone SOD SUCC PF 125 MG/2 ML VIAL. IV SCH (09:08)
[2020-04-28] MEDS: METOPROLOL TART IMMED RELEASE 25 MG TABLET. PO SCH ×2 (09:08→21:00)
--- NOTE | 2020-04-28 10:08 | PDOC ---
PULMONARY PROGRESS NOTES DATE: 04/28/20 TIME: 10:05 Subjective Patient reports that her breathing is significantly better today, denies any shortness of breath, or increased cough Remains on 1 L nasal cannula No overnight concerns from nursing Vitals Vital Signs Date Time Temp Pulse Resp B/P (MAP) Pulse Ox O2 Delivery O2 Flow Rate FiO2 04/28/20 09:08 77 124/53 04/28/20 07:00 98.7 16 96 Nasal Cannula 2.0 98.7 ROS: No Nausea, No Chest Pain, No Abdominal Pain, No Increase Cough General: Alert, No acute distress Lungs: Clear Cardiovascular: S1, S2 Abdomen: Soft, Non-tender Extremities: No Edema, Other Labs Laboratory Tests Test 04/26/20 13:57 04/26/20 14:28 04/26/20 14:33 04/26/20 16:30 Urine Collection Type Unknown Urine Color Yellow Urine Clarity Clear Urine pH 6.0 (<5.0-8.0) Urine Specific [place] 1.020 (1.000-1.030) Urine Protein 30 mg/dL (NEG-TRACE) Urine Glucose (UA) Negative mg/dL (NEG) Urine Ketones (Stick) Negative mg/dL (NEG) Urine Blood Trace (NEG) Urine Nitrite Negative (NEG) Urine Bilirubin Negative (NEG) Urine Urobilinogen Dipstick 1.0 mg/dL (0.2 mg/dL) Urine Leukocyte Esterase Small (NEG) Urine RBC 3-5 /HPF (0-2) Urine WBC 1-4 /HPF (0-4) Urine Squamous Epithelial Cells Occ /LPF Urine Bacteria Few /HPF (0-FEW) Urine Mucus Mod /LPF Sodium Level 133 mmol/L (136-145) Potassium Level 4.8 mmol/L (3.5-5.1) Chloride Level 97 mmol/L (98-107) Carbon Dioxide Level 38 mmol/L (21-32) Anion Gap (6-14) Blood Urea Nitrogen 15 mg/dL (7-20) Creatinine 0.9 mg/dL (0.6-1.0) Estimated GFR (Cockcroft-Gault) 59.5 BUN/Creatinine Ratio 17 (6-20) Glucose Level 104 mg/dL (70-99) Calcium Level 9.3 mg/dL (8.5-10.1) Total Bilirubin 0.5 mg/dL (0.2-1.0) Aspartate Amino Transf (AST/SGOT) 24 U/L (15-37) Alanine Aminotransferase (ALT/SGPT) 18 U/L (14-59) Alkaline Phosphatase 46 U/L (46-116) Troponin I Quantitative < 0.017 ng/mL (0.000-0.055) PR-Inh-G-Type Natriuretic Peptide 479 pg/mL (0-449) Total Protein 6.8 g/dL (6.4-8.2) Albumin 3.8 g/dL (3.4-5.0) Albumin/Globulin Ratio 1.3 (1.0-1.7) White Blood Count 4.0 x10^3/uL (4.0-11.0) Red Blood Count 3.34 x10^6/uL (3.50-5.40) Hemoglobin 9.5 g/dL (12.0-15.5) Hematocrit 29.0 % (36.0-47.0) Mean Corpuscular Volume 87 fL (79-100) Mean Corpuscular Hemoglobin 28 pg (25-35) Mean Corpuscular Hemoglobin Concent 33 g/dL (31-37) Red Cell Distribution Width 16.1 % (11.5-14.5) Platelet Count 179 x10^3/uL (140-400) Neutrophils (%) (Auto) 68 % (31-73) Lymphocytes (%) (Auto) 13 % (24-48) Monocytes (%) (Auto) 12 % (0-9) Eosinophils (%) (Auto) 6 % (0-3) Basophils (%) (Auto) 1 % (0-3) Neutrophils # (Auto) 2.7 x10^3/uL (1.8-7.7) Lymphocytes # (Auto) 0.5 x10^3/uL (1.0-4.8) Monocytes # (Auto) 0.5 x10^3/uL (0.0-1.1) Eosinophils # (Auto) 0.2 x10^3/uL (0.0-0.7) Basophils # (Auto) 0.0 x10^3/uL (0.0-0.2) O2 Saturation 99 % (92-99) Arterial Blood pH 7.28 (7.35-7.45) Arterial Blood pCO2 at Patient Temp 83 mmHg (35-46) Arterial Blood pO2 at Patient Temp 218 mmHg (65-108) Arterial Blood HCO3 38 mmol/L (21-28) Arterial Blood Base Excess 9 mmol/L (-3-3) Oxyhemoglobin 98.2 % Methemoglobin 0.5 % (0.0-1.9) Carbon Monoxide, Quantitative 0.3 % (0.0-1.9) FiO2 28 Test 04/26/20 17:55 04/27/20 11:25 O2 Saturation 97 % (92-99) 85 % (92-99) Arterial Blood pH 7.40 (7.35-7.45) 7.44 (7.35-7.45) Arterial Blood pCO2 at Patient Temp 42 mmHg (35-46) 49 mmHg (35-46) Arterial Blood pO2 at Patient Temp 101 mmHg (65-108) 47 mmHg (65-108) Arterial Blood HCO3 25 mmol/L (21-28) 33 mmol/L (21-28) Arterial Blood Base Excess 0 mmol/L (-3-3) 7 mmol/L (-3-3) Oxyhemoglobin 96.9 % Methemoglobin 0.3 % (0.0-1.9) Carbon Monoxide, Quantitative 0.2 % (0.0-1.9) FiO2 28 21 Laboratory Tests Test 04/27/20 11:25 O2 Saturation 85 % (92-99) Arterial Blood pH 7.44 (7.35-7.45) Arterial Blood pCO2 at Patient Temp 49 mmHg (35-46) Arterial Blood pO2 at Patient Temp 47 mmHg (65-108) Arterial Blood HCO3 33 mmol/L (21-28) Arterial Blood Base Excess 7 mmol/L (-3-3) FiO2 21 Medications Active Scripts Medications Dose Route/Sig Max Daily Dose Days Date Category Levothyroxine Sodium 125 Mcg Tablet 1 Tab PO DAILY 04/26/20 Reported Hydroxyzine Hcl 25 Mg Tablet 25 Mg PO HS 02/14/20 Reported Amlodipine Besylate 5 Mg Tablet 5 Mg PO DAILY 30 08/22/19 Rx Duoneb 0.5-3(2.5) Mg/3 Ml (Albuterol/Ipratropium) 3 Ml Ampul.neb 3 Ml NEB RTQID 30 08/22/19 Rx Metoprolol Tartrate 25 Mg Tablet 25 Mg PO BID 06/15/19 Reported Donepezil Hcl 10 Mg Tablet 1 Tab PO DAILY 06/15/19 Reported Namenda (Memantine Hcl) 10 Mg Tablet 10 Mg PO BID 06/15/19 Reported Pantoprazole Sodium 40 Mg Tablet.dr 40 Mg PO DAILY 03/30/19 Reported Sucralfate 1 Gm Tablet 1 Gm PO BIDAC 03/30/19 Reported Cozaar (Losartan Potassium) 50 Mg Tablet 100 Mg PO DAILY 30 09/05/18 Rx Multaq (Dronedarone Hcl) 400 Mg Tablet 400 Mg PO BID 12/28/17 Reported Aspirin Ec (Aspirin) 81 Mg Tablet.dr 1 Tab PO DAILY 12/28/17 Reported Citalopram Hbr (Citalopram Hydrobromide) 10 Mg Tablet 10 Mg PO DAILY 12/11/17 Reported Atorvastatin Calcium 20 Mg Tablet 20 Mg PO HS 12/11/17 Reported Impression . IMPRESSION: 1. Acute hypercapnic respiratory failure.--improved 2. Acute exacerbation of chronic obstructive pulmonary disease.--improved 3. Atrial fibrillation. 4. Mild dementia. 5. Seasonal allergies. Plan . PLAN: Continue supplemental oxygen as needed to keep oxygen saturations greater than 92% Continue steroids Bronchodilators DVT/GI prophylaxis Discussed with ELIZABETH APARICIO MD Apr 28, 2020 10:08
[2020-04-28 11:00] VITALS: BP 119/39
--- NOTE | 2020-04-28 12:04 | PDOC ---
Provider Note Date of Service: DATE: 04/28/20 TIME: 12:03 Provider Note vss, no temp, alert, nad, labs ok- resp acidosis gone, still iv solumed- , cont same, likely dc in am per dr rivas Justifications for Admission Other Justification DIMAS RECINOS MD Apr 28, 2020 12:04
[2020-04-28 15:00] VITALS: BP 94/44
--- NOTE | 2020-04-28 16:07 | NUR ---
Duoneb TX given
[2020-04-28] MEDS: ENOXAPARIN 40 MG/0.4 ML SYRINGE. SQ SCH (16:42)
[2020-04-28 19:00] VITALS: BP 101/31
[2020-04-28] MEDS ORDERED: ALBUTEROL SULFATE 2.5 MG/3 ML NEBU. NEB PRN (20:15)
[2020-04-28] MEDS: hydrOXYzine 25 MG TABLET PO SCH (21:49)
[2020-04-28] MEDS: ATORVASTATIN CALCIUM 20 MG TABLET PO SCH (21:50)
[2020-04-28 23:02] VITALS: BP 98/31
[2020-04-29 03:03] VITALS: BP 117/43
[2020-04-29] MEDS: LEVOTHYROXINE 125 MCG TABLET PO SCH (05:46)
[2020-04-29 07:00] VITALS: BP 135/56
[2020-04-29] MEDS: IPRATRPIUM/ALBUTEROL 0.5/2.5MG 3 ML NEBU. NEB SCH ×4 (07:32→19:34)
[2020-04-29] MEDS: PANTOPRAZOLE 40 MG TABLET.DR. PO SCH (08:20)
[2020-04-29] MEDS: LOSARTAN POTASSIUM 50 MG TABLET. PO SCH (08:21)
[2020-04-29] MEDS: ASPIRIN ENTERIC COATED 81 MG TABLET.DR. PO SCH (08:21)
[2020-04-29] MEDS: SUCRALFATE 1 GM TABLET. PO SCH ×2 (08:21→17:40)
[2020-04-29] MEDS: MEMANTINE 10 MG TABLET. PO SCH ×2 (08:21→21:22)
[2020-04-29] MEDS: METOPROLOL TART IMMED RELEASE 25 MG TABLET. PO SCH ×2 (08:21→21:22)
[2020-04-29] MEDS: DRONEDARONE HCL 400 MG TABLET PO SCH ×2 (08:21→21:22)
[2020-04-29] MEDS: DONEPEZIL HCL 10 MG TABLET. PO SCH (08:22)
[2020-04-29] MEDS: CITALOPRAM 10 MG TABLET. PO SCH (08:22)
[2020-04-29] MEDS: amLODIPine BESYLATE 5 MG TABLET PO SCH (08:22)
--- NOTE | 2020-04-29 08:26 | PDOC ---
DATE OF SERVICE: DATE: 04/29/20 TIME: 08:24 GENERAL General: vss and afebrile. awake and alert. weak. sob is better. chest decreased breath sounds with occasional wheeze. heart regular and abdomen benign. change to po steroids with therapy to eval. VITAL SIGNS/I&O Vital Signs/I&O: Vital Signs Date Time Temp Pulse Resp B/P (MAP) Pulse Ox O2 Delivery O2 Flow Rate FiO2 04/29/20 08:22 72 135/56 04/29/20 07:32 93 Nasal Cannula 1.0 04/29/20 07:00 97.6 17 97.6 I & O 04/28/20 04/28/20 04/29/20 15:00 23:00 07:00 Intake Total 240 ml Balance 240 ml ALLERGIES Allergies: Allergies Coded Allergies Type Severity Reaction Last Updated Verified No Known Drug Allergies 07/15/16 No MEDS Medications: Current Medications Medications (Trade) Dose Ordered Sig/Silvia Route PRN Reason Start Time Stop Time Status Last Admin Dose Admin Enoxaparin Sodium (Lovenox 40mg Syringe) 40 mg Q24H SQ 04/28/20 16:00 04/28/20 16:42 Methylprednisolone Sodium Succinate (SOLU-Medrol 125MG VIAL) 80 mg DAILY IV 04/29/20 09:00 04/29/20 08:22 Justifications for Admission Other Justification QUINCY ALCANTAR MD Apr 29, 2020 08:26
[2020-04-29] MEDS ORDERED: methylPREDNISolone SOD SUCC PF 125 MG/2 ML VIAL. IV SCH (09:00)
[2020-04-29 10:43] VITALS: BP 130/58
--- NOTE | 2020-04-29 12:44 | NUR ---
SW following. Spoke with RN and reviewed chart. Pt from home with son and [id number]. Pt on and has home per [id number]. Pt to discharge home today, self-care. Pt has 24 hour care from family and is on oral medications. PT recommended HH but family declined. LORIN spoke with pt's [id number] and they will follow up with PCP if they change their mind about HH. No further SW needs at this time. Addendum: 04/30/20 at 1449 by KRISTA PADGETT discharge held 04/29.
--- NOTE | 2020-04-29 13:30 | PDOC ---
PULMONARY PROGRESS NOTES DATE: 04/29/20 TIME: 13:27 Subjective Patient continues to clinically improve, sitting up in the chair eating lunch Denies any shortness of breath or increased cough Remains on 1 L nasal cannula No overnight concerns from nursing Vitals Vital Signs Date Time Temp Pulse Resp B/P (MAP) Pulse Ox O2 Delivery O2 Flow Rate FiO2 04/29/20 11:56 Nasal Cannula 2.0 04/29/20 10:43 97.7 76 17 130/58 (82) 94 97.7 ROS: No Nausea, No Chest Pain, No Abdominal Pain, No Increase Cough General: Alert, No acute distress Lungs: Clear Cardiovascular: S1, S2 Abdomen: Soft, Non-tender Extremities: No Edema, Other Skin: Warm, Dry Medications Active Scripts Medications Dose Route/Sig Max Daily Dose Days Date Category Levothyroxine Sodium 125 Mcg Tablet 1 Tab PO DAILY 04/26/20 Reported Hydroxyzine Hcl 25 Mg Tablet 25 Mg PO HS 02/14/20 Reported Amlodipine Besylate 5 Mg Tablet 5 Mg PO DAILY 30 08/22/19 Rx Duoneb 0.5-3(2.5) Mg/3 Ml (Albuterol/Ipratropium) 3 Ml Ampul.neb 3 Ml NEB RTQID 30 08/22/19 Rx Metoprolol Tartrate 25 Mg Tablet 25 Mg PO BID 06/15/19 Reported Donepezil Hcl 10 Mg Tablet 1 Tab PO DAILY 06/15/19 Reported Namenda (Memantine Hcl) 10 Mg Tablet 10 Mg PO BID 06/15/19 Reported Pantoprazole Sodium 40 Mg Tablet.dr 40 Mg PO DAILY 03/30/19 Reported Sucralfate 1 Gm Tablet 1 Gm PO BIDAC 03/30/19 Reported Cozaar (Losartan Potassium) 50 Mg Tablet 100 Mg PO DAILY 30 09/05/18 Rx Multaq (Dronedarone Hcl) 400 Mg Tablet 400 Mg PO BID 12/28/17 Reported Aspirin Ec (Aspirin) 81 Mg Tablet.dr 1 Tab PO DAILY 12/28/17 Reported Citalopram Hbr (Citalopram Hydrobromide) 10 Mg Tablet 10 Mg PO DAILY 12/11/17 Reported Atorvastatin Calcium 20 Mg Tablet 20 Mg PO HS 12/11/17 Reported Comments CXR IMPRESSION: No active cardiopulmonary disease. Impression . IMPRESSION: 1. Acute hypercapnic respiratory failure.--improved 2. Acute exacerbation of chronic obstructive pulmonary disease.--improved 3. Atrial fibrillation. 4. Mild dementia. 5. Seasonal allergies. Plan . PLAN: Patient continues to improve, stable from a pulmonary standpoint Continue supplemental oxygen as needed to keep oxygen saturations greater than 92% Continue steroids, now on po Bronchodilators DVT/GI prophylaxis Patient could discharge in the next 24 to 48 hours Discussed with ELIZABETH APARICIO MD Apr 29, 2020 13:30
[2020-04-29 15:00] VITALS: BP 122/51
[2020-04-29] MEDS: ENOXAPARIN 40 MG/0.4 ML SYRINGE. SQ SCH (17:40)
[2020-04-29 19:00] VITALS: BP 147/53
[2020-04-29] MEDS: hydrOXYzine 25 MG TABLET PO SCH (21:21)
[2020-04-29] MEDS: ATORVASTATIN CALCIUM 20 MG TABLET PO SCH (21:22)
[2020-04-29 23:00] VITALS: BP 116/40
[2020-04-30 03:00] VITALS: BP 128/33
[2020-04-30] MEDS: PANTOPRAZOLE 40 MG TABLET.DR. PO SCH (05:17)
[2020-04-30] MEDS: LEVOTHYROXINE 125 MCG TABLET PO SCH (05:17)
[2020-04-30] MEDS: IPRATRPIUM/ALBUTEROL 0.5/2.5MG 3 ML NEBU. NEB SCH ×3 (05:28→15:46)
[2020-04-30 07:00] VITALS: BP 128/54
[2020-04-30] MEDS ORDERED: PRED-220 PO (07:37)
[2020-04-30] MEDS: DRONEDARONE HCL 400 MG TABLET PO SCH (08:19)
[2020-04-30] MEDS: CITALOPRAM 10 MG TABLET. PO SCH (08:20)
[2020-04-30] MEDS: SUCRALFATE 1 GM TABLET. PO SCH ×2 (08:20→16:12)
[2020-04-30] MEDS: MEMANTINE 10 MG TABLET. PO SCH (08:20)
[2020-04-30] MEDS: ASPIRIN ENTERIC COATED 81 MG TABLET.DR. PO SCH (08:20)
[2020-04-30] MEDS: DONEPEZIL HCL 10 MG TABLET. PO SCH (08:20)
[2020-04-30] MEDS: LOSARTAN POTASSIUM 50 MG TABLET. PO SCH (08:20)
[2020-04-30] MEDS: METOPROLOL TART IMMED RELEASE 25 MG TABLET. PO SCH (08:21)
[2020-04-30] MEDS: amLODIPine BESYLATE 5 MG TABLET PO SCH (08:21)
--- NOTE | 2020-04-30 08:46 | DS ---
DATE OF DISCHARGE: 04/30/2020 PRIMARY DIAGNOSIS: Exacerbation of chronic obstructive pulmonary disease with hypercarbia. ADDITIONAL DIAGNOSES: Dementia, hypothyroidism, hypertension. CHIEF COMPLAINT AND HISTORY OF PRESENT ILLNESS: This 84-year-old white female admitted through the Emergency Room with shortness of breath, respiratory acidosis and hypercarbia. SUMMARY OF STAY: The patient was admitted and treated with pulmonary toilet, IV steroids, pulmonary consultation, improved throughout the stay to where she was back at her baseline by the time of discharge, felt ready for dismissal with an ongoing prednisone taper following discharge. DISPOSITION: The patient is discharged to home. DIET: Regular diet. ACTIVITY: As tolerated. FOLLOWUP: Office in 1 week. DISCHARGE MEDICATIONS: She will resume her regular home meds plus a prednisone taper of 40 daily for 3 days, 30 for 3, 20 for 3, 10 for 3, and 5 for 2-07/23. QUINCY ALCANTAR MD DR: MAYCOL/erick JOB#: [id number] / [id number]
[2020-04-30] MEDS ORDERED: predniSONE 10 MG TABLET PO SCH (09:00)
--- NOTE | 2020-04-30 09:23 | PDOC ---
PULMONARY PROGRESS NOTES DATE: 04/30/20 TIME: 09:21 Subjective Patient is confused and having active hallucinations Denies any shortness of breath or increased cough Remains on 1 L nasal cannula No overnight concerns from nursing Vitals Vital Signs Date Time Temp Pulse Resp B/P (MAP) Pulse Ox O2 Delivery O2 Flow Rate FiO2 04/30/20 08:21 72 128/54 04/30/20 07:00 97.6 16 95 Nasal Cannula 1.0 97.6 ROS: No Nausea, No Chest Pain, No Abdominal Pain, No Increase Cough General: Alert, No acute distress Lungs: Clear Cardiovascular: S1, S2 Abdomen: Soft, Non-tender Extremities: No Edema, Other Skin: Warm, Dry Medications Active Scripts Medications Dose Route/Sig Max Daily Dose Days Date Category Levothyroxine Sodium 125 Mcg Tablet 1 Tab PO DAILY 04/26/20 Reported Hydroxyzine Hcl 25 Mg Tablet 25 Mg PO HS 02/14/20 Reported Amlodipine Besylate 5 Mg Tablet 5 Mg PO DAILY 30 08/22/19 Rx Duoneb 0.5-3(2.5) Mg/3 Ml (Albuterol/Ipratropium) 3 Ml Ampul.neb 3 Ml NEB RTQID 30 08/22/19 Rx Metoprolol Tartrate 25 Mg Tablet 25 Mg PO BID 06/15/19 Reported Donepezil Hcl 10 Mg Tablet 1 Tab PO DAILY 06/15/19 Reported Namenda (Memantine Hcl) 10 Mg Tablet 10 Mg PO BID 06/15/19 Reported Pantoprazole Sodium 40 Mg Tablet.dr 40 Mg PO DAILY 03/30/19 Reported Sucralfate 1 Gm Tablet 1 Gm PO BIDAC 03/30/19 Reported Cozaar (Losartan Potassium) 50 Mg Tablet 100 Mg PO DAILY 30 09/05/18 Rx Multaq (Dronedarone Hcl) 400 Mg Tablet 400 Mg PO BID 12/28/17 Reported Aspirin Ec (Aspirin) 81 Mg Tablet.dr 1 Tab PO DAILY 12/28/17 Reported Citalopram Hbr (Citalopram Hydrobromide) 10 Mg Tablet 10 Mg PO DAILY 12/11/17 Reported Atorvastatin Calcium 20 Mg Tablet 20 Mg PO HS 12/11/17 Reported Comments CXR IMPRESSION: No active cardiopulmonary disease. Impression . IMPRESSION: 1. Acute on chronic hypercapnic respiratory failure.--improved 2. Acute exacerbation of chronic obstructive pulmonary disease.--improved 3. Atrial fibrillation. 4. Mild dementia. 5. Seasonal allergies. Plan . PLAN: Patient continues to improve, stable from a pulmonary standpoint Continue supplemental oxygen as needed to keep oxygen saturations greater than 92% Continue steroids, now on po Bronchodilators DVT/GI prophylaxis Patient is okay to discharge home from pulmonary standpoint Discussed with TED WILSON MD Apr 30, 2020 09:23
[2020-04-30 10:44] VITALS: BP 124/58
[2020-04-30 13:43] LABS: BASE EXCESS COOX 0 mmol/L (-3-3); HCO3 COOX 24 mmol/L (21-28); METHEMOGLOBIN 0.4 % (0.0-1.9); OXYHEMOGLOBIN 94.3 %; PCO2 COOX 39 mmHg (35-46); PO2 COOX 79 mmHg (65-108); SAT O2 COOX 95 % (92-99)
[2020-04-30] MEDS ORDERED: FLU VACC QS 2020-21(6MOS+)/PF 0.5 ML SYRINGE. VAX IM ONE (14:30)
--- NOTE | 2020-04-30 14:49 | NUR ---
SW following. Spoke with RN and reviewed chart. SW met with pt one final time prior to discharge. Pt to discharge home today, self-care. Pt has 24 hour care from family. Pt has home 02 and is on oral medications. No further SW needs identified.
[2020-04-30 15:00] VITALS: BP 121/53
[2020-04-30] MEDS: ENOXAPARIN 40 MG/0.4 ML SYRINGE. SQ SCH (16:00)
--- NOTE | 2020-04-30 17:30 | NUR ---
Discharge Note: PT DISCHARGED HOME WITH SELF CARE. PT LEFT FACILITY VIA PRIVATE VEHICLE WITH [id number] AT 1715. PT STABLE AND ALERT UPON DISCHARGE. PT PIV REMOVED FROM L AC WITHOUT COMPLICATIONS, BANDAGE APPLIED. PT WAS EXPERIENCING SOME HALLUCINATIONS IN AM DISCUSSED WITH DR. JADE COREA ORDER TO OBTAIN IN ABG JUST TO RULO OUT OXYGENATION ISSUES. ABG RESULTS RECEIVED COMPLETELY NORMAL. DR. HANSEN OK TO DISCHARGE SEEMS TO THINK IT MIGHT BE A PROGRESSION OF PT DEMENTIA AND STAYING IN HOSPITAL FOR A FEW DAYS. [id number] NOTIFIED TO CONTINUE TO MONITOR FOR COMPLICATIONS OR CONTINUED HALLUCINATIONS APPOINTMENT WITH DR. ALCANTAR ON WEDNESDAY AT 0830 FOR FOLLOW-UP ALREADY SCHEDULED. PT AND [id number] EDUCATED ABOUT DISCHARGE MEDICATIONS, DISCHARGE INSTRUCTIONS, AND FOLLOW-UP CARE. NO CONCERNS VOICED AT THIS TIME. PT LEFT WITH ALL PERSONAL BELONGINGS. PATRIA CAMPUZANO Discharge instructions and discharge home medications reviewed with Patient and a copy given. All questions have been answered and understanding verbalized.
[2020-05-01] MEDS ORDERED: CEFD300C PO (01:38)
[2020-05-01] MEDS ORDERED: PRED20TA PO (01:38)
== END 2020-04-30 17:15 | disposition home or self-care (01) | DRG 189 ==
LOC: ER 13:35 → 5 NORTH 19:59 → ED HOLD 20:03 → 5 NORTH 20:59
PROVIDERS: ADMIT Family Medicine; ATTEND Family Medicine
DX: J96.22 Acute and chronic respiratory failure with hypercapnia (principal); E87.2 Acidosis; J44.1 Chronic obstructive pulmonary disease with (acute) exacerbation; J96.21 Acute and chronic respiratory failure with hypoxia; E03.9 Hypothyroidism, unspecified; E78.00 Pure hypercholesterolemia, unspecified; F03.90 Unspecified dementia, unspecified severity, without behavioral disturbance, psychotic disturbance, mood disturbance, and anxiety; I10 Essential (primary) hypertension; I48.91 Unspecified atrial fibrillation; J30.2 Other seasonal allergic rhinitis; Z90.49 Acquired absence of other specified parts of digestive tract; Z90.710 Acquired absence of both cervix and uterus
CPT/HCPCS: 36415; 36600; 71045; 80053; 81001; 82805; 82962; 83880; 84484; 85025; 87086; 90686; 93005; 94640; 94760; 96365; 96375; 99285; J1650; J2543; J2930; J7512; 97110-GO; 97110-GP; 97116-GP; 97535-GO; G0378; J7613

== ENCOUNTER 2020-04-30 22:07 | Emergency (ER) | payer MEDICARE, OTHER ==
[~2020-04-30] VITALS: Ht 157.5 cm; Wt 54.0 kg
[~2020-04-30 22:07] MED LIST changes: +LEVO125T5 PO
[2020-04-30 23:42] LABS: BASO % 1 % (0-3); EOS % 0 % (0-3); HEMATOCRIT 30.8 % (36.0-47.0); LYMPH # 0.5 x10^3/uL (1.0-4.8); LYMPH % 8 % (24-48); MEAN CORPUSCULAR HEMOGLOBIN 28 pg (25-35); MEAN CORPUSCULAR HGB CONC 33 g/dL (31-37); MEAN CORPUSCULAR VOLUME 87 fL (79-100); MONO # 0.6 x10^3/uL (0.0-1.1); MONO % 10 % (0-9); NEUT # 5.1 x10^3/uL (1.8-7.7); NEUT % 82 % (31-73); PLATELET COUNT 177 x10^3/uL (140-400); RED BLOOD COUNT 3.57 x10^6/uL (3.50-5.40); RED CELL DISTRIBUTION WIDTH 16.8 % (11.5-14.5); WHITE BLOOD COUNT 6.2 x10^3/uL (4.0-11.0)
[2020-04-30 23:53] LABS: CALCIUM 9.3 mg/dL (8.5-10.1); CREATININE 1.3 mg/dL (0.6-1.0); GFR 38.9; POTASSIUM 3.7 mmol/L (3.5-5.1)
[2020-04-30 23:58] LABS: ALBUMIN 4.1 g/dL (3.4-5.0); ALBUMIN/GLOBULIN RATIO 1.6 (1.0-1.7); MAGNESIUM 2.3 mg/dL (1.8-2.4); TOTAL BILIRUBIN 0.5 mg/dL (0.2-1.0); TOTAL PROTEIN 6.7 g/dL (6.4-8.2)
--- NOTE | 2020-05-01 00:26 | PHYS DOC ---
Past Medical History Past Medical History: A-Fib, COPD, Dementia, Hypertension, Hypothyroid, Other Additional Past Medical Histor: seasonal allergies Past Surgical History: Appendectomy, Hysterectomy Additional Past Surgical Histo: L hip Smoking Status: Never Smoker Alcohol Use: None Drug Use: None General Adult EDM: Chief Complaint: NAUSEA/VOMITING/DIARRHA HPI: HPI: Patient is a 84 year old female who was brought here from home due to nausea and cough. Patient had dementia, see did not know why she is here. Patient denies any chest pain, no abdominal pain, no cough, no fever. Patient has history of COPD. Her family stated that patient had cough with some green sputum today. Review of Systems: Review of Systems: Constitutional: Denies fever or chills. [] Eyes: Denies change in visual acuity. [] HENT: Denies nasal congestion or sore throat. [] Respiratory: Positive for cough and trouble breathing. Cardiovascular: Denies chest pain or edema. [] GI: Denies abdominal pain, nausea, vomiting, bloody stools or diarrhea. [] : Denies dysuria. [] Musculoskeletal: Denies back pain or joint pain. [] Integument: Denies rash. [] Neurologic: Denies headache, focal weakness or sensory changes. [] Endocrine: Denies polyuria or polydipsia. [] Lymphatic: Denies swollen glands. [] Psychiatric: Denies depression or anxiety. [] Heart Score: Risk Factors: Risk Factors: DM, Current or recent (<one month) smoker, HTN, HLP, family history of CAD, obesity. Risk Scores: Score 0 - 3: 2.5% MACE over next 6 weeks - Discharge Home Score 4 - 6: 20.3% MACE over next 6 weeks - Admit for Clinical Observation Score 7 - 10: 72.7% MACE over next 6 weeks - Early Invasive Strategies Allergies: Allergies: Allergies Coded Allergies Type Severity Reaction Last Updated Verified No Known Drug Allergies 07/15/16 No Physical Exam: PE: Constitutional: Well developed, well nourished, no acute distress, non-toxic appearance. [] HENT: Normocephalic, atraumatic, bilateral external ears normal, oropharynx moist, no oral exudates, nose normal. [] Eyes: PERRLA, EOMI, conjunctiva normal, no discharge. [] Neck: Normal range of motion, no tenderness, supple, no stridor. [] Cardiovascular:Heart rate regular rhythm, no murmur [] Lungs & Thorax: Bilateral breath sounds with expiratory wheezing, no active respiratory distress Abdomen: Bowel sounds normal, soft, no tenderness, no masses, no pulsatile masses. [] Skin: Warm, dry, no erythema, no rash. [] Back: No tenderness, no CVA tenderness. [] Extremities: No tenderness, no cyanosis, no clubbing, ROM intact, no edema. [] Neurologic: Patient is awake alert oriented to place and person, normal speech, walking around without any problem. There are no focal neurological deficits Psychologic: Affect normal, judgement normal, mood normal. [] Current Patient Data: Labs: Laboratory Tests Test 04/30/20 23:36 White Blood Count 6.2 x10^3/uL (4.0-11.0) Red Blood Count 3.57 x10^6/uL (3.50-5.40) Hemoglobin 10.0 g/dL (12.0-15.5) L Hematocrit 30.8 % (36.0-47.0) L Mean Corpuscular Volume 87 fL (79-100) Mean Corpuscular Hemoglobin 28 pg (25-35) Mean Corpuscular Hemoglobin Concent 33 g/dL (31-37) Red Cell Distribution Width 16.8 % (11.5-14.5) H Platelet Count 177 x10^3/uL (140-400) Neutrophils (%) (Auto) 82 % (31-73) H Lymphocytes (%) (Auto) 8 % (24-48) L Monocytes (%) (Auto) 10 % (0-9) H Eosinophils (%) (Auto) 0 % (0-3) Basophils (%) (Auto) 1 % (0-3) Neutrophils # (Auto) 5.1 x10^3/uL (1.8-7.7) Lymphocytes # (Auto) 0.5 x10^3/uL (1.0-4.8) L Monocytes # (Auto) 0.6 x10^3/uL (0.0-1.1) Eosinophils # (Auto) 0.0 x10^3/uL (0.0-0.7) Basophils # (Auto) 0.0 x10^3/uL (0.0-0.2) Sodium Level 140 mmol/L (136-145) Potassium Level 3.7 mmol/L (3.5-5.1) Chloride Level 102 mmol/L (98-107) Carbon Dioxide Level 31 mmol/L (21-32) Anion Gap 7 (6-14) Blood Urea Nitrogen 27 mg/dL (7-20) H Creatinine 1.3 mg/dL (0.6-1.0) H Estimated GFR (Cockcroft-Gault) 38.9 BUN/Creatinine Ratio 21 (6-20) H Glucose Level 108 mg/dL (70-99) H Calcium Level 9.3 mg/dL (8.5-10.1) Magnesium Level 2.3 mg/dL (1.8-2.4) Total Bilirubin 0.5 mg/dL (0.2-1.0) Aspartate Amino Transferase (AST) 15 U/L (15-37) Alanine Aminotransferase (ALT) 27 U/L (14-59) Alkaline Phosphatase 50 U/L (46-116) Troponin I Quantitative < 0.017 ng/mL (0.000-0.055) Total Protein 6.7 g/dL (6.4-8.2) Albumin 4.1 g/dL (3.4-5.0) Albumin/Globulin Ratio 1.6 (1.0-1.7) Laboratory Tests 04/30/20 23:36 Laboratory Tests 04/30/20 23:36 Vital Signs: Vital Signs Date Time Temp Pulse Resp B/P (MAP) Pulse Ox O2 Delivery O2 Flow Rate FiO2 04/30/20 22:31 98.6 65 16 149/87 (107) 94 Nasal Cannula 98.6 EKG: EKG: EKG was done at 2322, heart rate of 71 bpm, normal sinus rhythm, no ST segment ELEVATION. Radiology/Procedures: Radiology/Procedures: [][facility] [address] [place], [place] [id number] IMAGING REPORT Signed PATIENT: PATRIA CAMPUZANO ACCOUNT: [id number] : 1935 LOCATION: ER AGE: 84 SEX: F EXAM STATUS: REG ER ORD. PHYSICIAN: KENNA MANZO DO REASON: soa, cough,16 PROCEDURE: CHEST AP ONLY EXAM: CHEST ONE VIEW. HISTORY: Shortness of breath, cough. COMPARISON: 04/26/2020. 08/03/2019. FINDINGS: A frontal view of the chest is obtained. An airspace opacity in the retrocardiac distribution suggests a mild infiltrate. Hyperinflation suggests chronic obstructive pulmonary disease. Small pleural effusions cannot be excluded. There is no pneumothorax. The heart is not enlarged. There are atherosclerotic calcifications of the aorta. There is a chronic left rib fracture. A calcified granuloma is noted on the right. IMPRESSION: 1. Suspect a mild retrocardiac infiltrate. Electronically signed by: Julianna Benavides MD (05/01/2020 12:57 AM) [facility] DICTATED and SIGNED BY: ADIN BENAVIDES MD DATE: 05/01/20 0057 Course & Med Decision Making: Course & Med Decision Making Pertinent Labs and Imaging studies reviewed. (See chart for details) Patient is an 84-year female who was evaluated in ER due to cough and trouble breathing for evaluation of COPD, patient had a mild case of pneumonia. Patient was stable in the ER, vitals are within normal limits. Patient will be discharged home. He was discharged home with a prescription for prednisone and cefdinir. Dragon Disclaimer: Dragon Disclaimer: This electronic medical record was generated, in whole or in part, using a voice recognition dictation system. Departure Departure Impression: Primary Impression: COPD exacerbation Additional Impression: Pneumonia Disposition: 01 DC HOME SELF CARE/HOMELESS Condition: IMPROVED Referrals: QUINCY ALCANTAR MD (PCP) PLEASE FOLLOW UP WITH YOUR DOCTOR THIS WEEK FOR REEVALUATION. Patient Instructions: Chronic Obstructive Pulmonary Disease Exacerbation, Pneumonia, Adult Additional Instructions: Thank you for visiting our Emergency Department. We appreciate you trusting us with your care. If any additional problems come up don't hesitate to return to visit us. Please follow up with your primary care provider so they can plan additional care if needed and know about the problem that you had. If symptoms worsen come back to the Emergency Department. Any concerning symptoms that start such as chest pain, shortness of air, weakness or numbness on one side of the body, running high fevers or any other concerning symptoms return to the ER. Scripts Prednisone (PREDNISONE) 20 Mg Tablet 1 TAB PO DAILY, #5 TAB Prov: KENNA MANZO DO 05/01/20 Cefdinir (CEFDINIR) 300 Mg Capsule 1 CAP PO BID for 10 Days, #20 CAP Prov: KENNA MANZO DO 05/01/20 KENNA MANZO DO May 01, 2020 00:26
--- NOTE | 2020-05-01 01:00 | RAD ---
EXAM: CHEST ONE VIEW. HISTORY: Shortness of breath, cough. COMPARISON: 04/26/2020. 08/03/2019. FINDINGS: A frontal view of the chest is obtained. An airspace opacity in the retrocardiac distribution suggests a mild infiltrate. Hyperinflation suggests chronic obstructive pulmonary disease. Small pleural effusions cannot be excluded. There is no pneumothorax. The heart is not enlarged. There are atherosclerotic calcifications of the aorta. There is a chronic left rib fracture. A calcified granuloma is noted on the right. IMPRESSION: 1. Suspect a mild retrocardiac infiltrate. Electronically signed by: Julianna Benavides MD (05/01/2020 12:57 AM) [facility]
[2020-05-01] MEDS ORDERED: CEFD300C PO (01:38)
[2020-05-01] MEDS ORDERED: PRED20TA PO (01:38)
[2020-05-01] MEDS ORDERED: IPRATRPIUM/ALBUTEROL 0.5/2.5MG 3 ML NEBU. NEB ONE (02:00)
[2020-05-01] MEDS ORDERED: methylPREDNISolone SOD SUCC PF 125 MG/2 ML VIAL. IV ONE (02:00)
[2020-05-01] MEDS ORDERED: cefTRIAXone IV Push 1 GM VIAL. IVP ONE (02:00)
[2020-05-01 03:10] VITALS: BP 150/90
== END 2020-05-01 03:20 | disposition home or self-care (01) ==
LOC: ER 22:07
DX: J18.9 Pneumonia, unspecified organism (principal); J44.1 Chronic obstructive pulmonary disease with (acute) exacerbation; I10 Essential (primary) hypertension; E03.9 Hypothyroidism, unspecified; I48.91 Unspecified atrial fibrillation; F03.90 Unspecified dementia, unspecified severity, without behavioral disturbance, psychotic disturbance, mood disturbance, and anxiety
CPT/HCPCS: 36415; 71045; 80053; 83735; 84484; 85025; 94640; 96374; 96375; 99285; J0696; J2930

== ENCOUNTER 2020-10-21 20:13 | Observation (INO) | payer MEDICARE, OTHER ==
[~2020-10-21] VITALS: Ht 149.9 cm; Wt 50.4 kg
[~2020-10-21 20:13] MED LIST changes: -DRON400T PO; +DRON400T6 PO; +POTA10TA12 PO; +PRED50TA PO
--- NOTE | 2020-10-21 20:32 | EKG ---
[facility] [address] [place] [address] Test Date: 2020-10-21 Test Time: 20:20:46 Pat Name: PATRIA CAMPUZANO Department: Room: Gender: F Sky Diver: : 1935 Requested By: MICK WILSON Order Number: [id number] Reading MD: Measurements Intervals [place] Rate: 168 P: TN: QRS: 18 QRSD: 68 T: 51 QT: 264 QTc: 447 Interpretive Statements IRREGULAR RHYTHM, NO P-WAVE FOUND S1,S2,S3 PATTERN QRS(T) CONTOUR ABNORMALITY CONSIDER ANTEROSEPTAL MYOCARDIAL DAMAGE POSSIBLY ABNORMAL ECG RI6.02 No previous ECG available for comparison
[2020-10-21 20:44] LABS: BASO % 1 % (0-3); EOS # 0.1 x10^3/uL (0.0-0.7); EOS % 1 % (0-3); HEMATOCRIT 27.6 % (36.0-47.0); HEMOGLOBIN 8.9 g/dL (12.0-15.5); LYMPH # 0.4 x10^3/uL (1.0-4.8); LYMPH % 5 % (24-48); MEAN CORPUSCULAR HEMOGLOBIN 27 pg (25-35); MEAN CORPUSCULAR HGB CONC 32 g/dL (31-37); MEAN CORPUSCULAR VOLUME 83 fL (79-100); MONO # 0.9 x10^3/uL (0.0-1.1); MONO % 11 % (0-9); NEUT # 6.9 x10^3/uL (1.8-7.7); NEUT % 84 % (31-73); PLATELET COUNT 175 x10^3/uL (140-400); RED BLOOD COUNT 3.34 x10^6/uL (3.50-5.40); RED CELL DISTRIBUTION WIDTH 17.4 % (11.5-14.5); WHITE BLOOD COUNT 8.3 x10^3/uL (4.0-11.0)
--- NOTE | 2020-10-21 20:54 | RAD ---
XR CHEST 1V Clinical History: Reason: sob / Spl. Instructions: / History: Technique: AP view of the chest was obtained at 10/21/2020 8:29 PM. Comparison: September 25, 2020. Findings: The cardiomediastinal silhouette is normal. The pulmonary vasculature is normal. The lungs and pleura l margins are clear. Impression: No evidence of an acute cardiopulmonary process. Electronically signed by: José Miguel Valente III, MD (10/21/2020 8:51 PM) [facility]
[2020-10-21 21:00] LABS: CALCIUM 8.8 mg/dL (8.5-10.1); GFR 52.7
[2020-10-21] MEDS ORDERED: dilTIAZem IV PUSH 25 MG/5 ML VIAL IVP ONE ×2 (21:00→23:45)
[2020-10-21 21:04] LABS: % EOS 1 % (0-5); % LYMPHS 2 % (24-48); % MONOS 6 % (0-10); % SEGS 91 % (35-66); ANISOCYTOSIS SLIGHT; HYPOCHROMIA SLIGHT; OVALOCYTES FEW; PLT ESTIMATE ADEQUATE (ADEQUATE)
[2020-10-21 21:06] LABS: ALBUMIN 3.1 g/dL (3.4-5.0); ALBUMIN/GLOBULIN RATIO 1.1 (1.0-1.7); TOTAL BILIRUBIN 0.5 mg/dL (0.2-1.0)
--- NOTE | 2020-10-21 22:00 | PHYS DOC ---
Past Medical History Past Medical History: A-Fib, COPD, Dementia, Hypertension, Hypothyroid, Other Additional Past Medical Histor: seasonal allergies Past Surgical History: Appendectomy, Hysterectomy Additional Past Surgical Histo: L hip Smoking Status: Never Smoker Alcohol Use: None Drug Use: None General Adult EDM: Chief Complaint: RAPID HEART RATE HPI: HPI: Patient is a 84 year old female presents with a chief complaint of palpitations and shortness of breath. Patient states that she has felt short of breath for approximately 1 week. She denies any associated cough fever or chills. Patient states over the last few days she has noticed her heart racing. She denies any chest pain. Review of Systems: Review of Systems: Review of systems: Constitutional symptoms- No fever, no chills. Eyes- No Discharge, No Visual Loss Respiratory symptoms- Positive shortness of breath, No wheezing, No Dyspnea on Exertion Cardiovascular Systems; DENIES chest pain, Positive Palpitations, No syncope Gastrointestinal symptoms: NO abdominal pain, no nausea, no vomiting or diarrhea. Genitourinary symptoms: No dysuria. Musculoskeletal symptoms: No back pain No extremity pain. NEUROLOGICAL Symptoms: No headache, no generalized weakness; No focal Weakness Heart Score: C/O Chest Pain: N/A Risk Factors: Risk Factors: DM, Current or recent (<one month) smoker, HTN, HLP, family history of CAD, obesity. Risk Scores: Score 0 - 3: 2.5% MACE over next 6 weeks - Discharge Home Score 4 - 6: 20.3% MACE over next 6 weeks - Admit for Clinical Observation Score 7 - 10: 72.7% MACE over next 6 weeks - Early Invasive Strategies Current Medications: Current Medications Medications (Trade) Dose Ordered Sig/[facility] Start Time Stop Time Status Last Admin Dose Admin Diltiazem HCl (Cardizem Iv Push) 20 mg 1X ONCE 10/21/20 21:00 10/21/20 21:01 DC 10/21/20 21:14 20 MG Diltiazem HCl 125 mg/Sodium Chloride 125 ml @ 5 mls/hr 1X ONCE 10/21/20 21:00 10/22/20 21:59 10/21/20 21:19 5 MLS/HR Allergies: Allergies: Allergies Coded Allergies Type Severity Reaction Last Updated Verified No Known Drug Allergies 07/15/16 No Physical Exam: PE: General: alert, no acute distress. Skin: warm, dry and intact. Head:: Normocephalic, atraumatic. Neck: Trachea midline. Eyes: EOMI, Normal conjunctiva, No drainage CARDIOVASCULAR: Tachycardia irregular RESPIRATORY: No respiratory distress Back: Full range of motion. MUSCULOSKELETAL: Full range of motion of bilateral upper and lower extremities. GASTROINTESTINAL: Abdomen soft without rebound or guarding. NEUROLOGICAL: Alert and noted to person, place and time. No neurological deficits observed Psychiatric: Cooperative. Normal judgment Current Patient Data: Labs: Laboratory Tests Test 10/21/20 20:35 White Blood Count 8.3 x10^3/uL (4.0-11.0) Red Blood Count 3.34 x10^6/uL (3.50-5.40) L Hemoglobin 8.9 g/dL (12.0-15.5) L Hematocrit 27.6 % (36.0-47.0) L Mean Corpuscular Volume 83 fL (79-100) Mean Corpuscular Hemoglobin 27 pg (25-35) Mean Corpuscular Hemoglobin Concent 32 g/dL (31-37) Red Cell Distribution Width 17.4 % (11.5-14.5) H Platelet Count 175 x10^3/uL (140-400) Neutrophils (%) (Auto) 84 % (31-73) H Lymphocytes (%) (Auto) 5 % (24-48) L Monocytes (%) (Auto) 11 % (0-9) H Eosinophils (%) (Auto) 1 % (0-3) Basophils (%) (Auto) 1 % (0-3) Neutrophils # (Auto) 6.9 x10^3/uL (1.8-7.7) Lymphocytes # (Auto) 0.4 x10^3/uL (1.0-4.8) L Monocytes # (Auto) 0.9 x10^3/uL (0.0-1.1) Eosinophils # (Auto) 0.1 x10^3/uL (0.0-0.7) Basophils # (Auto) 0.0 x10^3/uL (0.0-0.2) Segmented Neutrophils % 91 % (35-66) H Lymphocytes % 2 % (24-48) L Monocytes % 6 % (0-10) Eosinophils % 1 % (0-5) Platelet Estimate Adequate (ADEQUATE) Hypochromasia Slight Anisocytosis Slight Ovalocytes Few Sodium Level 134 mmol/L (136-145) L Potassium Level 4.0 mmol/L (3.5-5.1) Chloride Level 98 mmol/L (98-107) Carbon Dioxide Level 31 mmol/L (21-32) Anion Gap 5 (6-14) L Blood Urea Nitrogen 21 mg/dL (7-20) H Creatinine 1.0 mg/dL (0.6-1.0) Estimated GFR (Cockcroft-Gault) 52.7 BUN/Creatinine Ratio 21 (6-20) H Glucose Level 124 mg/dL (70-99) H Calcium Level 8.8 mg/dL (8.5-10.1) Total Bilirubin 0.5 mg/dL (0.2-1.0) Aspartate Amino Transferase (AST) 17 U/L (15-37) Alanine Aminotransferase (ALT) 19 U/L (14-59) Alkaline Phosphatase 46 U/L (46-116) Troponin I Quantitative < 0.017 ng/mL (0.000-0.055) LK-Bxy-F-Type Natriuretic Peptide 354 pg/mL (0-449) Total Protein 6.0 g/dL (6.4-8.2) L Albumin 3.1 g/dL (3.4-5.0) L Albumin/Globulin Ratio 1.1 (1.0-1.7) Laboratory Tests 10/21/20 20:35 Laboratory Tests 10/21/20 20:35 Vital Signs: Vital Signs Date Time Temp Pulse Resp B/P (MAP) Pulse Ox O2 Delivery O2 Flow Rate FiO2 10/21/20 21:15 150 20 107/54 (71) 98 Nasal Cannula 2.0 10/21/20 20:15 99.0 99.0 EKG: EKG: [] EKG performed at 2020 Heart rate 168 A. fib RVR EKG performed at 2149 heart rate [address] elevation no ST depression no acute MA Radiology/Procedures: Radiology/Procedures: [] Impression: CHEST XRAY WET READ No focal infiltrates Course & Med Decision Making: Course & Med Decision Making Pertinent Labs and Imaging studies reviewed. (See chart for details) [] Patient was evaluated for chief complaint. Work-up consisted of laboratory analysis radiologic imaging and EKG. Treatment included Cardizem 20 mg bolus followed by Cardizem 5 mg/h drip. Patient converted to a sinus rhythm post treatment. Patient was admitted to the hospitalist with cardiology consult. Dragon Disclaimer: Dragon Disclaimer: This electronic medical record was generated, in whole or in part, using a voice recognition dictation system. Departure Departure Impression: Primary Impression: Atrial fibrillation with RVR Disposition: ADMITTED INPT THIS HOSP Admitting Physician: Quincy Alcantar Condition: STABLE Referrals: QUINCY ALCANTAR MD (PCP) MICK WILSON DO Oct 21, 2020 22:00
--- NOTE | 2020-10-21 23:25 | EKG ---
[facility] [address] [place] [address] Test Date: 2020-10-21 Test Time: 21:49:26 Pat Name: PATRIA CAMPUZANO Department: Room: Gender: F Button Riveter: : [id number] Requested By: MICK WILSON Order Number: [id number] Reading MD: Measurements Intervals [place] Rate: 87 P: 64 MD: 180 QRS: 0 QRSD: 68 T: 56 QT: 344 QTc: 414 Interpretive Statements SINUS RHYTHM LEFTWARD AXIS QRS(T) CONTOUR ABNORMALITY CONSIDER ANTEROSEPTAL MYOCARDIAL DAMAGE POSSIBLY ABNORMAL ECG RI6.02 No previous ECG available for comparison
[2020-10-22] VITALS (7 sets, daily range): BP systolic 90–138; BP diastolic 45–62
[2020-10-22 07:39] LABS: BASO % 1 % (0-3); EOS # 0.1 x10^3/uL (0.0-0.7); EOS % 2 % (0-3); HEMATOCRIT 26.1 % (36.0-47.0); HEMOGLOBIN 8.4 g/dL (12.0-15.5); LYMPH # 0.6 x10^3/uL (1.0-4.8); LYMPH % 13 % (24-48); MEAN CORPUSCULAR HEMOGLOBIN 27 pg (25-35); MEAN CORPUSCULAR HGB CONC 32 g/dL (31-37); MEAN CORPUSCULAR VOLUME 83 fL (79-100); MONO # 0.7 x10^3/uL (0.0-1.1); MONO % 17 % (0-9); NEUT # 2.9 x10^3/uL (1.8-7.7); NEUT % 68 % (31-73); PLATELET COUNT 159 x10^3/uL (140-400); RED BLOOD COUNT 3.15 x10^6/uL (3.50-5.40); RED CELL DISTRIBUTION WIDTH 17.8 % (11.5-14.5); WHITE BLOOD COUNT 4.3 x10^3/uL (4.0-11.0)
[2020-10-22 07:59] LABS: ALBUMIN 3.1 g/dL (3.4-5.0); CREATININE 0.9 mg/dL (0.6-1.0); GFR 59.5; POTASSIUM 3.5 mmol/L (3.5-5.1); TOTAL BILIRUBIN 0.6 mg/dL (0.2-1.0); TOTAL PROTEIN 6.2 g/dL (6.4-8.2)
[2020-10-22] MEDS ORDERED: PANTOPRAZOLE 40 MG TABLET.DR. PO SCH (09:00)
[2020-10-22] MEDS ORDERED: DRONEDARONE HCL 400 MG TABLET PO SCH (09:00)
[2020-10-22] MEDS ORDERED: METOPROLOL TART IMMED RELEASE 25 MG TABLET. PO SCH (09:00)
[2020-10-22] MEDS ORDERED: LEVOTHYROXINE 125 MCG TABLET PO SCH (09:00)
[2020-10-22] MEDS ORDERED: MEMANTINE 10 MG TABLET. PO SCH (09:00)
[2020-10-22] MEDS ORDERED: ASPIRIN ENTERIC COATED 81 MG TABLET.DR. PO SCH (09:00)
[2020-10-22] MEDS ORDERED: LOSARTAN POTASSIUM 50 MG TABLET. PO SCH (09:00)
[2020-10-22] MEDS ORDERED: DONEPEZIL HCL 10 MG TABLET. PO SCH (09:00)
[2020-10-22] MEDS ORDERED: CITALOPRAM 10 MG TABLET. PO SCH (09:00)
--- NOTE | 2020-10-22 09:38 | HP ---
ADMIT DATE: 10/21/2020 CHIEF COMPLAINT AND HISTORY OF PRESENT ILLNESS: This 84-year-old white female who is well known to me in followup in the office. The patient was admitted through the Emergency Room with palpitations, found to be in atrial fibrillation with rapid ventricular response in the 160s, started on a Cardizem drip with conversion to a normal sinus rhythm in the Emergency Room. PAST MEDICAL HISTORY: Remarkable for AFib, COPD, mild dementia, hypertension, hypothyroidism. PAST SURGICAL HISTORY: Remarkable for prior left hip surgery as well as a hysterectomy. MEDICATIONS: Brought with the patient, listed on the computer and have been addressed. ALLERGIES: She has no known drug allergies. SOCIAL HISTORY: She is a lifetime nonsmoker, nondrinker, does not use drugs. , lives with her son and [id number]. FAMILY HISTORY: Noncontributory. REVIEW OF SYSTEMS: Currently remarkable for her feeling much better. She states she is still a little short of breath, but feels like it is at her baseline, but the palpitations and any chest pressure she was having have resolved. PHYSICAL EXAMINATION: GENERAL: She is well-developed, well-nourished white female, in no acute distress. VITAL SIGNS: Stable. She is afebrile. HEAD, EYES, EARS, NOSE AND THROAT: Remarkable for O2 glasses. NECK: Supple without adenopathy or thyromegaly. CHEST: Reveals slightly decreased breath sounds, but clear. HEART: Regular rate and rhythm without S3, S4 or murmur. ABDOMEN: Soft, nontender, without hepatosplenomegaly or mass. EXTREMITIES: Without cyanosis, clubbing, or edema. NEUROLOGIC: She is intact. LABORATORY DATA: Initial laboratory is remarkable for hemoglobin of 8.9, which is around her baseline. Chem panel was mostly unremarkable. Chest x-ray shows no acute process. IMPRESSION: 1. Atrial fibrillation with rapid ventricular response ____ conversion to normal sinus rhythm. 3. Chronic obstructive pulmonary disease. 4. Mild dementia. PLAN: Continue present care. Cardiology is consulted to adjust medications prior to discharge to try to prevent further episodes of the same. QUINCY ALCANTAR MD DR: MAYCOL/erick JOB#: [id number] / [id number]
--- NOTE | 2020-10-22 10:43 | PDOC2 ---
JESSICA BOB TEARER [employer]ESS [employer]IPPING 10/22/20 1043: CARDIAC CONSULT DATE OF CONSULT Date of Consult DATE: 10/22/20 TIME: 10:33 REASON FOR CONSULT Reason for Consult: AFIB REFERRING PHYSICIAN Referring Physician: Dr. Malave SOURCE Source: Chart review, Patient HISTORY OF PRESENT ILLNESS HISTORY OF PRESENT ILLNESS This is an 84 yo female who presented secondary to palpitation and shortness of breath. Initial EKG noted with AFIB with RVR, which prompted this consult. Converted back to SR with Cardizem and has been maintaining. Presently has no complaints. Denies any chest pain, palpitations, dizziness, diaphoresis, or nausea/vomiting. Reports compliance with medications. No recent falls at home. PAST MEDICAL HISTORY Past Medical History Cardiovascular: AFIB, HTN, Hyperlipidemia Pulmonary: COPD CENTRAL NERVOUS SYSTEM: Dementia ENT: Allergic Rhinitis Endocrine: Hypothyroidism PAST SURGICAL HISTORY Past Surgical History Appendectomy, Arthroscopy (left hip), Cataract Removal, Hysterectomy FAMILY HISTORY Family History: Other (noncontributory ) SOCIAL HISTORY Social History Smoke: No ALCOHOL: none Drugs: None CURRENT MEDICATIONS CURRENT MEDICATIONS Current Medications Medications (Trade) Dose Ordered Sig/Silvia Route PRN Reason Start Time Stop Time Status Last Admin Dose Admin Diltiazem HCl (Cardizem Iv Push) 20 mg 1X ONCE IVP 10/21/20 21:00 10/21/20 21:01 DC 10/21/20 21:14 Diltiazem HCl 125 mg/Sodium Chloride 125 ml @ 5 mls/hr 1X ONCE IV 10/21/20 21:00 10/22/20 21:59 10/21/20 21:19 Diltiazem HCl (Cardizem Iv Push) 20 mg 1X ONCE IVP 10/21/20 23:45 10/21/20 23:47 DC 10/21/20 23:38 Aspirin (Ecotrin) 81 mg DAILY PO 10/22/20 09:00 10/22/20 08:28 Citalopram Hydrobromide (CeleXA) 10 mg DAILY PO 10/22/20 09:00 10/22/20 08:27 Donepezil HCl (Aricept) 10 mg DAILY PO 10/22/20 09:00 10/22/20 08:27 Dronedarone (Multaq) 400 mg BID PO 10/22/20 09:00 10/22/20 08:28 Levothyroxine Sodium (Synthroid) 125 mcg DAILY07 PO 10/22/20 09:00 10/22/20 08:28 Losartan Potassium (Cozaar) 100 mg DAILY PO 10/22/20 09:00 10/22/20 08:28 Memantine (Namenda) 10 mg BID PO 10/22/20 09:00 10/22/20 08:27 Metoprolol Tartrate (Lopressor) 25 mg BID PO 10/22/20 09:00 10/22/20 08:27 Pantoprazole Sodium (Protonix) 40 mg DAILY PO 10/22/20 09:00 10/22/20 08:27 ALLERGIES ALLERGIES: Coded Allergies: No Known Drug Allergies (Unverified , 07/15/16) ROS Review of System 14 point ROS conducted with pertinent positives noted above in HPI PHYSICAL EXAM PHYSICAL EXAM General: Alert, Oriented X3, Cooperative, No acute distress HEENT: Atraumatic, Mucous membr. moist/pink Lungs: CTA Heart: Regular rate (SR) Abdomen: Soft, No tenderness Extremities: No cyanosis, No edema Skin: No breakdown, No significant lesion Neuro: Normal speech, Sensation intact Psych/Mental Status: Mental status NL, Mood NL MUSCULOSKELETAL: Osteoarthritic changes both hands VITALS/I&O VITALS/I&O: Vital Signs Date Time Temp Pulse Resp B/P (MAP) Pulse Ox O2 Delivery O2 Flow Rate FiO2 10/22/20 08:28 64 138/62 10/22/20 08:00 Nasal Cannula 1.0 10/22/20 07:00 97.7 18 97 97.7 I & O 10/21/20 10/21/20 10/22/20 15:00 23:00 07:00 Intake Total 200 ml Balance 200 ml LABS Lab: Laboratory Tests Test 10/21/20 20:35 10/22/20 07:20 White Blood Count 8.3 x10^3/uL (4.0-11.0) 4.3 x10^3/uL (4.0-11.0) Red Blood Count 3.34 x10^6/uL (3.50-5.40) L 3.15 x10^6/uL (3.50-5.40) L Hemoglobin 8.9 g/dL (12.0-15.5) L 8.4 g/dL (12.0-15.5) L Hematocrit 27.6 % (36.0-47.0) L 26.1 % (36.0-47.0) L Mean Corpuscular Volume 83 fL (79-100) 83 fL (79-100) Mean Corpuscular Hemoglobin 27 pg (25-35) 27 pg (25-35) Mean Corpuscular Hemoglobin Concent 32 g/dL (31-37) 32 g/dL (31-37) Red Cell Distribution Width 17.4 % (11.5-14.5) H 17.8 % (11.5-14.5) H Platelet Count 175 x10^3/uL (140-400) 159 x10^3/uL (140-400) Neutrophils (%) (Auto) 84 % (31-73) H 68 % (31-73) Lymphocytes (%) (Auto) 5 % (24-48) L 13 % (24-48) L Monocytes (%) (Auto) 11 % (0-9) H 17 % (0-9) H Eosinophils (%) (Auto) 1 % (0-3) 2 % (0-3) Basophils (%) (Auto) 1 % (0-3) 1 % (0-3) Neutrophils # (Auto) 6.9 x10^3/uL (1.8-7.7) 2.9 x10^3/uL (1.8-7.7) Lymphocytes # (Auto) 0.4 x10^3/uL (1.0-4.8) L 0.6 x10^3/uL (1.0-4.8) L Monocytes # (Auto) 0.9 x10^3/uL (0.0-1.1) 0.7 x10^3/uL (0.0-1.1) Eosinophils # (Auto) 0.1 x10^3/uL (0.0-0.7) 0.1 x10^3/uL (0.0-0.7) Basophils # (Auto) 0.0 x10^3/uL (0.0-0.2) 0.0 x10^3/uL (0.0-0.2) Segmented Neutrophils % 91 % (35-66) H Lymphocytes % 2 % (24-48) L Monocytes % 6 % (0-10) Eosinophils % 1 % (0-5) Platelet Estimate Adequate (ADEQUATE) Hypochromasia Slight Anisocytosis Slight Ovalocytes Few Sodium Level 134 mmol/L (136-145) L 136 mmol/L (136-145) Potassium Level 4.0 mmol/L (3.5-5.1) 3.5 mmol/L (3.5-5.1) Chloride Level 98 mmol/L (98-107) 99 mmol/L (98-107) Carbon Dioxide Level 31 mmol/L (21-32) 34 mmol/L (21-32) H Anion Gap 5 (6-14) L 3 (6-14) L Blood Urea Nitrogen 21 mg/dL (7-20) H 16 mg/dL (7-20) Creatinine 1.0 mg/dL (0.6-1.0) 0.9 mg/dL (0.6-1.0) Estimated GFR (Cockcroft-Gault) 52.7 59.5 BUN/Creatinine Ratio 21 (6-20) H 18 (6-20) Glucose Level 124 mg/dL (70-99) H 84 mg/dL (70-99) Calcium Level 8.8 mg/dL (8.5-10.1) 9.0 mg/dL (8.5-10.1) Total Bilirubin 0.5 mg/dL (0.2-1.0) 0.6 mg/dL (0.2-1.0) Aspartate Amino Transferase (AST) 17 U/L (15-37) 14 U/L (15-37) L Alanine Aminotransferase (ALT) 19 U/L (14-59) 21 U/L (14-59) Alkaline Phosphatase 46 U/L (46-116) 42 U/L (46-116) L Troponin I Quantitative < 0.017 ng/mL (0.000-0.055) OB-Phz-V-Type Natriuretic Peptide 354 pg/mL (0-449) Total Protein 6.0 g/dL (6.4-8.2) L 6.2 g/dL (6.4-8.2) L Albumin 3.1 g/dL (3.4-5.0) L 3.1 g/dL (3.4-5.0) L Albumin/Globulin Ratio 1.1 (1.0-1.7) 1.0 (1.0-1.7) Laboratory Tests 10/21/20 20:35 10/22/20 07:20 Laboratory Tests 10/21/20 20:35 10/22/20 07:20 ECHOCARDIOGRAM ECHOCARDIOGRAM <Conclusion> The left ventricular systolic function is normal and the ejection fraction is within normal range. The Ejection Fraction is 60-65%. There is normal LV segmental wall motion. Doppler and Color Flow revealed mild to moderate aortic regurgitation. DATE: 02/14/20 1409 ASSESSMENT/PLAN ASSESSMENT/PLAN 1. PAFIB with RVR; Convert back to SR with IV Cardizem. Echo 02/04 with preserved LV systolic function as noted above. On metoprolol for rate control and Multaq for rhythm maintenance. 2. Hypertension; controlled 3. Hyperlipidemia 4. COPD; stable 5. Mild dementia Recommendations Resume metoprolol for rate control Will continue Multaq for now ASA for stroke prophylaxis Probable poor candidate for long-term OAC. Could consider outpatient referral for LAAO Will arrange outpatient referral to EP and event monitor to note AFIB burden Follow up in our office with Dr. Rojas as scheduled BERENICE ROJAS MD 10/22/20 1806: CARDIAC CONSULT ASSESSMENT/PLAN ASSESSMENT/PLAN Patient seen and examined I agree with our nurse practitioners assessment and plan. PAFIB with RVR; Convert back to SR with IV Cardizem. Echo 02/04 with preserved LV systolic function as noted above. On metoprolol for rate control and Multaq for rhythm maintenance. Continue present medications. Outpatient EP evaluation and office follow-up. Event monitor for A. fib burden. Hypertension; controlled Hyperlipidemia . Continue present treatment. COPD; stable Mild dementia JESSICA BOB APRN Oct 22, 2020 10:43 BERENICE ROJAS MD Oct 22, 2020 18:06
[2020-10-22] MEDS: IPRATRPIUM/ALBUTEROL 0.5/2.5MG 3 ML NEBU. NEB SCH ×2 (11:18→15:56)
--- NOTE | 2020-10-22 13:43 | NUR ---
SS following for discharge planning. SS reviewed pt chart and discussed with pt RN. Pt is from home with son and daughter in law and is currently requiring oxygen at one liter nasal canula. Pt has home oxygen and trilogy machine at home through [employer], ; fax [phone]. Pt has had [facility], ; fax [phone], in the past. Cardiology signed off. Discharge plan is to home when medically ready. Dr. Lauren notified by RN. SS will continue to follow for discharge planning.
--- NOTE | 2020-10-22 16:13 | SNU/HH DC ---
DISCHARGE WITH HOME HEALTH DISCHARGE INFORMATION: Discharge Date: Oct 22, 2020 Final Diagnosis: Problems Medical Problems: (1) Atrial fibrillation with RVR Status: Acute Condition on Discharge: Stable CODE STATUS: Code Status: Full HOME HEALTH: Face to Face: I certify this patient is under my care and that I, or a nurse practitioner or physician's supply chain assistant working with me, had a face to face encounter that meets the physician face to face encounter requirements with this patient on 10/22/20. Nursing Home For: Assess Cardiopulm Status, Assess/Skilled Observatio RN For Eval/Treatment: Yes Pt Meets Homebound Status: Fatigue w/ amb., Poor cognition POST DISCHARGE ORDERS: Activity Instructions for Disc: Activity as tolerated Weight Bearing Status after Di: As tolerated DIET AFTER DISCHARGE: Regular Wound/Incision Care: No wound care needed CHECKS AFTER DISCHARGE: Checks after discharge: Check blood press - daily, Check your Temp as needed TREATMENT/EQUIPMENT ORDERS: Adaptive Equipment Issued: None Discharge Respiratory Equipmen: Oxygen CERTIFICATION STATEMENT: Certification Statement: Certification Statement: Based on the above finding, I certify that this patient is confined to the home and needs intermittent group home care, physical therapy and/or speech therapy, or continues to need occupational therapy.~ This patient is under my care, and I have initiated the establishment of the plan of care.~ This patient will be followed by myself or a community physician who will periodically review the plan of care. Home Meds Active Scripts Ipratropium/Albuterol Sulfate (DUONEB 0.5-3(2.5) MG/3 ML) 3 Ml Ampul.neb, 3 ML NEB RTQID for copd for 30 Days, #120 EACH Prov:QUINCY ALCANTAR MD 08/22/19 Losartan Potassium (COZAAR ) 50 Mg Tablet, 100 MG PO DAILY for high blood pressure for 30 Days, #60 TAB Prov:GREG AGUILAR MD 09/05/18 Reported Medications Levothyroxine Sodium (LEVOTHYROXINE SODIUM) 125 Mcg Tablet, 1 TAB PO DAILY for thyroid 04/26/20 Hydroxyzine Hcl (HYDROXYZINE HCL) 25 Mg Tablet, 25 MG PO HS for sleep 02/14/20 Metoprolol Tartrate (METOPROLOL TARTRATE) 25 Mg Tablet, 25 MG PO BID for FOR HYPERTENSION, #60 TAB 0 Refills 06/15/19 Donepezil Hcl (DONEPEZIL HCL) 10 Mg Tablet, 1 TAB PO DAILY for DEMENTIA, #90 TAB 3 Refills 06/15/19 Memantine Hcl (NAMENDA) 10 Mg Tablet, 10 MG PO BID for DEMENTIA, TAB 06/15/19 Pantoprazole Sodium (Pantoprazole Sodium) 40 Mg Tablet.dr, 40 MG PO DAILY for gerd 03/30/19 Sucralfate (SUCRALFATE) 1 Gm Tablet, 1 GM PO BIDAC for ulcers 03/30/19 Dronedarone Hcl (MULTAQ) 400 Mg Tablet, 400 MG PO BID for heart arrhythmia, #60 TAB 5 Refills 12/28/17 Aspirin (ASPIRIN EC) 81 Mg Tablet.dr, 1 TAB PO DAILY, #30 TAB 3 Refills 12/28/17 Citalopram Hydrobromide (CITALOPRAM HBR) 10 Mg Tablet, 10 MG PO DAILY for depression 12/11/17 Atorvastatin Calcium (ATORVASTATIN CALCIUM) 20 Mg Tablet, 20 MG PO HS for HLD 12/11/17 QUINCY ALCANTAR MD Oct 22, 2020 16:13
[2020-10-22] MEDS ORDERED: SUCRALFATE 1 GM TABLET. PO SCH (16:30)
--- NOTE | 2020-10-22 16:30 | NUR ---
SS following up with discharge planning. Discharge orders for home healthcare received. SS phoned and faxed discharge orders and referral to [facility], ; fax [phone]. Pt's RN notified.
--- NOTE | 2020-10-22 18:00 | NUR ---
DISCHARGED PATIENT TO HOME WITH HOME HEALTH. DISCHARGE INSTRUCTIONS GIVEN TO PATIENT AND FAMILY. PIV AND HEART MONITOR REMOVED. ESCORTED PATIENT OFF UNIT PER WHEELCHAIR INTO A PRIVATE VEHICLE.
[2020-10-22] MEDS ORDERED: ATORVASTATIN CALCIUM 20 MG TABLET PO SCH (21:00)
[2020-10-22] MEDS ORDERED: hydrOXYzine 25 MG TABLET PO SCH (21:00)
--- NOTE | 2020-10-22 22:13 | DS ---
DATE OF DISCHARGE: 10/22/2020 PRIMARY DIAGNOSIS: Symptomatic atrial fibrillation with rapid ventricular response. ADDITIONAL DIAGNOSES: Chronic obstructive pulmonary disease, mild dementia, hypertension and hypothyroidism. CHIEF COMPLAINT AND HISTORY OF PRESENT ILLNESS: This 84-year-old white female was admitted through the Emergency Room with AFib with RVR, symptomatic and converted with Cardizem drip shortly after admission. SUMMARY OF STAY: The patient has a known history of AFib and has had a prior normal echo. Cardiology saw in consultation, recommended resuming metoprolol for rate control and will continue Multaq with aspirin for stroke prophylaxis and are going to arrange outpatient referral for EP and event monitor to note AFib burden. They felt she was ready to go without any other changes and this was accomplished on the day of discharge. DISPOSITION: She is discharged to home. DIET: Regular diet. ACTIVITY: As tolerated. FOLLOWUP: Office in 1-2 weeks. DISCHARGE MEDICATIONS: Listed on the med rec and have been addressed. QUINCY ALCANTAR MD DR: MAYCOL/erick JOB#: [id number] / [id number]
== END 2020-10-22 18:00 | disposition home health service (06) ==
LOC: ER 20:13 → 2 SOUTH 23:32
PROVIDERS: ADMIT Family Medicine; ATTEND Family Medicine
DX: I48.20 Chronic atrial fibrillation, unspecified (principal); J44.9 Chronic obstructive pulmonary disease, unspecified; F02.80 Dementia in other diseases classified elsewhere, unspecified severity, without behavioral disturbance, psychotic disturbance, mood disturbance, and anxiety; I10 Essential (primary) hypertension; E03.9 Hypothyroidism, unspecified; J30.9 Allergic rhinitis, unspecified; Z90.49 Acquired absence of other specified parts of digestive tract; Z90.710 Acquired absence of both cervix and uterus; Z98.890 Other specified postprocedural states
CPT/HCPCS: 36415; 71045; 80053; 83880; 84484; 85007; 85025; 93005; 94640; 96365; 96366; 96376; 99285; G0378; J3490; G0379